=== PATIENT | female | born 1935 | race Caucasian/White ===

== ENCOUNTER 2016-10-02 00:53 | Inpatient (IN) | payer MEDICARE ==
[2016-10-02] MEDS ORDERED: Morphine INJ* 2 MG/ML 1 ML SYRINGE IV ONE (01:55)
[2016-10-02 02:07] LABS: Hematocrit 39 % (35-47); Hemoglobin 12.6 g/dl (12.0-16.0); Mean Corpuscular HGB Conc 32 g/dl (31-36); Mean Corpuscular Hemoglobin 31 pg (27-31); Mean Corpuscular Volume 95 fL (80-97); Mean Platelet Volume 9 um3 (7.4-10.4); Red Blood Count 4.11 10^6/ul (4.0-5.4); Red Cell Distribution Width 14 % (10.5-15); White Blood Count 12.7 10^3/ul (3.5-10.8)
[2016-10-02 02:09] LABS: Add Diff/Slide Review? Slide Review Added; Comments Flag Yes
[2016-10-02 02:19] LABS: Albumin 3.8 g/dL (3.2-5.2); Calcium 10.5 mg/dL (8.6-10.3); EGFR African American 163.2 (>60); EGFR Non-African American 126.9 (>60); Globulin 3.9 g/dL (2-4); Potassium 3.4 mmol/L (3.5-5.0); Total Bilirubin 0.8 mg/dL (0.2-1.0); Total Protein 7.7 g/dL (6.4-8.9)
[2016-10-02] MEDS ORDERED: HYDROcodone/ACETAMIN 5-325 MG* 1 TAB PO PRN (03:35)
[2016-10-02] MEDS ORDERED: Ondansetron INJ* 2 MG/ML VIAL IV PRN ×2 (03:37→20:12)
[2016-10-02] MEDS ORDERED: Acetaminophen TAB* 325 MG PO PRN (03:37)
[2016-10-02] MEDS: Morphine INJ* 2 MG/ML 1 ML SYRINGE IV PRN ×4 (04:04→16:12)
[2016-10-02] MEDS: NS 0.9% 1000 ML* 1,000 ML IV SCH ×3 (04:55→21:13)
[2016-10-02] MEDS: traMADol TAB* 50 MG PO PRN ×2 (05:03→21:47)
[2016-10-02 05:04] LABS: Urine Bacteria Absent (Absent); Urine Bilirubin Negative (Negative); Urine Glucose Negative (Negative); Urine Nitrite Negative (Negative)
[2016-10-02] MEDS ORDERED: Cyclobenzaprine TAB* 10 MG PO PRN (05:49)
[2016-10-02] MEDS ORDERED: Heparin VIAL(*) 5000 UNITS/ML VIAL (FIVE THOUSAND) SUBCUT SCH (06:00)
[2016-10-02] MEDS ORDERED: Cyclobenzaprine TAB* 10 MG ONE (06:12)
[2016-10-02] MEDS ORDERED: amLODIPine TAB* 5 MG ONE (06:12)
[2016-10-02] MEDS: amLODIPine TAB* 5 MG PO SCH ×2 (06:14→08:38)
--- NOTE | 2016-10-02 07:06 | RAD ---
INDICATION: Trauma, right hip pain. COMPARISON: There are no prior studies available for comparison. TECHNIQUE: An AP view of the pelvis and frontal and lateral views of the right hip were obtained. FINDINGS: There is a fracture at the base of the right femoral neck intertrochanteric region. The fracture fragments are slightly distracted. There is varus angulation of the fracture fragments. IMPRESSION: DISPLACED, ANGULATED FRACTURE OF THE RIGHT FEMORAL NECK.
--- NOTE | 2016-10-02 07:09 | RAD ---
INDICATION: Trauma, right hip fracture. COMPARISON: There are no prior studies available for comparison. TECHNIQUE: An AP supine film of the chest was obtained. FINDINGS: The heart appears mildly enlarged. There is elevation of the right hemidiaphragm. There are bilateral nodular densities and a small infiltrate at the left lung base. There is a trace right pleural effusion. IMPRESSION: 1. BILATERAL NODULAR DENSITIES, RECOMMEND A CT OF THE CHEST WITH CONTRAST FOR FURTHER EVALUATION. 2. SMALL LEFT BASILAR INFILTRATE. 3. TRACE RIGHT PLEURAL EFFUSION.
[2016-10-02] MEDS: Cholecalciferol TAB* 1000 UNITS PO SCH (08:38)
[2016-10-02] MEDS: Ascorbic Acid TAB* 500 MG PO SCH (08:38)
[2016-10-02] MEDS: Potassium [Potassium] 99 MG PO SCH ×2 (08:38→21:09)
[2016-10-02] MEDS: Calcium/Vitamin D TAB 250/125* TAB PO SCH (08:38)
--- NOTE | 2016-10-02 09:18 | RAD ---
INDICATION: Traumatic right hip fracture. COMPARISON: Comparison is made with a prior x-ray study of the right hip of the same date. TECHNIQUE: Contiguous axial sections were obtained through the pelvis without intravenous or oral contrast. Images were reconstructed in the coronal and sagittal planes. FINDINGS: The bones are osteopenic. There is a slightly comminuted right intertrochanteric fracture. The fracture fragments are overriding with slight posterior displacement of the distal femur relative to the proximal fragment. There is mild posterior angulation of the distal fragment relative to the proximal fragment and varus angulation of the fracture fragments. Postsurgical changes are noted in the left femoral head and neck. There has been interval removal of a surgical pin. The bones are in normal alignment. Incidental note is made of [id number] bilateral osteoarthritic change in the hips. The visualized portion of the small and large bowel appear nondistended. There is moderate to severe sigmoid diverticulosis without evidence for diverticulitis. No free intraperitoneal air is seen. IMPRESSION: DISPLACED ANGULATED RIGHT INTRATROCHANTERIC FRACTURE.
[2016-10-02] MEDS: Sotalol TAB* 80 MG PO SCH ×2 (10:55→23:18)
[2016-10-02] MEDS ORDERED: Lidocaine 2% PF * 5 ML VIAL ONE ×2 (12:48→17:25)
[2016-10-02] MEDS ORDERED: KETAMINE HCL* 50 MG/ML 10 ML VIAL ONE ×2 (12:48→17:26)
[2016-10-02] MEDS ORDERED: Ondansetron INJ* 2 MG/ML VIAL ONE ×2 (12:48→17:25)
[2016-10-02] MEDS ORDERED: fentaNYL* 50 MCG/ML 2 ML VIAL (100 MCG VIAL) ONE ×3 (12:48→18:42)
[2016-10-02] MEDS ORDERED: Propofol* 10 MG/ML 20 ML BTL IV PUSH ONE ×2 (12:48→17:25)
[2016-10-02] MEDS ORDERED: Midazolam* 1 MG/ML 5 ML VIAL (5 MG) ONE (12:48)
[2016-10-02] MEDS ORDERED: Dexamethasone IV* 4 MG/ML 1 ML (4 MG) ONE ×2 (12:48→17:25)
[2016-10-02] MEDS ORDERED: Phenylephrine INJ* 10 MG/ML 1 ML VIAL (10 MG) ONE (12:49)
[2016-10-02] MEDS ORDERED: ceFAZolin 2 GM PREMIX(*) 0 GM/0 ML BAG IVPB ONE (12:54)
--- NOTE | 2016-10-02 13:57 | HP ---
HISTORY AND PHYSICAL: DATE OF ADMISSION: 10/02/16 CHIEF COMPLAINT: Hip pain. HISTORY OF PRESENT ILLNESS: The patient is an 81-year-old woman who presents to [facility] after she was walking around her house and spilled some water and slipped on the water and fell. She could not get up, so she activated the Life Alert system. Her son was notified, but the ambulance was also notified. By the time her son got there, the ambulance had already taken her away. She complained of hip pain and was found to have a right hip fracture in the ER. The son and daughter note she has been having visual hallucinations lately as well. She has been more confused. They also note her urine has had a foul smell to it as well. 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 PAST SURGICAL HISTORY: Seven bowel surgeries after cholecystectomy. CURRENT MEDICATIONS: 1. Cholecalciferol 1000 units daily. 2. Calcium carbonate with cholecalciferol 1 tablet daily. 3. Ascorbic acid/vitamin C 1000 mg daily. 4. Potassium 99 mg twice daily. 5. Noble 5/325 mg 1 tablet every 8 hours as needed. 6. Docusate 100 mg every 6 hours as needed. 7. Trazodone 200 mg at bedtime. 8. Tramadol 50 mg every 8 hours as needed. 9. Sotalol 80 mg twice daily. 10. Sertraline 200 mg daily. ALLERGIES: She has no drug allergies. FAMILY HISTORY: Mother at 85 of pancreatic cancer. Father at 77 of lung cancer. SOCIAL HISTORY: No tobacco. Ex-alcohol, quit 46 years ago. No recreational drug use. 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 She is a . She has 4 children, her oldest one . Her son Gwyn Cook is her healthcare proxy. REVIEW OF SYSTEMS: A 14-point review of systems was completed with the patient. All pertinent positives and negatives are in the history of present illness, otherwise it is negative. PHYSICAL EXAMINATION GENERAL: A pleasant woman lying in bed, in no acute distress. VITAL SIGNS: Blood pressure 164/77, pulse ox 90% on room air, respiratory rate 16 breaths per minute, heart rate 80 beats per minute, temperature 98.2 degrees. HEENT: Normocephalic and atraumatic. Pupils are equal, round and reactive to light. Moist mucous membranes. NECK: Supple. No JVD, bruits, palpable thyroid or lymphadenopathy. CHEST: Clear to auscultation and percussion bilaterally. CARDIOVASCULAR: S1, S2 appreciated. ABDOMEN: Positive bowel sounds in all 4 quadrants. Soft, nontender, and nondistended. EXTREMITIES: No cyanosis or clubbing. She has got mild bilateral edema, +2 peripheral pulses bilaterally. NEUROLOGIC: Alert and oriented x3. Moves all extremities. SKIN: No distinct abnormalities. LABORATORY DATA: White count 7.7, hemoglobin 12.6, hematocrit 39, platelets 152. Sodium 137, potassium 3.4, chloride 100, CO2 30, BUN 16, creatinine 0.47, glucose 114. INR 1.08. Urine has +2 rbc's, trace wbc's, negative leukocyte esterase. EKG shows normal sinus rhythm at a rate of 81 beats a minute, normal axis, right bundle branch block pattern, no acute ST-T wave changes. Chest x-ray reading pending, hip x-ray shows right hip fracture. ASSESSMENT AND PLAN: 1. Right hip fracture to be managed by Orthopedic Surgery. We will place the patient on heparin, but we will hold if the patient goes to OR this morning. Pain management morphine 2 mg IV q. 2 hours p.r.n. or Tylenol p.r.n. RCRI index for the patient is 0.4%. The patient is acceptable risk for proposed surgery. 2. Osteoporosis. Continue the patient's calcium and vitamin D supplementation. 3. Depression. Stable. Continue Zoloft. 4. Ventricular arrhythmia. This is an unclear history. She has been on the medication for many years, but it was not atrial fibrillation, unclear if the patient really needs to be on sotalol. We will continue for now. 5. Hypertension. The patient's blood pressure has been quite high. We will start amlodipine outpatient. 6. FEN. N.p.o. if the patient should go to surgery. 7. DVT prophylaxis. Heparin which we will start after surgery. If surgery is postponed until tomorrow, then we will start today. 8. The patient is a do not resuscitate. TIME SPENT: Over 80 minutes were spent on this H and P; more than 45 minutes of which was spent in direct uhak-[id number] contact with the patient in evaluation , physical exam, counseling, and coordination of care. CC: Dr. Farheen Martin; Dr. Russell Carreno * [id number]/CPS #: [id number] [facility] SYSTEMAmelia
[2016-10-02] MEDS: Sertraline* 100 MG TAB PO SCH (14:13)
--- NOTE | 2016-10-02 14:54 | PN ---
Subjective Date of Service: 10/02/16 Interval History: Seen and examined prior to surgery discussed with son and daughter Pain in right hip this AM otherwise no complaints No SOB/CP Objective Active Medications: Acetaminophen (Tylenol Tab*) 650 mg PO Q4H PRN PRN Reason: FEVER/PAIN Hydrocodone Bitart/Acetaminophen ([place] 5-325 Tab*) 1 tab PO Q8H PRN PRN Reason: PAIN Amlodipine Besylate (Norvasc Tab*) 5 mg PO DAILY [facility] Last Admin: 10/02/16 08:38 Dose: Not Given Ascorbic Acid (Vitamin C Tab*) 1,000 mg PO DAILY [facility] Last Admin: 10/02/16 08:38 Dose: Not Given Calcium/Vitamin D (Oscal D Tab 250/125*) 2 tab PO DAILY [facility] Last Admin: 10/02/16 08:38 Dose: Not Given Cholecalciferol (Vitamin D Tab*) 1,000 units PO DAILY [facility] Last Admin: 10/02/16 08:38 Dose: Not Given Cyclobenzaprine HCl (Flexeril Tab*) 10 mg PO TID PRN PRN Reason: SPASMS Last Admin: 10/02/16 06:14 Dose: 10 mg Docusate Sodium (Colace Cap*) 100 mg PO Q6H PRN PRN Reason: CONSTIPATION Heparin Sodium (Porcine) (Heparin Vial(*)) 5,000 units SUBCUT Q8H [facility] Sodium Chloride (Ns 0.9% 1000 Ml*) 1,000 mls @ 75 mls/hr IV PER RATE [facility] Last Admin: 10/02/16 14:07 Dose: 75 mls/hr Morphine Sulfate (Morphine Inj (Syringe)*) 2 mg IV Q2H PRN PRN Reason: PAIN Last Admin: 10/02/16 14:10 Dose: 2 mg Potassium [Potassium (] 99 Mg) 99 mg PO BID [facility] Last Admin: 10/02/16 08:38 Dose: Not Given Ondansetron HCl (Zofran Inj*) 4 mg IV Q4H PRN PRN Reason: NAUSEA Sertraline HCl (Zoloft*) 200 mg PO DAILY [facility] Last Admin: 10/02/16 14:13 Dose: Not Given Sotalol HCl (Betapace Tab*) 80 mg PO BID [facility] Last Admin: 10/02/16 10:55 Dose: 80 mg Tramadol HCl (Ultram*) 50 mg PO Q8H PRN PRN Reason: PAIN Last Admin: 10/02/16 05:03 Dose: 50 mg Trazodone HCl (Desyrel Tab*) 200 mg PO BEDTIME [facility] Vital Signs 10/02/16 10/02/16 10/02/16 04:00 04:04 04:15 Temperature Pulse Rate 108 88 Respiratory 18 15 16 Rate Blood Pressure 168/94 164/77 (mmHg) O2 Sat by Pulse 90 90 Oximetry 10/02/16 10/02/16 10/02/16 04:30 04:56 05:00 Temperature 98.3 F Pulse Rate 96 79 Respiratory 18 18 18 Rate Blood Pressure 175/90 177/71 (mmHg) O2 Sat by Pulse 91 92 Oximetry 10/02/16 10/02/16 10/02/16 05:03 05:04 06:14 Temperature Pulse Rate Respiratory 18 18 18 Rate Blood Pressure (mmHg) O2 Sat by Pulse Oximetry 10/02/16 10/02/16 10/02/16 06:58 07:02 07:17 Temperature Pulse Rate 73 Respiratory 18 16 16 Rate Blood Pressure 160/72 (mmHg) O2 Sat by Pulse 89 Oximetry 10/02/16 10/02/16 10/02/16 07:39 07:44 08:00 Temperature Pulse Rate Respiratory 18 18 Rate Blood Pressure (mmHg) O2 Sat by Pulse 96 Oximetry 10/02/16 10/02/16 10/02/16 08:02 14:01 14:10 Temperature Pulse Rate 72 Respiratory 18 16 16 Rate Blood Pressure 159/80 (mmHg) O2 Sat by Pulse 98 Oximetry 10/02/16 14:13 Temperature 99.3 F Pulse Rate Respiratory Rate Blood Pressure (mmHg) O2 Sat by Pulse Oximetry Appearance: appears stated age, NAD Eyes: No Scleral Icterus, PERRLA Ears/Nose/Mouth/Throat: Mucous Membranes Moist, - - edentulous Neck: NL Appearance and Movements; NL JVP, Trachea Midline Respiratory: Symmetrical Chest Expansion and Respiratory Effort, Clear to Auscultation Cardiovascular: - - irregular, soft 1/6 RICKY RUSB Abdominal: NL Sounds; No Tenderness; No Distention, No Hepatosplenomegaly Lymphatic: No Cervical Adenopathy Extremities: No Edema, No Clubbing, Cyanosis, - - right LE everted Neurological: - - AOx2 Result Diagrams: 10/02/16 02:00 05/13/17 02:00 Microbiology and Other Data: Microbiology 10/02/16 05:10 Nasal Screen MRSA (PCR)(JEANNETTE) - Final Nasal Mrsa Negative Assess/Plan/Problems-Billing Assessment: 81 yo F h/o RA, PE, depression presents with pelvic fracture s/p mechanical fall s/o OR 10/02 - Patient Problems (1) Hip fracture Comment: OR 10/[address] Carreno PT eval (2) Hypertension Comment: amlodipine (3) Depression Comment: zoloft (4) Arrhythmia Comment: family reports pt started on sotalol 40 yrs prior for unknown reasons and remains on it today because she felt better taking it (5) Hallucination Comment: reported visual hallucinations (seeing men) and auditory (birds) for 3 weeks prior to presenting. Attention to potential hospital acquired delerium (6) DVT prophylaxis Comment: per surgerical team
--- NOTE | 2016-10-02 16:19 | HP ---
HISTORY AND PHYSICAL: DATE OF ADMISSION: 10/02/16 PROCEDURE: IM nail of the right femur. CHIEF COMPLAINT: Right hip pain. HISTORY OF PRESENT ILLNESS: Ms. Cook is an 81-year-old female who lives at [facility], who fell last night landing on her right leg. She immediately had some right leg pain and was taken to the emergency room and x-rays confirmed a right hip fracture. She was admitted under the hospitalist service and Dr. Carreno was consulted. PAST MEDICAL HISTORY: 1. Short bowel syndrome. 2. Rheumatoid arthritis. 3. Rheumatic fever. 4. Pulmonary embolism. 5. Anemia. 6. Mycobacterial infection of the lung. PAST SURGICAL HISTORY: 1. Bilateral total knee replacements. 2. Left hip surgery, unknown. 3. Cholecystectomy. 4. Multiple abdominal surgeries, unknown. 5. Right shoulder rotator cuff repair. 6. She has metal implant and plate in her lower jaw. CURRENT MEDICATIONS: 1. Sotalol 80 mg twice a day. 2. Sertraline 100 mg two tabs once a day. 3. Tramadol 50 mg 3 times a day as needed. 4. Trazodone 100 mg 2 tabs q.h.s. 5. [place] 5/325 mg as needed. 6. Colace 100 mg 2 to 3 times a day as needed. 7. Potassium twice a day. 8. Vitamin C. 9. Vitamin D3. 10. Calcium plus vitamin D. ALLERGIES: No known drug allergies. FAMILY HISTORY: Unknown. SOCIAL HISTORY: She is an 81-year-old female who resides at [facility]. She is home -bound and walks with the aid of a walker and cane. She does not smoke or use drugs. REVIEW OF SYSTEMS: A complete 14-point review of systems was reviewed. Negative for history of ane sthesia problems, diabetes, thyroid disease, hepatitis C, HIV. Positive for anemia. Positive for pu lmonary embolism. Positive for occasional shortness of breath. She denies chest pain or palpitatio ns. PHYSICAL EXAMINATION GENERAL: She is an 81-year-old female. She is well nourished. She is in no acute distress. She i s alert and oriented. VITAL SIGNS: She stands 4 feet 11 inches tall, weighs about 100 pounds. Her blood pressure is 160/ 72, her heart rate is 73. HEENT: Normocephalic, atraumatic. NECK: Supple. No palpable lymph nodes. PULMONARY: The lungs are clear to auscultation bilaterally. CARDIO: Regular rate and rhythm. ABDOMEN: Soft and nontender. MUSCULOSKELETAL: Right lower extremity, the skin is intact. There are no open wounds or abrasions. The right leg is externally rotated. She has 2+ dorsalis pedis pulses and intact sensation. She is able to move her right foot and toes well. She has good capillary refill. NEUROLOGIC: She is alert and oriented. Cranial nerves II through XII are intact. LABORATORY DATA: X-rays were taken of the right hip, which shows an angulated fracture of the righ t femoral neck. A CT was ultimately completed that also shows a displaced angulated right intertroc hanteric fracture. ASSESSMENT/PLAN: Ms. Cook is an 81-year-old female who fell last night, was brought to the [facility]. X-rays and CT confirmed a right hip fracture. She was admitted under the hospitalist se white and Dr. Carreno was consulted. She has been n.p.o. after midnight and today she is accompanie d by her son and daughter. They have all agreed that surgery is the best option. She would like to proceed with an IM nail of the right femur, which will be completed today. JAMAAL MOULTON [id number]/[facility] #: [id number]
[2016-10-02] MEDS ORDERED: hydrALAZINE IV* 20 MG/ML VIAL IV SLOW PU ONE (17:10)
[2016-10-02] MEDS ORDERED: hydrALAZINE IV* 20 MG/ML VIAL ONE (17:12)
[2016-10-02] MEDS ORDERED: Midazolam* 1 MG/ML 2 ML VIAL (2 MG) ONE (17:26)
[2016-10-02] MEDS ORDERED: ceFAZolin 2 GM PREMIX(*) 2 GM/50 ML BAG IVPB ONE (17:48)
[2016-10-02] MEDS ORDERED: EPHEDrine (Pressors)* 50 MG/ML VIAL ONE (18:18)
[2016-10-02] MEDS ORDERED: Bupivacaine 0.5% W/EPI SDV* 30 ML VIAL ONE (18:49)
[2016-10-02] MEDS ORDERED: fentaNYL* 50 MCG/ML 2 ML VIAL (100 MCG VIAL) IV PRN (20:12)
--- NOTE | 2016-10-02 20:31 | RAD ---
INDICATION: Right hip fracture status post operative reduction. COMPARISON: Comparison is made with a prior x-ray study of the right hip obtained earlier in the same date. TECHNIQUE: 1 minute and 40 seconds of intermitted fluoroscopic were provided and 5 spot films of the right hip were obtained in the operating room. FINDINGS: The films demonstrate placement of an intramedullary lady and gamma nail within the right hip spanning the fracture fragments. The bones appear in normal alignment. IMPRESSION: INTRAOPERATIVE CONTROL FILMS. CPT II Codes: 6045F
[2016-10-02] MEDS: traZODone TAB* 100 MG PO SCH (21:43)
[2016-10-02] MEDS: Heparin VIAL(*) 5000 UNITS/ML VIAL (FIVE THOUSAND) SUBCUT SCH (21:46)
[2016-10-03] MEDS: ceFAZolin 1 GM in Dextrose (*) 1 GM/50 ML BAG IVPB SCH ×3 (02:42→17:57)
[2016-10-03] MEDS: Heparin VIAL(*) 5000 UNITS/ML VIAL (FIVE THOUSAND) SUBCUT SCH ×2 (05:35→14:20)
[2016-10-03] MEDS: NS 0.9% 1000 ML* 1,000 ML IV SCH (06:31)
[2016-10-03] MEDS: traMADol TAB* 50 MG PO PRN ×2 (07:14→22:14)
--- NOTE | 2016-10-03 07:24 | PN ---
Progress Note - Progress Note SOAP: Subjective: pt resting comfortably with improved pain since surgery Objective: Vital Signs Temp Pulse Resp BP Pulse Ox 98.6 F 69 18 126/58 93 10/03/16 02:47 10/03/16 02:47 10/03/16 07:14 10/03/16 02:47 10/03/16 02:47 Laboratory Last Values WBC 12.7 10^3/ul (3.5-10.8) H 10/02/16 02:00 RBC 4.11 10^6/ul (4.0-5.4) 10/02/16 02:00 Hgb 12.6 g/dl (12.0-16.0) 10/02/16 02:00 Hct 39 % (35-47) 10/02/16 02:00 MCV 95 fL (80-97) 10/02/16 02:00 MCH 31 pg (27-31) 10/02/16 02:00 MCHC 32 g/dl (31-36) 10/02/16 02:00 RDW 14 % (10.5-15) 10/02/16 02:00 Plt Count 152 10^3/ul (150-450) 10/02/16 02:00 MPV 9 um3 (7.4-10.4) 10/02/16 02:00 Neut % (Auto) 85.0 % (38-83) H 10/02/16 02:00 Lymph % (Auto) 8.1 % (25-47) L 10/02/16 02:00 Cecil % (Auto) 4.6 % (1-9) 10/02/16 02:00 Eos % (Auto) 1.2 % (0-6) 10/02/16 02:00 Baso % (Auto) 1.1 % (0-2) 10/02/16 02:00 Absolute Neuts (auto) 10.8 10^3/ul (1.5-7.7) H 10/02/16 02:00 Absolute Lymphs (auto) 1.0 10^3/ul (1.0-4.8) 10/02/16 02:00 Absolute Monos (auto) 0.6 10^3/ul (0-0.8) 10/02/16 02:00 Absolute Eos (auto) 0.2 10^3/ul (0-0.6) 10/02/16 02:00 Absolute Basos (auto) 0.1 10^3/ul (0-0.2) 10/02/16 02:00 Absolute Nucleated RBC 0 10^3/ul 10/02/16 02:00 Nucleated RBC % 0 10/02/16 02:00 INR (Anticoag Therapy) 1.08 (0.89-1.11) 10/02/16 02:00 Sodium 137 mmol/L (133-145) 10/02/16 02:00 Potassium 3.4 mmol/L (3.5-5.0) L 10/02/16 02:00 Chloride 100 mmol/L (101-111) L 10/02/16 02:00 Carbon Dioxide 30 mmol/L (22-32) 10/02/16 02:00 Anion Gap 7 mmol/L (2-11) 10/02/16 02:00 BUN 16 mg/dL (6-24) 10/02/16 02:00 Creatinine 0.47 mg/dL (0.51-0.95) L 10/02/16 02:00 Est GFR ( Amer) 163.2 (>60) 10/02/16 02:00 Est GFR (Non-Af Amer) 126.9 (>60) 10/02/16 02:00 BUN/Creatinine Ratio 34.0 (8-20) H 10/02/16 02:00 Glucose 114 mg/dL (70-100) H 10/02/16 02:00 Calcium 10.5 mg/dL (8.6-10.3) H 10/02/16 02:00 Total Bilirubin 0.80 mg/dL (0.2-1.0) 10/02/16 02:00 AST 13 U/L (13-39) 10/02/16 02:00 ALT 11 U/L (7-52) 10/02/16 02:00 Alkaline Phosphatase 91 U/L (34-104) 10/02/16 02:00 Total Protein 7.7 g/dL (6.4-8.9) 10/02/16 02:00 Albumin 3.8 g/dL (3.2-5.2) 10/02/16 02:00 Globulin 3.9 g/dL (2-4) 10/02/16 02:00 Albumin/Globulin Ratio 1.0 (1-3) 10/02/16 02:00 Urine Color Yellow 10/02/16 04:10 Urine Appearance Clear 10/02/16 04:10 Urine pH 6.0 (5-9) 10/02/16 04:10 Ur Specific [place] 1.012 (1.010-1.030) 10/02/16 04:10 Urine Protein Negative (Negative) 10/02/16 04:10 Urine Ketones 1+ (Negative) H 10/02/16 04:10 Urine Blood 1+ (Negative) H 10/02/16 04:10 Urine Nitrate Negative (Negative) 10/02/16 04:10 Urine Bilirubin Negative (Negative) 10/02/16 04:10 Urine Urobilinogen Negative (Negative) 10/02/16 04:10 Ur Leukocyte Esterase Negative (Negative) 10/02/16 04:10 Urine WBC (Auto) Trace(0-5/hpf) (Absent) 10/02/16 04:10 Urine RBC (Auto) 2+(6-10/hpf) (Absent) H 10/02/16 04:10 Urine Bacteria Absent (Absent) 10/02/16 04:10 Urine Glucose Negative (Negative) 10/02/16 04:10 incision: c/d PE:NVI Assessment: s/p ORIF right hip, POD #1 Plan: 1) PT/OT- WBAT 2) Ancef for 24 hours post-op 3) Continue DVT prophylaxis 4) hospitalist co-managing
[2016-10-03 07:52] LABS: Hematocrit 36 % (35-47); Hemoglobin 11.6 g/dl (12.0-16.0)
[2016-10-03 07:53] LABS: Comments Flag Yes
[2016-10-03] MEDS: Ascorbic Acid TAB* 500 MG PO SCH (08:18)
[2016-10-03] MEDS: Docusate CAP* 100 MG PO PRN (08:19)
[2016-10-03] MEDS: Sertraline* 100 MG TAB PO SCH (08:19)
[2016-10-03] MEDS: Cholecalciferol TAB* 1000 UNITS PO SCH (08:19)
[2016-10-03] MEDS: amLODIPine TAB* 5 MG PO SCH (08:19)
[2016-10-03] MEDS: Sotalol TAB* 80 MG PO SCH ×2 (08:19→20:58)
[2016-10-03] MEDS: Calcium/Vitamin D TAB 250/125* TAB PO SCH (08:19)
[2016-10-03 10:18] LABS: BUN/Creatinine Ratio 27.3 (8-20); Calcium 9.1 mg/dL (8.6-10.3); EGFR African American 176.1 (>60); EGFR Non-African American 136.9 (>60); Magnesium 1.5 mg/dL (1.9-2.7); Potassium 3.3 mmol/L (3.5-5.0)
[2016-10-03] MEDS: Potassium [Potassium] 99 MG PO SCH ×2 (10:55→22:09)
[2016-10-03] MEDS ORDERED: Magnesium Sulf 4 GM/100 ML IV* 4,000 MG/100 ML BAG IVPB ONE (10:58)
[2016-10-03] MEDS ORDERED: Potassium Chlor TAB* 20 MEQ TAB.ER PO ONE (10:58)
[2016-10-03] MEDS: HYDROcodone/ACETAMIN 5-325 MG* 1 TAB PO PRN ×2 (11:05→17:15)
[2016-10-03] MEDS ORDERED: NS 0.9% 1000 ML* 1,000 ML IV SCH (15:00)
--- NOTE | 2016-10-03 17:31 | PN ---
Subjective Date of Service: 10/03/16 Interval History: Seen and examined this AM Pain in hip but well controlled with medicine Enjoying breakfast Has no complaints Objective Active Medications: Acetaminophen (Tylenol Tab*) 650 mg PO Q4H PRN PRN Reason: FEVER/PAIN Hydrocodone Bitart/Acetaminophen ([place] 5-325 Tab*) 1 tab PO Q4H PRN PRN Reason: PAIN Last Admin: 10/03/16 17:15 Dose: 1 tab Amlodipine Besylate (Norvasc Tab*) 5 mg PO DAILY [facility] Last Admin: 10/03/16 08:19 Dose: 5 mg Ascorbic Acid (Vitamin C Tab*) 1,000 mg PO DAILY [facility] Last Admin: 10/03/16 08:18 Dose: 1,000 mg Calcium/Vitamin D (Oscal D Tab 250/125*) 2 tab PO DAILY [facility] Last Admin: 10/03/16 08:19 Dose: 2 tab Cholecalciferol (Vitamin D Tab*) 1,000 units PO DAILY [facility] Last Admin: 10/03/16 08:19 Dose: 1,000 units Cyclobenzaprine HCl (Flexeril Tab*) 10 mg PO TID PRN PRN Reason: SPASMS Last Admin: 10/02/16 06:14 Dose: 10 mg Docusate Sodium (Colace Cap*) 100 mg PO Q6H PRN PRN Reason: CONSTIPATION Last Admin: 10/03/16 08:19 Dose: 100 mg Enoxaparin Sodium (Lovenox(*)) 40 mg SUBCUT Q24H [facility] Cefazolin Sodium/Dextrose (Kefzol 1 Gm In Dextrose Duplex (*)) 1 gm in 50 mls @ 200 mls/hr IVPB Q8H [facility] Stop: 10/03/16 18:44 Last Admin: 10/03/16 10:58 Dose: 200 mls/hr Sodium Chloride (Ns 0.9% 1000 Ml*) 1,000 mls @ 100 mls/hr IV PER RATE [facility] Stop: 10/04/16 00:59 Last Admin: 10/03/16 15:00 Dose: 100 mls/hr Morphine Sulfate (Morphine Inj (Syringe)*) 2 mg IV Q2H PRN PRN Reason: PAIN Last Admin: 10/02/16 16:12 Dose: 2 mg Potassium [Potassium (] 99 Mg) 99 mg PO BID [facility] Last Admin: 10/03/16 10:55 Dose: Not Given Ondansetron HCl (Zofran Inj*) 4 mg IV Q4H PRN PRN Reason: NAUSEA Sertraline HCl (Zoloft*) 200 mg PO DAILY [facility] Last Admin: 10/03/16 08:19 Dose: 100 mg Sotalol HCl (Betapace Tab*) 80 mg PO BID [facility] Last Admin: 10/03/16 08:19 Dose: 80 mg Tramadol HCl (Ultram*) 50 mg PO Q8H PRN PRN Reason: PAIN Last Admin: 10/03/16 07:14 Dose: 50 mg Trazodone HCl (Desyrel Tab*) 200 mg PO BEDTIME [facility] Last Admin: 10/02/16 21:43 Dose: Not Given Vital Signs 10/02/16 10/02/16 10/02/16 20:08 20:10 20:15 Temperature 97.9 F Pulse Rate 88 78 86 Respiratory 16 16 19 Rate Blood Pressure 157/78 96/82 162/62 (mmHg) O2 Sat by Pulse 96 97 96 Oximetry 10/02/16 10/02/16 10/02/16 20:20 20:30 21:06 Temperature 97.8 F Pulse Rate 87 84 73 Respiratory 17 18 18 Rate Blood Pressure 148/72 148/68 141/71 (mmHg) O2 Sat by Pulse 94 94 97 Oximetry 10/02/16 10/02/16 10/02/16 21:37 21:47 22:10 Temperature 97.3 F Pulse Rate 73 Respiratory 18 18 18 Rate Blood Pressure 138/60 (mmHg) O2 Sat by Pulse 99 Oximetry 10/02/16 10/02/16 10/02/16 23:16 23:27 23:47 Temperature 98.0 F 97.8 F Pulse Rate 70 73 Respiratory 18 18 18 Rate Blood Pressure 128/60 141/71 (mmHg) O2 Sat by Pulse 96 97 Oximetry 10/03/16 10/03/16 10/03/16 01:22 02:47 04:35 Temperature 98.1 F 98.6 F Pulse Rate 69 69 Respiratory 16 20 16 Rate Blood Pressure 103/63 126/58 (mmHg) O2 Sat by Pulse 92 93 Oximetry 10/03/16 10/03/16 10/03/16 06:34 07:14 07:20 Temperature 98.1 F Pulse Rate 70 Respiratory 16 18 15 Rate Blood Pressure 147/33 (mmHg) O2 Sat by Pulse 98 Oximetry 10/03/16 10/03/16 10/03/16 08:00 08:18 09:14 Temperature Pulse Rate 64 Respiratory 16 16 Rate Blood Pressure 134/60 (mmHg) O2 Sat by Pulse 98 Oximetry 10/03/16 10/03/16 10/03/16 11:05 11:54 12:16 Temperature 98.0 F Pulse Rate 73 Respiratory 16 15 Rate Blood Pressure 128/58 (mmHg) O2 Sat by Pulse 99 Oximetry 10/03/16 10/03/16 10/03/16 13:05 15:32 16:58 Temperature 97.4 F Pulse Rate 72 Respiratory 18 18 Rate Blood Pressure 117/56 (mmHg) O2 Sat by Pulse 98 99 Oximetry 10/03/16 17:15 Temperature Pulse Rate Respiratory 16 Rate Blood Pressure (mmHg) O2 Sat by Pulse Oximetry Oxygen Devices in Use Now: None Appearance: appears stated age, NAD Eyes: No Scleral Icterus, PERRLA Ears/Nose/Mouth/Throat: Clear Oropharnyx, Mucous Membranes Moist, - - edentulous Neck: NL Appearance and Movements; NL JVP, Trachea Midline Respiratory: Symmetrical Chest Expansion and Respiratory Effort, Clear to Auscultation Cardiovascular: RRR, - - 2/6 diastolic murmur LLSB Abdominal: NL Sounds; No Tenderness; No Distention, No Hepatosplenomegaly, - - reducible hernia protruding from right abdominal wall Lymphatic: No Cervical Adenopathy Extremities: No Edema Neurological: Alert and Oriented x 3 Result Diagrams: 10/03/16 07:46 10/03/16 07:46 Microbiology and Other Data: Microbiology 10/02/16 05:10 Nasal Screen MRSA (PCR)(JEANNETTE) - Final Nasal Mrsa Negative Assess/Plan/Problems-Billing Assessment: 81 yo F h/o RA, PE, depression presents with pelvic fracture s/p mechanical fall s/p ORIF 10/02 - Patient Problems (1) Hip fracture Comment: ORIF 10/[address] Carreno PT eval recommending acute PT PMRU eval placed (2) Hypertension Comment: amlodipine (3) Depression Comment: zoloft (4) Arrhythmia Comment: family reports pt started on sotalol 40 yrs prior for unknown reasons and remains on it today because she felt better taking it (5) Hallucination Comment: family reports visual hallucinations (seeing men) and auditory (birds) for 3 weeks prior to presenting. Attention to potential hospital acquired delerium (6) DVT prophylaxis Comment: lovenox 40mg per surgercial team
[2016-10-03] MEDS ORDERED: Enoxaparin(*) 40 MG/0.4 ML SYR SUBCUT SCH (18:00)
[2016-10-03] MEDS ORDERED: Warfarin TAB(*) 2 MG PO SCH (18:00)
[2016-10-03] MEDS: traZODone TAB* 100 MG PO SCH (20:58)
--- NOTE | 2016-10-03 21:51 | OP ---
DATE OF OPERATION: 10/02/16 - ROOM #336 DATE OF : 33 SURGEON: Russell Carreno MD FITTING ROOM ATTENDANT: JAMAAL Juan ANESTHESIOLOGIST: Ever Kirby MD ANESTHESIA: General anesthesia, endotracheal tube, local anesthesia. PRE-OP DIAGNOSIS: Right hip intertrochanteric fracture, displaced. POST-OP DIAGNOSIS: Right hip intertrochanteric fracture, displaced. OPERATIVE PROCEDURE: Open reduction internal fixation, right proximal femur intertrochanteric fracture with intramedullary nail. INDICATIONS: The patient is an 81-year-old woman who lives at the [facility], and is essentially homebound at that shelter, and who moves about with a walker at baseline. The night prior to this procedure, the patient had a fall at home, which resulted in significant pain in the area of the right hip. No other areas of pain. No head injury or loss of consciousness. The patient moved into the area approximately 9 months ago to live closer to her grown adult children, who live in the area, at least two daughters and one son. I discussed benefits, risks, and potential complications of right hip surgery with the patient's children as well as briefly with the patient. One of the patient's daughters, who is her healthcare proxy, signed the appropriate paperwork. Preoperatively, evaluation of the right hip x-rays showed that the patient's right hip fracture was very close between the junction of the femoral neck and the intertrochanteric region. I believe it was an intertrochanteric fracture. However, radiologist described it as base of femoral neck, basicervical fracture and so we both decided that a CT scan might be of value in terms of determining the exact location of the fracture to confirm the appropriacy of intramedullary nail placement. A CT scan confirmed that the proximal piece of bone included just a small amount of bone in the trochanteric region at the base of the femoral neck. ANTIBIOSIS: 1 g Ancef IV. IV FLUIDS: 1000 cc crystalloid. COMPLICATIONS: None. SPECIMENS: None. IMPLANTS: Right hip Yancy Gamma nail, short. Nail was 11 mm x 180 mm x 125 degrees. Lag screw was 10.5 mm x 90 mm. Locking screw 5 mm x 37.5 mm. ESTIMATED BLOOD LOSS: 100 cc. URINE OUTPUT: Silver in place. Nursing not sure of change in urine output over procedure, but urine was clear. DESCRIPTION OF PROCEDURE: Preoperative written consent was obtained from the patient's healthcare proxy, her daughter. Operative extremity was marked in preoperative holding. While the patient was in preoperative holding, and the operating room was being set up, some contaminant was noted in some of the instrumentation by the OR room staff. I looked at the instrumentation myself and made the decision that the instrumentation should be terminally cleaned. The patient returned to her floor bed and then returned to the operating room 4 hours later. The patient was placed supine on operating room fracture table. LMA was placed. It should be noted that during draping, the LMA was changed to endotracheal tube for better access. Silver had already been placed. The fracture table was set up appropriately. C-arm was brought in from contralateral side. A limited amount of traction was applied through the right lower extremity. This beautifully reduced the fracture, taking it out of varus. Looked like reduction was anatomic both on the AP and the lateral views. The right lower extremity was prepped and draped. Surgical time-out was performed. I used a radiopaque object to confirm the level proximal to distal of the proximal tip of the greater trochanter. I used skin marker to delineate the femoral shaft and the greater trochanter. I made a small stab incision 8- cm proximal to the proximal tip of the greater trochanter in line with the femoral shaft access. I placed a threaded pin through that skin hole and placed it down on to the proximal tip of the greater trochanter. Confirmed location with C-arm imaging. I placed the pin through the greater trochanter down into the proximal femur. I adjusted the pin several times to move it more anteriorly, so that it was central in both planes. I then used a #10 blade to cut through the subcutaneous tissue and abductor fascia between my initial stab incision and just proximal to the proximal tip of the greater trochanter. I could palpate the greater trochanter nicely with my digits and confirmed the excellent placement of the pin. I then introduced the proximal entry reamer with its cannula. I reamed the proximal femur. I then exchanged the short wire for a long ball-tipped guidewire. I then placed a Yancy Gamma nail, short. I then removed the ball-tipped guidewire. I then placed a lag pin in the femoral head, aiming to minimize my tip apex distance. Because this intertrochanteric fracture was very close to the base of the femoral neck, I decided to place a derotational threaded pin. I first used the accessory guide that Yancy had for its nail entry devices. Unfortunately, this led to a pin being placed too proximally missing the femoral neck. Therefore, I extended the stab incision just anterior and proximal to the lag pin and placed another pin, free hand, more superior in the femoral neck and head. I liked this placement and it could effectively act as a derotational stabilizing structure. I then reamed over my lag screw pin, measured, and then placed a lag screw. I then placed a set screw proximally through the nail. Prior to placing the set screw, I released traction and compressed with my lag screw. The compression through the lag screw improved reduction and reduction appeared anatomic. I then removed the derotational pin. I then turned more distally and made a skin stab incision and drilled and then placed a locking screw through the distal part of the nail. Removed nail guide entry apparatus. I took final x-rays. Irrigated all wounds. Closed hip abductor fascia with [id number] stitches using Vicryl 0 suture. Closed iliotibial band with the [id number] stitch in the larger of the three distal incisions. Then closed all incisions subcutaneous layer with buried simple stitches using Vicryl 2-0 suture. Closure of skin with yuri. Xeroform, 4x4s, ABDs, and foam tape. The patient was awakened and extubated and taken off the fracture table and transferred to the PACU. DISPOSITION: The patient will be returned to the floor, followed by the hospitalist service to which she is admitted. She will have Lovenox DVT prophylaxis. Pain control. Daily hematocrits for several days. Physical therapy with weight-bearing as tolerated, right lower extremity. The patient will follow up with me in clinic in 10 to 14 days postoperative. [id number]/[facility] #: [id number] NICHOL
[2016-10-04] MEDS: HYDROcodone/ACETAMIN 5-325 MG* 1 TAB PO PRN ×3 (03:24→13:57)
[2016-10-04 06:09] LABS: Hematocrit 31 % (35-47); Mean Corpuscular HGB Conc 32 g/dl (31-36); Mean Corpuscular Hemoglobin 31 pg (27-31); Mean Corpuscular Volume 95 fL (80-97); Mean Platelet Volume 9 um3 (7.4-10.4); Red Blood Count 3.25 10^6/ul (4.0-5.4); Red Cell Distribution Width 14 % (10.5-15); White Blood Count 9.1 10^3/ul (3.5-10.8)
[2016-10-04 06:26] LABS: Calcium 8.7 mg/dL (8.6-10.3); EGFR African American 151.9 (>60); EGFR Non-African American 118.1 (>60); Potassium 3.7 mmol/L (3.5-5.0)
--- NOTE | 2016-10-04 09:18 | PN ---
Progress Note - Progress Note SOAP: Subjective: []Patient seen OOB in chair. C/o mild to moderate hip pain when asked. Denies SOB, dizziness, CP. Objective: [] Vital Signs Temp 98.0 F 10/04/16 07:22 Pulse 67 10/04/16 07:22 Resp 16 10/04/16 08:00 BP 107/45 10/04/16 07:22 Pulse Ox 100 10/04/16 07:22 Intake & Output 10/03/16 10/04/16 10/04/16 18:59 06:59 18:59 Intake Total 1176 1499 Output Total 150 900 Balance 1026 599 Intake: IV Fluids 396 999 ABX - CEFAZOLIN 55 NS 231 999 mg 110 Oral 780 500 Output: Urine 150 500 Silver 400 Laboratory Results - last 24 hr 10/03/16 10/04/16 10/04/16 07:46 05:53 05:56 WBC 9.1 RBC 3.25 L Hgb 10.0 L Hct 31 L MCV 95 MCH 31 MCHC 32 RDW 14 Plt Count 136 L MPV 9 Neut % (Auto) 69.1 Lymph % (Auto) 16.4 L Laurens % (Auto) 11.3 H Eos % (Auto) 2.5 Baso % (Auto) 0.7 Absolute Neuts (auto) 6.3 Absolute Lymphs (auto) 1.5 Absolute Monos (auto) 1.0 H Absolute Eos (auto) 0.2 Absolute Basos (auto) 0.1 Absolute Nucleated RBC 0 Nucleated RBC % 0 INR (Anticoag Therapy) 1.16 H Sodium 138 Potassium 3.3 L Chloride 102 Carbon Dioxide 30 Anion Gap 6 BUN 12 Creatinine 0.44 L Est GFR ( Amer) 176.1 Est GFR (Non-Af Amer) 136.9 BUN/Creatinine Ratio 27.3 H Glucose 134 H Calcium 9.1 Magnesium 1.5 L 10/04/16 05:56 WBC RBC Hgb Hct MCV MCH MCHC RDW Plt Count MPV Neut % (Auto) Lymph % (Auto) Laurens % (Auto) Eos % (Auto) Baso % (Auto) Absolute Neuts (auto) Absolute Lymphs (auto) Absolute Monos (auto) Absolute Eos (auto) Absolute Basos (auto) Absolute Nucleated RBC Nucleated RBC % INR (Anticoag Therapy) Sodium 139 Potassium 3.7 Chloride 106 Carbon Dioxide 31 Anion Gap 2 BUN 14 Creatinine 0.50 L Est GFR ( Amer) 151.9 Est GFR (Non-Af Amer) 118.1 BUN/Creatinine Ratio 28.0 H Glucose 110 H Calcium 8.7 Magnesium 2.0 Patient able to stand with 2 assist and walker Right hip dressing taken down, scant drainage on 4x4, wounds benign New 4x4 and paper tape applied calf non tender and soft +DF/PF right ankle Assessment: []s/p ORIF intertrochanteric right hip fracture POD #2 Plan: []PT/OT WBAT RLE Lovenox of DVT prophylaxis Probable need for rehab
[2016-10-04] MEDS ORDERED: Bisacodyl SUPP* 10 MG SUPP PR PRN (09:20)
[2016-10-04] MEDS ORDERED: Sertraline* 100 MG TAB PO SCH (09:30)
[2016-10-04] MEDS: Ascorbic Acid TAB* 500 MG PO SCH (09:35)
[2016-10-04] MEDS: Docusate CAP* 100 MG PO PRN (09:36)
[2016-10-04] MEDS: Sotalol TAB* 80 MG PO SCH (09:37)
[2016-10-04] MEDS: Calcium/Vitamin D TAB 250/125* TAB PO SCH (09:38)
[2016-10-04] MEDS: Cholecalciferol TAB* 1000 UNITS PO SCH (09:38)
[2016-10-04] MEDS: Potassium [Potassium] 99 MG PO SCH (09:40)
[2016-10-04] MEDS: Sertraline* 100 MG TAB PO SCH (10:45)
[2016-10-04 11:46] VITALS: BP 121/56
[2016-10-04] MEDS ORDERED: Lactulose* 15 ML UDC PO PRN (14:00)
--- NOTE | 2016-10-05 06:46 | TRS ---
DISCHARGE SUMMARY: DATE OF ADMISSION: 10/02/16 DATE OF DISCHARGE: 10/04/16 PRIMARY DIAGNOSIS: Right hip fracture, status post ORIF by Dr. Carreno on 10/03. SECONDARY DIAGNOSES: Include: 1. Rheumatoid arthritis. 2. Hypokalemia. 3. Short bowel syndrome. 4. History of pulmonary embolism. 5. Anemia. 6. History of mycobacterial infection of the lung. MEDICATIONS ON DISCHARGE: 1. Trazodone 200 mg at bedtime. 2. Tramadol 50 mg every 8 hours as needed for pain. 3. Sotalol 80 mg twice daily. 4. Zoloft 200 mg daily. 5. Potassium chloride 20 mEq daily. 6. Hydrocodone/acetaminophen 1 tab every 8 hours as needed for pain. 7. Lovenox 40 mg daily for 30 days. 8. Docusate twice daily as needed. 9. Cholecalciferol 1000 units daily. 10. Calcium with vitamin D 1 tab daily. 11. Ascorbic acid 1000 mg daily. 12. Acetaminophen 650 mg every 4 hours as needed for pain or fever. PERTINENT LABORATORY DATA: Hemoglobin on discharge 10.0. HISTORY OF PRESENT ILLNESS AND HOSPITAL COURSE: This is an 81-year-old female; recently moved to the area to be closer to her son and daughter; had been in her usual state of health; had a mechanical fall, slipped, fell, landing on her right leg; felt immediate pain; found with right hip fracture; went to the OR with Dr. Carreno had an ORIF without complications. The patient did extremely well following the procedure, was accepted into acute rehab and was transferred to [facility] on the day of discharge. The patient is to continue on Lovenox daily for DVT prophylaxis. This was conveyed verbally and in print to the [facility]. Additionally, her potassium was transitioned to potassium chloride. She seems to absorb it better then the previous formulation. There were no complications during the patient's hospital stay. At follow up please; 1. Evaluate for continued resolution of pain and increased mobility. 2. Consider BMP to trend potassium. The patient's family indicates she has had altered mental status in the setting of hypokalemia. 3. No other specific labs or vitals that need followup. TIME SPENT: Greater than 30 minutes was spent on discharge of this patient with greater than half the time spent [id number] with the patient. [id number]/[facility] #: [id number] MTDD
== END 2016-10-04 14:30 | DRG 481 ==
LOC: ED 00:53 → SSU 03:49
PROVIDERS: ADMIT Internal Medicine; ATTEND Internal Medicine
PROC: 0QS636Z Reposition Right Upper Femur with Intramedullary Internal Fixation Device, Percutaneous Approach (ICD-10-PCS; principal; 2016-10-02 11:40)
DX: S72.141A Displaced intertrochanteric fracture of right femur, initial encounter for closed fracture (principal); K91.2 Postsurgical malabsorption, not elsewhere classified; R54 Age-related physical debility; D64.9 Anemia, unspecified; I49.8 Other specified cardiac arrhythmias; M06.9 Rheumatoid arthritis, unspecified; E87.6 Hypokalemia; Z86.711 Personal history of pulmonary embolism; Z96.653 Presence of artificial knee joint, bilateral; F32.9 Major depressive disorder, single episode, unspecified; Z80.0 Family history of malignant neoplasm of digestive organs; Z80.1 Family history of malignant neoplasm of trachea, bronchus and lung; Z87.891 Personal history of nicotine dependence; M81.0 Age-related osteoporosis without current pathological fracture; Y83.8 Other surgical procedures as the cause of abnormal reaction of the patient, or of later complication, without mention of misadventure at the time of the procedure; I10 Essential (primary) hypertension; R44.1 Visual hallucinations; W19.XXXA Unspecified fall, initial encounter; Y92.129 Unspecified place in nursing home as the place of occurrence of the external cause; F41.9 Anxiety disorder, unspecified; M19.90 Unspecified osteoarthritis, unspecified site; Z98.42 Cataract extraction status, left eye; Z98.41 Cataract extraction status, right eye; Z79.01 Long term (current) use of anticoagulants
CPT/HCPCS: 36415; 71010; 72192; 80048; 80053; 81003; 81015; 83735; 85014; 85018; 85025; 85610; 87641; 93005; 94760; A9270-GY; C1713; C1776; J0360; J0690; J1100; J1644; J1650; J2250; J2270; J2405; J2704; J3010

== ENCOUNTER 2016-10-04 11:31 | Inpatient (IN) | payer MEDICARE ==
[2016-10-04] MEDS ORDERED: Acetaminophen TAB* 325 MG PO PRN (16:19)
[2016-10-04] MEDS ORDERED: Bisacodyl SUPP* 10 MG SUPP PR PRN (16:19)
[2016-10-04] MEDS ORDERED: Senna TAB PO PRN (16:19)
[2016-10-04] MEDS ORDERED: HYDROcodone/ACETAMIN 5-325 MG* 1 TAB ONE (16:40)
[2016-10-04] MEDS: Enoxaparin(*) 40 MG/0.4 ML SYR SUBCUT SCH (19:13)
[2016-10-04] MEDS: Calcium/Vitamin D TAB 250/125* TAB PO SCH (20:53)
[2016-10-04] MEDS: Sertraline* 100 MG TAB PO SCH (20:54)
[2016-10-04] MEDS: traZODone TAB* 100 MG PO SCH (20:54)
[2016-10-04] MEDS: Docusate CAP* 100 MG PO SCH (20:54)
[2016-10-04] MEDS: Sotalol TAB* 80 MG PO SCH (20:54)
--- NOTE | 2016-10-04 21:58 | HP ---
INPATIENT HISTORY AND PHYSICAL: DATE OF ADMISSION: 10/04/16 REASON FOR ADMISSION: Right hip fracture. HISTORY OF PRESENT ILLNESS: Ml Cook is an 81-year-old female. She has a medical history significant for rheumatoid arthritis. She also has had a history of PE in the past. She has had bilateral total knee replacements done. She also has had a left hip fracture in the past. She fell in her own apartment landing on her right leg. She had immediate pain. 911 was called and she was brought to the emergency room at [facility]. X-rays were done, which showed a right hip fracture. She had a displaced angulated fracture of the right femoral neck. She was seen by Dr. Carreno. She was taken to the operating room on 10/02/16, the day she had fallen. She underwent an open reduction and internal fixation of her right intertrochanteric fracture with an IM nail. Postoperatively, her course has been benign. She is now being admitted for inpatient rehab so that she might return to independent living. PAST MEDICAL HISTORY: Significant for the aforementioned rheumatoid arthritis, bilateral total knee replacements. The patient states she has had a left hip fracture as well. She has a history of osteoporosis. She has had a pulmonary embolism. 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 CURRENT MEDICATIONS: Include: 1. Vitamin C. 2. Vitamin D. 3. She is on Os-Jose Armando. 4. Zoloft. 5. Betapace. 6. Trazodone. 7. She also takes [place] for pain control and Lovenox for DVT prophylaxis. ALLERGIES: No known drug allergies. SOCIAL HISTORY: She is a nonsmoker, nondrinker. She lives by herself at [facility]. She has 3 children living in the area. It is a 1-story apartment. PHYSICAL EXAMINATION VITAL SIGNS: The patient's temperature is 98.0, blood pressure is 133/60, pulse is 77, respirations 20. HEENT: Her extraocular movements were intact. Tongue is midline. NECK: Supple. LUNGS: Sounded clear to auscultation bilaterally. HEART: Sounds were regular. S1 and S2 are audible. ABDOMEN: Soft and nontender. EXTREMITIES: Her right hip has wounds, which are clean and dry. Peripheral pulses are intact. NEUROLOGIC: She is awake, alert and oriented. Muscle strength is 5/5 in both upper and lower extremities except the right lower extremity, which is 3/5 secondary to pain. FUNCTIONAL EXAM: The patient transfers with moderate assist. ASSESSMENT: Right hip fracture. OUR PLAN: Integrate her into a comprehensive and therapeutic rehab program. We will have the following goals: 1. Physical Therapy will see the patient. They are going to work on functional transfer training, ambulation training with a walker. 2. Occupational Therapy will see the patient and work on her activities of daily living including toileting and toilet transfers. 3. Lovenox for DVT prophylaxis. 4. Adequate analgesia. 5. Her bowels will be regulated. 6. client services director will be closely involved to make sure that any services and equipment that the patient requires are in place prior to discharge. 7. Advanced directives: The patient requests no aggressive treatment in case of medical emergency. She has a MOLST form as well as a healthcare proxy. I have written a DNR order in the chart. 8. Home with appropriate services. ESTIMATED LENGTH OF STAY: 10 to 14 days. [id number]/[facility] #: [id number] NICHOL
[2016-10-05] MEDS: HYDROcodone/ACETAMIN 5-325 MG* 1 TAB PO PRN ×3 (05:46→19:06)
[2016-10-05] MEDS: Calcium/Vitamin D TAB 250/125* TAB PO SCH ×2 (09:49→21:10)
[2016-10-05] MEDS: Docusate CAP* 100 MG PO SCH ×2 (09:49→21:10)
[2016-10-05] MEDS: Sotalol TAB* 80 MG PO SCH ×2 (09:49→21:10)
[2016-10-05] MEDS: Ascorbic Acid TAB* 500 MG PO SCH (09:49)
[2016-10-05] MEDS: Cholecalciferol TAB* 1000 UNITS PO SCH (09:49)
[2016-10-05] MEDS: Sertraline* 100 MG TAB PO SCH ×2 (09:49→21:10)
[2016-10-05] MEDS: traMADol TAB* 50 MG PO PRN (12:08)
--- NOTE | 2016-10-05 12:22 | PMRUTEAM ---
PMRU: Goals Current Status: Nursing: Current Status Skin Deviations [Right Hip] Incision Skin Deviation Description [ yuri Right Hip] Physical Therapy: Current Status Bed Mobility Assistance mod assist Transfer Moblility Assistance min assist Transfer/Bed Mobility Rolling Walker Recommended Devices Ambulation Assistance contact guard 30 feet Ambulation Assistive Devices Rolling Walker Rec Therapy: Current Status Summary of Assessment and Discussed leisure interests and involvement, pt. Clinical Impression is aware of RT services and open to leisure visits . Treatment Goals Pt. will engage in leisure activities while on the unit. Treatment Plan Provide RT services and encourage involvement. Enter RT assessment. Social Work: Current Status Discharge Plan return home with home care svs and family support Potential for Family Training pt's family are supportive and involved Anticipated Discharge Home Destination Discharge With return home with home care svs and family support Nutrition: Current Status Monitoring pt assessed on SSSU 10/04; Coumadin has been d/c' d. Pt initially with low K and mag, which have now corrected. Per family, pt has generally been independent at home, but lately has been less inclined to prepare her own meals, for example. Pt will eat well if food is prepared for her; eating 50-100% of meals here (prefers a diet without red meat). Softer textures needed due to ill-fitting dentures. Family is interested in pursuing Meals on Wheels when pt d/c'd. OCCUPATIONAL THERAPY: CURRENT STATUS: Min Assist toilet transfers, min assist toileting, max assist lower body dressing, set up upper body dressing Goals: Physical Therapy: Initial Goals Bed Mobility Assistance Independent Transfer Mobility Assistance Independent Transfer/Bed Mobility Rolling Walker Recommended Devices Ambulation Independent Ambulation Recommended Devices Rolling Walker Ambulation Distance 150 Stairs Assistance Independent Stair Recommended Devices Two Rails Number of Stairs 5 Physical Therapy: Updated Goals Transfer/Bed Mobility Rolling Walker Recommended Devices Nutrition: Goals Intervention Goals 1. Pt will tolerate least-restrictive diet texture without difficulty chewing 2. Intake will be adequate to maintain UBW (125 +/ - 5#) 3. Pt will maintain regular post-op bowel pattern without constipation Social Work: Goals Discharge Plan return home with home care svs and family support Potential for Family Training pt's family are supportive and involved Anticipated Discharge Home Destination Discharge With return home with home care svs and family support Care Plan: Care Plan Mobility- Improve/Maintain Start: 10/04/16 16:07 Freq: QSHIFT Status: Active Target: Activity Type Activity Date Activity User E-Sign Co-Sign Detail Recorded Client Recorded Date Recorded By Document 10/04/16 16:07 [id number] 10/04/16 16:10 [id number] 10/04/16 16:07 PMRU Outcome: Mobility Physical Therapy Evaluation and Yes Treatment Activity OOB with Assistance Yes WBAT Yes Device Yes Assistance Yes Patient to be seen 5x/wk for 60-120 min/ Therex day for: Mobility Training Gait Training Balance Outcome/Goals Maintain/ Achieve Baseline Mobility Status Improve Mobility Status Demonstrates Proper Use of Assistive Devices Free from Complications of Immobility Bed Mobility Yes: independent Transfers Yes: independent with rolling walker Gait x ft Yes: independent with RW 150' Up/Down Stairs Yes: independent up/ down 4 stairs with B rails. Safety- Improve/Maintain Start: 10/05/16 00:48 Freq: QSHIFT Status: Active Target: Activity Type Activity Date Activity User E-Sign Co-Sign Detail Recorded Client Recorded Date Recorded By Document 10/05/16 00:48 [id number] 10/05/16 00:49 [id number] 10/05/16 00:48 PMRU Outcome: Safety Outcome/Goals Remain Free of Injury or Harm Cooperates with Safety Measures for Least Restrictive Environment Prevent Falls/ Injury Progression Toward Outcome/Goals Progressing Outcome/Goals Met Comment using call stone appropriately Skin- Improve/Maintain Start: 10/05/16 00:48 Freq: QSHIFT Status: Active Target: Activity Type Activity Date Activity User E-Sign Co-Sign Detail Recorded Client Recorded Date Recorded By Document 10/05/16 00:48 [id number] 10/05/16 00:49 [id number] 10/05/16 00:48 PMRU Outcome: Skin Skin Risk Level Low Outcome/Goals Surgical Incisions Healing Progression Toward Outcome/Goals Progressing Medicine Note: Length of Stay: 10 days Anticipated Discharge Destination: Home Tentative Discharge Date: 10/15/16 Discharged to: home
[2016-10-05] MEDS: Enoxaparin(*) 40 MG/0.4 ML SYR SUBCUT SCH (17:49)
[2016-10-05] MEDS: Magnesium Hydroxide LIQ* 30 ML UDC PO PRN (17:57)
[2016-10-05] MEDS: traZODone TAB* 100 MG PO SCH (21:12)
[2016-10-05] MEDS: [UNRECOGNIZED DRUG - OTHER] SWISH SPIT SCH (21:17)
[2016-10-06] MEDS: HYDROcodone/ACETAMIN 5-325 MG* 1 TAB PO PRN ×3 (05:13→14:03)
[2016-10-06] MEDS: Cholecalciferol TAB* 1000 UNITS PO SCH (08:00)
[2016-10-06] MEDS: Sertraline* 100 MG TAB PO SCH ×2 (08:00→20:50)
[2016-10-06] MEDS: Sotalol TAB* 80 MG PO SCH ×2 (08:00→20:48)
[2016-10-06] MEDS: Docusate CAP* 100 MG PO SCH ×2 (08:01→20:58)
[2016-10-06] MEDS: Calcium/Vitamin D TAB 250/125* TAB PO SCH ×2 (08:01→20:47)
[2016-10-06] MEDS: Ascorbic Acid TAB* 500 MG PO SCH (08:01)
[2016-10-06] MEDS: [UNRECOGNIZED DRUG - OTHER] SWISH SPIT SCH ×2 (08:01→20:52)
[2016-10-06] MEDS: Polyethylene Glycol 3350* 17 GM PACKET PO SCH (08:01)
[2016-10-06 09:14] LABS: Hematocrit 34 % (35-47); Mean Corpuscular HGB Conc 33 g/dl (31-36); Mean Corpuscular Hemoglobin 31 pg (27-31); Mean Corpuscular Volume 96 fL (80-97); Mean Platelet Volume 9 um3 (7.4-10.4); Red Blood Count 3.54 10^6/ul (4.0-5.4); Red Cell Distribution Width 14 % (10.5-15)
[2016-10-06 09:31] LABS: Albumin 2.7 g/dL (3.2-5.2); BUN/Creatinine Ratio 20.9 (8-20); Calcium 9.3 mg/dL (8.6-10.3); EGFR African American 180.8 (>60); EGFR Non-African American 140.6 (>60); Globulin 3.5 g/dL (2-4); Potassium 3.7 mmol/L (3.5-5.0); Total Bilirubin 0.5 mg/dL (0.2-1.0); Total Protein 6.2 g/dL (6.4-8.9)
[2016-10-06] MEDS: Enoxaparin(*) 40 MG/0.4 ML SYR SUBCUT SCH (18:55)
[2016-10-06] MEDS: traZODone TAB* 100 MG PO SCH (20:50)
[2016-10-07] MEDS: HYDROcodone/ACETAMIN 5-325 MG* 1 TAB PO PRN ×3 (03:37→13:14)
[2016-10-07] MEDS: Ascorbic Acid TAB* 500 MG PO SCH (08:53)
[2016-10-07] MEDS: Sertraline* 100 MG TAB PO SCH ×2 (08:53→20:07)
[2016-10-07] MEDS: Docusate CAP* 100 MG PO SCH ×2 (08:53→20:07)
[2016-10-07] MEDS: Calcium/Vitamin D TAB 250/125* TAB PO SCH ×2 (08:53→20:07)
[2016-10-07] MEDS: Cholecalciferol TAB* 1000 UNITS PO SCH (08:53)
[2016-10-07] MEDS: Sotalol TAB* 80 MG PO SCH ×2 (08:54→20:07)
[2016-10-07] MEDS: Potassium Chlor TAB* 10 MEQ TAB.ER PO SCH (08:54)
[2016-10-07] MEDS: [UNRECOGNIZED DRUG - OTHER] SWISH SPIT SCH ×2 (08:55→20:08)
[2016-10-07] MEDS: Polyethylene Glycol 3350* 17 GM PACKET PO SCH (08:55)
[2016-10-07] MEDS: Enoxaparin(*) 40 MG/0.4 ML SYR SUBCUT SCH (18:25)
[2016-10-07] MEDS: traZODone TAB* 100 MG PO SCH (20:07)
[2016-10-07] MEDS: Magnesium Hydroxide LIQ* 30 ML UDC PO PRN (20:08)
[2016-10-08] MEDS: HYDROcodone/ACETAMIN 5-325 MG* 1 TAB PO PRN ×4 (01:00→21:21)
[2016-10-08] MEDS: Ascorbic Acid TAB* 500 MG PO SCH (07:43)
[2016-10-08] MEDS: Docusate CAP* 100 MG PO SCH ×2 (07:43→21:23)
[2016-10-08] MEDS: Polyethylene Glycol 3350* 17 GM PACKET PO SCH (07:43)
[2016-10-08] MEDS: Calcium/Vitamin D TAB 250/125* TAB PO SCH ×2 (07:43→21:21)
[2016-10-08] MEDS: Sertraline* 100 MG TAB PO SCH ×2 (07:44→21:21)
[2016-10-08] MEDS: Sotalol TAB* 80 MG PO SCH ×2 (07:44→21:21)
[2016-10-08] MEDS: Cholecalciferol TAB* 1000 UNITS PO SCH (07:44)
[2016-10-08] MEDS: [UNRECOGNIZED DRUG - OTHER] SWISH SPIT SCH ×2 (07:44→21:55)
[2016-10-08] MEDS: Potassium Chlor TAB* 10 MEQ TAB.ER PO SCH (07:44)
[2016-10-08] MEDS: traMADol TAB* 50 MG PO PRN (15:41)
[2016-10-08] MEDS: Enoxaparin(*) 40 MG/0.4 ML SYR SUBCUT SCH (18:02)
[2016-10-08] MEDS: traZODone TAB* 100 MG PO SCH (21:21)
[2016-10-09] MEDS: traMADol TAB* 50 MG PO PRN ×3 (04:01→21:28)
[2016-10-09] MEDS: Polyethylene Glycol 3350* 17 GM PACKET PO SCH (09:04)
[2016-10-09] MEDS: Calcium/Vitamin D TAB 250/125* TAB PO SCH ×2 (09:05→20:55)
[2016-10-09] MEDS: Ascorbic Acid TAB* 500 MG PO SCH (09:05)
[2016-10-09] MEDS: Potassium Chlor TAB* 10 MEQ TAB.ER PO SCH (09:05)
[2016-10-09] MEDS: Cholecalciferol TAB* 1000 UNITS PO SCH (09:05)
[2016-10-09] MEDS: Docusate CAP* 100 MG PO SCH ×2 (09:05→20:56)
[2016-10-09] MEDS: Sotalol TAB* 80 MG PO SCH ×2 (09:05→20:56)
[2016-10-09] MEDS: Sertraline* 100 MG TAB PO SCH ×2 (09:05→20:56)
[2016-10-09] MEDS: HYDROcodone/ACETAMIN 5-325 MG* 1 TAB PO PRN (09:05)
[2016-10-09] MEDS: [UNRECOGNIZED DRUG - OTHER] SWISH SPIT SCH ×2 (09:07→21:42)
[2016-10-09] MEDS: Enoxaparin(*) 40 MG/0.4 ML SYR SUBCUT SCH (16:30)
[2016-10-09] MEDS: traZODone TAB* 100 MG PO SCH (21:27)
[2016-10-10] MEDS: Docusate CAP* 100 MG PO SCH ×2 (08:42→21:33)
[2016-10-10] MEDS: Sotalol TAB* 80 MG PO SCH ×2 (08:42→21:33)
[2016-10-10] MEDS: Calcium/Vitamin D TAB 250/125* TAB PO SCH ×2 (08:43→21:33)
[2016-10-10] MEDS: Ascorbic Acid TAB* 500 MG PO SCH (08:43)
[2016-10-10] MEDS: Polyethylene Glycol 3350* 17 GM PACKET PO SCH (08:43)
[2016-10-10] MEDS: Cholecalciferol TAB* 1000 UNITS PO SCH (08:43)
[2016-10-10] MEDS: Potassium Chlor TAB* 10 MEQ TAB.ER PO SCH (08:43)
[2016-10-10] MEDS: [UNRECOGNIZED DRUG - OTHER] SWISH SPIT SCH ×2 (08:43→21:38)
[2016-10-10] MEDS: Sertraline* 100 MG TAB PO SCH ×2 (08:43→21:33)
[2016-10-10] MEDS: traMADol TAB* 50 MG PO PRN (13:52)
[2016-10-10] MEDS: Enoxaparin(*) 40 MG/0.4 ML SYR SUBCUT SCH (16:19)
[2016-10-10] MEDS: traZODone TAB* 100 MG PO SCH (21:33)
[2016-10-10] MEDS: HYDROcodone/ACETAMIN 5-325 MG* 1 TAB PO PRN (21:37)
[2016-10-11] MEDS: Cholecalciferol TAB* 1000 UNITS PO SCH (09:57)
[2016-10-11] MEDS: Ascorbic Acid TAB* 500 MG PO SCH (09:57)
[2016-10-11] MEDS: Sertraline* 100 MG TAB PO SCH ×2 (09:57→21:32)
[2016-10-11] MEDS: Sotalol TAB* 80 MG PO SCH ×2 (09:57→21:32)
[2016-10-11] MEDS: Potassium Chlor TAB* 10 MEQ TAB.ER PO SCH (09:57)
[2016-10-11] MEDS: Calcium/Vitamin D TAB 250/125* TAB PO SCH ×2 (09:57→21:31)
[2016-10-11] MEDS: HYDROcodone/ACETAMIN 5-325 MG* 1 TAB PO PRN ×2 (09:57→22:01)
[2016-10-11] MEDS: [UNRECOGNIZED DRUG - OTHER] SWISH SPIT SCH ×3 (10:01→20:08)
[2016-10-11] MEDS: Docusate CAP* 100 MG PO SCH ×2 (10:01→21:32)
[2016-10-11] MEDS: Polyethylene Glycol 3350* 17 GM PACKET PO SCH (10:01)
[2016-10-11] MEDS: Enoxaparin(*) 40 MG/0.4 ML SYR SUBCUT SCH (17:45)
[2016-10-11] MEDS: traZODone TAB* 100 MG PO SCH (21:33)
[2016-10-12] MEDS: Calcium/Vitamin D TAB 250/125* TAB PO SCH ×2 (08:11→20:04)
[2016-10-12] MEDS: Potassium Chlor TAB* 10 MEQ TAB.ER PO SCH (08:11)
[2016-10-12] MEDS: Ascorbic Acid TAB* 500 MG PO SCH (08:11)
[2016-10-12] MEDS: Cholecalciferol TAB* 1000 UNITS PO SCH (08:11)
[2016-10-12] MEDS: Sertraline* 100 MG TAB PO SCH ×2 (08:12→20:05)
[2016-10-12] MEDS: HYDROcodone/ACETAMIN 5-325 MG* 1 TAB PO PRN ×3 (08:12→21:57)
[2016-10-12] MEDS: Sotalol TAB* 80 MG PO SCH ×2 (08:12→20:04)
[2016-10-12] MEDS: Docusate CAP* 100 MG PO SCH ×2 (08:12→20:04)
[2016-10-12] MEDS: [UNRECOGNIZED DRUG - OTHER] SWISH SPIT SCH ×2 (08:17→20:08)
[2016-10-12] MEDS: Polyethylene Glycol 3350* 17 GM PACKET PO SCH (08:18)
--- NOTE | 2016-10-12 12:56 | PMRUTEAM ---
PMRU: Goals Current Status: Nursing: Current Status Skin Deviations [Coccyx] Other Skin Deviations [Right Hip] Incision Skin Deviation Description [ red and sore. lotion applied. Coccyx] air mattress also applied to bed Skin Deviation Description [ incisions x3 intact with clips and open to air Right Hip] Bladder Current Status wears depends. occasional incontinence Bowel Current Status took colace this am but declined miralax. last bm 10/11/16 Nutrition Current Status adequate Medication Current Status PRN Taylor and Ultram given for pain control Physical Therapy: Current Status Bed Mobility Assistance Not Tested Transfer Moblility Assistance Supervision Transfer/Bed Mobility Rolling Walker Recommended Devices Transfer Mobility Comment Pt. now using a 4 w/w for transfers and amb Ambulation Assistance Supervision Ambulation Assistive Devices Rolling Walker Number of Feet Patient 50 Ambulated Ambulation Comment Pt. a bit unsteady using 4 w/w. Needs more practice. Stairs Assistance Supervision Stairs Recommended Devices Two Rails Number of Stairs 5 Objective Comments Pt used both railings for stairs. Had to be cued to take one step at a time going up the half steps . Going down the 2 normal steps she did one foot at a time Occupational Therapy: Current Status Upper Body Dressing Supervision Lower Body Dressing Supervision Bathing Supervision Toileting Supervision Toileting Progress Rollator for clothing management Toilet Transfer Supervision Toilet Transfer Progress Rollator to OTC Shower Transfer Supervision Shower Transfer Progress SPT w/c to shower bench Eating Ind with Adaptive Equip Eating Progress Pt use of dentures Instrumental ADL Pt able to start small meal prep of oatmeal. Pt able to stand at sink to wash dishes. Rec Therapy: Current Status Summary of Assessment and RT assessment complete and pt. is aware of Clinical Impression services. Pt. is social and interactive during leisure visits. Treatment Goals Pt. will engage in leisure activities while on the unit. Treatment Plan Provide RT services and encourage involvement. Social Work: Current Status Discharge Plan return home to [facility] with home care svs and family support Potential for Family Training TBD Anticipated Discharge Home Destination Discharge With VNS and family support Nutrition: Current Status Monitoring continues to eat well, generally accepting 75-95% of meals (prefers a diet without red meat). Soft textures needed d/t some chewing difficulty; evaluated by GASTROENTEROLOGY TEACHER 10/07 with recommendations for soft solids, thin liquids. Bowel pattern near daily. Appears to be meeting goals as outlined below. Goals: Physical Therapy: Initial Goals Bed Mobility Assistance Independent Transfer Mobility Assistance Independent Transfer/Bed Mobility Rolling Walker Recommended Devices Ambulation Independent Ambulation Recommended Devices Rolling Walker Ambulation Distance 150 Stairs Assistance Independent Stair Recommended Devices Two Rails Number of Stairs 5 Physical Therapy: Updated Goals Bed Mobility Assistance Independent Transfer Mobility Assistance Independent Transfer/Bed Mobility Rolling Walker Recommended Devices Ambulation Assistance Independent Ambulation Assistive Devices Rolling Walker Ambulation Distance (ft) 150 Stairs Assistance Independent Stairs Recommended Devices Two Rails Number of Stairs 5 Occupational Therapy: Initial Goals Goals to be Completed in (Days 10 ) Upper Body Bathing Routine Independent Lower Body Bathing Routine Modified Independent with Upper Body Dressing Routine Independent Lower Body Dressing Routine Modified Independent with Toilet Hygeine and Clothing Modified Independent with Management Routine Toilet Transfer Routine Modified Independent with Step-In Shower Transfer Modified Independent with Routine Functional Transfers for ADL Independent Grooming Routine Independent Feeding Routine Independent Light Housekeeping Tasks Modified Independent with Nursing: Goals Bladder Goal independent Bowel Goal independent Nutrition Goal 100% of meals Medication Goal independent Nutrition: Goals Intervention Goals 1. Pt will tolerate least-restrictive diet texture without difficulty chewing 2. Intake will be adequate to maintain UBW (125 +/ - 5#) 3. Pt will maintain regular post-op bowel pattern without constipation Social Work: Goals Discharge Plan return home to [facility] with home care svs and family support Potential for Family Training TBD Anticipated Discharge Home Destination Discharge With VNS and family support Care Plan: Care Plan ADL's - Improve/Maintain Start: 10/05/16 15:35 Freq: DAILY Status: Active Target: Activity Type Activity Date Activity User E-Sign Co-Sign Detail Recorded Client Recorded Date Recorded By Document 10/11/16 15:14 [id number] 10/11/16 15:14 [id number] 10/11/16 15:14 PMRU Outcome: ADL's/ADL Transfers Orders/Interventions Occupational Therapy Evaluation & Treatment Communication Tool in Patient Room Device Yes Address Deficits Secondary To: Right hip ORIF Patient to receive OT 5x/wk for 60-120 Therex min/day Self Care Management Group Therapy UE/LE ADL's with Assist Yes: Orin ADL Transfers with Assist Yes: Orin Toileting: Transfers,Clothing Management Yes: Orin ,Hygeine w/Assist Light Kitchen/Laundry w/Assist Yes: Orin Progression Toward Outcome/Goals Progressing Outcome/Goals Met Pt progressing towards goals. Pt able to participate in IADL tasks today including small meal prep and washing dishes. Coping/Psych-Improve/Maintain Start: 10/05/16 14:14 Freq: DAILY Status: Complete Target: Activity Type Activity Date Activity User E-Sign Co-Sign Detail Recorded Client Recorded Date Recorded By Document 10/12/16 09:19 [id number] 10/12/16 09:20 [id number] 10/12/16 09:19 PMRU Outcome: Coping/Psychosocial Coping Outcome/Goals Verbalization of Acceptance of Rehab Admit Verbalization of Sense of Control Over Health Status Utilization of Appropriate Problem Solving Techniques Willingness to Participate in Treatment Plan and Basic Needs Utilization of Available Support Systems Absence of Destructive Behavior to Self/Others Psychosocial Outcome/Goals Maintain/ Improve Emotional Health Demonstrates Knowledge of Healthy Coping Mechanisms Available Cooperate/ Participate in Plan Progression Toward Outcome/Goals - Progressing Coping Progression Toward Outcome/Goals - Progressing Psychosocial Coping Outcome/Goals Met Demonstrates Understanding of Rehab Admit and Goal Setting Process Psychosocial Outcome/Goals Met Maintain/ Improved Emotional Health Demonstrated Knowledge of Healthy Coping Mechanisms Available DVT Prophylaxis- Improve/Maintain Start: 10/05/16 14:14 Freq: DAILY Status: Complete Target: Activity Type Activity Date Activity User E-Sign Co-Sign Detail Recorded Client Recorded Date Recorded By Document 10/12/16 09:19 [id number] 10/12/16 09:20 [id number] 10/12/16 09:19 PMRU Outcome: DVT Prophylaxis Outcome/Goals Remains Free of DVT Complies with DVT Prophylaxis /Treatment Demonstrates Knowledge of DVT Prevention/ Treatment TEDS Stockings on Every AM, Off at HS Other Outcome/Goals Pt wears TEDs Progression Toward Outcome/Goals Progressing Outcome/Goals Met Remains Free of DVT Complies with DVT Prophylaxis /Treatment Demonstrates Knowledge of DVT Prevention/ Treatment TEDS Stockings on Every AM, Off at HS Discharge Planning - Improve/Maintain Start: 10/05/16 14:14 Freq: DAILY Status: Active Target: Activity Type Activity Date Activity User E-Sign Co-Sign Detail Recorded Client Recorded Date Recorded By Document 10/12/16 04:44 [id number] 10/12/16 04:45 [id number] 10/12/16 04:44 PMRU Outcome: Discharge Planning Identify Patient Needs yes Update Patient Family No Outcome/Goals Demonstrates Understanding of Discharge Plan Progression Toward Outcome/Goals Progressing Education-Improve/Maintain Start: 10/05/16 14:14 Freq: DAILY Status: Active Target: Activity Type Activity Date Activity User E-Sign Co-Sign Detail Recorded Client Recorded Date Recorded By Document 10/12/16 09:19 [id number] 10/12/16 09:20 [id number] 10/12/16 09:19 PMRU Outcome: Education Outcome/Goals Demonstrate/ Verbalize Understanding of Written Discharge Instructions Demonstrates Skills Encourage Questions Progression Toward Outcome/Goals Progressing /GI-Improve/Maintain Start: 10/05/16 14:14 Freq: DAILY Status: Active Target: Activity Type Activity Date Activity User E-Sign Co-Sign Detail Recorded Client Recorded Date Recorded By Document 10/12/16 09:19 [id number] 10/12/16 09:20 [id number] 10/12/16 09:19 PMRU Outcome: Genitourinary/ Gastrointestinal Genitourinary- Outcome/Goals Maintain/ Achieve Urinary Continence Maintain/ Achieve Adequate Urinary Output Remain Free of Hospital- Acquired UTI Gastrointestinal-Outcome/Goals Maintain/ Achieve Bowel Regularity in Accordance with Pt's Baseline Remain Free of Emesis Prevent Constipation Bowel Regularity at Home Laxatives as Ordered Progression Toward Outcome/Goals - Progressing Progression Toward Outcome/Goals - GI Progressing Mobility- Improve/Maintain Start: 10/04/16 16:07 Freq: DAILY Status: Active Target: Activity Type Activity Date Activity User E-Sign Co-Sign Detail Recorded Client Recorded Date Recorded By Document 10/11/16 12:19 [id number] [email or web address] 10/11/16 12:19 [id number] 10/11/16 12:19 PMRU Outcome: Mobility Physical Therapy Evaluation and Yes Treatment Activity OOB with Assistance Yes WBAT Yes Device Yes Assistance Yes Patient to be seen 5x/wk for 60-120 min/ Therex day for: Mobility Training Gait Training Balance Outcome/Goals Maintain/ Achieve Baseline Mobility Status Improve Mobility Status Demonstrates Proper Use of Assistive Devices Free from Complications of Immobility Progression Toward Outcome/Goals Progressing Bed Mobility Yes: independent Transfers Yes: independent with rolling walker Gait x ft Yes: independent with RW 150' Up/Down Stairs Yes: independent up/ down 4 stairs with B rails. Pain/Comfort- Improve/Maintain Start: 10/05/16 14:14 Freq: DAILY Status: Active Target: Activity Type Activity Date Activity User E-Sign Co-Sign Detail Recorded Client Recorded Date Recorded By Document 10/12/16 09:19 [id number] 10/12/16 09:20 [id number] 10/12/16 09:19 PMRU Outcome: Pain/Comfort Outcome/Goals Demonstrates Knowledge and Use of Available Comfort Measures Achieves Acceptable Comfort/Pain Level as Determined by Patient/Condit Maintain Comfort Level Allowing Patient to Fully Participate in Rehab Progression Toward Outcome/Goals Progressing Safety- Improve/Maintain Start: 10/05/16 00:48 Freq: DAILY Status: Active Target: Activity Type Activity Date Activity User E-Sign Co-Sign Detail Recorded Client Recorded Date Recorded By Document 10/12/16 09:19 [id number] 10/12/16 09:20 [id number] 10/12/16 09:19 PMRU Outcome: Safety Outcome/Goals Remain Free of Injury or Harm Cooperates with Safety Measures for Least Restrictive Environment Prevent Falls/ Injury Progression Toward Outcome/Goals Progressing Outcome/Goals Met Comment using call stone appropriately Skin- Improve/Maintain Start: 10/05/16 00:48 Freq: DAILY Status: Active Target: Activity Type Activity Date Activity User E-Sign Co-Sign Detail Recorded Client Recorded Date Recorded By Document 10/12/16 09:19 [id number] 10/12/16 09:20 [id number] 10/12/16 09:19 PMRU Outcome: Skin Skin Risk Level Low Outcome/Goals Maintain/ Improve Skin Intergrity Surgical Incisions Healing Progression Toward Outcome/Goals Progressing Medicine Note: Length of Stay: 3 days Anticipated Discharge Destination: Home Tentative Discharge Date: 10/15/16 Discharged to: home
[2016-10-12] MEDS: Enoxaparin(*) 40 MG/0.4 ML SYR SUBCUT SCH (18:30)
[2016-10-12] MEDS: traZODone TAB* 100 MG PO SCH (21:57)
[2016-10-13 06:37] LABS: Hematocrit 29 % (35-47); Hemoglobin 9.6 g/dl (12.0-16.0); Mean Corpuscular HGB Conc 33 g/dl (31-36); Mean Corpuscular Hemoglobin 31 pg (27-31); Mean Corpuscular Volume 96 fL (80-97); Mean Platelet Volume 9 um3 (7.4-10.4); Red Blood Count 3.06 10^6/ul (4.0-5.4); Red Cell Distribution Width 15 % (10.5-15); White Blood Count 8.7 10^3/ul (3.5-10.8)
[2016-10-13 06:52] LABS: Albumin 2.6 g/dL (3.2-5.2); BUN/Creatinine Ratio 30.4 (8-20); Calcium 9.5 mg/dL (8.6-10.3); EGFR African American 167.3 (>60); EGFR Non-African American 130.1 (>60); Globulin 3.2 g/dL (2-4); Potassium 4.1 mmol/L (3.5-5.0); Total Bilirubin 0.5 mg/dL (0.2-1.0); Total Protein 5.8 g/dL (6.4-8.9)
[2016-10-13] MEDS: Sotalol TAB* 80 MG PO SCH ×2 (08:34→21:28)
[2016-10-13] MEDS: Polyethylene Glycol 3350* 17 GM PACKET PO SCH (08:34)
[2016-10-13] MEDS: Potassium Chlor TAB* 10 MEQ TAB.ER PO SCH (08:35)
[2016-10-13] MEDS: Cholecalciferol TAB* 1000 UNITS PO SCH (08:35)
[2016-10-13] MEDS: Sertraline* 100 MG TAB PO SCH ×2 (08:35→21:29)
[2016-10-13] MEDS: Docusate CAP* 100 MG PO SCH ×2 (08:35→21:29)
[2016-10-13] MEDS: HYDROcodone/ACETAMIN 5-325 MG* 1 TAB PO PRN ×3 (08:35→21:35)
[2016-10-13] MEDS: Calcium/Vitamin D TAB 250/125* TAB PO SCH ×2 (08:35→21:28)
[2016-10-13] MEDS: Ascorbic Acid TAB* 500 MG PO SCH (08:35)
[2016-10-13] MEDS: [UNRECOGNIZED DRUG - OTHER] SWISH SPIT SCH ×2 (08:36→21:08)
[2016-10-13] MEDS: Enoxaparin(*) 40 MG/0.4 ML SYR SUBCUT SCH (18:06)
[2016-10-13] MEDS ORDERED: Warfarin TAB(*) 2.5 MG PO ONE (21:00)
[2016-10-13] MEDS: traZODone TAB* 100 MG PO SCH (21:29)
[2016-10-14] MEDS: Calcium/Vitamin D TAB 250/125* TAB PO SCH ×2 (08:22→21:54)
[2016-10-14] MEDS: Potassium Chlor TAB* 10 MEQ TAB.ER PO SCH (08:22)
[2016-10-14] MEDS: Sertraline* 100 MG TAB PO SCH ×2 (08:22→21:54)
[2016-10-14] MEDS: Sotalol TAB* 80 MG PO SCH ×2 (08:22→21:54)
[2016-10-14] MEDS: Docusate CAP* 100 MG PO SCH ×2 (08:22→21:54)
[2016-10-14] MEDS: Cholecalciferol TAB* 1000 UNITS PO SCH (08:22)
[2016-10-14] MEDS: Polyethylene Glycol 3350* 17 GM PACKET PO SCH (08:22)
[2016-10-14] MEDS: Ascorbic Acid TAB* 500 MG PO SCH (08:22)
[2016-10-14] MEDS: HYDROcodone/ACETAMIN 5-325 MG* 1 TAB PO PRN ×3 (08:23→21:55)
[2016-10-14] MEDS: [UNRECOGNIZED DRUG - OTHER] SWISH SPIT SCH ×2 (08:28→20:15)
[2016-10-14] MEDS ORDERED: Warfarin TAB(*) 2 MG PO ONE (17:00)
[2016-10-14] MEDS: Enoxaparin(*) 40 MG/0.4 ML SYR SUBCUT SCH (17:47)
[2016-10-14] MEDS: traZODone TAB* 100 MG PO SCH (21:54)
[2016-10-15 05:39] VITALS: BP 135/44
[2016-10-15] MEDS: Polyethylene Glycol 3350* 17 GM PACKET PO SCH (07:59)
[2016-10-15] MEDS: Sotalol TAB* 80 MG PO SCH (08:00)
[2016-10-15] MEDS: Docusate CAP* 100 MG PO SCH (08:00)
[2016-10-15] MEDS: Ascorbic Acid TAB* 500 MG PO SCH (08:00)
[2016-10-15] MEDS: Calcium/Vitamin D TAB 250/125* TAB PO SCH (08:00)
[2016-10-15] MEDS: Potassium Chlor TAB* 10 MEQ TAB.ER PO SCH (08:00)
[2016-10-15] MEDS: HYDROcodone/ACETAMIN 5-325 MG* 1 TAB PO PRN ×2 (08:00→12:59)
[2016-10-15] MEDS: Cholecalciferol TAB* 1000 UNITS PO SCH (08:00)
[2016-10-15] MEDS: Sertraline* 100 MG TAB PO SCH (08:00)
[2016-10-15] MEDS: [UNRECOGNIZED DRUG - OTHER] SWISH SPIT SCH (08:38)
[2016-10-15] MEDS ORDERED: Warfarin TAB(*) 2 MG PO SCH (17:00)
[2016-10-15] MEDS ORDERED: Warfarin TAB(*) 4 MG PO SCH (17:00)
--- NOTE | 2016-10-16 10:07 | DS ---
DISCHARGE SUMMARY: DATE OF ADMISSION: 10/04/16 DATE OF DISCHARGE: 10/15/16 DISCHARGE DIAGNOSES: 1. Right hip fracture. 2. Rheumatoid arthritis. 3. Osteoporosis. 4. Bilateral knee replacements, remote. 5. Left hip fracture, remote. HISTORY OF ILLNESS AND HOSPITAL COURSE: For complete history of the events leading up to her rehab stay, please see the history and physical dictated by me on 10/04/16. While on the rehab unit, the patient was fairly stable from a medical point of view. She was maintained on Lovenox for DVT prophylaxis. This was changed to Coumadin prior to discharge. The patient's wound healed well. Her yuri were able to be removed prior to discharge. Steri-Strips were applied. She was otherwise medically stable. She was seen by Physical and Occupational Therapy and made good gains with both disciplines. With physical therapy at the time of admission, the patient required supervision to do transfers and supervision for ambulation. She was noted to have some difficulties ambulating far. With occupational therapy, she was contact guard to min assist for toileting and toilet transfers. By the time of discharge, the patient was independent transfers, independent ambulating 150 feet with a rolling walker, independent going up and down 5 steps with bilateral rails, independent with toileting and independent with toilet transfers. She was discharged home on 10/15/16. DISCHARGE DIET: Regular. DISCHARGE MEDICATIONS: Included: 1. Os-Jose Armando D one tablet twice a day. 2. Peridex mouth wash 15 cc, swish and spit twice daily. 3. Satin 5/325 one tablet every 4 hours as needed. 4. MiraLAX 17 g in water every day. 5. Zoloft 100 mg twice daily. 6. Betapace 80 mg twice daily. 7. Tramadol 50 mg every 6 hours as needed. 8. Coumadin 4 mg daily. SERVICES AFTER DISCHARGE: Through the visiting nurse service. She will have home nursing, home physical therapy, and home health aide. FOLLOWUP: Follow up with Dr. Carreno in 1 to 2 weeks as well as with her primary care doctor, Dr. Farheen Martin. CC: Dr. Farheen Martin* [id number]/[facility] #: [id number] MTDD
== END 2016-10-15 13:30 | disposition home health service (06) | DRG 561 ==
LOC: PMRU 14:35
PROVIDERS: ADMIT Physical Medicine & Rehabilitation; ATTEND Physical Medicine & Rehabilitation
PROC: F07Z5ZZ Bed Mobility Treatment (ICD-10-PCS; principal; 2016-10-04)
PROC: F07Z9ZZ Gait Training/Functional Ambulation Treatment (ICD-10-PCS; 2016-10-04)
PROC: F07Z8ZZ Transfer Training Treatment (ICD-10-PCS; 2016-10-04)
PROC: F08Z0ZZ Bathing/Showering Techniques Treatment (ICD-10-PCS; 2016-10-04)
PROC: F08Z1ZZ Dressing Techniques Treatment (ICD-10-PCS; 2016-10-04)
PROC: F08Z3ZZ Feeding/Eating Treatment (ICD-10-PCS; 2016-10-04)
DX: S72.141D Displaced intertrochanteric fracture of right femur, subsequent encounter for closed fracture with routine healing (principal); M06.9 Rheumatoid arthritis, unspecified; W18.30XD Fall on same level, unspecified, subsequent encounter; M81.0 Age-related osteoporosis without current pathological fracture; Z96.653 Presence of artificial knee joint, bilateral; Z87.81 Personal history of (healed) traumatic fracture; Z86.711 Personal history of pulmonary embolism; Z79.899 Other long term (current) drug therapy; Z66 Do not resuscitate
CPT/HCPCS: 36415; 80053; 85025; 85610; A9270-GY; J1650

== ENCOUNTER 2018-01-08 13:31 | Inpatient (IN) | payer MEDICARE ==
[2018-01-08] MEDS ORDERED: Tranexamic Acid 1,000 MG/10 ML SDV IV ONE (14:18)
[2018-01-08] MEDS ORDERED: NS 0.9% 1000 ML* 1,000 ML IV ONE (14:30)
--- NOTE | 2018-01-08 14:33 | ED ---
Head Injury - HPI Summary HPI Summary: Pt. is in 82 on female who presents emergency department for a fall and scalp laceration that occurred just prior to arrival. Patient resides at an independent apartment living complex. Patient states she is unsure why she fell today. She denies recent illness, chest pain, shortness of breath, abdominal pain, vomiting, diarrhea or urinary symptoms. Past medical history of depression and hypertension. Patient denies being anticoagulated. Symptoms are moderate in severity. No current modifying factors. Patient's family member who is present states she's been falling more frequently lately. Patient typically ambulates with a walker. 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 - Allergies/Home Medications Allergies/Adverse Reactions: Allergies Allergy/AdvReac Type Severity Reaction Status Date / Time No Known Allergies Allergy Verified 10/02/16 01:40 PMH/Surg Hx/FS Hx/Imm Hx Previously Healthy: Yes Endocrine/Hematology History: Reports: Hx Anemia Cardiovascular History: Reports: Hx Rheumatic Fever - when she was a child Respiratory History: Reports: Hx Pulmonary Embolism - ~30 years ago GI History: Reports: Hx Hiatal Hernia Musculoskeletal History: Reports: Hx Arthritis Sensory History: Reports: Hx Cataracts - catarct sx, Hx Contacts or Glasses Denies: Hx Hearing Aid Opthamlomology History: Reports: Hx Cataracts - catarct sx, Hx Contacts or Glasses Psychiatric History: Reports: Hx Anxiety, Hx Depression - Surgical History Surgery Procedure, Year, and Place: multiple bowel resections. choly. bilateral knee replacements. L hip sx Hx Anesthesia Reactions: No - Immunization History Date of Tetanus Vaccine: utd Date of Influenza Vaccine: utd Infectious Disease History: Denies: Traveled Outside the [place] in Last 30 Days - Family History Family History: Noncontributory - Social History Occupation: Retired Lives: Assisted Living Alcohol Use: None Substance Use Type: Reports: None Smoking Status (MU): Former Smoker Type: Cigarettes Review of Systems Constitutional: Negative Negative: Fever, Chills Eyes: Negative ENT: Negative Cardiovascular: Negative Negative: Palpitations, Chest Pain Respiratory: Negative Negative: Shortness Of Breath, Cough Gastrointestinal: Negative Negative: Abdominal Pain, Vomiting, Diarrhea, Nausea Genitourinary: Negative Negative: burning, dysuria Musculoskeletal: Negative Positive: Other - Scalp laceration. Positive: Headache, Syncope - Questionable. Negative: Weakness, Paresthesia, Numbness, Slurred Speech All Other Systems Reviewed And Are Negative: Yes Physical Exam Triage Information Reviewed: Yes Vital Signs Reviewed: Yes Appearance: Positive: Thin - Pt. sitting up in bed. Head and face covered in blood. Awake and alert. Answering questions appropriately. Skin: Positive: Warm, Dry Head/Face: Positive: Other - Large hematoma to the top of head with a 2cm overlying laceration diffusely bleeding. Eyes: Positive: Normal, EOMI, YOGESH Neck: Positive: Supple Respiratory/Lung Sounds: Positive: Clear to Auscultation, Breath Sounds Present Cardiovascular: Positive: Normal, RRR Abdomen Description: Positive: Nontender, Soft Neurological: Positive: Normal, CN Intact II-III Psychiatric: Positive: Affect/Mood Appropriate - [place] Coma Scale Best Eye Response: 4 - Spontaneous Best Motor Response: 6 - Obeys Commands Best Verbal Response: 5 - Oriented Coma Scale Total: 15 Procedures - Laceration/Wound Repair 1 Location: head Description: Linear Length, Depth and Shape: 2cm Betadine Prep?: No Irrigated w/ Saline (ccs): 100 Laceration/Wound Explored: clean Closure: Yuri #__ - 3 Layer Closure?: No Sterile Dressing Applied?: Yes Diagnostics - Laboratory Result Diagrams: 01/08/18 14:36 01/08/18 14:36 Lab Statement: Any lab studies that have been ordered have been reviewed, and results considered in the medical decision making process. Head Injury Course/Dx Course Of Treatment: Pt. presenting to the ER after a fall. She sustained isolated head injury. She is unsure how or why she fell. Questionable syncopal episode. Initially patient had a large amount of active bleeding from scalp laceration. Patient was examined by Dr. Whittington as well. 3 yuri were placed. TXA was placed topically on wound and pressure dressing placed. Bleeding stablized. Work up ordered. Pt. started on IV fluids. ECG done at 1702 is a sinus bradycardia of 57bpm, normal axis, RBBB, no ST elevation or depression. 1505: Pt. went into line of [facility]. She was asymptomatic. Pt. returned to sinus rhythm without intervention. Dr. Whittington spoke with cardiology , Dr. Martini, who recommended telemetry observation. CT scan of brain and neck are negative for acute findings, reading per radiology. Patient's blood work is unremarkable. I spoke with hospitalist,. Dr. Tapia, who has accpeted admission. - Diagnoses Differential Diagnosis/HQI/PQRI: Cerebral Contusion, Cervical Sprain, Concussion With LOC, Contusion, Hematoma, Intracranial Bleed, Laceration, Orbital Fracture, Skull Fracture Provider Diagnoses: Fall, Scalp laceration, Arrhythmia Discharge - Sign-Out/Discharge Documenting (check all that apply): Patient Departure - Discharge Plan Condition: Stable Disposition: ADMITTED TO [facility] Referrals: No Primary Care Phys,NOPCP [Primary Care Provider] - - Billing Disposition and Condition Condition: STABLE Disposition: Admitted to [facility]
[2018-01-08 14:50] LABS: ABS Basophils 0.1 10^3/ul (0-0.2); ABS Eosinophils 0.3 10^3/ul (0-0.6); ABS Lymphocytes 1.9 10^3/ul (1.0-4.8); ABS Monocytes 0.8 10^3/ul (0-0.8); ABS Neutrophils 8.7 10^3/ul (1.5-7.7); ABS Nucleated RBC 0 10^3/ul; Eosinophil % 2.6 % (0-6); Hematocrit 32 % (35-47); Hemoglobin 10.2 g/dl (12.0-16.0); Lymphocyte % 16.2 % (25-47); Mean Corpuscular HGB Conc 33 g/dl (31-36); Mean Corpuscular Hemoglobin 31 pg (27-31); Mean Corpuscular Volume 96 fL (80-97); Mean Platelet Volume 9.1 um3 (7.4-10.4); Nucleated Red Blood Cells % 0; Platelet Count 170 10^3/ul (150-450); Red Blood Count 3.29 10^6/ul (4.00-5.40); Red Cell Distribution Width 14 % (10.5-15); White Blood Count 11.9 10^3/ul (3.5-10.8)
[2018-01-08 14:54] LABS: INR 1.06 (0.77-1.02)
[2018-01-08 15:06] LABS: EGFR Non-African American 101.3 (>60)
--- NOTE | 2018-01-08 15:35 | RAD ---
HISTORY: fall, head injury COMPARISONS: None TECHNIQUE: Multiple contiguous axial CT scans were obtained of the head without intravenous contrast. FINDINGS: HEMORRHAGE/INFARCT: There is no hemorrhage or acute infarct. MASSES/SHIFT: There is no mass or shift. EXTRA-AXIAL SPACES: There are no extra-axial fluid collections. SULCI AND VENTRICLES: The sulci and ventricles are normal in size and position for the patient's stated age. CEREBRUM: There is hypoattenuation of the periventricular and subcortical white matter. BRAINSTEM: There are no focal parenchymal abnormalities. CEREBELLUM: There are no focal parenchymal abnormalities. VESSELS: The vessels are grossly normal. PARANASAL SINUSES: The paranasal sinuses are clear. ORBITS: The orbits are unremarkable. BONES AND SOFT TISSUE: There is soft tissue swelling along the left parietal scalp. OTHER: None IMPRESSION: NO ACUTE INTRACRANIAL PATHOLOGY.
--- NOTE | 2018-01-08 15:35 | RAD ---
HISTORY: fall, head injury COMPARISONS: None TECHNIQUE: Multiple contiguous axial CT scans were obtained of the cervical spine without intravenous contrast, with coronal and sagittal multiplanar reformations. FINDINGS: BRAIN: The visualized brain is unremarkable CENTRAL CANAL: Evaluation of the central canal is limited on CT technique; however, there is no obvious canalicular mass or epidural hemorrhage. ALIGNMENT: There is straightening with reversal of the normal cervical lordosis. There is grade 1 anterolisthesis of C3 on C4, C4-C5 and C7 on T1. VERTEBRAL BODIES: There is diffuse osteopenia. Is multilevel anterolateral marginal osteophyte formation. There is no displaced fracture. JOINTS: There is osteoporosis of the atlantoaxial articulation. There is diffuse uncovertebral and facet osteoarthritis. MUSCULATURE: Unremarkable INTERVERTEBRAL DISCS: There is diffuse loss of intervertebral disc height. AXIAL IMAGES: C2-C3: There is bilateral uncovertebral and facet hypertrophy. There is mild right neural foraminal narrowing. There is no significant central canal stenosis. C3-C4: There is bilateral uncovertebral and facet hypertrophy. There is severe bilateral neuroforaminal narrowing. There is no osseous central canal stenosis C4-C5: There is bilateral uncovertebral facet hypertrophy. There is severe right and moderate left neuroforaminal narrowing. There is mild narrowing of the central canal. C5-C6: There is a broad-based disc osteophyte complex with bilateral uncovertebral and facet hypertrophy. There is severe left and moderate right neural foraminal narrowing. There is no osseous central canal stenosis. C6-C7: There is bilateral uncovertebral facet hypertrophy. There is moderate left neuroforaminal narrowing. There is no osseous central canal stenosis. C7-T1: There is mild bilateral neuroforaminal narrowing. There is no osseous central canal stenosis. SOFT TISSUES: The visualized soft tissues of the neck are unremarkable. The prevertebral fat stripe is preserved. OTHER: There is a small right mastoid effusion. IMPRESSION: 1. 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 2. NO ACUTE OSSEOUS INJURY TO THE CERVICAL SPINE.
--- NOTE | 2018-01-08 15:51 | ED ---
Progress - Progress Note Progress Note: This is scribe Ariel Shaver documenting for attending Molina Whittington. I, Dr. Whittington, personally performed the services described in this documentation as scribed in my presence and it is both accurate and complete. Course/Dx - Course Course Of Treatment: Patient case was discussed with Dr. Nettles. Recommends patient be admitted to telemetry floor. Dr. Nettles understands patient had ventricular tachycardia. - Provider Notifications Discussed Care Of Patient With: Imer Nettles Time Discussed With Above Provider: 15:16 Instructed by Provider To: Other - Patient case was discussed with Dr. Nettles. Recommends patient be admitted to telemetry floor. Dr. Nettles understands patient had ventricular tachycardia. - Critical Care Time Critical Care Time: 30-74 min - 45 minutes. Discharge - Sign-Out/Discharge Documenting (check all that apply): Patient Departure - ADMIT - Discharge Plan Condition: Stable Disposition: ADMITTED TO [facility]
[2018-01-08] MEDS ORDERED: Potassium Chloride LIQUID* 20 MEQ PACKET PO ONE (16:23)
--- NOTE | 2018-01-08 16:43 | RAD ---
HISTORY: fall COMPARISONS: October 02, 2016 VIEWS: 1: frontal portable view of the chest at 4:27 PM FINDINGS: LINES AND TUBES: None. CARDIOMEDIASTINAL SILHOUETTE: The cardiomediastinal silhouette is normal for portable technique. PLEURA: The costophrenic angles are sharp. No pleural abnormalities are noted. LUNG PARENCHYMA: The lungs are clear. ABDOMEN: The upper abdomen is clear. There is no subphrenic gas. BONES AND SOFT TISSUES: There is diffuse osteopenia. Degenerative changes are noted. IMPRESSION: NO ACTIVE CARDIOPULMONARY DISEASE.
[2018-01-08] MEDS: Acetaminophen TAB* 325 MG PO PRN (16:51)
--- NOTE | 2018-01-08 17:05 | RAD ---
HISTORY: fall COMPARISONS: April 04, 2017 VIEWS: 1, Single frontal view of the pelvis FINDINGS: BONE DENSITY: There is diffuse osteopenia BONES: Patient is status post internal fixation of the right femur. There is postsurgical change to the left femur. There is no displaced fracture. JOINTS: There is moderate osteoarthritis of the hips bilaterally. ALIGNMENT: There is no dislocation. SOFT TISSUES: There is peripheral arterial calcification. OTHER FINDINGS: There is a scoliotic curvature of the spine. Degenerative changes are noted of the spine. IMPRESSION: 1. OSTEOPENIA. 2. OSTEOARTHRITIS. 3. PERIPHERAL ARTERIAL DISEASE. 4. NO ACUTE OSSEOUS INJURY. THE DEGREE OF OSTEOPENIA MAY MAKE A NONDISPLACED FRACTURE RADIOGRAPHICALLY OCCULT. IF SYMPTOMS PERSIST, RECOMMEND REPEAT IMAGING.
[2018-01-08] MEDS ORDERED: Magnesium Sulfate 2 GM IV* 2 GM/50 ML BAG IVPB ONE (18:17)
[2018-01-08 19:11] LABS: Urine Appearance Clear; Urine Blood Negative (Negative); Urine Color Yellow; Urine Ketones Negative (Negative); Urine Protein Negative (Negative); Urine Specific Gravity 1.017 (1.010-1.030); Urine Urobilinogen Negative (Negative)
[2018-01-08] MEDS: DOXYcycline IV* 100 MG in NS 0.9% 250 ML* 250 ML IVPB SCH (19:23)
[2018-01-08] MEDS: Sertraline* 100 MG TAB PO SCH (21:14)
[2018-01-08] MEDS: traMADol TAB* 50 MG PO PRN (21:14)
[2018-01-08] MEDS: traZODone TAB* 100 MG PO SCH (21:14)
--- NOTE | 2018-01-08 22:00 | HP ---
CC: Dr. Farheen Martin * HISTORY AND PHYSICAL: DATE OF ADMISSION: 01/08/18 PRIMARY CARE PROVIDER: Dr. Farheen Martin. ATTENDING PHYSICIAN WHILE IN HOSPITAL: Dr. Anastacio Cutler * (report dictated by Froylan Vaughn NP). CHIEF COMPLAINT: Fall. HISTORY OF PRESENT ILLNESS: Ms. Cook is an 82-year-old female patient. She carries a history of rheumatoid arthritis, history of PE when she was 29, history of ventricular arrhythmia, history of depression, rheumatic fever, and bradycardia. She comes into the emergency department today stating that she was using her walker to move about and she unfortunately had an episode where she was going to her fridge and she reached to get the fridge to steady here. While she was getting something in the fridge, the door gave way and she fell. She remembers the fall. She is very clear that she did not pass out or faint. She had fallen once earlier in the previous week and hit the front of her face and had not sought medical attention. She denied any recent fevers. She does admit to having a cough, but no shortness of breath or chest pain. No fevers or chills. The daughter states that she has had issues for some time with her gait and her steadiness. She again denied having any palpitations or chest tightness, heaviness. Says that she remembered the fall. She immediately pressed the Life Alert because she knew that she was bleeding, she hit the back of her head. She denies being on any blood thinners. She came into the ED today and there was initially concern because of the fall. There was a laceration to the right side of the patient's scalp on the occipital area and yuri were put in. Unfortunately, while she was here, she was noted to have a run of ventricular tachycardia and she was noted to be bradycardic. There were concerns because of this and we were asked to evaluate for admission. The patient was asymptomatic during these events. She denies again having any recent changes in medications. Her daughter does state that at times, she will take extra trazodone. PAST MEDICAL HISTORY: Significant for: 1. Rheumatoid arthritis. 2. Pulmonary embolism. 3. Depression. 4. History of ventricular tachycardia. 5. Rheumatic fever. 6. Bradycardia. PAST SURGICAL HISTORY: 1. She has had a right hip ORIF. 2. She has had right hip replaced twice. 3. She has had left total knee and right total knee replacement. 4. She has had a bowel resection. 5. The patient has had laparoscopic cholecystectomy as well. MEDICATIONS: Her home medications according to the list provided include: 1. Trazodone 200 mg at bedtime. 2. Tramadol 50 mg every 8 hours as needed. 3. Sotalol 80 mg b.i.d. 4. Zoloft 100 mg p.o. b.i.d. 5. Potassium 20 mEq p.o. daily. 6. Marydel 1 tablet every 8 hours as needed. 7. Vitamin C 1000 mg p.o. daily. 8. Calcium carbonate with vitamin D3 one tablet p.o. daily. ALLERGIES TO MEDICATIONS: Denied. FAMILY HISTORY: The mother had a history of depression. Father had a history of cancer. SOCIAL HISTORY: She does not smoke. She does not drink. She lives alone. Surrogate decision maker is her daughter. REVIEW OF SYSTEMS: There is no documented fever. She denies having any significant weight change. There was no double vision. She denies having any ear discharge. She denies having any rhinorrhea. There is no sore throat. No thyroid enlargement. She denied having any chest pain. There was no orthopnea , there was no nocturnal dyspnea. There was no abdominal pain. There was no nausea, there is no vomiting. There is no dysuria, no frequency. There was no seizure, no loss of consciousness. No pruritus and no skin ulcerations. Review of 14 systems was completed, all others negative. PHYSICAL EXAMINATION GENERAL: At this time, Ms. Cook is an 82-year-old female patient. She is cachectic appearing. She does not appear to be in any acute distress. She is sitting in the ED stretcher. VITAL SIGNS: Blood pressure 113/65 with pulse of 59, respirations 18, O2 sat 100%, temperature 98.8. HEENT: Head is normocephalic. There was abrasion noted to the occipital area. This is now covered with an ABD. In addition to this, she had a laceration to the right occipital area, which was stapled and she does have ecchymosis from the fall a week ago to her orbits bilaterally, but there is no pain on palpation to the orbits. Otherwise, atraumatic. Eyes: EOMs are intact. Sclerae are anicteric and not pale. Throat: Oral mucosa appears to be moist. No oropharyngeal erythema. NECK: Supple. LUNGS: Clear to auscultation bilaterally. No wheezes, rales, or rhonchi. HEART: Sounds S1, S2. She had a regular rate and rhythm. She was bradycardic. No murmurs, rubs, or gallops. ABDOMEN: Soft. It was flat. She does have a large ventral hernia noted, but it was nontender. Bowel sounds were present. EXTREMITIES: Pulses were 2+ throughout. She is able to move all 4 extremities with 5/5 strength. NEUROLOGIC: The patient is awake, alert, oriented x3. She had no gross focal deficits. SKIN: Intact. DIAGNOSTIC STUDIES/LAB DATA: Labs today revealed WBC of 11.9, RBC of 3.29, hemoglobin of 10.2, hematocrit of 32, platelet count of 170. INR 1.06. Sodium 140, potassium is 3.8, chloride of 105, bicarb 33, BUN 22, creatinine 0.57, glucose 159. Calcium 9.6. Mag pending. Total bili 0.6, AST 11, ALT 8, alk phos 76. Troponin 0.01. Her albumin was 3.1. UA is pending. She did have an EKG obtained today, which shows a sinus bradycardia, rate of 47. She has a PAC. She has a right bundle branch block and left anterior fascicular block. I do have an EKG from about a year ago, which appears to be similar with the exception the rate is faster at that point. She did have a brain CT obtained today as well, no acute intracranial pathology. She had cervical spine CT as well, which showed advanced degenerative disk disease and osteoarthritis with multilevel spondylolisthesis described above, no acute osseous injury to the spine. She had chest x-ray today and on my review, I did not appreciate any infiltrates. She has elevation of her right hemidiaphragm, cardiomegaly. She has what appears to be a slight infiltrate in the left lower lobe. Old medical records were reviewed. ASSESSMENT AND PLAN: Ms. Cook is an 82-year-old female patient coming into the ED today with complaints of a mechanical fall. We were asked to evaluate for admission. It was found that she had ventricular tachycardia here in the ED and she was bradycardic. She will be admitted under observation status for: 1. Fall. I suspect this sounds like a mechanical fall. She did not have any syncope, but while here, it was noted that she had ventricular tachycardia and in addition to this, bradycardia. I did order a PT evaluation. She has been having intermittent episodes of dizziness. I questioned if she has been having intermittent episodes of ventricular tachycardia attributing to this. So, at this point, again we will give PT. We are going to hold the sotalol. 2. Ventricular tachycardia and bradycardia. Again, the sotalol was felt to the be the culprit of this. I do not know why she is on it. 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 We will hold this. Dr. Nettles will be evaluating the patient tomorrow. We are getting an echo, cycling troponins, placing her on telemetry, and I will replace her potassium, get that up to 4, checking a mag and a TSH. She is asymptomatic currently. We will need to continue to follow this closely. 3. Rheumatoid arthritis. Continue meds as prescribed. 4. History of pulmonary embolism. Again, this was in the 30s and a remote issue. 5. Depression. Continue as prescribed. 6. History of ventricular tachycardia. Again, we are checking mag, TSH, replacing potassium, holding sotalol. 7. History of rheumatic fever. We are checking an echo. 8. Question of infiltrates. She was recently diagnosed with pneumonia. I will put her on doxycycline for this. This was diagnosed on Tuesday in the outpatient setting. 9. DVT prophylaxis. She had an extensive amount of bleeding with laceration to the head. She has a significant abrasion to that, so I am holding off on giving her heparin subcu for the first 24 hours. I am putting her on SCDs. We will need to reevaluate this and probably put her on heparin starting tomorrow. 10. Code status. She is a DNR. 11. Fluids, electrolytes, and nutrition. She can have a regular diet. TIME SPENT: On admission was 60 minutes, greater than half the time was spent face- to-face with the patient obtaining my history and physical; other half time was spent going over the plan of care with the patient and implementing the plan of care. I did discuss the plan of care with my attending, Dr. Cutler; he is in agreement. FROYLAN VAUGHN, DYE TUB TENDER [id number]/[facility] #: [id number] NICHOL
[2018-01-09] MEDS: Acetaminophen TAB* 325 MG PO PRN (00:40)
[2018-01-09] MEDS: DOXYcycline IV* 100 MG in NS 0.9% 250 ML* 250 ML IVPB SCH ×2 (05:36→17:04)
[2018-01-09 06:39] LABS: ABS Basophils 0.1 10^3/ul (0-0.2); ABS Eosinophils 0.2 10^3/ul (0-0.6); ABS Monocytes 0.7 10^3/ul (0-0.8); ABS Neutrophils 4.7 10^3/ul (1.5-7.7); ABS Nucleated RBC 0 10^3/ul; Eosinophil % 2.6 % (0-6); Hematocrit 23 % (35-47); Hemoglobin 7.7 g/dl (12.0-16.0); Mean Corpuscular HGB Conc 34 g/dl (31-36); Mean Corpuscular Hemoglobin 32 pg (27-31); Mean Corpuscular Volume 94 fL (80-97); Mean Platelet Volume 8.8 um3 (7.4-10.4); Nucleated Red Blood Cells % 0; Platelet Count 122 10^3/ul (150-450); Red Blood Count 2.43 10^6/ul (4.00-5.40); Red Cell Distribution Width 14 % (10.5-15); White Blood Count 7.6 10^3/ul (3.5-10.8)
[2018-01-09 06:44] LABS: INR 1.06 (0.77-1.02)
[2018-01-09 07:07] LABS: EGFR Non-African American 120.6 (>60)
[2018-01-09] MEDS: traMADol TAB* 50 MG PO PRN ×2 (07:43→17:03)
--- NOTE | 2018-01-09 08:04 | PN ---
Subjective Date of Service: 01/09/18 Interval History: pt reports she "feels okay". Offers no complaints. Denies any SOB/CP. Denies cough or sputum production. No fevers or chills. She denies any dizziness, SOLIS, vision changes. Objective Active Medications: Acetaminophen (Tylenol Tab*) 650 mg PO Q4H PRN PRN Reason: FEVER/PAIN Last Admin: 01/09/18 00:40 Dose: 650 mg Calcium/Vitamin D (Oscal D Tab 250/125*) 1 tab PO DAILY [facility] Doxycycline Hyclate 100 mg/ (Sodium Chloride) 250 mls @ 250 mls/hr IVPB Q12H [facility] Last Admin: 01/09/18 05:36 Dose: 250 mls/hr Potassium Chloride (Klor Con Er Tab*) 20 meq PO DAILY [facility] Sertraline HCl (Zoloft*) 100 mg PO BID [facility] Last Admin: 01/08/18 21:14 Dose: 100 mg Tramadol HCl (Ultram*) 50 mg PO Q8H PRN PRN Reason: PAIN Last Admin: 01/09/18 07:43 Dose: 50 mg Trazodone HCl (Desyrel Tab*) 100 mg PO BEDTIME [facility] Last Admin: 01/08/18 21:14 Dose: 100 mg Vital Signs - 8 hr 01/09/18 01/09/18 01/09/18 00:02 03:20 07:43 Temperature 98.0 F 98.9 F Pulse Rate 54 58 Respiratory 20 20 24 Rate Blood Pressure 109/42 105/39 (mmHg) O2 Sat by Pulse 92 99 Oximetry Oxygen Devices in Use Now: None Appearance: elderly 82 yo female A+O x3 in NAD - fair historian Eyes: No Scleral Icterus, PERRLA Ears/Nose/Mouth/Throat: NL Teeth, Lips, Gums, Mucous Membranes Moist Neck: NL Appearance and Movements; NL JVP Respiratory: Symmetrical Chest Expansion and Respiratory Effort, Clear to Auscultation Cardiovascular: NL Sounds; No Murmurs; No JVD, RRR, No Edema Abdominal: NL Sounds; No Tenderness; No Distention Extremities: No Edema, No Clubbing, Cyanosis Skin: - - ecchymosis under eyes bilaterally and across nose. head lac with yuri - no noted active bleeding - hair caked with dry blood. Neurological: Alert and Oriented x 3, NL Muscle Strength and Tone Lines/Tubes/Other Access: Clean, Dry and Intact Peripheral IV Nutrition: Taking PO's Result Diagrams: 01/09/18 13:07 01/09/18 06:30 Assess/Plan/Problems-Billing Assessment: 82 yo female with a PMH of RA, remote hx of PE, Depression, hx of VTACH, hx of rheumatic fever, Depression, bradycardia who presented to the ER on 01/08 with c/o fall suffering a head laceration who was found to have bradycardia and an episode of possible VTACH?? in the ER admitted to the hospitalist service. - Patient Problems (1) Arrhythmia Comment: -Appreciate Cardiology consult - reviewed VTACH strips and reports it is artifact - pt is on Sotalol for unknown reason- Previous hospitalization states "family reports pt started on sotalol 40 yrs prior for unknown reasons". Recommendation per Dr. Nettles is to discontinue at this time d/t bradycardia ( cardiology not too concerned about bradycardia - no further recommendatiosn beyond stopping sotalol) - HR stable on tele monitoring - TTE stable - Can be DC from a solderer electronic standpoint (2) Pneumonia Comment: - stable - recently dx last tuesday with pneumonia - chest xray on admission negative for acute pathology - continue Doxy? obtain PCP records - No supplemental O2 requirements (3) Falls Comment: - unclear etiology - possibly secondary to weakness from PNA or bradycardia? - PT/OT eval to determine if she requires subacute (4) Anemia Comment: - stable. Lost a good amount of blood with head lac - HH stable (5) Hx of pulmonary embolus Comment: - low suspicion - DDIMER mildy elevated however is negative with age adjusted (6) Depression Comment: zoloft (7) Hypertension Comment: - sotalol DC - - currently BP controlled (8) DVT prophylaxis Comment: Hold HSQ d/t blood loss consider starting tomorrow if HH is stable SCDs (9) DNR (do not resuscitate) Status and Disposition: inpatient. Dispo to be determined depending on ambulatory status
--- NOTE | 2018-01-09 09:21 | ECHO ---
Patient: DARYL SALAZAR [facility] Rec#: [id number] : 1935 Date: 01/09/2018 Age: 82y Height: 160 cm / 63.0 in Weight: 45 kg / 99.2 lbs Sex: F BSA: 1.44 Room#: 439 Admit Date#: 01/08/2018 Type: Inpatient Referring: Froylan Vaughn NP Reading: Imer Nettles MD Irrigation District Manager: Lili Sands,GHASSANCS,RDMS CC: Farheen Martin Transthoracic Echocardiogram Indication: ABN EKG BP: 105/39 HR: 68 Rhythm: NSR Findings History: PE VTach, rheumatic fever Technical Comments: The study quality is good. Left Ventricle: The left ventricular chamber size is normal. Moderate concentric left ventricular hypertrophy is observed. Global left ventricular wall motion and contractility are within normal limits. Left ventricular systolic function is at the lower limits of normal. The estimated ejection fraction is 50-55%. There is no consistent Doppler evidence of clinically significant diastolic dysfunction. Left Atrium: The left atrium is severely dilated. Right Ventricle: The right ventricular chamber size and systolic function are within normal limits. Right Atrium: The right atrium is slightly dilated. Aortic Valve: The aortic valve is trileaflet. The aortic valve leaflets are mildly thickened. There is aortic annular calcification. There is a trace of aortic regurgitation. There is no evidence of aortic stenosis. Mitral Valve: There is mitral annular calcification. The mitral valve leaflets are mildly thickened. There is mild mitral valve prolapse. There is moderate to severe mitral regurgitation. There is borderline mitral stenosis. Tricuspid Valve: The tricuspid valve leaflets are normal. There is mild to moderate tricuspid regurgitation. There is evidence of mild pulmonary hypertension. Pulmonic Valve: The pulmonic valve appears normal. There is a trace pulmonic regurgitation. Pericardium: There is no significant pericardial effusion. Aorta: There is no dilatation of the ascending aorta. There is no dilatation of the aortic arch. There is mild dilatation of the aortic root. There is plaque visualized in the descending aorta. Pulmonary Artery: The main pulmonary artery appears normal. Venous: The inferior vena cava appears normal in size. There is an approximate 50% respiratory change in the inferior vena cava dimension. The pulmonary veins appear dilated in size. Summary: There was not any prior study for comparison. Conclusions Moderate concentric left ventricular hypertrophy is observed. Left ventricular systolic function is at the lower limits of normal. The estimated ejection fraction is 50-55%. The left atrium is severely dilated. There is a trace of aortic regurgitation. There is mild mitral valve prolapse. There is moderate to severe mitral regurgitation. There is mild to moderate tricuspid regurgitation. There is evidence of mild pulmonary hypertension. There is no significant pericardial effusion. Measurements Name Value Normal Range RVIDd (AP) 2D 2.3 cm (0.9 - 2.6) RVDdMajor (2D) 2.6 cm (2.2 - 4.4) RAd ISD 4CH 4.8 cm (3.4 - 4.9) RA (A4C)W 4.8 cm (2.9 - 4.6) IVSd (2D) 1.5 cm (0.6 - 1) LVPWd (2D) 1.2 cm (0.6 - 1) LVIDd (2D) 4.1 cm (3.6 - 5.4) LVIDs (2D) 2.6 cm - LV FS (2D) 36 % (25 - 45) Aortic Annulus 2.3 cm (1.4 - 2.6) Ao root diameter (2D) 3.7 cm (2.1 - 3.5) Ascending Ao 2.9 cm (2.1 - 3.4) Aortic arch 2.3 cm (1.8 - 3.4) LA dimension (AP) 2D 4 cm (2.3 - 3.8) LAd ISD 4CH 8.5 cm (2.9 - 5.3) LA ISD 4CH W 6.2 cm (2.5 - 4.5) Name Value Normal Range LA ESV BP (A/L) index 56 ml/m2 - Name Value Normal Range MV E-wave Vmax 0.8 m/sec - MV deceleration time 177 msec - MV A-wave Vmax 0.6 m/sec - MV E:A ratio 1.2 ratio - LV septal e' Vmax 0.07 m/sec - LV lateral e' Vmax 0.06 m/sec - LV E:e' septal ratio 11 ratio - LV E:e' lateral ratio 12 ratio - Name Value Normal Range AV Vmax 1.2 m/sec - AV VTI 25 cm - AV peak gradient 6 mmHg - AV mean gradient 3 mmHg - LVOT diameter 2 cm - LVOT Vmax 0.9 m/sec - LVOT VTI 17 cm - LVOT peak gradient 3.2 mmHg - LVOT mean gradient 1 mmHg - ELFEGO Vmax 0.3 m/sec - Name Value Normal Range MV Vmax 0.9 m/sec - MV VTI 26 cm - MV peak gradient 4 mmHg - MV mean gradient 2 mmHg - MV PHT 79 msec - MR Vmax 5.6 m/sec - MR VTI 205 cm - MR volume (PISA) 12 ml - MR flow (PISA) 31 ml/sec - MR ERO 0.06 cm2 - MR PISA radius 0.4 cm - MVA (PHT) 2.8 cm2 - MVA (continuity VTI) 2 cm2 - Name Value Normal Range TR Vmax 2.7 m/sec - TR peak gradient 29 mmHg - RAP 8 mmHg - RVSP 37 mmHg - IVC diameter 1.8 cm - Name Value Normal Range PV Vmax 0.5 m/sec - PV peak gradient 1 mmHg -
[2018-01-09] MEDS: Potassium Chlor TAB* 20 MEQ TAB.ER PO SCH (09:38)
[2018-01-09] MEDS: Calcium/Vitamin D TAB 250/125* TAB PO SCH (09:38)
[2018-01-09] MEDS: Sertraline* 100 MG TAB PO SCH ×2 (09:39→20:36)
[2018-01-09 13:23] LABS: Hematocrit 27 % (35-47)
[2018-01-09] MEDS: traZODone TAB* 100 MG PO SCH (20:36)
--- NOTE | 2018-01-09 20:37 | CONS ---
CARDIOLOGY CONSULTATION NOTE: DATE OF CONSULT: 01/09/18 INDICATION FOR CONSULTATION: Bradycardia, abnormal heart rhythm. HISTORY OF PRESENT ILLNESS: The patient is an 82-year-old female with a history of scarlet fever, rheumatoid arthritis, pulmonary embolisms in the past who is admitted to the hospital because of a fall at home. The patient clearly remembers losing her loan funder while she was looking in the refrigerator and fell sustaining a head laceration. She was brought to the emergency room. In the emergency room, there was a report of a run of ventricular tachycardia. The patient on arrival was on sotalol 80 mg b.i.d. of unknown reason. In speaking with the patient, she states she had scarlet fever in the past and a murmur in the past; however, she is not able to say whether she has had any abnormal rhythms in the past. She denies any history of atrial fibrillation. She denies any history of ventricular tachycardia. On arrival to the emergency room, her EKG demonstrated sinus bradycardia at 47 beats per minute. Her QT interval corrected was 480 milliseconds. I personally reviewed the telemetry strips from 01/08/18 at 1512 in the afternoon. It clearly shows normal sinus rhythm, PACs with what looks to be a run of tachycardia. In reality, it is artifact. There is clearly spikes running through the arrhythmia, which represent normal rhythm. The patient denies any symptoms. PAST MEDICAL HISTORY: As described above. PAST SURGICAL HISTORY: Hip surgery, hip replacement, cholecystectomy, knee replacement, and bowel resection. OUTPATIENT MEDICATIONS: 1. Trazodone 200 mg daily. 2. Tramadol 50 mg as needed. 3. Sotalol 80 mg b.i.d. 4. Zoloft 100 mg b.i.d. 5. Multiple supplements. ALLERGIES: No known drug allergies. FAMILY HISTORY: Mother had a history of depression. Father of cancer. SOCIAL HISTORY: She denies tobacco or alcohol use. She lives [facility] at [facility]. PHYSICAL EXAM: Height is 5 feet 11 inches, weight is 100 pounds. Temperature 98.2, heart rate is 74, blood pressure 146/71, respiratory rate is 20, oxygen saturation 99% on room air. Sclerae anicteric. Oropharynx is pink without erythema. She does have significant ecchymosis on her face from her fall. Carotids are 2+ without bruits. JVD is normal. Thyroid is normal. Cardiac: S1, S2 without any murmurs, rubs or gallops. Lungs are clear to auscultation bilaterally. There is no dullness to percussion. Abdomen is soft, nontender, nondistended with normoactive bowel sounds. Extremities show no edema. She has 2+ pulses throughout. The patient is awake, alert, and oriented. She moves all 4 extremities equally. DIAGNOSTIC STUDIES/LAB DATA: White count 11.9, hemoglobin 10, hematocrit 32, platelet count 170,000. Her hematocrit at 6 o'clock this morning had fallen from 10.2 to 7.7. Chemistries within normal limits. BUN and creatinine are normal. AST and ALT are normal. Troponins are negative x3. TSH 1.97. IMPRESSION: This is an 82-year-old female who came into the hospital because of a fall at home. There is clearly no evidence of syncope. In the emergency room, there was a report of ventricular tachycardia. I personally reviewed the rhythm strips, it is clearly artifact. The patient is on sotalol of unclear reason. The patient does not recall any history of arrhythmias. She is not on chronic anticoagulation. PLAN/RECOMMENDATIONS: For now, my recommendation is to stop the sotalol as she is slightly bradycardic, and I am not sure exactly why she is taking it. Her other medications will remain the same. I do not think any other cardiac workup is necessary. [id number]/[facility] #: [id number] MTDD
[2018-01-10] MEDS: DOXYcycline IV* 100 MG in NS 0.9% 250 ML* 250 ML IVPB SCH (05:36)
[2018-01-10] MEDS: Acetaminophen TAB* 325 MG PO PRN (07:18)
[2018-01-10] MEDS: Sertraline* 100 MG TAB PO SCH (08:28)
[2018-01-10] MEDS: Calcium/Vitamin D TAB 250/125* TAB PO SCH (08:28)
[2018-01-10] MEDS: Potassium Chlor TAB* 20 MEQ TAB.ER PO SCH (08:28)
[2018-01-10 15:24] VITALS: BP 144/72
--- NOTE | 2018-01-11 04:20 | DS ---
CC: Dr. Farheen Martin * DISCHARGE SUMMARY: DATE OF ADMISSION: 01/08/18 DATE OF DISCHARGE: 01/10/18 PRIMARY CARE PROVIDER: Dr. Farheen Martin. MY ATTENDING WHILE IN THE HOSPITAL: Dr. Anastacio Cutler.* (DICTATED BY JAMAAL ROMERO) PRIMARY DISCHARGE DIAGNOSES: 1. Fall. 2. Scalp laceration. 3. Mild bradycardia. SECONDARY DISCHARGE DIAGNOSES: 1. Rheumatoid arthritis. 2. History of pulmonary embolism. 3. Depression. 4. History of ventricular tachycardia. 5. Rheumatic fever. 6. Bradycardia. STUDIES DONE WHILE IN THE HOSPITAL: Brain CT from 01/08/18, read as no acute intracranial pathology. Cervical spine CT from 01/08/18, read as advanced degenerative disk disease and osteoarthritis with multilevel spondylolisthesis as described above, no acute osseous injury to the cervical spine. Chest x-ray from 01/08/18, read as no active cardiopulmonary disease. Electrocardiogram from 01/08/18, read as normal sinus rhythm and right bundle-branch block, ST- segment elevation, T-wave inversion in V1, V2, V3 as well as T-wave flattening in aVF, rate of 57, QTc of 491. No abnormalities. Repeat EKG from 01/09/18, shows normalizing of T-waves at V2 and V3. No other significant changes, rate of 60, QTc of 42. Transthoracic echocardiogram from 01/08/18, read as marked left ventricular hypertrophy, left ventricular systolic function within limits of normal. Estimated ejection fraction is 50-55%. Left atrium is fairly dilated. There is trace of aortic regurgitation with mild mitral valve prolapse. There is marked severe mitral regurgitation. There is mild to moderate tricuspid regurgitation. There is evidence of mild pulmonary hypertension. No significant pericardial effusion. Pelvic x-ray from 01/08/18, read as osteopenia, osteoarthritis, peripheral arterial disease. No acute osseous injury. For the degree of osteopenia certainly we may recommend repeat imaging. MEDICATIONS AT DISCHARGE: 1. [place] 5/325 one tab p.o. q. 8 hours as needed. 2. Ascorbic acid 1000 mg p.o. daily. 3. Trazodone 200 mg p.o. at bedtime. 4. Tramadol 50 mg p.o. q. 8 hours as needed. 5. Vitamin D3 one tab p.o. daily. 6. Potassium chloride 20 mEq p.o. daily. 7. Sertraline 100 mg p.o. daily. 8. Tylenol 650 mg p.o. q. 4 hours as needed. MEDICATIONS DISCONTINUED AT DISCHARGE: Sotalol 80 mg p.o. b.i.d. HOSPITAL COURSE: This is a brief summary of the patient's presentation. For more details, please see history and physical from Froylan Vaughn NP, from 01/08. In brief, the patient is an 82-year-old female with past medical history significant for the above, who presented to the emergency department after a mechanical fall. She came into the emergency department because she was cleaning her walker and felt the fridge door gave way and she fell on her head. She did not pass out and faint. She did fall the week before and hit the front of her face. She had no recent illnesses. She has been having issues with her gait. The patient had no other symptoms associated with her fall. The patient in the emergency department found to be bradycardic and also had what appeared to be runs of ventricular tachycardia. The patient was sent to the hospital. The patient had no repeat episodes of bradycardia or ventricular tachycardia. The patient was seen in consultation in by Dr. Imer Nettles of cardiology who stated that the ventricular tachycardia was artifact and recommended stopping her sotalol due to its proarrhythmia concerns as well as its possibility of producing bradycardia. It is recommended no further cardiac workup. The patient had no further tachy or bradyarrhythmias on telemetry monitoring. The patient's vital signs were unremarkable for the remainder of her hospitalization. The patient had in the emergency department yuri placed in her scalp. The patient had no other concerns medically. The patient was seen in consultation by physical therapy and the patient was able to transfer with a contact guard assist and walk with a rolling walker. The patient has decreased balance and poor safety awareness. The patient was recommended for subacute rehab. However, the patient was vehemently against this. The patient had capacity of making her own medical decisions. The patient clearly understood the risks of going home without acute rehab which included fall, including severe injury, but the patient states that at this point in her life, the quality of her life at home was more important than the decreased risk of falling that is associated with rehab. She states she will ask for help and would accept help from visiting nurse services as well as from the staff at [facility] at home. The patient's daughter states reservation about this, however, the patient absolutely refused to go to subacute rehab. I discussed with daughter that the patient had the capacity to make this decision and they were in agreement for the patient and the patient was in stable and amenable for discharge to home with visiting nurse services, home physical therapy and occupational therapy as well as continued home support through [facility]. PHYSICAL EXAMINATION ON THE DAY OF DISCHARGE: General: The patient is an 82- year- old female who appears stated age and sitting comfortably in the bed, in no acute distress. Vital signs: At the time of evaluation, temperature 98.2, pulse rate 84, respiratory rate 20, oxygen saturation 100% on room air, blood pressure 144/72. HEENT: Head: Normocephalic, atraumatic. Sclerae anicteric. No conjunctival injection. Nasal mucosa is moist. Oral mucosa is moist. No pharyngeal erythema, discharge, or exudate. Neck: Supple, nontender. No lymphadenopathy. No carotid bruits auscultated. No JVD. Respiratory: Clear to auscultation bilaterally. No wheezes, rales, or rhonchi. Good air exchange bilaterally. Cardiac: Grade 3/6 holosystolic murmur heard best at the apex. Abdomen: Soft, nontender, nondistended. Bowel sounds present. Normoactive in all 4 quadrants. No hepatosplenomegaly. No abdominal bruits auscultated. No hepatojugular reflux. Genitourinary: No suprapubic or CVA tenderness. Skin: Numerous bruises, particularly over the patient's face. Scalp laceration closed with yuri on the top of the patient's head. Neuro: Cranial nerves II through XII intact. No focal deficits. Alert and oriented x3. Cerebellar testing performed without difficulty. Psychiatric: Pleasant and cooperative. DISCHARGE PLAN: The patient will be discharged to home. The patient will be followed with visiting nurse services for continued assessment with medications as well as physical therapy and occupational therapy as stated above in general. Medical management. The patient will be continued with her aide to the office of the ageing and increased sessions will be attempted to be arranged through her home. The patient should be careful while using her walker and move slowly. The patient is stable from cardiac standpoint. The patient will follow up with the primary care provider, Dr. Farheen Martin, also in her office within 1 week for general medical management and have the yuri in her head removed. The patient should return to the hospital for followup of the injury, chest pain, shortness of breath, palpitations, syncope, or other alarming symptoms. The patient should have a heart-healthy diet without caffeine and should engage in activity as tolerated with the above carriers. TIME SPENT: Approximately 60 minutes were spent on this discharge, 30 of which were spent [id number] with the patient obtaining history and physical and discussing treatment plan. JAMAAL ROMERO [id number]/[facility] #: [id number] NICHOL
== END 2018-01-10 16:03 | disposition home health service (06) | DRG 308 ==
LOC: ED 13:31 → MEDTELE 16:20 → OBSVTOIN 01-09 16:00
PROVIDERS: ADMIT Student in an Organized Health Care Education/Training Program; ATTEND Internal Medicine
PROC: 0HQ0XZZ Repair Scalp Skin, External Approach (ICD-10-PCS; principal; 2018-01-09)
DX: R00.1 Bradycardia, unspecified (principal); J18.9 Pneumonia, unspecified organism; I45.2 Bifascicular block; T44.7X5A Adverse effect of beta-adrenoreceptor antagonists, initial encounter; X58.XXXA Exposure to other specified factors, initial encounter; S01.01XA Laceration without foreign body of scalp, initial encounter; W18.30XA Fall on same level, unspecified, initial encounter; M06.9 Rheumatoid arthritis, unspecified; F32.9 Major depressive disorder, single episode, unspecified; Z66 Do not resuscitate; K43.9 Ventral hernia without obstruction or gangrene; M50.30 Other cervical disc degeneration, unspecified cervical region; M47.9 Spondylosis, unspecified; M43.12 Spondylolisthesis, cervical region; D50.0 Iron deficiency anemia secondary to blood loss (chronic); I08.1 Rheumatic disorders of both mitral and tricuspid valves; Y92.000 Kitchen of unspecified non-institutional (private) residence as the place of occurrence of the external cause; Z96.641 Presence of right artificial hip joint; Z96.653 Presence of artificial knee joint, bilateral; Z91.81 History of falling; Z86.711 Personal history of pulmonary embolism; Z79.899 Other long term (current) drug therapy; Z80.9 Family history of malignant neoplasm, unspecified; Z81.8 Family history of other mental and behavioral disorders
CPT/HCPCS: 36415; 70450; 71045; 72125; 72170; 80048; 80053; 81003; 82272; 83735; 84443; 84484; 85014; 85018; 85025; 85379; 85610; 86850; 86870; 86880; 86900; 86901; 93005; 93306; 99284; A9270-GY; G0378; G8978-GP-CJ; G8979-GP-CI; G8987-GO-CJ; G8988-GO-CI; G8989-GO-CI; J3475

== ENCOUNTER 2018-04-17 13:07 | Observation (INO) | payer MEDICARE ==
[2018-04-17] MEDS ORDERED: NS 0.9% 1000 ML* 1,000 ML IV ONE (13:17)
--- NOTE | 2018-04-17 13:18 | ED ---
Syncope/Near Syncope - HPI Summary HPI Summary: Pt is an 82 y/o female who presents to the ED s/p syncope. Last night she had a syncopal episode with LOC and hit the right side of her chest. Before having the LOC, pt c/o extremity numbness. Pt now c/o chest soreness, 2/10 in severity , and dry cough. This morning she became dizzy and lightheaded, then "blacked out" without LOC per daughter. Pt takes "200 mg" potassium BID, and daughter suspects she might have not been taking the potassium regularly this past week. 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 As per daughter, when pt stands she leans backwards, and when she has a syncopal episode she has tremors. Her BP is usually around 140/80, but today it was 158/ 92. She denies any SOLIS, weight loss, fever, or dysuria. Pt has a hx of falling. In addition to the potassium, pt takes Zoloft and Trazodone. Pt has had this season's flu shot. - History Of Current Complaint Chief Complaint: EDSyncope Time Seen by Provider: 04/17/18 13:14 Hx Obtained From: Patient, Family/Kitchenwhere Maker - Daughter Onset/Duration: Lasting Days - Last night and this am, Resolved Timing: Minutes Context: Witnessed, Loss Of Consciousness Activity At Onset: Other - shower, this am Associated Head Trauma: No Aggravating Factor(s): Nothing Alleviating Factor(s): Spontaneous Resolution Associated Signs And Symptoms: Chest Pain - secondary to falling, Dizzy, Lightheadedness, Numbness Related History: Similar Episode/Dx as - due to electrolyte abnormalities - Allergies/Home Medications Allergies/Adverse Reactions: Allergies Allergy/AdvReac Type Severity Reaction Status Date / Time No Known Allergies Allergy Verified 04/17/18 13:10 Home Medications: Home Medications amLODIPine TAB* [Norvasc 5 mg TAB*] 5 mg PO DAILY 04/17/18 [History Confirmed ] PMH/Surg Hx/FS Hx/Imm Hx Previously Healthy: No Endocrine/Hematology History: Reports: Hx Anemia, Other Endocrine/Hematological Disorders - hypokalemia and hypomagnesemia Cardiovascular History: Reports: Hx Rheumatic Fever - when she was a child, Other Cardiovascular Problems/Disorders - murmur, arrhythmia, ventricular tachycardia Respiratory History: Reports: Hx Pulmonary Embolism - ~30 years ago GI History: Reports: Hx Gall Bladder Disease, Hx Hiatal Hernia, Other GI Disorders - multiple surgeries Musculoskeletal History: Reports: Hx Rheumatoid Arthritis, Hx Osteoporosis Sensory History: Reports: Hx Cataracts - catarct sx, Hx Contacts or Glasses, Hx Hearing Aid Opthamlomology History: Reports: Hx Cataracts - catarct sx, Hx Contacts or Glasses Neurological History: Reports: Hx Dementia Psychiatric History: Reports: Hx Anxiety, Hx Depression - Surgical History Surgery Procedure, Year, and Place: 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 right shoulder replacement. L hip sx Hx Anesthesia Reactions: No - Immunization History Date of Tetanus Vaccine: utd Date of Influenza Vaccine: utd Infectious Disease History: Yes Infectious Disease History: Reports: Hx Tuberculosis - 20+ years ago, after remicade injections for RA Denies: Traveled Outside the [place] in Last 30 Days - Family History Known Family History: Negative: Blood Disorder - Social History Lives: Alone - with aids and daughter nearby Alcohol Use: None Hx Substance Use: No Substance Use Type: Reports: None Hx Tobacco Use: Yes Smoking Status (MU): Former Smoker Type: Cigarettes Review of Systems Negative: Fever Eyes: Negative Positive: Chest Pain - secondary to falling, right anterior Positive: Cough Negative: Other - weight loss Negative: dysuria Skin: Negative Neurological: Other - Dizziness, lightheadedness Positive: Numbness, Syncope. Negative: Headache Psychological: Normal All Other Systems Reviewed And Are Negative: Yes Physical Exam - Summary Physical Exam Summary: Appearance: Well-appearing, minimal pain distress, well-nourished, bruxism Skin: Warm, color reflects adequate perfusion, dry, no bruising noted Head: Normal Head/Face inspection, atraumatic Eyes: Conjunctiva clear, PERRL, EOMI, no nystagmus ENT: dentures, lower jaw implant Neck: Supple, no nodes, no JVD, no spinal tenderness Respiratory: Lungs clear, normal breath sounds, no respiratory distress Cardio: RRR, No murmur, pulses normal, brisk capillary refill, no chest wall tenderness, no chest bruising Abdomen: Soft, nontender, multiple reducible incisional hernias, no masses, non- distended Bowel sounds: Present Musculoskeletal: Strength Intact/ROM intact, no calf tenderness, no edema. Psychological: Normal Neuro: A&O x3, CN II-XII intact, motor function 5/5, sensation intact, cerebellar normal GCS: 15 Triage Information Reviewed: Yes Vital Signs On Initial Exam: Initial Vitals Temp Pulse Resp BP Pulse Ox 97.5 F 89 18 133/105 98 04/17/18 13:10 04/17/18 13:10 04/17/18 13:10 04/17/18 13:10 04/17/18 13:10 Vital Signs Reviewed: Yes Diagnostics - Vital Signs Vital Signs Temp Pulse Resp BP Pulse Ox 04/17/18 13:10 97.5 F 89 18 133/105 98 - Laboratory Result Diagrams: 04/17/18 13:40 04/17/18 13:40 Lab Statement: Any lab studies that have been ordered have been reviewed, and results considered in the medical decision making process. - Radiology CXR Radiology Interpretation Completed By: Radiologist Summary of Radiographic Findings: NO EVIDENCE FOR ACUTE FINDING. ED physician reviewed radiology report. - CT Brain CT CT Interpretation Completed By: Radiologist Summary of CT Findings: NO ACUTE INTRACRANIAL PATHOLOGY. DIFFUSE INVOLUTIONAL CHANGE WITH CHRONIC SMALL VESSEL ISCHEMIC CHANGES. ED physician reviewed radiology report. Cervical Spine CT CT Interpretation Completed By: Radiologist Summary of CT Findings: 1. NO EVIDENCE FOR FRACTURE. 2. 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 ED physician reviewed radiology report. Chest/Thorax CTA CT Interpretation Completed By: Radiologist Summary of CT Findings: No pulmonary embolus is noted. There is poor opacification of the aorta likely due to decreased cardiac output and clinical correlation is suggested. There is cardiomegaly noted. Scarring is noted in the right lung apex. Small peripheral nodules in the right lower lobe measures up to 6 mm with several nodules measuring 3 to 4 mm. In low-risk patient according to Fleischner criteria no routine follow-up is suggested. ED physician reviewed radiology report. - EKG 13:48 Cardiac Rate: NL - 72 bpm EKG Rhythm: Sinus Rhythm EKG Comparison: No Significant Change - EKG on 03/15/18 Summary of EKG Findings: An EKG at 13:[address] in RBBB pattern , nml QTc, LAD, and LVH. National Institutes Of Health - NIH Scale Level of Consciousness: Alert/Keenly Responsive Ask Patient the Month and His/Her Age: Both Correct Ask Pt to Open/Close Eyes and Primary Grade Teacher/Release Non-Paretic Hand: Both Correctly Best Gaze (Only Horizontal Eye Movement): Normal Visual Field Testing: No Visual Loss Facial Paresis-Pt to Smile & Close Eyes or Grimace Symmetry: Normal/Symmetrical Motor Function - Right Arm: No Drift-Holds 10 Seconds Motor Function - Left Arm: No Drift-Holds 10 Seconds Motor Function - Right Leg: No Drift-Holds 10 Seconds Motor Function - Left Leg: No Drift-Holds 10 Seconds Limb Ataxia-Must be out of Proportion to Weakness Present: Absent Sensory (Use Pinprick to Test Arms/Legs/Trunk/Face): Normal Best Language (Describe Picture, Name Items): No Aphasia Dysarthria (Read Several Words): Normal Extinction and Inattention: No Abnormality Total Score: 0 Re-Evaluation - Re-Evaluation First Eval Re-Evaluation Time: 13:53 Change: Unchanged Comment: Discussed EKG result and bigeminy with pt and daughter. Second Eval Re-Evaluation Time: 14:35 Change: Unchanged Comment: Advised pt of low K+ and low mag. Daughter not in room at this time. Advised pt that CTA will be done. Pt agrees. Denies CP, SOB, Abd pain, N, V. States she is dizzy when she stands up. BP 172/84 P66 Third Eval Re-Evaluation Time: 15:35 Change: Unchanged Comment: BP 162/97, 69, O2 sat 92% room air. Pt denies chest pain. Daughter is with pt. Course/Dx Course Of Treatment: Pt is an 82 y/o female who presents to the ED s/p syncope. Last night she had a syncopal episode with LOC and hit the right side of her chest. Before having the LOC, pt c/o extremity numbness. Pt now c/o chest soreness, 2/10 in severity, and dry cough. This morning she began dizzy and lightheaded, then "blacked out" without LOC, witnessed by daughter. Daughter states no tonic clonic activy, no incontinence. She was at [facility] [place]15[place]18- for low potassium and magnesium. Her BP is usually around 140/80, but today it was 158/92. A physical exam revealed minimal pain distress, bruxism, dentures, lower jaw implant, no chest wall tenderness, no chest bruising, multiple reducible incisional hernias, no masses, non-distended abdomen, and a GCS of 15. Pt has an NIH score of 0. A CXR are Brain CT were negative. A Cervical Spine CT revealed no fracture. A Chest/Thorax CTA revealed no pulmonary embolism, poor opacification of the aorta. An EKG at 13:48 reveals SR , bigeminy,prolonged IV CT in RBBB pattern, nml QTc, LAD, and LVH, no acute changes, and unchanged from previous. In the course her potassium and magnesium are replaced via IV. Final dx are syncope, hypomagnesemia, and hypokalemia. Dr. Gutierres accepts pt for admission, and pt is agreeable with this plan. - Diagnoses Differential Diagnosis/HQI/PQRI: Positive: Cerebral Vascular Accident, Coronary Artery Disease, Dysrhythmia, Hypovolemia, Metabolic Reaction, Myocardial Infarction, Pulmonary Embolism, Seizure, Vasovagal Episode Provider Diagnoses: Syncope, Hypomagnesemia, Hypokalemia - Physician Notifications Discussed Care of Patient With: Jessica Gutierres Time Discussed With Above Provider: 15:45 Instructed by Provider To: Admit As Inpatient - Dr. Gutierres accepts pt for admission. Discharge - Sign-Out/Discharge Documenting (check all that apply): Patient Departure - Admit - Discharge Plan Condition: Stable Disposition: ADMITTED TO [facility] - Billing Disposition and Condition Condition: STABLE Disposition: Admitted to [facility] - Attestation Statements Document Initiated by Mahad: Yes Documenting Scribe: Fifi Poon Provider For Whom Mahad is Documenting (Include Credential): Tracie Prescott MD Scribe Attestation: Fifi Sands, scribed for Tracie Prescott MD on 04/17/18 at 2147. Scribe Documentation Reviewed: Yes Provider Attestation: The documentation as recorded by the Fifi hayward accurately reflects the service I personally performed and the decisions made by me, Tracie Prescott MD
[2018-04-17 13:53] LABS: ABS Basophils 0 10^3/ul (0-0.2); ABS Eosinophils 0.1 10^3/ul (0-0.6); ABS Lymphocytes 1.2 10^3/ul (1.0-4.8); ABS Monocytes 0.4 10^3/ul (0-0.8); ABS Neutrophils 3.2 10^3/ul (1.5-7.7); ABS Nucleated RBC 0 10^3/ul; Eosinophil % 1.1 %; Hematocrit 36 % (35-47); Hemoglobin 11.6 g/dl (12.0-16.0); Lymphocyte % 24.4 %; Mean Corpuscular HGB Conc 33 g/dl (31-36); Mean Corpuscular Hemoglobin 29 pg (27-31); Mean Corpuscular Volume 88 fL (80-97); Mean Platelet Volume 8.5 fL (7.4-10.4); Nucleated Red Blood Cells % 0; Platelet Count 105 10^3/ul (150-450); Red Blood Count 4.05 10^6/ul (4.00-5.40); Red Cell Distribution Width 16 % (10.5-15); White Blood Count 4.9 10^3/ul (3.5-10.8)
[2018-04-17 14:05] LABS: INR 0.93 (0.77-1.02)
[2018-04-17 14:07] LABS: EGFR Non-African American 91.9 (>60)
[2018-04-17] MEDS ORDERED: Magnesium Sulfate 2 GM IV* 2 GM/50 ML BAG IVPB ONE (14:27)
[2018-04-17] MEDS ORDERED: Iohexol 350* (CONTRAST) 500 ML MDV IV ONE (14:58)
[2018-04-17] MEDS: KCL 10 MEQ/50 ML IVPREMIX* 10 MEQ/50 ML BAG IV SCH ×2 (16:17→17:44)
[2018-04-17] MEDS ORDERED: Potassium Chlor TAB* 20 MEQ TAB.ER PO ONE (16:24)
[2018-04-17] MEDS ORDERED: amLODIPine TAB* 5 MG PO ONE (16:24)
[2018-04-17] MEDS ORDERED: Acetaminophen TAB* 325 MG PO PRN (16:24)
[2018-04-17] MEDS ORDERED: traMADol TAB* 50 MG PO PRN (16:26)
--- NOTE | 2018-04-17 21:07 | HP ---
ADDENDUM NOW INCLUDED ON THIS REPORT CC: Farheen Martin MD * HISTORY AND PHYSICAL: DATE OF ADMISSION: 04/17/18 PRIMARY CARE PROVIDER: Farheen Martin MD ATTENDING PHYSICIAN WHILE IN THE HOSPITAL: Jessica Gutierres MD * (report dictated by Froylan Vaughn NP) CHIEF COMPLAINT: 1. Dizziness, lightheadedness. 2. Staring. HISTORY OF PRESENT ILLNESS: Ms. Cook is an 82-year-old female patient. She has a history, question of ventricular tachycardia in the past, recently diagnosed with hypertension, PE, depression, scarlet fever, and rheumatic heart disease. She is coming into the ED today. She was here about a month ago with similar complaints. She was in the shower today. She had an episode where she felt lightheaded and dizzy like she was going to faint. Her daughter recognized this and was able to get to her and got her out of the shower. The daughter did note that she had an episode where after she got out of shower, she became stiff like a board and was staring, was not really talking. There were no reports of tremors or incontinence of urine and when the patient returned to her baseline, when she came out of this, she was coherent. The daughter was concerned because she had a similar episode like this again about a month ago and was brought here for this, so she brought her right back to the hospital. She does state that she recently ran out of blood pressure medications and according to the daughter, she missed her followup appointment with her PCP. She was sent home on a 30-day supply of Norvasc. She did note that her blood pressure at home has been running in the 150s and for the longest time, her blood pressure according to the daughter had run on the lower side. The patient does not recall the staring. She just states "I don't remember, I don't remember." She does remember the shower. 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 She denies having any chest pain prior to or after. She did complain of palpitations today as well. Again, no urinary incontinence. There has been no recent change in meds with the exception she has not been taking her blood pressure meds in the last couple of days. She denied having any significant weight change. There was no double vision. She denied having any ear discharge. There were no reports of rhinorrhea or sore throat or thyroid enlargement. Denied having any chest discomfort. Again, there was concern because of this episode today, she came into the ED. She was evaluated. There was a concern for possible syncope versus seizure and we were asked to evaluate for admission. PAST MEDICAL HISTORY: Significant for: 1. Depression. 2. History of rheumatic heart disease. 3. Rheumatoid arthritis. 4. PE. 5. Hypertension. 6. History of ventricular tachycardia. PAST SURGICAL HISTORY: 1. She has had ORIF of the left hip. 2. She has had right hip replacement twice. 3. Bilateral knee replacement. 4. Bowel resection x7. 5. Laparoscopic cholecystectomy. MEDICATIONS: Home meds, again: 1. Norvasc 5 mg p.o. daily, but she has not taken this in a few days. 2. Trazodone 200 mg at bedtime. 3. Tramadol 50 mg p.o. t.i.d. as needed. 4. Mucinex 1200 mg p.o. twice a day as needed. 5. Vitamin E 400 units p.o. daily. 6. Zoloft 200 mg daily. 7. Potassium 20 mEq p.o. daily. 8. Vitamin C 1000 mg p.o. daily. ALLERGIES TO MEDICATIONS: Include no known drug allergies. FAMILY HISTORY: Mother had a history of depression. Father had a history of cancer. SOCIAL HISTORY: She lives alone. She does not smoke. She does not drink. Surrogate decision maker is her daughter, Chinyere. REVIEW OF SYSTEMS: There is no documented fever. She denied having any significant weight change. There is no double vision. She denies having any ear discharge. There was no rhinorrhea. There was no sore throat. No thyroid enlargement. She denied having any chest pain with this episode. She did admit to palpitations. There was a question of loss of consciousness, question seizure. No nausea, no vomiting. No diarrhea. No abdominal pain. No orthopnea. No nocturnal dyspnea is reported. No skin ulcerations. Review of 14 systems completed, all others negative. PHYSICAL EXAMINATION GENERAL: At this time, Ms. Cook is an 82-year-old female patient. She is sitting in the ED stretcher. She does not appear to be in any acute distress. She appears to be well nourished and well developed. VITAL SIGNS: Blood pressure the last one was 200/100, her O2 saturations were 97% on room air, her pulse was 61, respirations 18, temperature 97.5. HEENT: Head: Atraumatic, normocephalic. Eyes: EOMs intact. Sclerae anicteric and not pale. Throat: Oral mucosa appears to be moist. No oropharyngeal erythema. NECK: Supple. LUNGS: Clear to auscultation. No wheezes, rales, or rhonchi. HEART: Sounds S1, S2. She had a grade 2/3 systolic murmur in the aortic listening area, otherwise regular rate and rhythm. ABDOMEN: Soft. It was flat. It was nontender. Bowel sounds were present. She did have a large ventral hernia, which is chronic. EXTREMITIES: Pulses were 2+ throughout. She is moving all 4 extremities with 5 /5 strength. NEUROLOGICAL: The patient is awake. She is alert. She is oriented x3. Tongue is midline. Computer Repairer are equal. Uvosrp-dw-hdbq intact bilaterally. Heel- to-nina intact bilaterally. No gross focal deficits. SKIN: Intact. DIAGNOSTIC STUDIES/LAB DATA: Labs today, WBC 4.9, RBC of 4.05, hemoglobin of 11.6, hematocrit of 36, platelet count of 105,000. INR was 0.93. PTT of 29.4. D-dimer greater than 1050. Sodium 141, potassium 3.1, chloride of 104, bicarb 32, BUN 13, creatinine of 0.62, glucose 109. Lactate 1.1. Calcium 9.3. Mag 1.6. Total bili 0.3, AST 24, ALT 19, alk phos 94. Ammonia 35. CK 53. Troponin 0.03. BNP of 265. Albumin 3.6. TSH normal. Toxicology negative. She had multiple imaging here in the ED starting out with chest x-ray, which revealed no evidence for acute finding. Brain CT obtained showed no acute intracranial pathology, diffuse involutional change with chronic small vessel ischemic changes. Cervical spine CT obtained today showed no evidence for fracture, spondylolisthesis at multiple levels and advanced diffuse degenerative disk disease unchanged. CTA chest revealed no PE is noted. There is poor opacification of the aorta likely due to decreased cardiac output and clinical correlation is suggested. There is cardiomegaly noted. Scarring is noted in the right lung apex. Mild peripheral nodules in the right lower lobe up to 6 mm with several nodules measuring 3 to 4 mm. In a low risk patient, no followup is suggested. Old medical records were reviewed. ASSESSMENT AND PLAN: Ms. Cook is an 82-year-old female patient coming into the ED today with complaints of an episode of possible syncope. We were asked to evaluate for admission. She will be admitted under observation status for: 1. Syncope. Again, at this point, this is the second time she has had this episode and the description I am getting, I do have seizure on the differential. I think we should get an EEG to monitor for anymore episodes. If they do occur here and it does appear to look like a seizure, I would certainly have low threshold for Neurology input. She had a CT brain, which was stable. My plan will be to get an EEG. I will repeat her echo because of the concern for possible decreased cardiac output on CTA and the fact that she did have her blood pressures much more elevated now and the fact that she did have again, possible syncope today and we will update this. I know she had one in December with a preserved EF. I want to make sure there have been no changes. We will place her on telemetry, cycle her troponins and I will get orthostatic blood pressures. 2. Palpitations. I will cycle her troponins and I will place her on telemetry. She may have had ventricular tachycardia that is contributing to this episode today. 3. Depression. Continue with supportive care. 4. history of rheumatoid arthritis. Continue with current medical regimen. 5. History of rheumatic heart disease. We are going to get an echo. 6. Hypertension, not well controlled. She did run out of her blood pressure meds. I will restart her on 5 mg of Norvasc. We will give her a dose now. If I need to, I can give her p.r.n. hydralazine, but I am waiting to see if the Norvasc will control it. 7. History of pulmonary embolism. We will continue with secondary prevention. 8. DVT prophylaxis. I have ordered heparin subcu. 9. Code status. She wished to be a DNR. 10. History of ventricular tachycardia. Again, she will be placed on telemetry. 11. Fluids, electrolytes, and nutrition. She can have a regular diet. TIME SPENT: On the admission was 60 minutes, greater than half the time spent face- to-face with the patient obtaining my history and physical; other half time spent going over the plan of care with the patient and implementing plan of care. I did discuss the plan of care with my attending, Dr. Gutierres; she is in agreement. FROYLAN VAUGHN NP ADDENDUM: LABS: I do note, the patient did have an EKG. 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 She had no ST elevation. She does have LVH with a rate of 72, it is reviewed with her previous EKG, it appears to be similar to the previous EKG. No acute changes were noted. FROYLAN VAUGHN NP [id number]/[facility] #: [id number]/[facility] #: [id number] NICHOL
--- NOTE | 2018-04-17 21:16 | HP ---
HISTORY AND PHYSICAL: ADDENDUM: LABS: I do note, the patient did have an EKG. 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 She had no ST elevation. She does have LVH with a rate of 72, it is reviewed with her previous EKG, it appears to be similar to the previous EKG. No acute changes were noted. LIZETH LYNN, JIM [id number]/[facility] #: [id number] NICHOL
[2018-04-17] MEDS: traZODone TAB* 100 MG PO SCH ×2 (21:19→23:09)
[2018-04-17] MEDS: Heparin VIAL(*) 5000 UNITS/ML VIAL (FIVE THOUSAND) SUBCUT SCH (21:19)
[2018-04-17] MEDS: Sertraline* 100 MG TAB PO SCH ×2 (21:19→23:09)
[2018-04-18] MEDS: Heparin VIAL(*) 5000 UNITS/ML VIAL (FIVE THOUSAND) SUBCUT SCH ×3 (05:28→21:20)
[2018-04-18 05:42] LABS: ABS Basophils 0.1 10^3/ul (0-0.2); ABS Eosinophils 0.2 10^3/ul (0-0.6); ABS Lymphocytes 1.7 10^3/ul (1.0-4.8); ABS Monocytes 0.5 10^3/ul (0-0.8); ABS Neutrophils 2.2 10^3/ul (1.5-7.7); ABS Nucleated RBC 0 10^3/ul; Hematocrit 32 % (35-47); Hemoglobin 10.6 g/dl (12.0-16.0); Lymphocyte % 35.9 %; Mean Corpuscular HGB Conc 33 g/dl (31-36); Mean Corpuscular Hemoglobin 29 pg (27-31); Mean Corpuscular Volume 88 fL (80-97); Mean Platelet Volume 8.5 fL (7.4-10.4); Nucleated Red Blood Cells % 0.2; Platelet Count 100 10^3/ul (150-450); Red Blood Count 3.64 10^6/ul (4.00-5.40); Red Cell Distribution Width 16 % (10.5-15); White Blood Count 4.6 10^3/ul (3.5-10.8)
[2018-04-18 06:08] LABS: EGFR Non-African American 99.3 (>60)
[2018-04-18 06:15] LABS: INR 0.94 (0.77-1.02)
[2018-04-18] MEDS: Sertraline* 100 MG TAB PO SCH ×2 (08:28→23:38)
[2018-04-18] MEDS: amLODIPine TAB* 5 MG PO SCH (08:29)
[2018-04-18] MEDS ORDERED: Sertraline* 100 MG TAB PO SCH (09:00)
[2018-04-18] MEDS ORDERED: Potassium Chlor TAB* 20 MEQ TAB.ER PO SCH (09:00)
[2018-04-18] MEDS: Potassium Chlor TAB* 20 MEQ TAB.ER PO SCH (09:18)
[2018-04-18] MEDS ORDERED: Magnesium Sulfate 1 GM IV* 1 GM/100 ML BAG IV ONE (09:25)
--- NOTE | 2018-04-18 13:58 | PN ---
Subjective Date of Service: 04/18/18 Interval History: Pt resting comfortably in chair. She says she feel much better since yesterday, though she is unable to verbalize what exactly feels better. She has not had any additional syncopal episodes or feelings of dizziness. She has a long history of intermittent palpitations, which she describes as feeling like her heart is racing, but she has not had any in the hospital. She denies chest pain , shortness of breath, headache, abdominal pain, N/V, numbness or tingling in her extremities. Denies any leg swelling or orthopnea. Discussed at length the importance of following up with her primary care provider and staying on top of taking her medications, especially her antihypertensives and electrolyte repletion. PT is recommending STR, but patient is very reluctant to go. Also discussed this with the daughter, and she feels a short stay might be worthwhile, perhaps at [facility] if she meets criteria. Will discuss further with bilingual case manager. Objective Active Medications: Acetaminophen (Tylenol Tab*) 650 mg PO Q4H PRN PRN Reason: FEVER/PAIN Amlodipine Besylate (Norvasc Tab*) 5 mg PO DAILY [facility] Last Admin: 04/18/18 08:29 Dose: 5 mg Heparin Sodium (Porcine) (Heparin Vial(*)) 5,000 units SUBCUT Q8HR [facility] Last Admin: 04/18/18 13:11 Dose: 5,000 units Potassium Chloride (Klor Con Er Tab*) 40 meq PO DAILY [facility] Last Admin: 04/18/18 09:18 Dose: 40 meq Sertraline HCl (Zoloft*) 100 mg PO BID [facility] Last Admin: 04/18/18 08:28 Dose: 100 mg Tramadol HCl (Ultram*) 50 mg PO TID PRN PRN Reason: PAIN Last Admin: 04/17/18 17:43 Dose: 50 mg Trazodone HCl (Desyrel Tab*) 200 mg PO BEDTIME [facility] Last Admin: 04/17/18 23:09 Dose: 200 mg Vital Signs - 8 hr 04/18/18 04/18/18 08:31 10:53 Temperature 98.8 F 97.6 F Pulse Rate 69 73 Respiratory 20 20 Rate Blood Pressure 167/74 156/75 (mmHg) O2 Sat by Pulse 97 99 Oximetry Oxygen Devices in Use Now: None Eyes: No Scleral Icterus, PERRLA Ears/Nose/Mouth/Throat: NL Teeth, Lips, Gums, Mucous Membranes Moist Neck: NL Appearance and Movements; NL JVP, Trachea Midline Respiratory: Symmetrical Chest Expansion and Respiratory Effort, Clear to Auscultation Cardiovascular: RRR, No Edema, - - 2/6 murmur heard best at right sternal border Abdominal: NL Sounds; No Tenderness; No Distention, - - Chronic hernia on right side of abdomen Extremities: No Edema, No Clubbing, Cyanosis Skin: No Rash or Ulcers, No Nodules or Sclerosis Neurological: Alert and Oriented x 3, NL Muscle Strength and Tone, - Lines/Tubes/Other Access: Clean, Dry and Intact Peripheral IV Nutrition: Taking PO's Result Diagrams: 04/18/18 05:31 04/18/18 05:31 Assess/Plan/Problems-Billing Assessment: 82 year old female with PMH HTN, PE, rheumatic heart disease, multiple GI surgeries resulting in decreased absorption, history of multiple falls, hx syncopal episodes admitted to the hospitalist service for workup of syncope vs seizure. - Patient Problems (1) Syncope Current Visit: Yes Status: Acute Code(s): R55 - SYNCOPE AND COLLAPSE SNOMED Code(s): 656768819 Comment: - This is the patient's second admission for similar episode. Pt describes as "being in a fog" accompanied by dizziness/lightheadedness - Differentials include arrythmia vs seizure vs electrolyte imbalance - Orthostatic negative. Brain CT negeative. - Neurology consulted, appreciate reqs. EEG evidence of seizure activity, however Dr Waterman did recommend d/c tramadol due to lowering seizure threshold, however he feels pt's symptoms unlikely to be due to seizures. - No arrythmia activity on tele, however would reccomend outpatient cardiology follow up for long-term event monitoring. Pt was on sotolol for many, many years , which was stopped in December of this year after she was found to be severely bradycardic and was evaluated by cardiology. Pt's echo from that time showed a severely dilated LV, so she may have intermittent arrythmias when she is at home. Did have a preserved EF at that time. Repeat echo report is pending. - Hypokalemia and hypomagnesemia could also be contributing to syncope and/or potentiating an arrythmia. Will continue to replete as needed. (2) Cervical spondylolysis Current Visit: Yes Status: Acute Code(s): M43.02 - SPONDYLOLYSIS, CERVICAL REGION SNOMED Code(s): 059998608 Comment: - Spinal CT with spondylosis and degenerative disc disease. 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 On PO supplimentation as outpatient, however has missed a few doses. Last episode of syncope was also associated with hypokalemia, so this could be a contributing factor. - Repleted K 3.3 this AM. Will continue to replete as necessary and will continue supplimentation as outpatient. (4) Hypertension Current Visit: No Status: Chronic Code(s): I10 - ESSENTIAL (PRIMARY) HYPERTENSION SNOMED Code(s): 84760246 Comment: - Continue norvasc. Hypertensive on admission, but reports nurring out of norvasc. (5) Intermittent palpitations Current Visit: Yes Status: Acute Code(s): R00.2 - PALPITATIONS SNOMED Code (s): 282825760 Comment: - Hx intermittent palpitations. Was on sotolol, but d/c in December due to bradycardia - No arrythmias on tele - Suggest outpatient cardiology workup (6) Depression Current Visit: No Status: Acute Code(s): F32.9 - MAJOR DEPRESSIVE DISORDER, SINGLE EPISODE, UNSPECIFIED SNOMED Code(s): 04506673 Comment: - Continue zoloft (7) Hx of pulmonary embolus Current Visit: No Status: Chronic Code(s): Z86.711 - PERSONAL HISTORY OF PULMONARY EMBOLISM SNOMED Code(s): 339549691 Comment: - CTA without evidence of PE despite elevated D-dimer. D-dimer can also be elevated in RA, which pt has. (8) DVT prophylaxis Current Visit: No Status: Acute Code(s): OQU4283 - SNOMED Code(s): 270130799 Comment: - Continue SQ heparin (9) DNR (do not resuscitate) Current Visit: No Status: Acute Status and Disposition: Likely discharge tomorrow, either to [facility] or home with additional services per PT reqs. Will require close outpatient followup and adherence to medication regimen. Discussed possibility of rehab with both patient and her daughter. Pt does not want to go to any facility, but would be amenable to more home services if that could be provided. Her daughter says she was at [facility] previously and that she might be amenable to a short stay there if she meets criteria. Will discuss with care coordination tomorrow.
--- NOTE | 2018-04-18 15:14 | PN ---
Subjective Date of Service: 04/18/18 Objective Active Medications: Acetaminophen (Tylenol Tab*) 650 mg PO Q4H PRN PRN Reason: FEVER/PAIN Amlodipine Besylate (Norvasc Tab*) 5 mg PO DAILY [facility] Last Admin: 04/18/18 08:29 Dose: 5 mg Heparin Sodium (Porcine) (Heparin Vial(*)) 5,000 units SUBCUT Q8HR [facility] Last Admin: 04/18/18 13:11 Dose: 5,000 units Polyethylene Glycol/Electrolytes (Miralax*) 17 gm PO EVERY OTHER DAY [facility] Potassium Chloride (Klor Con Er Tab*) 40 meq PO DAILY [facility] Last Admin: 04/18/18 09:18 Dose: 40 meq Sertraline HCl (Zoloft*) 100 mg PO BID [facility] Last Admin: 04/18/18 08:28 Dose: 100 mg Trazodone HCl (Desyrel Tab*) 200 mg PO BEDTIME [facility] Last Admin: 04/17/18 23:09 Dose: 200 mg Vital Signs - 8 hr 04/18/18 04/18/18 08:31 10:53 Temperature 98.8 F 97.6 F Pulse Rate 69 73 Respiratory 20 20 Rate Blood Pressure 167/74 156/75 (mmHg) O2 Sat by Pulse 97 99 Oximetry Oxygen Devices in Use Now: None Result Diagrams: 04/18/18 05:31 04/18/18 05:31 Assess/Plan/Problems-Billing Assessment: 82 year old female with PMH HTN, PE, rheumatic heart disease, multiple GI surgeries resulting in decreased absorption, history of multiple falls, hx syncopal episodes admitted to the hospitalist service for workup of syncope vs seizure.
--- NOTE | 2018-04-18 17:12 | ECHO ---
Amended Report Patient: DARYL SALAZAR [facility] Rec#: [id number] : 1935 Date: 04/18/2018 Age: 82y Height: 149.86 cm / 59.0 in Weight: 48.99 kg / 108.0 lbs Sex: F BSA: 1.42 Room#: 438 Admit Date#: 04/17/2018 Type: Inpatient Referring: Froylan Vaughn NP Reading: Imer Nettles MD [place] Layer: Aletha Abarca RDCS CC: Farheen Martin Transthoracic Echocardiogram Indication: Syncope BP: 156/121 HR: 75 Rhythm: NSR with PACs Findings History: PE, VT, rheumatic fever, mod-severe MR, anemia, dementia. Technical Comments: The study quality is good. Completed at 0830. Left Ventricle: The left ventricular chamber size is normal. Mild concentric left ventricular hypertrophy is observed. Global left ventricular wall motion and contractility are within normal limits. There is normal left ventricular systolic function. The estimated ejection fraction is 55-60%. There is no consistent Doppler evidence of clinically significant diastolic dysfunction. Left Atrium: The left atrium is severely dilated. Right Ventricle: Moderator Band present. The right ventricular cavity size is normal. The right ventricular global systolic function is normal. Right Atrium: The right atrium is mildly dilated. There is evidence of an atrial septal aneurysm. Aortic Valve: The aortic valve is trileaflet. The aortic valve leaflets are mildly thickened. There is aortic annular calcification. There is a trace of aortic regurgitation. There is no evidence of aortic stenosis. Mitral Valve: There is mitral annular calcification. The mitral valve leaflets are mildly thickened. There is mild mitral valve prolapse. There is moderate to severe mitral regurgitation. There is no evidence of mitral stenosis. Tricuspid Valve: The tricuspid valve leaflets are normal. There is moderate tricuspid regurgitation. The right ventricular systolic pressure is estimated at 49 mmHg. There is evidence of moderate pulmonary hypertension. There is no tricuspid stenosis. Pulmonic Valve: The pulmonic valve appears normal. There is a trace pulmonic regurgitation. There is no pulmonic stenosis. Pericardium: There is no significant pericardial effusion. Aorta: There is mild dilatation of the ascending aorta. There is no dilatation of the aortic arch. The aortic root is normal in size. Pulmonary Artery: The main pulmonary artery appears normal. Venous: The inferior vena cava appears normal in size. There is a greater than 50% respiratory change in the inferior vena cava dimension. Conclusions Global left ventricular wall motion and contractility are within normal limits. There is normal left ventricular systolic function. The estimated ejection fraction is 55-60%. The right ventricular global systolic function is normal. There is a trace of aortic regurgitation. There is mild mitral valve prolapse. There is moderate to severe mitral regurgitation. There is moderate tricuspid regurgitation. The right ventricular systolic pressure is estimated at 49 mmHg. There is evidence of moderate pulmonary hypertension. There is no significant pericardial effusion. Compared to study of 01/09/18, the LV function and valve functions are the same. The Est PASP is slightly worse Measurements Name Value Normal Range RVIDd (AP) 2D 2.7 cm (0.9 - 2.6) RVDdMajor (2D) 4 cm (2.2 - 4.4) RAd ISD 4CH 5.1 cm (3.4 - 4.9) RA (A4C)W 4.4 cm (2.9 - 4.6) IVSd (2D) 1.2 cm (0.6 - 1) LVPWd (2D) 1.2 cm (0.6 - 1) LVIDd (2D) 3.6 cm (3.6 - 5.4) LVIDs (2D) 2.9 cm - LV FS (2D) 20 % (25 - 45) Aortic Annulus 2 cm (1.4 - 2.6) Ao root diameter (2D) 3.2 cm (2.1 - 3.5) Ascending Ao 3.6 cm (2.1 - 3.4) Aortic arch 2.1 cm (1.8 - 3.4) LA dimension (AP) 2D 3.4 cm (2.3 - 3.8) LAd ISD 4CH 6 cm (2.9 - 5.3) LA ISD 4CH W 5.1 cm (2.5 - 4.5) Name Value Normal Range LA ESV SP 4CH (A/L) 94 ml - LA ESV SP 2CH (A/L) 82 ml - LA ESV BP (A/L) 92 ml - LA ESV BP (A/L) index 65 ml/m2 - LA ESV SP 4CH (MOD) 84 ml - LA ESV SP 2CH (MOD) 77 ml - Name Value Normal Range MV E-wave Vmax 0.84 m/sec - MV deceleration time 219 msec - MV A-wave Vmax 0.36 m/sec - MV E:A ratio 2.29 ratio - LV septal e' Vmax 0.06 m/sec - LV lateral e' Vmax 0.07 m/sec - LV E:e' septal ratio 14 ratio - LV E:e' lateral ratio 12 ratio - Name Value Normal Range AV Vmax 1.02 m/sec - AV VTI 23.17 cm - AV peak gradient 4.17 mmHg - AV mean gradient 2.53 mmHg - LVOT Vmax 0.7 m/sec - LVOT VTI 15.7 cm - LVOT peak gradient 2.09 mmHg - LVOT mean gradient 0.92 mmHg - ELFEGO Vmax 0.4 m/sec - Name Value Normal Range MR Vmax 6.5 m/sec - MR VTI 229.1 cm - MR flow (PISA) 71.3 ml/sec - MR ERO 0.11 cm2 - MR PISA radius 0.6 cm - MR alias Vmax 31 cm/sec - Name Value Normal Range TR Vmax 3.4 m/sec - TR peak gradient 46 mmHg - RAP 3 mmHg - RVSP 49 mmHg - IVC diameter 2 cm - Name Value Normal Range PV Vmax 0.52 m/sec - PV peak gradient 1.12 mmHg -
[2018-04-18] MEDS ORDERED: Polyethylene Glycol 3350* 17 GM PACKET PO SCH (20:00)
--- NOTE | 2018-04-18 22:14 | CONS ---
CONSULTATION NOTE: DATE OF CONSULT: 04/18/18 CONSULTING PROVIDER: Dr. Jessica Gutierres. REASON FOR CONSULT: Episode of staring spell. CHIEF COMPLAINT: "Reported by the aide that I was acting abnormally." HISTORY OF PRESENT ILLNESS: Ms. Cook is an 82-year-old female with a past medical history significant for hypertension, pulmonary embolism, and was treated on anticoagulation therapy in the past, depression, scarlet fever, rheumatic heart disease, who presented to [facility] yesterday on with an episode of transient alteration of awareness. The patient had a similar episode 1 month ago where she was diagnosed with a fall without any syncope and it was thought to be related to an electrolyte abnormality. She was evaluated by Cardiology, who ruled out any acute arrhythmias. She had a questionable ventricular tachycardia in the past, but after the Cardiology's evaluation that was ruled out. The patient stated that she was in normal state of health. She waited for her aide yesterday to come and help her shower. She only showers when someone is around, because of her concern for falling. She does fall frequently. She uses a walker for the last several years. Her falls are usually mechanical and are mostly due to her legs giving out. She also reports some occasional spasms of the lower extremities. The patient stated that she went in the shower and washed her hair. After doing so, she got out of the shower and reached out for the rolling walker, which was next to the tub. She sat on the rolling walker and waited for her aide to help. Apparently , it was reported that the patient was upright when suddenly she had a staring spell that lasted a few seconds. She was then back to her normal self and she was able to ambulate from the bathroom to the bed. The patient stated that she does not recall ambulating from the bathroom to the bed; however, she does recall her aide, Kalyani, being extremely concerned about what took placed in the bathroom. The patient stated that she did not lose consciousness but may have lost awareness for a few seconds. She did not fall. She did not have any head injury. The patient has chronic incontinence of urine. She has a history of multiple bowel resections. Currently, the patient is sitting in a chair comfortably. She denied any headaches, visual disturbance, speech abnormality, or new focal weakness or paresthesias. She has no history of seizures. She denied any history of meningitis and encephalitis. She denied any brain or spinal cord surgery. She did endorse using tramadol occasionally but does not recall how often she is using this medication. Tramadol is prescribed 50 mg p.o. t.i.d. as needed. The patient had a CT of the head completed 04/17/18 that showed no evidence of acute intracranial processes. She had no intracranial hemorrhage or large vessel occlusion. The patient has slight hypodensity and extensive white matter changes consistent with chronic small vessel disease. She had a cervical spine CT completed on 04/17/18 that showed spondylolisthesis at multiple levels and advanced diffuse degenerative disk disease. She also had a chest CTA due to evaluation for PE given her history as well as an elevated D- dimer. The patient has run out of Norvasc and has not taken this medication for a few days. PAST MEDICAL AND SURGICAL HISTORY: Depression, history of rheumatoid arthritis , PE, hypertension, ORIF of the left hip, bilateral knee replacement, bowel resection x7. Laparoscopic cholecystectomy. MEDICATIONS: Home medications include: 1. Norvasc 5 mg p.o. daily. 2. Trazodone 200 mg at bedtime. 3. Tramadol 50 mg p.o. t.i.d. as needed. 4. Mucinex 1200 mg p.o. twice daily. 5. Vitamin E 400 mg units p.o. daily. 6. Zoloft 200 mg daily. 7. Potassium 20 mEq p.o. daily. 8. Vitamin C 1000 mg daily. ALLERGIES TO MEDICATIONS: No known drug allergies. FAMILY HISTORY: Mother had depression. Her son had cerebellar aneurysm. Her father had a history of cancer. SOCIAL HISTORY: She lives alone. She has aides come and help for a few hours a day. She does not consume alcohol or smoke tobacco. REVIEW OF SYSTEMS: A 14-point review of systems was obtained and otherwise negative except for what was mentioned in the HPI. PHYSICAL EXAM: Vitals: Temperature 97.6, heart rate of 73, respiratory rate of 20, oxygen saturation 99% on room air, blood pressure 156/75. General: A frail- appearing female, in no acute distress. She is very pleasant. She is hard of hearing. Head: Normocephalic without any obvious abnormality. Eyes: Conjunctivae/corneas are clear. Neck is supple and symmetrical with no carotid bruit. Lungs are clear to auscultation bilaterally. Cardiovascular: Regular rate and rhythm with possible 1/6 holosystolic murmur. Extremities: Normal range of motion with no cyanosis. Skin: No skin lesions or laceration. Psych : Affect is broad and normal mood. Neurological Examination: Mental Status: She is awake, alert, and oriented to person, place, time, and general circumstances. Cranial Nerves: Normal confrontation bilaterally. Pupils are mid range and reactive to light. Normal consensual response. Sensation is intact to forehead, cheeks, and jaw region bilaterally. Tongue is symmetrical midline with no fasciculation or atrophy. Motor: Right/left, no abnormal movements, no pronator drift. Normal bulk and tone throughout. She has restricted range of motion of the shoulder on the right side. Right/left, shoulder abduction of 4/5, elbow flexion 4/5, extension 4/5, wrist flexion and extension 5/5, finger flexion and abduction 5/5, hip flexion and abduction 4/5 bilaterally, knee flexion and extension 5/5, ankle dorsiflexion and plantar flexion 5/5. Reflexes: Right/left, brachioradialis 1/1, biceps 1/1, triceps 1/ 1, patella 1/1, ankle 0/0, plantar flexor/flexor. Sensation is intact to light touch throughout. Normal vibration at the ankles bilaterally. Coordination: Normal [id number]. Gait: Wide based, antalgic, requires a walker to ambulate. LABORATORY DATA: The patient had a WBC of 4.9, hemoglobin of 11, hematocrit of 36. Sodium 141, potassium 3.1, lactic acid 1.1, magnesium of 1.6. TSH 1.3. Alcohol level less than 10. ASSESSMENT AND RECOMMENDATIONS: 1. Ms. Ml Cook is an 82-year-old female with history of rheumatoid arthritis, cervical spondylolisthesis, who presented with a second episode of transient alteration of awareness. There was no accompanied seizure-like activity. The patient is unable to describe the incident well, but did state she cannot recall the time when she ambulated from the rest room to her bathroom. She does complain of chronic history of palpitation. The differential diagnosis is broad. It is unclear if this is predominantly a cardiac source of this transient alternation of awareness related to underlying cardiac arrhythmia versus complex partial seizure. The latter is unlikely since the duration of the episode was extremely brief. However, she his taking tramadol which it is unclear if she takes it regularly or not but this can significantly lower the seizure threshold. I recommend discontinuing the medication. Reassuringly, she had an EEG that showed no epileptiform abnormalities or electrographic seizures. She did have some slowing in the bitemporal region, left greater than right, which can be nonspecific at this age. I recommend neuro checks every hour. Continue supportive care. She may need further outpatient cardiac evaluation with the loop monitor/recording. The patient should not be driving. She does not drive at baseline, but she should not be bathing independently or operating any other heavy machinery. 2. History of frequent falls - I suspect the patient has underlying severe cervical spondylosis with possible radiculopathy involving the right upper extremity. We may want to proceed with an MRI of the cervical spine without contrast to evaluate the degree of spondylosis as well as to exclude any possible pannus formation causing cord compression. She would not be interested in surgery, but at least a reason of her frequent falls can be discovered. Please obtain vitamin B12 to check for any other possible metabolic causes for gait imbalance. We discussed fall precautions. I also discussed the case with Case Management. The patient may need further assistance at home and it will be very difficult for her to go back home and become independent. TIME SPENT: I spent a total of 75 minutes and greater than 50% was spent directly reviewing the medical chart, obtaining history, examining the patient, education and counseling, and discussing the treatment plan as mentioned above. I discussed fall precautions with the patient and encouraged her to always use her walker. [id number]/[facility] #: [id number] [facility]OSPITALAmelia
[2018-04-18] MEDS: traZODone TAB* 100 MG PO SCH (23:38)
[2018-04-19] MEDS: Heparin VIAL(*) 5000 UNITS/ML VIAL (FIVE THOUSAND) SUBCUT SCH ×2 (05:20→14:35)
[2018-04-19 07:36] LABS: Hematocrit 34 % (35-47); Hemoglobin 10.9 g/dl (12.0-16.0); Mean Corpuscular HGB Conc 33 g/dl (31-36); Mean Corpuscular Hemoglobin 29 pg (27-31); Mean Corpuscular Volume 88 fL (80-97); Red Blood Count 3.83 10^6/ul (4.00-5.40); Red Cell Distribution Width 16 % (10.5-15)
[2018-04-19 07:39] LABS: EGFR Non-African American 107.8 (>60)
[2018-04-19] MEDS: Potassium Chlor TAB* 20 MEQ TAB.ER PO SCH (08:04)
[2018-04-19] MEDS: Sertraline* 100 MG TAB PO SCH (08:04)
[2018-04-19] MEDS: amLODIPine TAB* 5 MG PO SCH (08:04)
[2018-04-19 08:12] LABS: ABS Basophils 0 10^3/ul (0-0.2); ABS Eosinophils 0.3 10^3/ul (0-0.6); ABS Lymphocytes 1.8 10^3/ul (1.0-4.8); ABS Monocytes 0.5 10^3/ul (0-0.8); ABS Neutrophils 2.5 10^3/ul (1.5-7.7); ABS Nucleated RBC 0 10^3/ul; Lymphocyte % 34.9 %; Mean Platelet Volume 8.6 fL (7.4-10.4); Nucleated Red Blood Cells % 0.2; Platelet Count 97 10^3/ul (150-450)
[2018-04-19] MEDS ORDERED: Potassium Chlor TAB* 20 MEQ TAB.ER PO SCH (09:00)
[2018-04-19] MEDS ORDERED: Magnesium Sulfate 1 GM IV* 1 GM/100 ML BAG IV ONE (09:00)
[2018-04-19 09:16] LABS: Urine Appearance Clear; Urine Blood Negative (Negative); Urine Color Straw; Urine Ketones Negative (Negative); Urine Protein Negative (Negative); Urine Specific Gravity 1.008 (1.010-1.030); Urine Urobilinogen Negative (Negative)
--- NOTE | 2018-04-19 10:05 | EEG ---
ELECTROENCEPHALOGRAPHY: DATE OF STUDY: 04/17/18 DATE READ: 04/18/18 ORDERED BY: Froylan Vaughn NP. MEDICATIONS: 1. Magnesium. 2. Potassium. 3. Trazodone. 4. Amlodipine. 5. Heparin. 6. Klor-Con. 7. Sertraline. 8. Acetaminophen. 9. Tramadol. CLINICAL PROBLEM: Mrs. Cook is an 82-year-old female with history of rheumatoid arthritis, who had an episode of transient alteration of awareness with staring spell. This EEG was obtained to evaluate for epileptiform abnormalities or electrographic seizures. REPORT: The waking background showed appropriate organization with clearly defined anterior-posterior voltage and frequency gradients. There was a well- defined posterior dominant rhythm of 9 Hz, which was symmetrical and showed normal reactivity. There was low voltage alpha throughout the recording. Anteriorly, there were patterns of lower voltage, irregular, mixed faster frequencies. During drowsiness, there were rare, occasional, medium amplitude, polymorphic, predominantly sharply contoured theta activity and bilateral bitemporal lesion maximally on the left at F7 and F3. There were no clear electrographic seizures or epileptiform discharges. There were episodes where the technologist documented leg jerking and movements of the right leg that did not correlate with any EEG changes. Hyperventilation and photic stimulation were not performed. EKG showed a normal sinus rhythm with a rate of 75 beats per minute. IMPRESSION: This is an essentially normal EEG for the patient's age with nonspecific bitemporal sharp theta activity. This finding is nonspecific and can be seen with cerebral atrophy or small vessel ischemic changes to the region ; however, bitemporal neuronal dysfunction cannot be entirely excluded. [id number]/[facility] #: [id number] [facility]
[2018-04-19 14:54] VITALS: BP 148/88
--- NOTE | 2018-04-19 15:00 | PN ---
Subjective Date of Service: 04/19/18 Interval History: Pt resting comfortably in chair, says she is eager to go home. Denies having any "foggy" episodes similar to her presenting episode. Denies dizziness or lightheadedness, chest pain, shortness of breath, abdominal pain, N/V, numbness or tingling in extremities. Objective Active Medications: Acetaminophen (Tylenol Tab*) 650 mg PO Q4H PRN PRN Reason: FEVER/PAIN Amlodipine Besylate (Norvasc Tab*) 5 mg PO DAILY [facility] Last Admin: 04/19/18 08:04 Dose: 5 mg Heparin Sodium (Porcine) (Heparin Vial(*)) 5,000 units SUBCUT Q8HR [facility] Last Admin: 04/19/18 14:35 Dose: 5,000 units Polyethylene Glycol/Electrolytes (Miralax*) 17 gm PO EVERY OTHER DAY [facility] Last Admin: 04/18/18 21:20 Dose: 17 gm Sertraline HCl (Zoloft*) 100 mg PO BID [facility] Last Admin: 04/19/18 08:04 Dose: 100 mg Trazodone HCl (Desyrel Tab*) 200 mg PO BEDTIME [facility] Last Admin: 04/18/18 23:38 Dose: 200 mg Vital Signs - 8 hr 04/19/18 04/19/18 04/19/18 07:50 08:00 11:27 Temperature 98.1 F 97.9 F Pulse Rate 71 76 Respiratory 20 20 20 Rate Blood Pressure 164/72 113/50 (mmHg) O2 Sat by Pulse 96 99 Oximetry 04/19/18 14:44 Temperature 97.7 F Pulse Rate 86 Respiratory Rate Blood Pressure 148/88 (mmHg) O2 Sat by Pulse 98 Oximetry Oxygen Devices in Use Now: None Eyes: No Scleral Icterus, PERRLA Ears/Nose/Mouth/Throat: NL Teeth, Lips, Gums, Mucous Membranes Moist Neck: NL Appearance and Movements; NL JVP, Trachea Midline Respiratory: Symmetrical Chest Expansion and Respiratory Effort, Clear to Auscultation Cardiovascular: NL Sounds; No Murmurs; No JVD, RRR, No Edema Abdominal: NL Sounds; No Tenderness; No Distention - Ventral hernial on right side of abdomen Extremities: No Edema, No Clubbing, Cyanosis Skin: No Rash or Ulcers Neurological: Alert and Oriented x 3, NL Muscle Strength and Tone Lines/Tubes/Other Access: Clean, Dry and Intact Peripheral IV Nutrition: Taking PO's Result Diagrams: 04/19/18 07:06 04/19/18 07:06 Assess/Plan/Problems-Billing Assessment: 82 year old female with PMH HTN, PE, rheumatic heart disease, multiple GI surgeries resulting in decreased absorption, history of multiple falls, hx syncopal episodes admitted to the hospitalist service for workup of syncope vs seizure. - Patient Problems (1) Syncope Current Visit: Yes Status: Acute Code(s): R55 - SYNCOPE AND COLLAPSE SNOMED Code(s): 763254123 Comment: - Pt will require cardiac event monitoring as an outpatient, as well as strict adherence to antihypertensive medications and electrolyte supplimentation - This is the patient's second admission for similar episode. Pt describes as "being in a fog" accompanied by dizziness/lightheadedness - Differentials include arrythmia vs seizure vs electrolyte imbalance - Orthostatic negative. Brain CT negeative. - Neurology consulted, appreciate reqs. EEG evidence of seizure activity, however Dr Waterman did recommend d/c tramadol due to lowering seizure threshold, however he feels pt's symptoms unlikely to be due to seizures. - No arrythmia activity on tele, however would reccomend outpatient cardiology follow up for long-term event monitoring. Pt was on sotolol for many, many years , which was stopped in December of this year after she was found to be severely bradycardic and was evaluated by cardiology. Pt's echo from that time showed a severely dilated LV, so she may have intermittent arrythmias when she is at home. Did have a preserved EF at that time. Repeat echo similar to prior. - Hypokalemia and hypomagnesemia could also be contributing to syncope and/or potentiating an arrythmia. Will continue to replete as needed. (2) Cervical spondylolysis Current Visit: Yes Status: Acute Code(s): M43.02 - SPONDYLOLYSIS, CERVICAL REGION SNOMED Code(s): 082781923 Comment: - Spinal CT with spondylosis and degenerative disc disease. 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 On PO supplimentation as outpatient, however has missed a few doses. Last episode of syncope was also associated with hypokalemia, so this could be a contributing factor. - K 4.1 this AM. Will continue to replete as necessary and will continue supplimentation as outpatient. (4) Hypertension Current Visit: No Status: Chronic Code(s): I10 - ESSENTIAL (PRIMARY) HYPERTENSION SNOMED Code(s): 60099787 Comment: - Continue norvasc (5) Intermittent palpitations Current Visit: Yes Status: Acute Code(s): R00.2 - PALPITATIONS SNOMED Code (s): 044687233 Comment: - No arrythmias on tele - Hx intermittent palpitations. Was on sotolol, but d/c in December due to bradycardia - Suggest outpatient cardiology workup/ event monitoring (6) Depression Current Visit: No Status: Acute Code(s): F32.9 - MAJOR DEPRESSIVE DISORDER, SINGLE EPISODE, UNSPECIFIED SNOMED Code(s): 71253195 Comment: - Continue zoloft (7) Hx of pulmonary embolus Current Visit: No Status: Chronic Code(s): Z86.711 - PERSONAL HISTORY OF PULMONARY EMBOLISM SNOMED Code(s): 763074571 Comment: - CTA without evidence of PE despite elevated D-dimer. D-dimer can also be elevated in RA, which pt has. (8) DVT prophylaxis Current Visit: No Status: Acute Code(s): FYS3255 - SNOMED Code(s): 296729569 Comment: - Continue SQ heparin (9) DNR (do not resuscitate) Current Visit: No Status: Acute Status and Disposition: Discharge to home today with VNA services. PT recommended subacute rehab stay, however patient is not interested. She understands the risks of going home, including serious injury from fall. Will require close outpatient followup and adherence to medication regimen.
--- NOTE | 2018-04-20 08:49 | DS ---
CC: Dr. Martin; Teri Landa NP; Dr. Denney; Dr. Nettles.* DISCHARGE SUMMARY: DATE OF ADMISSION: 04/17/18 DATE OF DISCHARGE: 04/19/18 PROVIDER: Lauren Chau NP. ATTENDING PHYSICIAN: Dr. Jessica Gutierres * (dictated by Lauren Chau NP). PRIMARY CARE PROVIDERS: Dr. Martin and Teri Landa NP. CONSULTING PHYSICIAN: Dr. Denney of Neurology. PHYSICIAN REFERRAL: Dr. Nettles, Cardiology. PRIMARY DIAGNOSIS: Syncope. SECONDARY DIAGNOSES: 1. Palpitations. 2. Hypertension. 3. Cervical spondylolysis. 4. Hypokalemia. 5. Intermittent palpitations. DISCHARGE MEDICATIONS: 1. Trazodone 200 mg p.o. at bedtime. 2. Mucinex 1200 mg p.o. b.i.d. p.r.n. 3. Vitamin E cap 400 units p.o. daily. 4. Zoloft 200 mg p.o. daily. 5. Potassium chloride tab 20 mEq p.o. daily. 6. Vitamin C 1000 mg p.o. daily. 7. Norvasc 5 mg p.o. daily. 8. Magnesium oxide 400 mg p.o. daily. STUDIES WHILE IN THE HOSPITAL: The patient underwent a chest x-ray that showed no acute findings. She underwent a brain CT which showed no acute intracranial pathology, diffuse involutional change with chronic small vessel ischemic changes. Cervical spine CT: No evidence of fracture, spondylolisthesis at multiple levels and advanced diffuse degenerative disk disease, unchanged. Chest, thorax CTA: No pulmonary embolus noted. Poor opacification of the aorta likely due to decreased cardiac output and clinical correlation suggested. There is cardiomegaly noted. Scaring is noted in the right lung apex. Small peripheral nodules in the right lower lobe, measuring up to 6 mm with several nodules measuring 3 to 4 mm in low risk patients according to the Espinoza criteria. No routine followup is suggested. TTE: showed global LV wall motion and contractility within normal limits. Normal LV systolic function. EF 55% to 60%. RV global systolic function is normal. Trace aortic regurgitation. Mild mitral valve prolapse. Moderate to severe mitral regurgitation. Moderate tricuspid regurgitation. RV systolic pressure estimated at 49 mmHg. Evidence of moderate pulmonary hypertension. No significant pericardial effusion. EEG: Essentially normal EEG for the patient's age with nonspecific bitemporal sharp theta activity. The finding is nonspecific and can be seen with cerebral atrophy or small vessel ischemic changes to the region; however, bitemporal neuronal dysfunction cannot be entirely excluded. HISTORY OF PRESENT ILLNESS: Mrs. Cook is an 82-year-old female with a past medical history of hypertension, PE, rheumatic heart disease, a long history of palpitations, a history of multiple bowel resections, and poor electrolyte absorption, multiple falls who presented to the ED after having an episode of transient loss of awareness and syncope. She had also been admitted recently for a similar episode and was discharged on 03/18/18. At that time, the episode was thought to be due to electrolyte imbalances. Of note, the patient did not follow up with her primary care provider after that admission. The patient is a poor historian and is unable to really describe the event. She did say that she felt "like she was in a fog and couldn't see". The patient's aide reported that the patient was taking a shower and was staring off into space and was not talking. She also said that she was stiff like a board. There were no reports of tremors or incontinence of urine and the episode lasted a short time after which the patient was able to ambulate back to her bedroom. The ED report also said that the patient had a syncopal episode the night before, though the patient was unable to recount to me the specifics of this episode as she has had many episodes recently. Of note, on admission the patient was found to have a D-dimer of greater than 1050. Because of this finding she had a CTA which ruled out a PE. She was also found to have a potassium of 3.1 which was repleted as well as a magnesium of 1.6. The hypokalemia and hypomagnesemia could have contributed to some muscle weakness and could have also potentiated an arrhythmia. The patient did have an EKG in the ED which did not show any acute changes. Due to the recurrent nature of the patient's syncope/transient awareness episodes she was admitted to the hospitalist service for further workup for seizures vs cardiac syncope. Due to the description of the event as involving an episode of unresponsiveness and staring, an EEG and neurology consult were obtained due to concern for seizures. The patient was evaluated by Dr. Denney with Neurology who felt after reading her EEG and talking to the patient that her episode was unlikely to be caused by a seizure due to the brief nature of the episode and the EEG showing no epileptiform abnormalities or electrographic seizures. However, the patient had been taking tramadol, unclear how regularly, and he did recommend discontinuing this medication which has been done. A B12 level was checked which was normal and orthostatics were checked which were also normal. In addition to this syncope history the patient also has a history of frequent falls. The patient did have a CT spine which showed severe cervical spondylosis and Dr. Denney was concerned that there was possible radiculopathy. Both Dr. Denney and I discussed this finding with the patient and discussed the possibility of obtaining an MRI to further evaluate this and to see if there is any cord compression. The patient did not want to proceed with this test as she said she would not want to be evaluated for any more surgical procedures and does not therefore want to undergo this testing. From a cardiac standpoint, the patient was monitored on telemetry for the duration of her admission. No arrhythmias were documented on our monitoring; however, as the patient did have an echo that showed a severely dilated left ventricle and she has a long history of reported palpitations I did recommend that she followup with Dr. Nettles in Cardiology for event monitoring as it is possible that an arrhythmia is contributing to these syncopal episodes. The patient was evaluated by Dr. Nettles as an inpatient in December. At the time she was severely bradycardic and there was a question of whether she was having episodes of VT. The patient had been on sotalol for many years although it was unclear why she had been placed on that medication in the first place. Dr. Nettles discontinued the sotalol at that time as the patient has not been bradycardic on this admission or her previous admission; however, further evaluation is indicated. The patient was also hypokalemic and hypomagnesemic on admission. She does have a history of poor absorption due to multiple bowel resections and is supposed to be taking supplemental potassium at home. The patient's daughter reports that she thinks the patient was not using her pill box for a few days and might have missed a few doses, potentiating this episode of hypokalemia. Of note, the last time the patient was admitted for similar episodes, she was also found to be hypokalemic. Additionally, the patient was prescribed Norvasc on her last admission for hypertension and the patient had ran out of this medication and therefore stopped taking it and was hypertensive in the ED and this could also be a contributing factor. I counselled the patient extensively on the importance of using her pill box and taking her medications as prescribed. The patient was evaluated by physical therapy during this admission and was recommended that she be sent to subacute rehab at discharge in order to get intensive physical therapy to address transfers and ambulation. The patient was adamantly opposed to a stay in subacute rehab. She says she does not want to spend her time away from home and away from her family. Despite being forgetful at times, the patient is alert and oriented x3, and is aware of the risks of not going to rehab. She was able to verbalize that she understands she is at risk for falls at home and that if she falls she could get seriously injured and might require surgery. The patient verbalized that she has already had multiple surgeries and does not want to have any additional invasive procedures and if that were to be necessary she would rather be made comfortable. 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 This was also discussed with the patient's daughter who was in agreement with the plan. The patient is amendable to having VNA at home as well as home physical therapy. I discussed at length the importance of close followup both with her primary care provider, specifically to monitor her electrolyte supplementation and hypertension as well as followup with the dish up person for outpatient event monitoring and the patient seemed amendable to those interventions. Appointments have been made with both Dr. Nettles and Teri Landa NP as the patient did not follow up with any providers after her last admission. DISPOSITION: Discharged to home with VNA, also recommend physical therapy. The patient's daughter is also looking in to getting additional hours with the patient's home health aide. DIET: Regular diet. ACTIVITY: As tolerated. FOLLOWUP: The patient was instructed to follow up with her primary care provider. An appointment had been made for 04/26/18 with Teri Landa. She is also instructed to follow up with Dr. Nettles in Cardiology. An appointment had been made for 05/05/18 at 10 a.m. TIME SPENT: Time spent for this discharge was 60 minutes. LAUREN CHAU, AUTOMATIC GLUING MACHINE OPERATOR [id number]/[facility] #: [id number] [facility] SIENA MEDICAL CENTERAmelia
[2018-04-20] MEDS ORDERED: Magnesium Oxide TAB* 400 MG PO SCH (09:00)
== END 2018-04-19 18:22 | disposition home or self-care (01) ==
LOC: ED 13:07 → MEDTELE 16:21
PROVIDERS: ADMIT Internal Medicine; ATTEND Internal Medicine
DX: R55 Syncope and collapse (principal); R00.2 Palpitations; M43.02 Spondylolysis, cervical region; I10 Essential (primary) hypertension; E87.6 Hypokalemia; F32.9 Major depressive disorder, single episode, unspecified; Z86.711 Personal history of pulmonary embolism; R42 Dizziness and giddiness; I09.9 Rheumatic heart disease, unspecified; I26.99 Other pulmonary embolism without acute cor pulmonale
CPT/HCPCS: 36415; 70450; 71045; 71275; 72125; 80048; 80053; 80320; 81003; 82140; 82550; 82607; 83605; 83735; 83880; 84443; 84484; 85025; 85060; 85379; 85610; 85730; 93005; 93306; 95816; 96365; 96366; 96372; 99283; A9270-GY; G0378; G0480; G8978-GP-CL; G8979-GP-CJ; G8987-GO-CK; G8988-GO-CI; J1644; J3475; J3480; Q9967

== ENCOUNTER 2018-10-30 11:45 | Inpatient (IN) | payer MEDICAID, MEDICARE ==
[2018-10-30] MEDS ORDERED: NS 0.9% 1000 ML** 1,000 ML IV ONE (11:49)
[2018-10-30] MEDS ORDERED: Diltiazem IV push/loading dose 5 MG/ML 5 ML vial (25 mg) IV SLOW PU ONE (12:01)
--- NOTE | 2018-10-30 12:03 | ED ---
Palpitations / Dysrhythmia - HPI Summary HPI Summary: This pt is an 7 y/o female presenting to [facility] via EMS for lightheadedness and dizziness today. Pt reports she became dizzy after standing up from bed today. EMS states pt was found to be initially hypotensive around 91/60 and with a heart rate between 130-180 bpm. Daughter reports pt does have a hx of afib. Pt today denies chest pain, SOB, abd pain. EMS notes currently pt has blood pressure of 130/68 with a heart rate of 150 after IV fluids en route. Pt denies any recent illness or trauma. Pt is not on anticoagulants despite having hx of afib. Her medications include zoloft, trazodone, and amlodipine. Pt did take amlodipine this morning and per daughter 1 hour later pt felt lightheaded. - History of Current Complaint Time Seen by Provider: 10/30/18 11:47 Hx Obtained From: Patient, Family/Regulatory Affairs Specialist - Daughter, EMS Onset/Duration: Lasting Hours, Still Present Severity Currently: Moderate Character: Fast Aggravating: Nothing Alleviating: Nothing Associated Signs & Symptoms: Lightheadedness, Dizzy - Allergy/Home Medications Allergies/Adverse Reactions: Allergies Allergy/AdvReac Type Severity Reaction Status Date / Time No Known Allergies Allergy Verified 04/17/18 13:10 PMH/Surg Hx/FS Hx/Imm Hx Endocrine/Hematology History: Reports: Hx Anemia, Other Endocrine/Hematological Disorders - hypokalemia and hypomagnesemia Denies: Hx Diabetes Cardiovascular History: Reports: Hx Atrial Fibrillation, Hx Hypertension, Hx Rheumatic Fever - when she was a child, Other Cardiovascular Problems/Disorders - murmur, arrhythmia, ventricular tachycardia Respiratory History: Reports: Hx Pulmonary Embolism - ~30 years ago GI History: Reports: Hx Gall Bladder Disease, Hx Hiatal Hernia, Other GI Disorders - multiple surgeries Musculoskeletal History: Reports: Hx Arthritis, Hx Rheumatoid Arthritis, Hx Osteoporosis Sensory History: Reports: Hx Cataracts - catarct sx, Hx Contacts or Glasses, Hx Hearing Aid Opthamlomology History: Reports: Hx Cataracts - catarct sx, Hx Contacts or Glasses Neurological History: Reports: Hx Dementia Psychiatric History: Reports: Hx Anxiety, Hx Depression - Surgical History Surgery Procedure, Year, and Place: 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 right shoulder replacement. 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 GENERAL: Patient is a well-developed and elderly female who is lying comfortable in the stretcher. Patient is not in any acute respiratory distress. HEAD AND FACE: Normocephalic EYES: PERRLA, EOMI x 2. EARS: Hearing grossly intact. MOUTH: Oropharynx within normal limits. NECK: Supple, trachea is midline, no adenopathy, no JVD, no carotid bruit. CHEST: Symmetric, no tenderness at palpation LUNGS: Clear to auscultation bilaterally. No wheezing or crackles. CVS: Irregularly irregular rate and rhythm, Tachycardic. S1 and S2 present, no murmurs or gallops appreciated. ABDOMEN: Soft, non-tender. Bowel sounds are normal. No abdominal abnormal pulsations. EXTREMITIES: Full ROM in all major joints, no edema, no cyanosis or clubbing. NEURO: Alert and oriented x 3. No acute neurological deficits. Speech is normal and follows commands. SKIN: Dry and warm Triage Information Reviewed: Yes Vital Signs Reviewed: Yes Diagnostics - Laboratory Result Diagrams: 10/31/18 05:26 10/31/18 05:26 Lab Statement: Any lab studies that have been ordered have been reviewed, and results considered in the medical decision making process. - Radiology Chest XR Radiology Interpretation Completed By: Radiologist Summary of Radiographic Findings: IMPRSESION: No evidence for acute finding. Dr. Brasher has reviewed this report. - EKG 11:50 Cardiac Rate: Tachycardia - at 120 bpm EKG Rhythm: Atrial Fibrillation Summary of EKG Findings: No ST elevations. Course/Dx - Course Assessment/Plan: This pt is an 7 y/o female presenting to [facility] via EMS for lightheadedness and dizziness today. Pt reports she became dizzy after standing up from bed today. EMS states pt was found to be initially hypotensive around 91 /60 and with a heart rate between 130-180 bpm. Daughter reports pt does have a hx of afib. Pt today denies chest pain, SOB, abd pain. EMS notes currently pt has blood pressure of 130/68 with a heart rate of 150 after IV fluids en route. Pt denies any recent illness or trauma. Pt is not on anticoagulants despite having hx of afib. Her medications include zoloft, trazodone, and amlodipine. Pt did take amlodipine this morning and per daughter 1 hour later pt felt lightheaded. Past medical history significant for: 1- Hypertension. 2- Depression. 3- Atrial fibrillation. 4- Pneumonia. 5- Pulmonary embolus. 6- Syncope. 7- Hypokalemia. Blood test results without any significant abnormality except for glucose of 119, magnesium 1.8, CK-MB 7.2, troponin 0.38, BNP 317, total protein 6.3. Initially when the patient came into the emergency room the patient was tachycardic, EKG showed an atrial fibrillation with RVR. Patient was given Cardizem bolus and she was also placed in a drip. Patient took an aspirin today of 325 mg. The troponin is probably elevated secondary to a non STEMI. However, the patient is chest pain-free. She reported that she only had an episode of dyspnea. At this time I discussed my physical exam and findings with Dr. Gutierres from the hospitalist services. The patient was accepted for admission. At this time the patient is hemodynamically stable, alert and oriented 3. Dr. Gutierres will consult with the live out nanny. - Diagnoses Provider Diagnoses: Atrial fibrillation with RVR, NSTEMI (non-ST elevated myocardial infarction) - Physician Notifications Discussed Care Of Patient With: Jessica Gutierres - hospitalist Time Discussed With Above Provider: 12:32 Instructed by Provider To: Other - Discussed case with Dr. Gutierres, hospitalist, and at 13:44 Dr. Gutierres accepts the pt for admission. - Critical Care Time Critical Care Time: 75-104 min Discharge - Sign-Out/Discharge Documenting (check all that apply): Patient Departure - Admit to [facility] All imaging exams completed and their final reports reviewed: Yes Patient Received Moderate/Deep Sedation with Procedure: No - Discharge Plan Condition: Stable Disposition: ADMITTED TO [facility] - Billing Disposition and Condition Condition: STABLE Disposition: Admitted to [facility] - Attestation Statements Document Initiated by Mahad: Yes Documenting Scribe: Trina Espinoza Provider For Whom Mahad is Documenting (Include Credential): Lyndon Brasher MD Scribe Attestation: Trina Sands, scribed for Lyndon Brasher MD on 10/31/18 at 1026. Scribe Documentation Reviewed: Yes Provider Attestation: The documentation as recorded by the Trina hayward accurately reflects the service I personally performed and the decisions made by , Lyndon Brasher MD Status of Scribe Document: Viewed
[2018-10-30 12:25] LABS: ABS Eosinophils 0.1 10^3/ul (0-0.6); ABS Lymphocytes 1.2 10^3/ul (1.0-4.8); ABS Monocytes 0.6 10^3/ul (0-0.8); ABS Neutrophils 6.5 10^3/ul (1.5-7.7); Eosinophil % 1.1 %; Hematocrit 39 % (35-47); Hemoglobin 12.5 g/dL (12.0-16.0); Lymphocyte % 13.8 %; Mean Corpuscular HGB Conc 32 g/dL (31-36); Mean Corpuscular Hemoglobin 31 pg (27-31); Mean Corpuscular Volume 95 fL (80-97); Mean Platelet Volume 8.5 fL (7.4-10.4); Platelet Count 150 10^3/uL (150-450); Red Blood Count 4.06 10^6 /uL (3.70-4.87); Red Cell Distribution Width 15 % (10-15); White Blood Count 8.4 10^3/uL (3.5-10.8)
[2018-10-30 12:32] LABS: Activated Partial Thrombo Time 34.9 seconds (26.0-38.0); INR 1.04 (0.82-1.09)
[2018-10-30 12:41] LABS: Albumin 3.4 g/dL (3.2-5.2); Albumin/Globulin Ratio 1.2 (1-3); BUN/Creatinine Ratio 26.5 (8-20); Calcium 9.6 mg/dL (8.6-10.3); EGFR African American 79.2 (>60); EGFR Non-African American 65.5 (>60); Globulin 2.9 g/dL (2-4); Magnesium 1.8 mg/dL (1.9-2.7); Potassium 4.5 mmol/L (3.5-5.0); Total Bilirubin 0.4 mg/dL (0.2-1.0); Total Protein 6.3 g/dL (6.4-8.9)
[2018-10-30] MEDS ORDERED: Diltiazem IV VIAL* 125 MG in NS 0.9% 100 ML* 100 ML IV ONE (12:43)
[2018-10-30 12:45] LABS: CKMB ng/mL 7.2 ng/mL (0.6-6.3)
[2018-10-30 12:47] LABS: Troponin I 0.38 ng/mL (<0.04)
[2018-10-30 12:55] LABS: TSH (Thyroid Stimulating Horm) 1.72 mcIU/mL (0.34-5.60)
[2018-10-30] MEDS ORDERED: Magnesium Sulfate 2 GM IV* 2 GM/50 ML BAG IVPB ONE (13:25)
[2018-10-30] MEDS ORDERED: Al Hydrox/Mg Hydrox/Simet LIQ* 30 ML UDC PO PRN (13:44)
[2018-10-30] MEDS ORDERED: Acetaminophen TAB* 325 MG PO PRN (13:44)
[2018-10-30] MEDS: Diltiazem TAB* 60 MG PO SCH ×3 (13:49→23:55)
[2018-10-30] MEDS: Magnesium Oxide TAB* 400 MG PO SCH (13:49)
--- NOTE | 2018-10-30 14:56 | HP ---
CC: Dr. Farheen Martin; Dr. Nettles * HISTORY AND PHYSICAL: DATE OF ADMISSION: 10/30/18 PRIMARY CARE PROVIDER: Dr. Farheen Martin. CHIEF COMPLAINT: Near syncope and palpitations. HISTORY OF PRESENT ILLNESS: Mrs. Akash Cook is an 83-year-old female with history of rheumatic fever who has had problems with palpitations for most of her life due to her problems with rheumatic fever in the past, as she stated. She was on sotalol up to December 2017 for a known arrhythmia that was discontinued by the farm truck driver at that point. She has history of recurrent syncopal episodes. In 2018, she was seen for syncope at least 3 times. She had an extensive evaluation of her neuro status during her hospital stay in March 2018. It was noted that the patient may have problems with her C-spine , but she was not interested in further evaluation since she did not feel that she would be a good candidate for surgery. She ambulates with a walker at baseline. The patient is a very vague historian when she describes her syncopal episodes. The patient stated that it comes on "all of a sudden," but sometimes she is able to feel it and lean backwards. Sometimes she loses consciousness. It happens at least twice a day. She stated that this time she did not lose consciousness, but she ended up on the floor and she got up and she called her daughter, who brought her to the ED today. Her daughter is not at the bedside right now. The patient denies any chest pain or shortness of breath. She did not hit her head. Her troponin is 0.3 and she was in atrial fibrillation with rapid ventricular response and cardioverted after the patient was placed on Cardizem drip in the emergency room. She is going to be placed on overnight observation with a diagnosis of atrial fibrillation and elevated troponin as well as near syncope. PAST MEDICAL HISTORY: 1. History of multiple near syncopal episodes in the past. 2. Questionable history of atrial fibrillation. 3. History of hypertension. 4. History of multiple bowel resections in 1980s as a followup of gangrenous gallbladder surgery. 5. Depression. 6. History of rheumatic fever. 7. History of bilateral knee replacements. 8. Cholecystectomy. 9. History of rheumatoid arthritis and mycobacterial infection when she was treated on Remicade. 10. History of pulmonary embolism. CURRENT MEDICATIONS: Include: 1. Trazodone 200 mg at bedtime. 2. Guaifenesin 1200 mg b.i.d. p.r.n. 3. Amlodipine 5 mg daily. 4. Vitamin E 400 units daily. 5. Sertraline 200 mg daily. 6. Potassium chloride 20 mEq daily. 7. Magnesium oxide 400 mg daily. 8. Ascorbic acid 1000 mg daily. FAMILY HISTORY: Mother at the age of 85 of pancreatic cancer. Father at the age of 77 of lung cancer. SOCIAL HISTORY: The patient denies any tobacco, alcohol or drug use. She lives alone at [facility]. She has an aide who comes in to visit her several hours a day. Her daughter, Chinyere Cook, is her surrogate. She is a do not resuscitate. REVIEW OF SYSTEMS: Please see history of present illness. Apart from the above - mentioned vague episodes of syncope or near syncope and palpitations, the patient denies any chest pain. She denies any shortness of breath. The patient has not been febrile or ill with cough or nasal congestion. The patient has had no GI symptoms. No nausea, vomiting, diarrhea, or abdominal pain. She did not lose consciousness today. All the remaining 12 systems were reviewed with the patient and were, otherwise , negative. PHYSICAL EXAMINATION GENERAL: The patient is a pleasant 83-year-old female who is a rather poor historian, but alert, awake, and oriented x3. VITAL SIGNS: Blood pressure of 126/69, heart rate of 88 and regular, respiratory rate 20, oxygen saturation 97% on room air, and temperature 98.5. HEENT: Head: Atraumatic, normocephalic. Eyes: Pupils are equal and reactive to light and accommodation. Oropharynx: Clear. Mucosa moist. NECK: Supple. No JVD. No bruit bilaterally. RESPIRATORY: Clear to auscultation bilaterally. CARDIOVASCULAR: Regular rate and rhythm with 2/6 systolic ejection murmur noted on auscultation of the right upper sternal border. ABDOMEN: Soft, nontender. Bowel sounds present in all 4 quadrants. EXTREMITIES: There is no edema. Pulses are +2 bilaterally. No clubbing or cyanosis. NEURO EVALUATION: Speech clear. Cranial nerves II through XII grossly intact. Motor strength is 5/5 bilaterally. DIAGNOSTIC STUDIES/LAB DATA: Laboratory data showed white blood cell count of 8.4, hemoglobin 12.5, hematocrit of 39, and platelets of 150. Sodium was 138, potassium 4.5, chloride 107, carbon dioxide 26, BUN 22, creatinine 0.8. Liver function tests were unremarkable. Magnesium of 1.8. Troponin of 0.38. Brain natriuretic peptide was 317. TSH of 1.7. The patient's initial EKG showed atrial fibrillation. Repeat EKG showed sinus or ectopic atrial rhythm with a heart rate of 87 beats per minute and right bundle- branch block. Comparing with prior EKG from March 2018, the changes were similar. Portable chest x-ray, impression: "No evidence of acute finding." ASSESSMENT AND PLAN: 1. Recurrent syncope and near syncope in patient who had documented atrial fibrillation. At this point, the patient is going to be placed on short-acting Cardizem p.o. with hold parameters. I will obtain a transthoracic echocardiogram and ask Dr. Peck to see the patient for evaluation. Apart from farm truck driver help with treatment of paroxysmal atrial fibrillation, it would be good to consider the patient for implantable heart monitor to evaluate the patient's episodes of syncope/near syncope. Further, I will order orthostatic vitals, physical therapy and occupational therapy evaluation. 2. The patient's elevated troponin is likely due to demand ischemia in a patient with high heart rate. She denies any chest pain. Transthoracic echocardiogram is going to be obtained to evaluate it further for possibility of wall motion abnormality. 3. The patient's hypertension is well controlled. Due to me starting the patient on Cardizem, Norvasc is going to be discontinued. 4. For DVT prophylaxis, the patient is going to be placed on heparin subcutaneously. I do not believe that the patient is a good candidate for anticoagulation and cardioembolic stroke prevention with anticoagulant due to her frequent falls. 5. The patient's code status is do not resuscitate and that was confirmed with the patient today. TIME SPENT: Approximately 65 minutes were spent on admission of this patient; more than half of that time was spent [id number] with the patient during the interview and physical exam. [id number]/[facility] #: [id number] NICHOL
[2018-10-30] MEDS: Heparin VIAL(*) 5000 UNITS/ML VIAL (FIVE THOUSAND) SUBCUT SCH ×2 (16:07→20:36)
[2018-10-30 17:04] LABS: Troponin I 0.46 ng/mL (<0.04)
--- NOTE | 2018-10-30 17:08 | ECHO ---
*[facility]* [place] [address] Fax #: [phone] Transthoracic Echocardiogram Patient: Akash Cook, Height: 59 in / Ml 149.9 cm : 1935 Weight: 117.8 lb / Study Date: 10/30/2018 53.5 kg Age: 83 BP: 145 / 79 Gender: F BMI/BSA: 23.8 HR: 86 bpm kg/m^2 / 1.47 m^2 *Yard Assistant: * Aletha Abarca [facility] *Referring Physician: * Jessica Gutierres *Reading Physician: * Imer Nettles MD Indications: Syncope. Pulmonary embolism. History: Mitral regurgitation. Dementia. Rheumatic fever. Conclusions Summary: 1. Left ventricle: There is mild concentric hypertrophy. Systolic function is normal. The estimated ejection fraction is 55-60%. 2. Right ventricle: Systolic function is low normal. 3. Left atrium: The atrium is severely dilated. 4. Mitral valve: The annulus is mildly calcified. The leaflets are mildly thickened. Mild prolapse. There is moderate regurgitation, with multiple jets. 5. Aortic valve: Thickening, consistent with sclerosis. There is no evidence of stenosis. There is trace regurgitation. 6. Tricuspid valve: There is moderate-severe regurgitation. 7. Pulmonary arteries: Systolic pressure is mildly increased. 8. Compared to study of 04/18/18, the left ventricle function is the same. The valve function are the same. Study data: Transthoracic echocardiogram. Procedure: Transthoracic echocardiography was performed. Image quality was good. Complete 2D, spectral Doppler, and color flow Doppler. Location: Bedside. Patient status: Inpatient. Patient room number: 434. Rhythm: Normal sinus rhythm with PAC's. Findings Left ventricle: The cavity size is below normal. There is mild concentric hypertrophy. Systolic function is normal. The estimated ejection fraction is 55-60%. There is no consistent Doppler evidence of clinically significant diastolic dysfunction. Right ventricle: The cavity size is mildly dilated. Systolic function is low normal. Systolic pressure is mildly increased. Left atrium: The atrium is severely dilated. Right atrium: The atrium is at the upper limits of normal in size. Mitral valve: The annulus is mildly calcified. The leaflets are mildly thickened. Mild prolapse. There is moderate regurgitation, with multiple jets. Aortic valve: The valve is trileaflet. The leaflets are mildly thickened. Thickening, consistent with sclerosis. There is no evidence of stenosis. There is trace regurgitation. Tricuspid valve: The leaflets are normal thickness. There is no evidence of stenosis. There is moderate-severe regurgitation. Pulmonic valve: The leaflets are normal thickness. There is no evidence of stenosis. There is trace regurgitation. Aorta: Ascending aorta: The ascending aorta is appears normal. Aortic arch: The aortic arch is appears normal. The aortic root is not dilated. Pericardium: There is no significant pericardial effusion. Pulmonary arteries: The main pulmonary artery is normal-sized. Systolic pressure is mildly increased. Systemic veins: Inferior vena cava: The vessel is normal in size. The respirophasic diameter changes are in the normal range (>= 50%). Measurements Left ventricle Value Ref Aortic valve continued Value Ref NAZ, LAX (L) 3.5 cm 3.8 - 5.2 VTI, S 20.9 cm ----- ESD, LAX (L) 2.1 cm 2.2 - 3.5 Mean grad, S 3.0 mm Hg ----- FS, LAX 39 % 27 - 45 Peak grad, S 6.0 mm Hg ----- PW, ED, LAX (H) 1.1 cm 0.6 - 0.9 LVOT/AV, VTI ratio 0.62 ----- FS 39 % 27 - 45 DOMINGO, VTI 1.95 cm^2 ----- PW, ED (H) 1.1 cm 0.6 - 0.9 DOMINGO, Vmax 1.79 cm^2 ----- E', lat alize, TDI (L) 5.2 cm/sec >=10.0 E/e', lat alize, 18 Mitral valve Value Ref TDI Peak E 0.92 m/sec ----- E', med alize, TDI (L) 6.9 cm/sec >=7.0 Peak A 0.78 m/sec - ---- E/e', med alize, 13 Decel time 161 ms ---- - TDI Peak grad, D 3.4 mm Hg ----- E', avg, TDI 6.1 cm/sec Peak E/A ratio 1.2 ---- - E/e', avg, TDI (H) 15 <=14 MR alias velocity 0.39 m/sec - ---- MR PISA radius 0.4 cm ----- LVOT Value Ref Max MR v 5.21 m/sec ----- Diam, S 2.00 cm Regurg VTI 159.0 cm ----- Area 3.1 cm^2 ERO, PISA 0.07 cm^2 ----- Peak sarah, S 0.67 m/sec MR vol, PISA 11 ml ----- VTI, S 13.0 cm MR fraction, PISA 21 % ----- Mean grad, S 1 mm Hg SV 41 ml Pulmonic valve Value Ref SV/bsa 28 ml/m^2 Peak v, S 0.65 m/sec ----- Peak grad, S 2.0 mm Hg ----- Ventricular septum Value Ref IVS, ED (H) 1.1 cm 0.6 - 0.9 Tricuspid valve Value Ref TR peak v (H) 2.9 m/sec <=2.8 Right ventricle Value Ref Peak RV-RA grad, S 34 mm Hg ----- NAZ, LAX 2.9 cm NAZ minor ax, A4C (H) 4.2 cm 1.9 - 3.5 Aortic root Value Ref mid Root diam 3.4 cm <3.7 Pressure, S 37 mm Hg Ascending aorta Value Ref Left atrium Value Ref AAo AP diam, S 2.9 cm ----- AP dim, ES 3.10 cm 2.70 - 3.80 Aortic arch Value Ref ML dim, A4C 5.3 cm Arch diam 2.2 cm ----- SI dim, A4C 5.1 cm Vol/bsa, ES, 1-p (H) 45 ml/m^2 11 - 40 Decending aorta Value Ref A4C Nia peak sarah 0.5 m/sec ----- Vol/bsa, ES, A/L (H) 75 ml/m^2 16 - 34 Pulmonary artery Value Ref Right atrium Value Ref Pressure, S 35.0 mm Hg ----- SI dim, ES 5.3 cm 3.4 - 5.3 ML dim, ES, A4C 3.9 cm 2.6 - 4.4 Inferior vena cava Value Ref SI dim, ES, A4C 5.3 cm 3.4 - 5.3 Diam 1.4 cm ----- Estimated RAP 3 mm Hg Aortic valve Value Ref Alize diam, ED 2.0 cm Peak v, S 1.18 m/sec Legend: (L) and (H) burt values outside specified reference range. Prepared and electronically signed by Imer Nettles MD 10/30/2018 17:08
[2018-10-30] MEDS: traMADol TAB* 50 MG PO PRN ×2 (17:55→23:55)
[2018-10-30] MEDS: Aspirin 81 mg CHEW TAB* 81 MG TAB.CHEW PO SCH (17:56)
[2018-10-30 19:53] LABS: Troponin I 0.43 ng/mL (<0.04)
[2018-10-30] MEDS: traZODone TAB* 100 MG PO SCH (20:34)
[2018-10-30] MEDS: Ibuprofen TAB* 400 MG PO PRN (20:35)
[2018-10-30] MEDS: Docusate CAP* 100 MG PO SCH (20:35)
[2018-10-31 05:53] LABS: ABS Eosinophils 0.3 10^3/ul (0-0.6); ABS Lymphocytes 1.7 10^3/ul (1.0-4.8); ABS Monocytes 0.6 10^3/ul (0-0.8); ABS Neutrophils 4.2 10^3/ul (1.5-7.7); Eosinophil % 4.6 %; Hematocrit 37 % (35-47); Lymphocyte % 24.9 %; Mean Corpuscular HGB Conc 33 g/dL (31-36); Mean Corpuscular Hemoglobin 31 pg (27-31); Mean Corpuscular Volume 95 fL (80-97); Mean Platelet Volume 8.8 fL (7.4-10.4); Nucleated Red Blood Cells % 0.1; Platelet Count 142 10^3/uL (150-450); Red Blood Count 3.91 10^6 /uL (3.70-4.87); Red Cell Distribution Width 15 % (10-15); White Blood Count 6.8 10^3/uL (3.5-10.8)
[2018-10-31] MEDS: Diltiazem TAB* 60 MG PO SCH ×4 (06:05→23:40)
[2018-10-31 06:07] LABS: BUN/Creatinine Ratio 26.8 (8-20); Calcium 9.4 mg/dL (8.6-10.3); EGFR African American 124.8 (>60); EGFR Non-African American 103.1 (>60); Potassium 3.7 mmol/L (3.5-5.0)
[2018-10-31] MEDS: Heparin VIAL(*) 5000 UNITS/ML VIAL (FIVE THOUSAND) SUBCUT SCH ×3 (06:08→20:52)
[2018-10-31 06:19] LABS: Troponin I 0.4 ng/mL (<0.04)
[2018-10-31] MEDS: Ibuprofen TAB* 400 MG PO PRN (08:30)
[2018-10-31] MEDS: Magnesium Oxide TAB* 400 MG PO SCH (08:31)
[2018-10-31] MEDS: Ascorbic Acid TAB* 500 MG PO SCH (08:31)
[2018-10-31] MEDS: Docusate CAP* 100 MG PO SCH ×2 (08:31→20:52)
[2018-10-31] MEDS: Aspirin 81 mg CHEW TAB* 81 MG TAB.CHEW PO SCH (08:31)
[2018-10-31] MEDS: Sertraline* 100 MG TAB PO SCH (08:31)
[2018-10-31] MEDS: Potassium Chlor TAB* 20 MEQ TAB.ER PO SCH (08:31)
[2018-10-31 09:40] LABS: Urine Appearance Clear; Urine Bilirubin Negative (Negative); Urine Blood Negative (Negative); Urine Color Yellow; Urine Glucose Negative (Negative); Urine Ketones Negative (Negative); Urine Nitrite Negative (Negative); Urine Protein Negative (Negative); Urine Specific Gravity 1.011 (1.010-1.030); Urine Urobilinogen Negative (Negative)
[2018-10-31] MEDS ORDERED: NS 0.9% 1000 ML** 1,000 ML IV SCH (10:30)
--- NOTE | 2018-10-31 10:47 | PN ---
Subjective Date of Service: 10/31/18 Interval History: Admitted yesterday for syncopal episode. Today morning, reports feeling okay, had one episode overnight of feeling lightheaded. Earlier today was having 3/10 left chest pain, EKG was done. Currently chest pain free. Has chronic right shoulder pain. Daughter at bedside. Objective Active Medications: Acetaminophen (Tylenol Tab*) 650 mg PO Q4H PRN PRN Reason: FEVER/PAIN Al Hydrox/Mg Hydrox/Simethicone (Maalox Plus*) 30 ml PO Q6H PRN PRN Reason: INDIGESTION Ascorbic Acid (Vitamin C Tab*) 1,000 mg PO DAILY [facility] Last Admin: 10/31/18 08:31 Dose: 1,000 mg Aspirin (Aspirin 81 Mg Chew Tab*) 81 mg PO DAILY [facility] Last Admin: 10/31/18 08:31 Dose: 81 mg Diltiazem HCl (Cardizem Tab*) 60 mg PO Q6HR [facility] Last Admin: 10/31/18 06:05 Dose: 60 mg Docusate Sodium (Colace Cap*) 100 mg PO BID [facility] Last Admin: 10/31/18 08:31 Dose: 100 mg Heparin Sodium (Porcine) (Heparin Vial(*)) 5,000 units SUBCUT Q8HR [facility] Last Admin: 10/31/18 06:08 Dose: 5,000 units Sodium Chloride (Ns 0.9% 1000 Ml) 1,000 mls @ 100 mls/hr IV PER RATE [facility] Ibuprofen (Motrin Tab*) 400 mg PO Q6H PRN PRN Reason: shoulder pain Last Admin: 10/31/18 08:30 Dose: 400 mg Magnesium Oxide (Magox 400 Tab*) 400 mg PO DAILY [facility] Last Admin: 10/31/18 08:31 Dose: 400 mg Potassium Chloride (Klor Con Er Tab*) 20 meq PO DAILY [facility] Last Admin: 10/31/18 08:31 Dose: 20 meq Sertraline HCl (Zoloft*) 200 mg PO DAILY [facility] Last Admin: 10/31/18 08:31 Dose: 200 mg Tramadol HCl (Ultram*) 50 mg PO Q6H PRN PRN Reason: PAIN Last Admin: 10/30/18 23:55 Dose: 50 mg Trazodone HCl (Desyrel Tab*) 200 mg PO BEDTIME [facility] Last Admin: 10/30/18 20:34 Dose: 200 mg Vital Signs - 8 hr 10/31/18 10/31/18 10/31/18 03:45 06:25 07:30 Temperature 98.0 F 97.8 F Pulse Rate 82 80 91 Respiratory 16 32 Rate Blood Pressure 105/50 145/55 119/79 (mmHg) O2 Sat by Pulse 94 98 Oximetry 10/31/18 07:45 Temperature Pulse Rate 94 Respiratory Rate Blood Pressure 114/65 (mmHg) O2 Sat by Pulse Oximetry Oxygen Devices in Use Now: None Appearance: elderly female sitting on chair not in distress Eyes: PERRLA, - Ears/Nose/Mouth/Throat: - - oral mucosa is dry, Respiratory: Clear to Auscultation Cardiovascular: - - soft systolic murmur LUSB, RRR, No JVD Extremities: No Edema Neurological: Alert and Oriented x 3 Result Diagrams: 10/31/18 05:26 10/31/18 05:26 Assess/Plan/Problems-Billing Assessment: 83 year old Female here with syncopal episodes. Hx of rheumatic heart disease and hx of arrythmia, used to be on sotalol, which was discontinued in August 2017. Now here with syncopal episode, and atrial fibrillation. - Patient Problems (1) Atrial fibrillation Current Visit: Yes Status: Acute Code(s): I48.91 - UNSPECIFIED ATRIAL FIBRILLATION SNOMED Code(s): 06581735 Comment: In ED had atrial fibrillation with RVR, was on IV cardizem, and HR dropped, subsequently IV cardizem d/c'ed, now on oral cardizem. ECHO done, shows Mitral regurgitation EF: 55%-60%. at this point, no anticoagulation due to numerous falls and syncopal episodes (2) Syncope Current Visit: No Status: Acute Code(s): R55 - SYNCOPE AND COLLAPSE SNOMED Code(s): 174267336 Comment: recurrent and numerous syncopal episodes. Hortencia is on tele. + orthostatics- giving IV fluids. Cardiology consulted- possible need for event monitor vs. pacemaker, will await cardiology evaluation. (3) DNR (do not resuscitate) Current Visit: No Status: Acute (4) DVT prophylaxis Current Visit: No Status: Acute Code(s): YKO5472 - SNOMED Code(s): 549223232 Comment: Heparin SubQ (5) Hypertension Current Visit: No Status: Chronic Code(s): I10 - ESSENTIAL (PRIMARY) HYPERTENSION SNOMED Code(s): 88888036 Comment: home dose norvasc held, started on cardizem Status and Disposition: will await recommendations from cardiology PT/OT evaluation.
[2018-10-31] MEDS: NS 0.9% 1000 ML** 1,000 ML IV SCH ×2 (10:52→20:46)
[2018-10-31] MEDS: traMADol TAB* 50 MG PO PRN ×2 (11:49→20:47)
--- NOTE | 2018-10-31 13:06 | CONS ---
CC: Dr. Jessica Gutierres * CARDIOLOGY CONSULTATION: DATE OF CONSULT: 10/30/18 INDICATION FOR CONSULTATION: Syncope, atrial fibrillation. HISTORY OF PRESENT ILLNESS: The patient is an 83-year-old female, who was admitted to the hospital with a syncopal episode. I had seen the patient in consultation back in December of 2017. At that time, she had syncopal episodes, unclear what the cause of it was. She was bradycardic at that time and the decision was to stop her sotalol as it was unclear as to why she was on sotalol and she was bradycardic. The patient states that she was at home yesterday, she was doing her usual activities and states that she was walking with her walker and all of a sudden leaned backwards and lost consciousness. She woke on the floor. She called her daughter, who decided to bring the patient to the emergency room. In the emergency room, the patient was in atrial fibrillation with rapid ventricular response, which slowed the patient's heart rate down and ultimately converted her to normal sinus rhythm. The patient reports that she has multiple episodes of what she calls syncope. She says she winds up on the floor. She is unable to account for how she ended up on the floor. She denies any dizziness before these episodes. The patient clearly has paroxysmal atrial fibrillation. 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 PAST SURGICAL HISTORY: Bilateral knee replacements, cholecystectomy. OUTPATIENT MEDICATIONS: 1. Trazodone 200 mg a day. 2. Guaifenesin 1200 mg as directed. 3. Amlodipine 5 mg a day. 4. Sertraline 200 mg a day. 5. Potassium 20 mEq a day. 6. Magnesium 400 mg a day. 7. Ascorbic acid. ALLERGIES: No known drug allergies. FAMILY HISTORY: Mother of pancreatic cancer at 85. Father of lung cancer at 77. SOCIAL HISTORY: She lives alone. She denies tobacco or alcohol use. She is at the [facility]. Her daughter is involved in her care. REVIEW OF SYSTEMS: Negative for fevers and chills. Negative for changes in bowel or bladder habits. Other 12-point review is unremarkable. PHYSICAL EXAM: Height is 4 feet 11 inches, weight is 124 pounds, temperature 97.4, heart rate is 73, blood pressure 122/56, respiratory rate is 16, oxygen saturation 98% on room air. Sclerae anicteric. Oropharynx is pink without erythema. Carotids are 2+ without bruits. JVD is normal. Thyroid is normal. Cardiac Exam: S1, S2 without any murmurs, rubs, or gallops. PMI is normal. Lungs are clear to auscultation. Extremities show no edema. She has 2+ pulses throughout. The patient is awake, alert, and oriented. She moves all 4 extremities equally. LABORATORY DATA: CBC within normal limits. Chemistries within normal limits. Troponin levels are minimally elevated at 0.38. AST and ALT are normal. TSH is normal. IMPRESSION AND PLAN: This is an 83-year-old woman, who was brought to the emergency room by her daughter because of another syncopal episode at home again. The patient has frequent episodes of syncope as described by Dr. Gutierres's note. When I was interviewing the patient, I did talk to her about causes for her syncope, particularly arrhythmic causes, either bradycardic or tachycardic. I also talked about her elevated troponins levels. At this point, the patient would not want any further cardiac workup. She would not want a stress test. She would not want a cardiac catheterization. She does not want an event monitor placed to follow up on her arrhythmias because she says she would never have a pacemaker. At this point, I think the patient's medications are appropriate. I think she does have paroxysmal atrial fibrillation. Consideration should be given towards anticoagulation, but given her frequent falls, she may not be a candidate for anticoagulation. Case was discussed with Dr. Jessica Gutierres. [id number]/[facility] #: [id number] NICHOL
--- NOTE | 2018-10-31 14:46 | PN ---
Hospitalist Progress Note Date of Service: 10/31/18 During admission yesterday and during Dr. Nettles consultation, the patient did not want any invasive or procedures done including pacemaker, cardiac cath, etc. This morning when I spoke to the patient with daughter at bedside, patient told me she would be accepting of a pacemaker if she would require. I discussed with Dr. Nettles, patient would require event monitor to determine possible arrythmia that would have lead to her numerous syncopal episodes. Discussed with the patient regarding the pacemaker again as well as the event monitor, and now the patient states that she is 83 years old and DNR and she does not want so many things done. She wants to take time to think about what she wants. She reports to me that her daughter wants a lot of things done but then states "My daughter is not the boss of me." At this point, patient wants time to think about possible event monitor, and will let us know her decision.
[2018-10-31] MEDS: traZODone TAB* 100 MG PO SCH (20:47)
[2018-11-01] MEDS: Ibuprofen TAB* 400 MG PO PRN (00:32)
[2018-11-01] MEDS: Diltiazem TAB* 60 MG PO SCH ×3 (05:42→17:37)
[2018-11-01] MEDS: Heparin VIAL(*) 5000 UNITS/ML VIAL (FIVE THOUSAND) SUBCUT SCH ×2 (05:47→14:30)
[2018-11-01] MEDS: Docusate CAP* 100 MG PO SCH (08:46)
[2018-11-01] MEDS: Magnesium Oxide TAB* 400 MG PO SCH (08:46)
[2018-11-01] MEDS: Sertraline* 100 MG TAB PO SCH (08:46)
[2018-11-01] MEDS: Aspirin 81 mg CHEW TAB* 81 MG TAB.CHEW PO SCH (08:47)
[2018-11-01] MEDS: Potassium Chlor TAB* 20 MEQ TAB.ER PO SCH (08:47)
[2018-11-01] MEDS: Ascorbic Acid TAB* 500 MG PO SCH (08:48)
[2018-11-01 14:50] VITALS: BP 135/62
--- NOTE | 2018-11-01 20:26 | DS ---
ADDENDUM NOW INCLUDED ON THIS REPORT CC: Dr. Farheen Martin; Dr. Nettles * DISCHARGE SUMMARY: DATE OF ADMISSION: 10/30/18 DATE OF DISCHARGE: 11/01/18 PROVIDER: JAMAAL Reynolds ATTENDING PHYSICIAN WHILE IN THE HOSPITAL: Dr. Andrea Prescott * (dictated by JAMAAL Reynolds). PRIMARY CARE PROVIDER: Dr. Farheen Martin. CONSULTING GARAGE DOOR INSTALLER: Dr. Nettles. PRIMARY DIAGNOSES: 1. Syncope. 2. Paroxysmal atrial fibrillation. SECONDARY DIAGNOSES: 1. Hypertension. 2. Frequent syncopal episodes. 3. Rheumatic fever. 4. Rheumatoid arthritis. 5. History of pulmonary embolism. STUDIES WHILE IN THE HOSPITAL: Echocardiogram on 10/30/18: Of note, ejection fraction of 55% to 60% with no diastolic dysfunction and no note of hypokinesis. Chest x-ray on 10/30/18 with no evidence for acute findings. PERTINENT LABORATORY DATA: On date of admission: Troponin 0.38, then 0.43, and then 0.40. DISCHARGE MEDICATIONS: 1. Aspirin 81 mg daily. 2. Diltiazem 60 mg p.o. q.6 hours. Continued home medications: 1. Ascorbic acid 1000 mg p.o. daily. 2. Magnesium oxide 400 mg p.o. daily. 3. Potassium chloride 20 mEq p.o. daily. 4. Sertraline 200 mg p.o. daily. 5. Vitamin E cap 400 units p.o. daily. 6. Mucinex 1200 mg p.o. b.i.d. p.r.n. 7. Trazodone 200 mg p.o. at bedtime. HISTORY OF PRESENT ILLNESS/HOSPITAL COURSE: Ml Cook is an 83-year- old white female, who experienced a syncopal episode and reported to the emergency department on 10/30/18. Please see admitting provider, Dr. Jessica Gutierres, who wrote the history and physical admission note, for further details. During her hospital stay, she was started on oral diltiazem, which controlled her heart rate and her home amlodipine was stopped in the setting of a syncopal event. Her blood pressure was within normal limits during her stay without her normal antihypertensives. She was evaluated by orthopedic nurse, Dr. Nettles. At that time, the patient was refusing all cardiac workup including stress test. She, at that time, refused receiving an event monitor, stating she would never want a pacemaker. She additionally stated she would never want cardiac catheterization, which is the reason why she expressed she did not want stress test. For unclear reasons, despite the patient refusing this care, she stayed for one additional day. During her hospital stay, via telemetry the patient was found to have atrial fibrillation as well as times of atrial flutter, all rate- controlled. On date of discharge, the patient ultimately did agree to having event monitor placed to determine if she is having an arrhythmia and would be amenable to pacemaker. Dr. Nettles was contacted and requested that this be set up on an outpatient basis as it is not emergent. The patient did still refuse stress test and cardiac catheterization despite risks explained in the setting of her elevated troponin. On date of discharge, the patient is without chest pain, difficulty breathing, did have minimal dizziness when ambulating to the bathroom; however, she did not have orthostatic hypotension per orthostatic vitals. Denied abdominal pain, nausea, vomiting. REVIEW OF SYSTEMS: An 11-point review of systems is completed and all pertinent positives and negatives are above in the HPI. All other systems are negative. PHYSICAL EXAMINATION: A thin, elderly white female, sitting in hospital chair, appearing in no acute distress, daughter at bedside. Head: Normocephalic, atraumatic. Eyes: PERRL. Sclerae anicteric. ENT: Mucous membranes moist. Neck: Supple without JVD. Lungs: Clear to auscultation throughout. Cardio: Regular rate and rhythm without murmurs, rubs, or gallops. Abdomen: Abdomen is soft, nontender, nondistended. Extremities: No clubbing, cyanosis, or edema. Neuro: The patient is alert and oriented x3. No focal deficits. Able to move all extremities. Psych: The patient is pleasant and cooperative. Skin : Skin is warm, dry, and intact. DISCHARGE PLAN: Diet: The patient may continue a regular unrestricted diet. Activity: The patient may return to normal activity as tolerated. The patient was advised to return to the emergency department if she experiences loss of consciousness, heart palpitations, racing heartbeat, chest pain, difficulty breathing. The patient is advised to call Dr. Nettles's office and was provided with a phone number to set up outpatient evaluation to later have implantable cardiac event monitor. The patient was advised to discontinue her amlodipine for now and to check her blood pressure and record the readings until followup appointment with her primary care provider. She is advised to follow up with her primary care provider within 7 to 10 days regarding this hospitalization. She is to take aspirin considering risk of possible SD that was not evaluated; however, at followup with Dr. Nettles, this may be discontinued. Of note, discussion between the patient, myself, and her daughter yielded that the risk of bleed and the fall outweighed the benefit of preventing a stroke and therefore the patient elected to not take anticoagulation for her atrial fibrillation. The patient has a CHADS-VASc score of 4 indicating a 6.7% risk of stroke/TIA/embolism and this was conveyed to the patient. CONDITION ON DISCHARGE: Stable. DISPOSITION: Home. TIME SPENT: Approximately 50 minutes was spent on this discharge, approximately half of this time was spent at bedside counseling the patient. ADDENDUM: After discharge, I was notified via pharmacy that the patient's daughter did not believe the patient would be compliant with the timing of his medication, and diltiazem extended release 240 mg p.o. daily was prescribed. Therefore the discharge medications are now as follows: 1. Aspirin 81 mg daily. 2. Diltiazem extended-release 240 mg p.o. daily. JAMAAL REYNOLDS [id number] #: [id number] #: [id number] - DICT. 11/03/18 1754 NICHOL
--- NOTE | 2018-11-03 21:40 | DS ---
DISCHARGE SUMMARY: DATE OF DISCHARGE: 11/01/18 ADDENDUM: After discharge, I was notified via pharmacy that the patient's daughter did not believe the patient being compliant with the timing of his medication and diltiazem extended release 240 mg p.o. daily was prescribed. Therefore the discharge medications are now as follows: 1. Aspirin 81 mg daily. 2. Diltiazem extended-release 240 mg p.o. daily. JAMAAL DAVIS [id number]/[facility] #: [id number] NICHOL
== END 2018-11-01 18:00 | disposition home health service (06) | DRG 310 ==
LOC: ED 11:45 → MEDTELE 13:44 → OBSVTOIN 10-31 15:36
PROVIDERS: ADMIT Internal Medicine; ATTEND Internal Medicine
DX: I48.0 Paroxysmal atrial fibrillation (principal); I10 Essential (primary) hypertension; M19.90 Unspecified osteoarthritis, unspecified site; M06.9 Rheumatoid arthritis, unspecified; I48.92 Unspecified atrial flutter; R74.8 Abnormal levels of other serum enzymes; M81.0 Age-related osteoporosis without current pathological fracture; H91.90 Unspecified hearing loss, unspecified ear; K44.9 Diaphragmatic hernia without obstruction or gangrene; I45.10 Unspecified right bundle-branch block; F03.90 Unspecified dementia, unspecified severity, without behavioral disturbance, psychotic disturbance, mood disturbance, and anxiety; I95.1 Orthostatic hypotension; F41.9 Anxiety disorder, unspecified; F32.9 Major depressive disorder, single episode, unspecified; Z66 Do not resuscitate; I34.0 Nonrheumatic mitral (valve) insufficiency; R29.6 Repeated falls; Z96.653 Presence of artificial knee joint, bilateral; W05.0XXA Fall from non-moving wheelchair, initial encounter; Z96.611 Presence of right artificial shoulder joint; Z86.11 Personal history of tuberculosis; Z90.49 Acquired absence of other specified parts of digestive tract; Z98.42 Cataract extraction status, left eye; Z97.4 Presence of external hearing-aid; Z86.711 Personal history of pulmonary embolism; Z98.41 Cataract extraction status, right eye; Z79.82 Long term (current) use of aspirin; Z87.891 Personal history of nicotine dependence; Z80.0 Family history of malignant neoplasm of digestive organs; Z80.1 Family history of malignant neoplasm of trachea, bronchus and lung; Y92.009 Unspecified place in unspecified non-institutional (private) residence as the place of occurrence of the external cause
CPT/HCPCS: 36415; 71045; 80048; 80053; 81003; 82550; 82553; 83605; 83735; 83880; 84443; 84484; 85025; 85610; 85730; 93005; 93306; 99285; A9270-GY; G0378; G8978-GP-CI; G8979-GP-CI; G8987-GO-CJ; G8988-GO-CI; J1644; J3475

== ENCOUNTER 2018-11-02 12:08 | Inpatient (IN) | payer MEDICARE ==
--- NOTE | 2018-11-02 12:17 | ED ---
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 Patient was admitted on 10/31/2018 and released yesterday. 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 Per EMS: When they arrived patient's pulse was irregular, but felt regular upon arrival at ED; she was tachycardic in the 180s. She has no complaints when supine, but upon sitting up feels as though she may pass out. She did take her morning medications. She has not previously been cardioverted. No pacemaker. Pt denies any fever, chills, erythema of eyes, sore throat, CP, SOB, cough, abdominal pain, N/V, dysuria, hematuria, myalgia, edema, rash, or dizziness. - History of Current Complaint Hx Obtained From: Patient, EMS, Medical Records Onset/Duration: Still Present Timing: Constant Character: Irregular Aggravating: Position - sitting up Alleviating: Position - laying down Associated Signs & Symptoms: Syncope - Allergy/Home Medications Allergies/Adverse Reactions: Allergies Allergy/AdvReac Type Severity Reaction Status Date / Time No Known Allergies Allergy Verified 11/02/18 12:46 PMH/Surg Hx/FS Hx/Imm Hx Previously Healthy: No Endocrine/Hematology History: Reports: Hx Anemia, Other Endocrine/Hematological Disorders - hypokalemia and hypomagnesemia Denies: Hx Diabetes Cardiovascular History: Reports: Hx Atrial Fibrillation, Hx Hypertension, Hx Rheumatic Fever - when she was a child, Other Cardiovascular Problems/Disorders - murmur, arrhythmia, ventricular tachycardia Respiratory History: Reports: Hx Pulmonary Embolism - ~30 years ago GI History: Reports: Hx Gall Bladder Disease, Hx Hiatal Hernia, Other GI Disorders - multiple surgeries Musculoskeletal History: Reports: Hx Arthritis, Hx Rheumatoid Arthritis, Hx Osteoporosis Sensory History: Reports: Hx Cataracts - catarct sx, Hx Contacts or Glasses, Hx Hearing Aid Opthamlomology History: Reports: Hx Cataracts - catarct sx, Hx Contacts or Glasses Neurological History: Reports: Hx Dementia Psychiatric History: Reports: Hx Anxiety, Hx Depression - Surgical History Surgery Procedure, Year, and Place: 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 right shoulder replacement. 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 Negative: Chest Pain Negative: Shortness Of Breath, Cough Negative: Abdominal Pain, Vomiting, Nausea Negative: dysuria, hematuria Negative: Myalgia, Edema Negative: Rash Neurological: Other - neg: dizziness All Other Systems Reviewed And Are Negative: Yes Physical Exam - Summary Physical Exam Summary: Constitutional: Well-developed, Well-nourished, Alert. (-) Distressed Skin: Warm, Dry HENT: Normocephalic; Atraumatic Eyes: Conjunctiva normal Neck: Musculoskeletal ROM normal neck. (-) JVD, (-) Stridor, (-) Tracheal deviation Cardio: Rhythm regular, TACHY, Heart sounds normal; Intact distal pulses; The pedal pulses are 2+ and symmetric. Radial pulses are 2+ and symmetric. (-) Murmur Pulmonary/Chest wall: Effort normal. (-) Respiratory distress, (-) Wheezes, (-) Rales Abd: Soft, (-) epigastric tenderness, (-) Distension, (-) Guarding, (-) Rebound Musculoskeletal: (-) Edema Lymph: (-) Cervical adenopathy Neuro: Alert, Oriented x3 Psych: Mood and affect Normal Triage Information Reviewed: Yes Vital Signs On Initial Exam: Initial Vitals Temp Pulse Resp BP Pulse Ox 99.2 F 185 23 104/62 98 11/02/18 12:12 11/02/18 12:12 11/02/18 12:12 11/02/18 12:12 11/02/18 12:12 Vital Signs Reviewed: Yes Diagnostics - Vital Signs Vital Signs Temp Pulse Resp BP Pulse Ox 11/02/18 12:12 99.2 F 185 23 104/62 98 - Laboratory Result Diagrams: 11/02/18 12:40 11/02/18 12:40 Lab Statement: Any lab studies that have been ordered have been reviewed, and results considered in the medical decision making process. - Radiology CXR Radiology Interpretation Completed By: Radiologist Summary of Radiographic Findings: IMPRESSION: HYPERINFLATION. NO ACTIVE CARDIOPULMONARY DISEASE. ED provider has reviewed this report. - EKG 1221 Cardiac Rate: NL - 91 bpm Summary of EKG Findings: Sinus or ectopic atrial rhythm at 91 bpm, no STEMI. Re-Evaluation - Re-Evaluation 1 Re-Evaluation Time: 13:18 Change: Improved Comment: Patient is in SR at 90bpm and asymptomatic. Pt and daughter are requesting admission, and requesting cardiac cath at that time. 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 She was released yesterday from [facility] for a-fib. She has no complaints when supine, but upon sitting up feels as though she may pass out. She took her morning medications. She has not previously been cardioverted. No pacemaker. Reviewed medical records from last admission: any benefits of anti-coagulation therapy was outweighed by her fall risk. CXR shows "HYPERINFLATION. NO ACTIVE CARDIOPULMONARY DISEASE." EKG shows sinus or ectopic atrial rhythm at 91 bpm, no STEMI. Critical lab values: troponin: 0.09. Patient given fluids and Diltiazem 10mg IV in ED. Consulted with Dr. Austin, hospitalist, who will admit patient. - Diagnoses Provider Diagnoses: Rapid atrial fibrillation, Symptomatic tachycardia - Physician Notifications Discussed Care Of Patient With: Chelle Austin - hospitalist Time Discussed With Above Provider: 14:05 Instructed by Provider To: Admit As Inpatient - Critical Care Time Critical Care Time: 30-74 min - 45 minutes Discharge - Sign-Out/Discharge Documenting (check all that apply): Patient Departure - ADMIT Patient Received Moderate/Deep Sedation with Procedure: No - Discharge Plan Disposition: ADMITTED TO [facility] Referrals: Farheen Martin MD [Primary Care Provider] - - Attestation Statements Document Initiated by Scribe: Yes Documenting Scribe: Zabrina Hernandez Provider For Whom Scribe is Documenting (Include Credential): Dr. Molina Whittington MD Scribe Attestation: I, Zabrina Hernandez, scribed for Dr. Molina Whittington MD on 11/02/18 at 1404. Status of Scribe Document: Ready
[2018-11-02] MEDS ORDERED: Diltiazem IV push/loading dose 5 MG/ML 5 ML vial (25 mg) IV SLOW PU ONE (12:20)
[2018-11-02] MEDS ORDERED: NS 0.9% 1000 ML** 1,000 ML IV ONE (12:20)
--- OUTSIDE RECORDS SUMMARY | 2018-11-02 12:49 | XMS REPORT | Continuity of Care Document ---
:1935 External Reference #:[id number] Author Name Radha Mccormick Care Team Providers Name Role Phone Farheen Martin MD Primary Care Physician Unavailable Payers Date Identification Numbers Payment Provider Subscriber Policy Number: [id number] Medicare Ml Cook PayID: [id number] [facility] [address] [place] [address] Problems Active Problems Provider Date Paroxysmal ventricular tachycardia Harman Vaughn, N.P. Onset: 01/08/2018 Bradycardia, unspecified Harman Vaughn, N.P. Onset: 01/08/2018 Rheumatoid arthritis Harman Vaughn, N.P. Onset: 01/08/2018 Fall Harman Vaughn, N.P. Onset: 01/08/2018 Essential hypertension Dixie Berry NP Onset: 01/09/2018 Major depressive disorder, single Dixie Berry NP Onset: 01/09/2018 episode, unspecified Palpitations Lauren Bowser NP Onset: 04/19/2018 Spondylolysis of cervical spine Lauren Bowser NP Onset: 04/18/2018 Syncope and collapse Harman Vaughn, N.P. Onset: 04/17/2018 Nervous system symptoms Eloina Perez NP Onset: 03/17/2018 History of fall Dixie Berry NP Onset: 03/16/2018 Dizziness and giddiness Eunice Easton NP Onset: 03/15/2018 Family History Date Family Member(s) Observation Comments General Heart Disease General Hypertension General Cancer Social History Type Date Description Comments Sex Unknown Lives With Alone Occupation Unemployed ETOH Use Denies alcohol use Tobacco Use Start: Unknown End: Patient is a former smoker Unknown Smoking Status Reviewed: 04/04/17 Patient is a former smoker Exercise Type/Frequency Does not exercise Allergies, Adverse Reactions, Alerts Active Allergies Reaction Severity Comments Date Prednisone 03/09/2016 Remicade 03/09/2016 Medications Active Medications SIG Qnty Indications Ordering Provider Date Lovenox 40mg SQ daily x 14units Russell Zazueta 10/22/2016 40mg/0.4ML 14 days to start MD Ev Solution on 10/23/16 Sotalol HCL (AF) 1/2 tab by mouth Unknown 80mg twice a day Tablets Tramadol HCL 1-2 tablets Unknown 50mg every 6 hours as Tablets needed Hydrocodone-Acetamino 1 by mouth every Unknown phen 4-6 hours prn. 5-325mg Tablets Trazodone HCL 1 by mouth every Unknown 100mg night at bedtime Tablets Zoloft 1 by mouth every Unknown 100mg Tablets day Potassium Unknown Calcium 600 1 by mouth every Unknown 600mg day Tablets Vitamin A Unknown Vitamin E Unknown Vitamin C Unknown Sotalol HCL 1 tab by mouth Unknown 80mg twice a day Tablets Medications Administered in Office Medication SIG Qnty Indications Ordering Provider Date Depomedrol 40MG Russell Carreno MD 03/09/2016 Injection Vital Signs Date Vital Result Comment 04/04/2017 2:17pm Height 59 inches 4'11" Weight 122.00 lb BMI (Body Mass Index) 24.6 kg/m2 10/28/2016 2:16pm Height 59 inches 4'11" Weight 122.00 lb BP Systolic 140 mmHg BP Diastolic 79 mmHg Respiratory Rate 16 /min Body Temperature 98.0 F Pain Level 5 BMI (Body Mass Index) 24.6 kg/m2 03/09/2016 11:03am Height 59 inches 4'11" Weight 130.00 lb BP Systolic 130 mmHg BP Diastolic 80 mmHg Pain Level 6 BMI (Body Mass Index) 26.3 kg/m2 Procedures Date Code Description Status 04/18/2018 42095 ECHO Transthorasic Realtime 2D W Doppler & Color Flow Hosp Completed 04/17/2018 41198 EEG Recording Awake & Drowsy Completed 01/09/2018 65251 ECHO Transthorasic Realtime 2D W Doppler & Color Flow Hosp Completed 01/09/2018 75185 EKG, Interpretation Only Completed 01/08/2018 10081 EKG, Interpretation Only Completed 10/02/2016 14423 FX TX Inter/Lena Or Sub Chanteric Femoral FX W/Implant Completed 10/02/2016 26379 FX TX Inter/Lena Or Sub Chanteric Femoral FX W/Implant Completed 03/09/2016 21436 Inject/Drain Joint/Bursa Major W/O US Completed Encounters Type Date Location Provider Dx Diagnosis Office Visit 04/19/2018 [facility] Lauren R55 Syncope and 8:22a Assoc,[facility] Hospitalists JIM Bowser collapse I10 Essential (primary) hypertension M43.02 Spondylolysis, cervical region R00.2 Palpitations Office Visit 04/18/2018 [facility] Rosaura Denney, R40.4 Transient 7:00a Clinic alteration of awareness Office Visit 04/17/2018 [facility] Harman R55 Syncope and 8:21a Assoc,pc Hospitalists Vaughnmaximus N.P. M06.9 Rheumatoid arthritis, unspecified I10 Essential (primary) hypertension Office Visit 03/17/2018 8:39a [facility] Eloina I10 Essential Assoc,agustin Perez NP (primary) Hospitalists hypertension R29.6 Repeated falls Office Visit 03/15/2018 8:38a [facility] Eunice R42 Dizziness and Assoc,pc lexie Teixeira Hospitalists BRICK STACKER F32.9 Major depressive disorder, single episode, unspecified Office Visit 01/10/2018 11:24a [facility] Braulio R00.1 Bradycardia, Assoc,pc JAMAAL Shields unspecified Hospitalists I47.2 Ventricular tachycardia M06.9 Rheumatoid arthritis, unspecified S01.01xD Laceration without foreign body of scalp, subs encntr I10 Essential (primary) hypertension W19.xxxA Unspecified fall, initial encounter Office Visit 01/09/2018 [facility] Dixie I47.2 Ventricular 11:24a Assoc,pc JIM Berry tachycardia Hospitalists S01.01xD Laceration without foreign body of scalp, subs encntr I10 Essential (primary) hypertension F32.9 Major depressive disorder, single episode, unspecified Office Visit 01/09/2018 2:53p [facility] Imer Quiñones R00.1 Bradycardia, Of Ra Nettles M.D. unspecified W19.xxxA Unspecified fall, initial encounter R94.31 Abnormal electrocardiogram [ECG] [EKG] Office Visit 01/08/2018 [facility] Harman I47.2 Ventricular 11:23a Assoc,pc Chante Vaughn tachycardia Hospitalists R00.1 Bradycardia, unspecified M06.9 Rheumatoid arthritis, unspecified W19.xxxA Unspecified fall, initial encounter Office Visit 04/04/2017 1:45p Orthopedic Russell Zazueta S72.141D Displ intertroch Services Of MD Ev fx r femur, subs C.M.A. for clos fx w routn heal M25.511 Pain in right shoulder Office Visit 10/04/2016 1:44p [facility] Albino S72.001A Fracture of Assoc,agustin Martin M.D. unsp part of Hospitalists neck of right femur, init M80.00xS Age-rel osteopor w current path fracture, unsp site, sequela M06.9 Rheumatoid arthritis, unspecified F32.9 Major depressive disorder, single episode, unspecified Office Visit 10/03/2016 1:43p [facility] Albino S72.001A Fracture of Assoc,agustin Martin M.D. unsp part of Hospitalists neck of right femur, init M80.00xS Age-rel osteopor w current path fracture, unsp site, sequela M06.9 Rheumatoid arthritis, unspecified F32.9 Major depressive disorder, single episode, unspecified Office Visit 10/02/2016 1:42p [facility] Ace Hanna, S72.001A Fracture of Assoc,agustin Maddox unsp part of Hospitalists neck of right femur, init M06.9 Rheumatoid arthritis, unspecified M80.00xS Age-rel osteopor w current path fracture, unsp site, sequela F32.9 Major depressive disorder, single episode, unspecified Office Visit 03/09/2016 11:00a Orthopedic Russell Zazueta S43.421A Sprain of right Services Of MD Ev rotator cuff C.M.A. capsule, initial encounter M19.011 Primary osteoarthritis, right shoulder S46.011A Strain of musc/tend the rotator cuff of right shoulder, init Plan of Treatment 04/04/2017 - Russell Carreno, MDS72.141D Displaced intertrochanteric fracture of right femur, subsequent encounter for closed fracture with routine healingFollow up:As zjchnqQ15.511 Pain in right shoulder
[2018-11-02 12:50] LABS: ABS Eosinophils 0.2 10^3/ul (0-0.6); ABS Lymphocytes 1.7 10^3/ul (1.0-4.8); ABS Monocytes 0.6 10^3/ul (0-0.8); ABS Neutrophils 4.6 10^3/ul (1.5-7.7); Eosinophil % 2.9 %; Hematocrit 37 % (35-47); Lymphocyte % 24.3 %; Mean Corpuscular HGB Conc 32 g/dL (31-36); Mean Corpuscular Hemoglobin 31 pg (27-31); Mean Corpuscular Volume 96 fL (80-97); Mean Platelet Volume 8.9 fL (7.4-10.4); Platelet Count 126 10^3/uL (150-450); Red Blood Count 3.87 10^6 /uL (3.70-4.87); Red Cell Distribution Width 15 % (10-15); White Blood Count 7.2 10^3/uL (3.5-10.8)
[2018-11-02 13:09] LABS: Albumin 3.2 g/dL (3.2-5.2); Albumin/Globulin Ratio 1.1 (1-3); Calcium 9.1 mg/dL (8.6-10.3); EGFR African American 149.1 (>60); EGFR Non-African American 123.2 (>60); Globulin 2.9 g/dL (2-4); Magnesium 1.8 mg/dL (1.9-2.7); Total Bilirubin 0.4 mg/dL (0.2-1.0); Total Protein 6.1 g/dL (6.4-8.9)
[2018-11-02 13:16] LABS: Troponin I 0.09 ng/mL (<0.04)
[2018-11-02 13:35] LABS: TSH (Thyroid Stimulating Horm) 1.17 mcIU/mL (0.34-5.60)
[2018-11-02 13:37] LABS: Free T4 0.73 ng/dL (0.61-1.12)
[2018-11-02] MEDS ORDERED: Acetaminophen TAB* 325 MG PO PRN (15:14)
[2018-11-02] MEDS ORDERED: Magnesium Sulfate 2 GM IV* 2 GM/50 ML BAG IVPB ONE (15:36)
[2018-11-02 16:13] LABS: Troponin I 0.08 ng/mL (<0.04)
[2018-11-02] MEDS: Enoxaparin(*) 40 MG/0.4 ML SYR SUBCUT SCH (17:49)
[2018-11-02] MEDS: Diltiazem TAB* 60 MG PO SCH (17:53)
[2018-11-02] MEDS ORDERED: Diltiazem TAB* 60 MG PO SCH (18:00)
--- NOTE | 2018-11-02 18:24 | HP ---
Amended report to enter cosigning physician. CC: Dr. Farheen Martin.* HISTORY AND PHYSICAL: DATE OF ADMISSION: 11/02/18 PRIMARY CARE PROVIDER: Dr. Farheen Martin. ATTENDING PHYSICIAN WHILE IN THE HOSPITAL: Dr. Chelle Chadwick* (dictated by JAMAAL Reynolds). CHIEF COMPLAINT: Multiple syncopal events, tachycardia. HISTORY OF PRESENT ILLNESS: Ml Cook is an 83-year-old white female with past medical history significant for paroxysmal atrial fibrillation , hypertension, depression/anxiety and rheumatic fever who presented to the emergency department today with complaints of multiple syncopal episodes and tachycardia. The patient awoke this morning and was unable to get out of bed because she was continually experiencing loss of consciousness and "felt like there was a veil covering her eyes." She notes that there was a feeling in her chest "like anxiety." She called her daughter who came to her apartment and ensured that she took her normal home medications. Her daughter checked her heart rate and noted that it was tachycardic. The patient did not fall and did not have any head trauma. The patient did not have associated chest pain or difficulty breathing. Of note, the patient was discharged from this facility yesterday. Please see history and physical from 10/30/18 for admission regarding syncopal events. During that hospital stay, she had refused intervention and further workup from chemical laboratory chief, Dr. Nettles. By date of discharge on 11/01/18 by myself, the patient had ultimately agreed to the possibility of an implantable event monitor; however, Dr. Nettles recommended that this be performed in the outpatient setting and followup was recommended. During that hospital stay she was experiencing paroxysmal AFib; however, did not experience rapid rate and her rate was controlled on 60 mg of Cardizem q.6 hours for 24 hours. EMERGENCY DEPARTMENT COURSE: When patient arrived to the emergency department she had a heart rate of 185. Other vital signs are temperature 99.2, respiratory rate 23, oxygen 98% on room air, and blood pressure 104/62. The patient was then given 1 L of normal saline and 10 mg IV diltiazem. She then had rate control to heart rate in the 90s and did have an EKG at this time, which demonstrated heart rate in the 90s with normal sinus rhythm. The hospitalists were then asked to evaluate the patient for admission. PAST MEDICAL HISTORY: 1. Paroxysmal atrial fibrillation (not on anticoagulation secondary to frequent falls). 2. Hypertension. 3. History of rheumatic fever. 4. Depression/anxiety. 5. Gangrenous gallbladder status post cholecystectomy. 6. Rheumatoid arthritis. 7. PE. 8. Fibromyalgia. 9. Osteoarthritis. 10. Osteoporosis. PAST SURGICAL HISTORY: 1. Bilateral knee arthroplasty left hip arthroplasty. 2. Multiple bowel resections in due to gangrenous gallbladder. 3. Cholecystectomy. 4. Hernia repair. HOME MEDICATIONS: 1. Diltiazem extended release 240 mg p.o. daily. 2. Amlodipine 5 mg p.o. daily. 3. Potassium chloride 20 mEq p.o. daily. 4. Magnesium oxide 400 mg p.o. daily. 5. Mucinex 1200 mg p.o. b.i.d. p.r.n. 6. Zoloft 200 mg p.o. daily. 7. Vitamin E cap 400 mg p.o. daily. 8. Trazodone 200 mg p.o. at bedtime. 9. Ascorbic acid 1000 mg p.o. daily. 10. Aspirin 81 mg p.o. daily. ALLERGIES: No known drug allergies. FAMILY HISTORY: Father at the age of 77 due to lung cancer, mother at age 85 due to pancreatic cancer. SOCIAL HISTORY: The patient lives alone in [facility], but does have a home health aide who helps to administer her medication. She is former smoker. She quit about approximately 50 years ago and smoked for less than 10 years. 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 Denies drug use. Her daughter, Chinyere Cook, is her surrogate medical decision maker should she need one, her phone number is [phone]. REVIEW OF SYSTEMS: A 11-point review of systems is completed and all pertinent positives and negatives are above in the HPI. All other systems are negative. PHYSICAL EXAMINATION GENERAL: A thin elderly white female lying upright in hospital bed, appearing in no acute distress. Daughter at bedside. HEENT: Head: Normocephalic, atraumatic. Eyes: PERRL. Sclerae anicteric. ENT: Mucous membranes moist. NECK: Supple without JVD. LUNGS: Clear to auscultation throughout. CARDIO: Regular rate and rhythm without murmurs, rubs, or gallops. Grade 1 systolic murmur. ABDOMEN: Normoactive bowel sounds x4 quadrants. Abdomen is soft, nontender, and nondistended. No hepatomegaly. EXTREMITIES: Dorsalis pedis pulses 2/4 bilaterally. No clubbing, cyanosis, or edema. NEURO: The patient is alert and oriented x3. No focal deficits. Able to move all extremities. DIAGNOSTIC STUDIES/LAB DATA: White blood cell count 7.2, hemoglobin 12, hematocrit 37, platelet count 126,000. Sodium 142, potassium 4.0, chloride 110 , carbon dioxide 28, BUN 12, creatinine 0.48, glucose 136, magnesium 1.8, troponin 0.09. Chest x-ray: Hyperinflation. No acute cardiopulmonary disease. EKG: performed after administration of diltiazem. Normal sinus rhythm with flattened P waves in multiple leads, but prominent P waves in V1 and V2. New widened QRS in V2. 91 beats per minute. ASSESSMENT AND PLAN: Ml Cook is an 83-year-old white female with past medical history significant for paroxysmal atrial fibrillation, hypertension, history of rheumatic fever, pulmonary embolism and rheumatoid arthritis who presents to emergency department complaining of multiple syncopal events and tachycardia. The patient will be admitted in observation for: 1. Atrial fibrillation with rapid ventricular rate. The patient was found to have a heart rate of 185 at admission and to also be in atrial fibrillation. She has since converted to sinus rhythm and is rate controlled after administration of IV diltiazem in the emergency department. I will start diltiazem 60 mg p.o. q.6 hours as this had her with rate controlled in her previous hospital stay. The patient does not take anticoagulation due to fall risk. Dr. Broderick, the chemical laboratory chief acquisitions assistant has been consulted and his further recommendations are appreciated. Of note, the patient is now interested in pacemaker should it be needed. The patient will be admitted on telemetry. The patient's potassium is within normal limits. Her TSH is within normal limits. Her syncopal events are likely related to this rapid ventricular rate. She did have an echocardiogram during her last hospital stay on 10/30/18, which demonstrated moderate mitral valve regurgitation, trace regurgitation of the aortic valve, [id number] tricuspid valve regurgitation. Echocardiogram will not be repeated at this time due to recent study. 2. Elevated troponin. The patient has an elevated troponin to 0.09. During her last hospital stay she had a troponin elevation which peaked at 0.46. During this last hospital stay she was seen by Dr. Nettles and refused a medical workup regarding this including refusing cardiac catheterization and stress test. This elevated troponin is likely consistent with a down trend of this previous troponin from 10/30/18. Because the patient previously refused workup , it was unable to be determined whether this was due to ischemic demand versus ACS, and aspirin was started. I will continue aspirin during this hospitalization. 3. Hypertension. Because the patient has had rapid ventricular rate, risk of hypotension is possible and home amlodipine has been held and can be restarted as needed. 4. Hypomagnesemia. The patient has magnesium 1.8 at admission. I ordered 2 g of IV magnesium and I will continue her home p.o. magnesium. 5. FEN: The patient is ordered a regular unrestricted diet. Electrolytes are as described above. No further fluids will be given at this time. 6. Code status: The patient is DNR. The patient has a MOLST from home and this will be updated during this hospital stay. 7. DVT prophylaxis: 40 mg Lovenox as the patient has a DVT risk score of 6. TIME SPENT: Approximately 55 minutes were spent on this admission, approximately half of this time was spent at bedside. This case has been reviewed by my attending Dr. Chelle Chadwick and she agrees with this assessment and plan of care. JAMAAL REYNOLDS [id number]/[facility] #: [id number] [facility]ISCH HOSPITALAmelia
--- NOTE | 2018-11-02 19:23 | CONS ---
CC: Dr. Imer Nettles; Dr. Farheen Martin * CARDIOLOGY CONSULTATION REPORT: DATE OF CONSULT: 11/02/18 REFERRAL PHYSICIAN: Ms. Radha James. REASON FOR CARDIOLOGY CONSULTATION: Tachycardia with hypotension. 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 Today, again, she was at home and her daughter, Chinyere Cook, who is present and provides helpful history says that the patient got lightheaded when she was sitting up. When her daughter checked the patient's pulse manually, it was 178 beats per minute and her blood pressure was 68/40. The patient states she could not get up. This has been going on between 2 months and a year and the patient has had significant falls. The patient did initially think she would be willing to have a pacemaker, but now is having second thoughts about that since coming to the hospital. She denies any chest pain. She does still note some shortness of breath when she has them. It sounds like these episodes of palpitations occur several times a week at least. The patient had been admitted to [facility] on with paroxysmal atrial fibrillation and syncope and she was seen by my partner, Dr. Imer Nettles. The patient had refused further cardiac evaluation including a stress test, cardiac catheterization, or event monitor initially, but then later was open to an event monitor for possible pacemaker. When I talked to the patient that a pacemaker alone would likely not suffice, but likely an AV magnus ablation would need to follow she frankly refuses that. PAST MEDICAL HISTORY: Includes paroxysmal atrial fibrillation. 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 PAST SURGICAL HISTORY: Includes bilateral knee replacements and cholecystectomy. OUTPATIENT MEDICATIONS: The patient was recently started on diltiazem 240 mg once a day after having received 60 mg p.o. q.i.d. and she had been discharged yesterday. Other outpatient medications include: 1. Norvasc 5 mg once a day. 2. Aspirin 81 mg once a day. 3. Digoxin 0.125 mg once a day. 4. Magnesium oxide 400 mg p.o. q.i.d. 5. Potassium chloride 20 mEq once a day. 6. Diltiazem ER 240 mg once a day (this had been changed from 60 mg p.o. 4 times a day once she had been hospitalized 2 days ago). ALLERGIES TO MEDICATIONS: No known allergies. FAMILY HISTORY: Significant for cancer. No family history of diabetes, stroke , or NH. SOCIAL HISTORY: She has been and lives alone at the [facility], which is an adult living facility. 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 She denies smoking. She has been sober from alcohol for 48 years. She does not use illicit drugs. She does not do exercise. REVIEW OF SYSTEMS: She denies personal history of stroke, cancer. She denies vomiting of blood, coughing up blood, bright red blood per rectum, bleeding stomach ulcers, renal calculi. She has had cholelithiasis, status post cholecystectomy. She denies asthma, emphysema. She has had a history of pneumonia, unclear if she has been hospitalized. 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 It does not sound like she has been firmly diagnosed with obstructive sleep apnea. She does not use home oxygen. She denies diabetes. She has hypertension at times, although her blood pressure at other times gets very low. She denies prior NH, congestive heart failure, cardiac surgeries. She has rheumatic fever with a history of a heart murmur. She denies lupus, psoriasis, seizures, Parkinson disease, myasthenia gravis, thyroid disorders, liver disorders, kidney disorders, claudication symptoms. She has had pulmonary emboli 50 years ago while . She has occasional edema. She rarely has heartburn. All other review of systems are negative x14, except as per this documentation. PHYSICAL EXAM: Height 4 feet 11 inches, weight 115 pounds. Temperature 97.4 degrees Fahrenheit, pulse 90, O2 saturation 97%, blood pressure 126/57. On general exam, she is a frail elderly lady, lying in bed comfortably and mentating appropriately, in no acute distress. She is oriented to person, place , and who the President is. HEENT: Shows the cranium is normocephalic, atraumatic. She has moist mucosal membranes. Neck veins are not distended. There are no carotid bruits visible. Skin: Warm and well perfused. Affect appropriate. She appears oriented. Efvs-qj-ikdwqwym kyphoscoliosis on recumbent back exam. Lungs are clear to auscultation. No wheezes, no rales. Cardiac Exam: S1, S2. Regular rate, controlled. Soft holosystolic murmur heard without radiation. No rub nor gallop. PMI is nondisplaced. Abdomen is soft, nondistended, appears benign. Extremities with trivial peripheral edema. Pulses appear grossly intact. DIAGNOSTIC STUDIES/LAB DATA: There is a 12-lead EKG from 11/02/18 at 1134, which I believe was by EMS, which shows rapid atrial fibrillation at 183 beats per minute with right bundle-branch block and left anterior fascicular block. She had an EKG completed at [facility] 11/02/18 at 1221 which shows sinus rhythm with an IVCD and I believe she received Cardizem in the interim. The patient had a transthoracic echocardiogram completed 10/30/18 which showed normal left ventricular ejection fraction of 55% to 60% with mild mitral valve prolapse, moderate mitral regurgitation, epafqbxs-qd-ttkddr tricuspid regurgitation with mild pulmonary systolic pressure elevation. It appeared similar to prior study of 04/18/18. Sodium 142, potassium 4.0, chloride 110, bicarbonate 28, BUN 12, creatinine 0.48. Troponin was 0.09, followed by 0.08. TSH 1.7. ALT 12. White blood cell count 7.2, hematocrit 37, platelet count 126. IMPRESSION: Ms. Ml Cook is a pleasant 83-year-old woman with a history of apparent paroxysmal atrial fibrillation (she has been on sotalol in the past which was stopped due to bradycardia) with recurrent episodes of falling. She is found to have episodes of rapid atrial fibrillation with hypotension. The patient initially had been willing to have a pacemaker evaluation, but when I discussed with her that a pacemaker necessarily would not be the sole help for her, but rather she would require then AV magnus ablation to follow the pacemaker, the patient competently refuses both procedures. She is not interested in further cardiac evaluation, but specifically requests only medication adjustments as able. I think what we can do is change the long-acting Cardizem which she was recently started on to t.i.d. shorter acting Cardizem, which the patient is willing to take. The patient multiple times tells her daughter and I, her age and states repeatedly she is not interested in "any invasive procedures." The patient states competently that she accepts medical risks inherent in her decision to refuse further cardiac evaluation and pursue medical adjustments only. RECOMMENDATIONS: 1. We will change her diltiazem to 60 mg p.o. q.8 hours and begin her low-dose digoxin. If she were to be persistently hypotensive with that, could trial her on Florinef, although we see that her blood pressure at this time is well compensated. Again, the patient refuses pacemaker placement to be followed by atrioventricular magnus ablation and simply a pacemaker alone will not be sufficient given her episodes of severe hypotension with the tachycardia. To review, the patient is not a candidate for oral anticoagulation given severe falls including she has had a concussion and hurt her head. 2. Replete magnesium to 2-2.7 and continue to replete potassium to 4 to 5. 3. Discontinue caffeine ingestion as the patient apparently drinks "Coke One for breakfast." 4. The patient may follow up with her usual parts back counter man, Dr. Nettles, in 4 to 6 weeks. 5. Other management as per the hospitalist medicine service. I have discussed the case with Ms. Radha James of the hospitalist medicine service. Dear Ms. Radha James, many thanks for asking me to participate in the cardiovascular consultative care of Ms. Ml Cook. I have had an extended evaluation, management discussion session of greater than 65 minutes, with greater than 50% of the time spent in [id number] discussion with the patient and her daughter including providing education and reviewing medical records. Please do not hesitate to contact me if you have any questions or concerns regarding the patient's cardiovascular consultative care. [id number]/[facility] #: [id number] MTDD
[2018-11-02] MEDS ORDERED: traZODone TAB* 100 MG PO SCH (21:00)
[2018-11-02] MEDS: Senna TAB PO SCH (21:50)
[2018-11-02] MEDS: Docusate CAP* 100 MG PO SCH (21:51)
[2018-11-02] MEDS: traMADol TAB* 50 MG PO PRN (23:29)
[2018-11-03] MEDS: Diltiazem TAB* 60 MG PO SCH ×3 (03:13→17:01)
[2018-11-03 08:55] LABS: ABS Basophils 0.1 10^3/ul (0-0.2); ABS Eosinophils 0.4 10^3/ul (0-0.6); ABS Lymphocytes 1.5 10^3/ul (1.0-4.8); ABS Monocytes 0.6 10^3/ul (0-0.8); ABS Neutrophils 3.8 10^3/ul (1.5-7.7); Eosinophil % 5.7 %; Hematocrit 37 % (35-47); Hemoglobin 12.2 g/dL (12.0-16.0); Lymphocyte % 23.8 %; Mean Corpuscular HGB Conc 33 g/dL (31-36); Mean Corpuscular Hemoglobin 31 pg (27-31); Mean Corpuscular Volume 94 fL (80-97); Mean Platelet Volume 8.8 fL (7.4-10.4); Platelet Count 146 10^3/uL (150-450); Red Blood Count 3.95 10^6 /uL (3.70-4.87); Red Cell Distribution Width 15 % (10-15); White Blood Count 6.3 10^3/uL (3.5-10.8)
[2018-11-03] MEDS: Sertraline* 100 MG TAB PO SCH (09:04)
[2018-11-03] MEDS: Potassium Chlor TAB* 20 MEQ TAB.ER PO SCH (09:04)
[2018-11-03] MEDS: Vitamin E CAP* 400 UNIT PO SCH (09:04)
[2018-11-03] MEDS: Ascorbic Acid TAB* 500 MG PO SCH (09:04)
[2018-11-03] MEDS: Docusate CAP* 100 MG PO SCH ×2 (09:04→21:23)
[2018-11-03] MEDS: Aspirin 81 mg CHEW TAB* 81 MG TAB.CHEW PO SCH (09:05)
[2018-11-03] MEDS: Magnesium Oxide TAB* 400 MG PO SCH (09:05)
[2018-11-03] MEDS: Senna TAB PO SCH ×2 (09:13→21:24)
[2018-11-03 09:15] LABS: BUN/Creatinine Ratio 22.4 (8-20); Calcium 9.7 mg/dL (8.6-10.3); EGFR African American 145.6 (>60); EGFR Non-African American 120.3 (>60); Potassium 3.8 mmol/L (3.5-5.0)
[2018-11-03] MEDS ORDERED: Potassium Chlor TAB* 20 MEQ TAB.ER PO ONE (11:16)
--- NOTE | 2018-11-03 11:44 | PN ---
Subjective Date of Service: 11/03/18 Interval History: After long conversation, patient ultimately agrees to pacemaker and AV magnus ablation. Patient today feels well. Denies dizziness, fever/chills, chest pain, difficulty breathing, abd pain, n/v. Objective Active Medications: Acetaminophen (Tylenol Tab*) 650 mg PO Q4H PRN PRN Reason: FEVER/PAIN Ascorbic Acid (Vitamin C Tab*) 1,000 mg PO DAILY [facility] Last Admin: 11/03/18 09:04 Dose: 1,000 mg Aspirin (Aspirin 81 Mg Chew Tab*) 81 mg PO DAILY [facility] Last Admin: 11/03/18 09:05 Dose: 81 mg Digoxin (Lanoxin Tab*) 0.125 mg PO 1700 [facility] Diltiazem HCl (Cardizem Tab*) 60 mg PO Q8H [facility] Last Admin: 11/03/18 09:04 Dose: 60 mg Docusate Sodium (Colace Cap*) 100 mg PO BID [facility] Last Admin: 11/03/18 09:04 Dose: 100 mg Enoxaparin Sodium (Lovenox(*)) 40 mg SUBCUT Q24H [facility] Last Admin: 11/02/18 17:49 Dose: 40 mg Magnesium Oxide (Magox 400 Tab*) 400 mg PO DAILY [facility] Last Admin: 11/03/18 09:05 Dose: 400 mg Melatonin (Melatonin) 3 mg PO BEDTIME PRN PRN Reason: SLEEP Potassium Chloride (Klor Con Er Tab*) 20 meq PO DAILY [facility] Last Admin: 11/03/18 09:04 Dose: 20 meq Senna (Senokot Tab*) 1 tab PO BID [facility] Last Admin: 11/03/18 09:13 Dose: Not Given Sertraline HCl (Zoloft*) 200 mg PO DAILY [facility] Last Admin: 11/03/18 09:04 Dose: 200 mg Tramadol HCl (Ultram*) 50 mg PO Q6H PRN PRN Reason: PAIN Last Admin: 11/02/18 23:29 Dose: 50 mg Vitamin E (Vitamin E Cap*) 400 unit PO DAILY [facility] Last Admin: 11/03/18 09:04 Dose: 400 unit Vital Signs - 8 hr 11/03/18 07:00 Temperature 97.8 F Pulse Rate 86 Respiratory 20 Rate Blood Pressure 134/70 (mmHg) O2 Sat by Pulse 95 Oximetry Oxygen Devices in Use Now: None Appearance: Thin, elderly white female laying upright in hospital bed appearing in NAD Eyes: No Scleral Icterus, PERRLA Ears/Nose/Mouth/Throat: Mucous Membranes Moist Neck: NL Appearance and Movements; NL JVP Respiratory: Symmetrical Chest Expansion and Respiratory Effort, Clear to Auscultation Cardiovascular: - - Grade I systolic murmur. Irregularly irregular rhythm, consistent with atrial fibrillation. Abdominal: - - abd soft, nontender, nondistended Extremities: No Edema, No Clubbing, Cyanosis Skin: - - skin warm, dry, intact Neurological: Alert and Oriented x 3, NL Muscle Strength and Tone Result Diagrams: 11/03/18 08:21 11/03/18 08:20 Assess/Plan/Problems-Billing Assessment: 83 yo white female with significant PMHx paroxysmal afib (not on AC 2/2 frequent falls), HTN, depression/anxiety, hx of rheumatic fever presents to the ED less than 24 hours after discharge from [facility] due to multiple syncopal episodes and found to be in afib with RVR. - Patient Problems (1) Atrial fibrillation with RVR Code(s): I48.91 - UNSPECIFIED ATRIAL FIBRILLATION SNOMED Code(s): 092454826853454 Comment: -known hx of paroxysmal afib. During recent hospital stay, no episodes of RVR -arrived to ED with HR in 180s; responded well to IV diltiazem one dose in ED -evaluated by cardiology; Dr. Broderick discussed that pacemaker with later AV magnus ablation is the best course of action for control of her Afib and syncopal episodes. At that time, patient refused -continue diltiazem 60mg po q8h and digoxin 0.125 per cardiolgy recommendation -patient on telemetry; patient in atrial flutter this AM but rate controlled -thoroughly discussed procedures and benefit upon qualitfy of life with case management, daughter, and RN present. Patient has now agreed to pacemaker and AV magnus ablation. It is evident that patient frequently changes her mind so it would be of benefit to have frequent discussion about the benefits of these procedures and reiterating that Dr. Broderick stated these are low-risk procedures -plan for pacemaker Tuesday11/06/18, NPO Tuesday night (2) Syncope Code(s): R55 - SYNCOPE AND COLLAPSE SNOMED Code(s): 797055035 Comment: -recurrent and numerous syncopal episodes, was discharged on 11/01/18 for same complaint however was not previously associated with RVR -during recent hospital stay, patient refused all workup from Dr. Nettles. By time of discharge patient was medically stable and ultimately agreed to outpatient event monitor -no symptoms of dizziness today, no tachycardia or bradycardia today (3) Elevated troponin Code(s): R74.8 - ABNORMAL LEVELS OF OTHER SERUM ENZYMES SNOMED Code(s): 753626224 Comment: -during previous recent hospital stay, troponin peaked to 0.46 on 10/30/18; at this time, patient was refusing a cardiac workup including stress test and it was not determined whether this was due to ACS or an ischemic demand in setting of syncope -troponin elevation during this admission to 0.10, likely represents a gradual downtrend from previous elevation -patient agreeable to continuing aspirin given possibility of previous ACS (4) Depression Code(s): F32.9 - MAJOR DEPRESSIVE DISORDER, SINGLE EPISODE, UNSPECIFIED SNOMED Code(s): 83075985 Comment: - Continue zoloft - patient takes trazodone for a sleep aid. Dr. Broderick recommends discontinuing due to possible proarrhythmic effects. Ordering melatonin prn (5) Hypertension Code(s): I10 - ESSENTIAL (PRIMARY) HYPERTENSION SNOMED Code(s): 85674709 Comment: -holding home amlodipine given frequent syncopal episodes -diltiazem as above -hypertensive to 150s once but otherwise normotensive, will continue to monitor (6) DVT prophylaxis Code(s): OWN1731 - SNOMED Code(s): 342432377 Comment: -lovenox (7) DNR (do not resuscitate) Status and Disposition: Given readmission after <24 hours of recent discharge, patient is inpatient for continued medical management of afib with RVR and telemetry, with plan for pacemaker on Tuesday11/06/18.
[2018-11-03] MEDS: Digoxin TAB* 0.125 MG PO SCH (16:40)
[2018-11-03] MEDS: Enoxaparin(*) 40 MG/0.4 ML SYR SUBCUT SCH (16:41)
[2018-11-03] MEDS: traMADol TAB* 50 MG PO PRN (21:23)
[2018-11-03] MEDS: Melatonin 3 MG TAB PO PRN (21:32)
[2018-11-03] MEDS ORDERED: Pneumococcal *Vac Polyvalent 0.5 ML VIAL IM ONE (23:00)
[2018-11-04] MEDS: Diltiazem TAB* 60 MG PO SCH ×3 (02:52→18:17)
[2018-11-04 07:52] LABS: Urine Appearance Cloudy; Urine Bilirubin Negative (Negative); Urine Blood Negative (Negative); Urine Color Yellow; Urine Glucose Negative (Negative); Urine Ketones Negative (Negative); Urine Nitrite Negative (Negative); Urine Protein Negative (Negative); Urine Specific Gravity 1.013 (1.010-1.030); Urine Urobilinogen Negative (Negative)
[2018-11-04] MEDS: Potassium Chlor TAB* 20 MEQ TAB.ER PO SCH (08:54)
[2018-11-04] MEDS: Vitamin E CAP* 400 UNIT PO SCH (08:55)
[2018-11-04] MEDS: Ascorbic Acid TAB* 500 MG PO SCH (08:55)
[2018-11-04] MEDS: Senna TAB PO SCH ×2 (08:56→21:11)
[2018-11-04] MEDS: Sertraline* 100 MG TAB PO SCH (08:56)
[2018-11-04] MEDS: Docusate CAP* 100 MG PO SCH ×2 (08:57→21:09)
[2018-11-04] MEDS: Magnesium Oxide TAB* 400 MG PO SCH (08:57)
[2018-11-04] MEDS: Aspirin 81 mg CHEW TAB* 81 MG TAB.CHEW PO SCH (08:57)
[2018-11-04] MEDS ORDERED: Metoprolol Tartrate IV* 1 MG/ML 5 ML VIAL ONE (10:43)
[2018-11-04] MEDS: traMADol TAB* 50 MG PO PRN ×2 (14:27→21:09)
--- NOTE | 2018-11-04 14:38 | PN ---
Subjective Date of Service: 11/04/18 Interval History: Patient this AM was feeling well, denied any dizziness, chest pain, palpitations , or SOB, or other pain. Patient additionally denied F/C, N/V, abdominal pain, constipation, diarrhea, or other pain. Patient later in the day stood up and went into a tachycarrhythmia with a rate near 190. Patient persisted in this for about 5 minutes, felt very lightheaded, and then this resolved on it's own. Patient did not pass out. Patient denied chest pain, but did feel palpitations during this episode. Family History: Unchanged from Admission Social History: Unchanged from Admission Past Medical History: Unchanged from Admission Objective Active Medications: Acetaminophen (Tylenol Tab*) 650 mg PO Q4H PRN PRN Reason: FEVER/PAIN Ascorbic Acid (Vitamin C Tab*) 1,000 mg PO DAILY [facility] Last Admin: 11/04/18 08:55 Dose: 1,000 mg Aspirin (Aspirin 81 Mg Chew Tab*) 81 mg PO DAILY [facility] Last Admin: 11/04/18 08:57 Dose: 81 mg Digoxin (Lanoxin Tab*) 0.125 mg PO 1700 [facility] Last Admin: 11/03/18 16:40 Dose: 0.125 mg Diltiazem HCl (Cardizem Tab*) 60 mg PO Q8H [facility] Last Admin: 11/04/18 10:31 Dose: 60 mg Docusate Sodium (Colace Cap*) 100 mg PO BID [facility] Last Admin: 11/04/18 08:57 Dose: 100 mg Enoxaparin Sodium (Lovenox(*)) 40 mg SUBCUT Q24H [facility] Last Admin: 11/03/18 16:41 Dose: 40 mg Magnesium Oxide (Magox 400 Tab*) 400 mg PO DAILY [facility] Last Admin: 11/04/18 08:57 Dose: 400 mg Melatonin (Melatonin) 3 mg PO BEDTIME PRN PRN Reason: SLEEP Last Admin: 11/03/18 21:32 Dose: 3 mg Potassium Chloride (Klor Con Er Tab*) 20 meq PO DAILY [facility] Last Admin: 11/04/18 08:54 Dose: 20 meq Senna (Senokot Tab*) 1 tab PO BID [facility] Last Admin: 11/04/18 08:56 Dose: 1 tab Sertraline HCl (Zoloft*) 200 mg PO DAILY [facility] Last Admin: 11/04/18 08:56 Dose: 200 mg Tramadol HCl (Ultram*) 50 mg PO Q6H PRN PRN Reason: PAIN Last Admin: 11/03/18 21:23 Dose: 50 mg Vitamin E (Vitamin E Cap*) 400 unit PO DAILY [facility] Last Admin: 11/04/18 08:55 Dose: 400 unit Vital Signs - 8 hr 11/04/18 11/04/18 11/04/18 07:30 08:15 10:29 Temperature 97.8 F Pulse Rate 92 96 Respiratory 20 20 Rate Blood Pressure 120/63 125/65 (mmHg) O2 Sat by Pulse 100 Oximetry 11/04/18 11:09 Temperature 98.1 F Pulse Rate 92 Respiratory 16 Rate Blood Pressure 126/67 (mmHg) O2 Sat by Pulse 99 Oximetry Oxygen Devices in Use Now: None Appearance: Patient is an 83yo female who appears stated age and is sitting in the bed in [facility]. Eyes: No Scleral Icterus, PERRLA Ears/Nose/Mouth/Throat: NL Teeth, Lips, Gums, Clear Oropharnyx, Mucous Membranes Moist Neck: NL Appearance and Movements; NL JVP, Trachea Midline Respiratory: Symmetrical Chest Expansion and Respiratory Effort, Clear to Auscultation Cardiovascular: NL Sounds; No Murmurs; No JVD, RRR, No Edema Abdominal: NL Sounds; No Tenderness; No Distention, No Hepatosplenomegaly Lymphatic: No Cervical Adenopathy Extremities: No Edema, No Clubbing, Cyanosis Skin: No Rash or Ulcers, No Nodules or Sclerosis Neurological: Alert and Oriented x 3, NL Sensation, NL Muscle Strength and Tone , - - CN II-XII intact. Result Diagrams: 11/03/18 08:21 11/03/18 08:20 Assess/Plan/Problems-Billing Assessment: 83 yo white female with significant PMHx paroxysmal afib (not on AC 2/2 frequent falls), HTN, depression/anxiety, hx of rheumatic fever presents to the ED less than 24 hours after discharge from [facility] [place] due to multiple syncopal episodes and found to be in afib with RVR. Patient continues to have symptomatic tachycardia. - Patient Problems (1) Atrial fibrillation with RVR Current Visit: Yes Status: Acute Code(s): I48.91 - UNSPECIFIED ATRIAL FIBRILLATION SNOMED Code(s): 519227524517993 Comment: - Known hx of paroxysmal afib vs Flutter. During recent hospital stay, no episodes of RVR - Arrived to ED with HR in 180s; responded well to IV diltiazem one dose in ED - Evaluated by cardiology; Dr. Broderick discussed that pacemaker with later AV magnus ablation is the best course of action for control of her Afib and syncopal episodes. - Continue diltiazem 60mg po q8h and digoxin 0.125 per cardiology recommendation - Patient on telemetry; patient in atrial flutter this AM but rate controlled - Thoroughly discussed procedures and benefit upon qualitfy of life with Daughter - Patient would like to trial more aggressive antiarrhythmic/Rate control with pacemaker before ging for AV magnus ablation - Plan for pacemaker Tuesday11/06/18, NPO Tuesday night (2) Syncope Current Visit: No Status: Acute Code(s): R55 - SYNCOPE AND COLLAPSE SNOMED Code(s): 010040725 Comment: - Recurrent and numerous syncopal episodes, was discharged on 11/01/18 for same complaint however was not previously associated with RVR - During recent hospital stay, patient refused all workup from Dr. Nettles. 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 (3) Elevated troponin Current Visit: Yes Status: Acute Code(s): R74.8 - ABNORMAL LEVELS OF OTHER SERUM ENZYMES SNOMED Code(s): 522527430 Comment: - Likely due to demand ischemia. Patient refuses further ischemic workup - No signs of type I [place] - Continue ASA for primary prevention and nominal benefit in decreasing stroke. (4) Hx of pulmonary embolus Current Visit: No Status: Chronic Code(s): Z86.711 - PERSONAL HISTORY OF PULMONARY EMBOLISM SNOMED Code(s): 743988006 Comment: - Risks of anticoagulation decided to outweigh benefits based on shared decision making with patient and family. (5) Hypertension Current Visit: No Status: Chronic Code(s): I10 - ESSENTIAL (PRIMARY) HYPERTENSION SNOMED Code(s): 71292361 Comment: - Diltiazem as above - BP low during tachycardic episodes. (6) DNR (do not resuscitate) Current Visit: No Status: Acute (7) DVT prophylaxis Current Visit: No Status: Acute Code(s): UUP4546 - SNOMED Code(s): 937752183 Comment: -lovenox Status and Disposition: Given readmission after <24 hours of recent discharge, patient is inpatient for continued medical management of afib with RVR and telemetry, with plan for pacemaker on Tuesday11/06/18.
[2018-11-04] MEDS: Enoxaparin(*) 40 MG/0.4 ML SYR SUBCUT SCH (15:44)
[2018-11-04] MEDS: Digoxin TAB* 0.125 MG PO SCH (17:12)
[2018-11-04] MEDS ORDERED: Adenosine* 3 MG/ML VIAL ONE (19:38)
[2018-11-04] MEDS ORDERED: Diltiazem IV push/loading dose 5 MG/ML 5 ML vial (25 mg) ONE (19:44)
[2018-11-04] MEDS ORDERED: Diltiazem IV push/loading dose 5 MG/ML 5 ML vial (25 mg) IV SLOW PU ONE (19:56)
[2018-11-04] MEDS ORDERED: Potassium Chlor TAB* 20 MEQ TAB.ER PO ONE (19:56)
--- NOTE | 2018-11-04 20:01 | PN ---
Hospitalist Progress Note Date of Service: 11/04/18 CAT Call Called to bedside for this 83 yo F with PMH PAF c/b bradycardia and hypotension , awaiting AV magnus ablation followed by PPM on 11/06 who was in SVT 180s symptomatic with stable BP 114/78 on arrival, satting >90% on RA, RR 15, AAOx3, responsive, complains of sensation of pressure. Per nursing this is third event of SVT today, initially ordered for 6 of adenosine, though with some vagal maneuvers patient returned to Fib with RVR rate 150s and 10mg IV Diltiazem given with conversion back to sinus in 90s, BP stable throughout Will increase PO dilt from 60mg to 90mg Q 8H, next dose 1AM. May need transfer to ICU for dilt gtt titration and closer cards follow up. For now remains on floor 2/2 to patients well clinical status and first medical intervention to these events. Will watch closely overnight, remains on tele, Q2 vitals 2 x s/p CAT event. Lytes: K 3.8, on supplementation given PO x1, Mag 2.
[2018-11-04] MEDS: Melatonin 3 MG TAB PO PRN (21:09)
[2018-11-04] MEDS: Diltiazem TAB* 30 MG PO SCH (23:25)
[2018-11-05] MEDS ORDERED: Diltiazem TAB* 30 MG PO SCH (01:00)
[2018-11-05 06:46] LABS: ABS Basophils 0.1 10^3/ul (0-0.2); ABS Eosinophils 0.4 10^3/ul (0-0.6); ABS Lymphocytes 2.1 10^3/ul (1.0-4.8); ABS Monocytes 0.9 10^3/ul (0-0.8); ABS Neutrophils 4.5 10^3/ul (1.5-7.7); Eosinophil % 4.6 %; Hematocrit 34 % (35-47); Hemoglobin 11.2 g/dL (12.0-16.0); Lymphocyte % 26.6 %; Mean Corpuscular HGB Conc 33 g/dL (31-36); Mean Corpuscular Hemoglobin 31 pg (27-31); Mean Corpuscular Volume 94 fL (80-97); Mean Platelet Volume 8.6 fL (7.4-10.4); Platelet Count 152 10^3/uL (150-450); Red Blood Count 3.61 10^6 /uL (3.70-4.87); Red Cell Distribution Width 14 % (10-15); White Blood Count 7.9 10^3/uL (3.5-10.8)
[2018-11-05 06:51] LABS: Calcium 9.7 mg/dL (8.6-10.3); Magnesium 1.8 mg/dL (1.9-2.7); Potassium 4.4 mmol/L (3.5-5.0)
[2018-11-05] MEDS ORDERED: Magnesium Sulfate 2 GM IV* 2 GM/50 ML BAG IVPB ONE (06:56)
[2018-11-05 06:57] LABS: BUN/Creatinine Ratio 22.6 (8-20); EGFR Non-African American 109.9 (>60)
[2018-11-05] MEDS: Diltiazem TAB* 30 MG PO SCH (07:29)
[2018-11-05] MEDS ORDERED: Nitroglycerin TAB 0.4 MG* 0.4 MG TAB SL ONE (07:50)
[2018-11-05 07:57] LABS: Troponin I 0.04 ng/mL (<0.04)
[2018-11-05] MEDS: Sertraline* 100 MG TAB PO SCH (08:26)
[2018-11-05] MEDS: Vitamin E CAP* 400 UNIT PO SCH (08:26)
[2018-11-05] MEDS: Potassium Chlor TAB* 20 MEQ TAB.ER PO SCH (08:26)
[2018-11-05] MEDS: Docusate CAP* 100 MG PO SCH ×2 (08:27→20:50)
[2018-11-05] MEDS: Ascorbic Acid TAB* 500 MG PO SCH (08:27)
[2018-11-05] MEDS: Magnesium Oxide TAB* 400 MG PO SCH (08:27)
[2018-11-05] MEDS: Aspirin 81 mg CHEW TAB* 81 MG TAB.CHEW PO SCH (08:27)
[2018-11-05] MEDS: Senna TAB PO SCH ×2 (08:27→20:50)
[2018-11-05] MEDS ORDERED: LORazepam TAB(*) 0.5 MG PO PRN (09:50)
[2018-11-05] MEDS: traMADol TAB* 50 MG PO PRN ×2 (10:53→20:49)
--- NOTE | 2018-11-05 11:30 | PN ---
Subjective Date of Service: 11/05/18 Interval History: Patient is having pain in the center of her chest today, but states she thinks it is from positioning, not from cardiac origin. It is not with associated SOB, palpitations, diaphoresis, or other symptoms. Worse with movement of right shoulder. Patient denies any palpitations, F/C, N/V, abdominal pain constipation , or other pain. Family History: Unchanged from Admission Social History: Unchanged from Admission Past Medical History: Unchanged from Admission Objective Active Medications: Acetaminophen (Tylenol Tab*) 650 mg PO Q4H PRN PRN Reason: FEVER/PAIN Ascorbic Acid (Vitamin C Tab*) 1,000 mg PO DAILY [facility] Last Admin: 11/05/18 08:27 Dose: 1,000 mg Aspirin (Aspirin 81 Mg Chew Tab*) 81 mg PO DAILY [facility] Last Admin: 11/05/18 08:27 Dose: 81 mg Digoxin (Lanoxin Tab*) 0.125 mg PO 1700 [facility] Last Admin: 11/04/18 17:12 Dose: 0.125 mg Docusate Sodium (Colace Cap*) 100 mg PO BID [facility] Last Admin: 11/05/18 08:27 Dose: 100 mg Enoxaparin Sodium (Lovenox(*)) 40 mg SUBCUT Q24H [facility] Last Admin: 11/04/18 15:44 Dose: 40 mg Diltiazem/Dextrose (Diltiazem Iv Bag) 125 mg in 125 mls @ 5 mls/hr IV Q24H [facility] ; Protocol Lorazepam (Ativan Tab(*)) 0.5 mg PO Q4H PRN PRN Reason: ANXIETY Last Admin: 11/05/18 10:55 Dose: 0.5 mg Magnesium Oxide (Magox 400 Tab*) 400 mg PO DAILY [facility] Last Admin: 11/05/18 08:27 Dose: 400 mg Melatonin (Melatonin) 3 mg PO BEDTIME PRN PRN Reason: SLEEP Last Admin: 11/04/18 21:09 Dose: 3 mg Potassium Chloride (Klor Con Er Tab*) 20 meq PO DAILY [facility] Last Admin: 11/05/18 08:26 Dose: 20 meq Senna (Senokot Tab*) 1 tab PO BID [facility] Last Admin: 11/05/18 08:27 Dose: 1 tab Sertraline HCl (Zoloft*) 200 mg PO DAILY [facility] Last Admin: 11/05/18 08:26 Dose: 200 mg Tramadol HCl (Ultram*) 50 mg PO Q6H PRN PRN Reason: PAIN Last Admin: 11/05/18 10:53 Dose: 50 mg Vitamin E (Vitamin E Cap*) 400 unit PO DAILY [facility] Last Admin: 11/05/18 08:26 Dose: 400 unit Vital Signs - 8 hr 11/05/18 11/05/18 11/05/18 06:36 07:10 08:30 Temperature 98 F Pulse Rate 120 83 Respiratory 16 16 Rate Blood Pressure 127/66 128/71 (mmHg) O2 Sat by Pulse 90 96 Oximetry 11/05/18 11/05/18 10:53 10:55 Temperature Pulse Rate Respiratory 16 16 Rate Blood Pressure (mmHg) O2 Sat by Pulse Oximetry Oxygen Devices in Use Now: None Appearance: Patient is an 83 yo female who appears stated age and is sitting in the bed in [facility] [facility] [facility]. Eyes: No Scleral Icterus, PERRLA Ears/Nose/Mouth/Throat: NL Teeth, Lips, Gums, Clear Oropharnyx, Mucous Membranes Moist Neck: NL Appearance and Movements; NL JVP, Trachea Midline Respiratory: Symmetrical Chest Expansion and Respiratory Effort, Clear to Auscultation Cardiovascular: NL Sounds; No Murmurs; No JVD, RRR, No Edema Abdominal: NL Sounds; No Tenderness; No Distention, No Hepatosplenomegaly Lymphatic: No Cervical Adenopathy Skin: No Rash or Ulcers, No Nodules or Sclerosis Neurological: Alert and Oriented x 3, NL Sensation, NL Muscle Strength and Tone , - - CN II-XII intact. Result Diagrams: 11/05/18 06:29 11/05/18 06:29 Assess/Plan/Problems-Billing Assessment: 83 yo white female with significant PMHx paroxysmal afib (not on AC 2/2 frequent falls), HTN, depression/anxiety, hx of rheumatic fever presents to the ED less than 24 hours [place] [facility] [place] syncopal episodes and found to be in afib with RVR. Patient continues to have symptomatic tachycardia. - Patient Problems (1) Atrial fibrillation with RVR Current Visit: Yes Status: Acute Code(s): I48.91 - UNSPECIFIED ATRIAL FIBRILLATION SNOMED Code(s): 647631276489358 Comment: - Known hx of paroxysmal afib vs Flutter. During recent hospital stay, no episodes of RVR - Episodes of Atypical flutter with 2:1 block and low rates, now generally in NSR with rate 60-90 - Arrived to ED with HR in 180s; responded well to IV diltiazem one dose in ED - Evaluated by cardiology; Dr. Broderick discussed that pacemaker with later AV magnus ablation is the best course of action for control of her Afib and syncopal episodes. - Patient has had 6 episodes of rapid afib/flutter in last 24 hrs, recommendation for Cardizem drip per cardiology until pacemaker when antiarrhythmics may be added - Thoroughly discussed procedures and benefit upon qualitfy of life with Daughter - Patient would like to trial more aggressive antiarrhythmic/Rate control with pacemaker before ging for AV magnus ablation - Plan for pacemaker Tuesday11/06/18, NPO Tuesday night (2) Syncope Current Visit: No Status: Acute Code(s): R55 - SYNCOPE AND COLLAPSE SNOMED Code(s): 324783808 Comment: - Recurrent and numerous syncopal episodes, was discharged on 11/01/18 for same complaint however was not previously associated with RVR - During recent hospital stay, patient refused all workup from Dr. Nettles. 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 (3) Elevated troponin Current Visit: Yes Status: Acute Code(s): R74.8 - ABNORMAL LEVELS OF OTHER SERUM ENZYMES SNOMED Code(s): 263188750 Comment: - Likely due to demand ischemia. Patient refuses further ischemic workup - No signs of type I [place] - Continue ASA for primary prevention and nominal benefit in decreasing stroke. (4) Hx of pulmonary embolus Current Visit: No Status: Chronic Code(s): Z86.711 - PERSONAL HISTORY OF PULMONARY EMBOLISM SNOMED Code(s): 309123885 Comment: - Risks of anticoagulation decided to outweigh benefits based on shared decision making with patient and family. (5) Hypertension Current Visit: No Status: Chronic Code(s): I10 - ESSENTIAL (PRIMARY) HYPERTENSION SNOMED Code(s): 01352034 Comment: - Diltiazem as above - BP low during tachycardic episodes. (6) DNR (do not resuscitate) Current Visit: No Status: Acute (7) DVT prophylaxis Current Visit: No Status: Acute Code(s): OUW2968 - SNOMED Code(s): 253577980 Comment: -lovenox Status and Disposition: Given readmission after <24 hours of recent discharge, patient is inpatient for continued medical management of afib with RVR and telemetry, with plan for pacemaker on Tuesday11/06/18.
[2018-11-05] MEDS: DILTIAZEM 125 MG/125 ML IV SCH (12:14)
[2018-11-05] MEDS: Enoxaparin(*) 40 MG/0.4 ML SYR SUBCUT SCH (16:14)
[2018-11-05] MEDS: Digoxin TAB* 0.125 MG PO SCH (17:11)
[2018-11-05] MEDS: Melatonin 3 MG TAB PO PRN (20:49)
[2018-11-06 06:27] LABS: CO2 Carbon Dioxide 24 mmol/L (22-32); Calcium 9.8 mg/dL (8.6-10.3); Chloride 104 mmol/L (101-111); Sodium 137 mmol/L (135-145)
[2018-11-06 06:31] LABS: Anion Gap 9 mmol/L (2-11)
[2018-11-06 06:33] LABS: Blood Urea Nitrogen 13 mg/dL (6-24); EGFR African American 142.2 (>60); EGFR Non-African American 117.5 (>60); Glucose 94 mg/dL (70-100)
[2018-11-06 06:51] LABS: ABS Basophils 0.1 10^3/ul (0-0.2); ABS Eosinophils 0.3 10^3/ul (0-0.6); ABS Lymphocytes 1.5 10^3/ul (1.0-4.8); ABS Monocytes 0.8 10^3/ul (0-0.8); ABS Neutrophils 4.7 10^3/ul (1.5-7.7); Eosinophil % 4.6 %; Hematocrit 33 % (35-47); Hemoglobin 11.4 g/dL (12.0-16.0); Lymphocyte % 20.1 %; Mean Corpuscular HGB Conc 34 g/dL (31-36); Mean Corpuscular Hemoglobin 32 pg (27-31); Mean Corpuscular Volume 93 fL (80-97); Mean Platelet Volume 8.4 fL (7.4-10.4); Platelet Count 159 10^3/uL (150-450); Red Cell Distribution Width 14 % (10-15); White Blood Count 7.4 10^3/uL (3.5-10.8)
[2018-11-06 07:09] LABS: Magnesium 1.9 mg/dL (1.9-2.7); Potassium Redraw 3.9 mmol/L (3.5-5.0)
[2018-11-06] MEDS ORDERED: Diazepam TAB(*) 5 MG PO ONE (08:42)
[2018-11-06] MEDS ORDERED: ceFAZolin 2 GM PREMIX in ORs 2 GM/50 ML BAG IVPB ONE (08:42)
[2018-11-06] MEDS ORDERED: ceFAZolin 1 GM/10 ML flush(*) SYRINGE for pocket flush (cardiology) FLUSH ONE (08:42)
[2018-11-06] MEDS ORDERED: Magnesium Sulfate 1 GM IV* 1 GM/100 ML BAG IV ONE (09:00)
[2018-11-06] MEDS ORDERED: NS 0.9% 100 ML* 100 ML with ceFAZolin VIAL(*) 2 GM IVPB ONE ×2 (10:00)
[2018-11-06] MEDS: DILTIAZEM 125 MG/125 ML IV SCH (10:31)
[2018-11-06] MEDS ORDERED: Flumazenil* 0.1 MG/ML 5 ML MDV ONE ×2 (10:48→10:49)
[2018-11-06] MEDS ORDERED: fentaNYL* 50 MCG/ML 2 ML VIAL (100 MCG VIAL) ONE (10:48)
[2018-11-06] MEDS ORDERED: Naloxone* 0.4 MG/ML 1 ML VIAL ONE (10:48)
[2018-11-06] MEDS ORDERED: Midazolam* 1 MG/ML 5 ML VIAL (5 MG) ONE (10:48)
[2018-11-06] MEDS ORDERED: Lidocaine 1% INJ* 10 MG/ML 30 ML SDV ONE (10:48)
[2018-11-06] MEDS: NS 0.9% 1000 ML** 1,000 ML IV SCH (13:39)
[2018-11-06] MEDS: Sertraline* 100 MG TAB PO SCH (13:39)
[2018-11-06] MEDS: Potassium Chlor TAB* 20 MEQ TAB.ER PO ONE ×2 (13:40→14:02)
[2018-11-06] MEDS: Aspirin 81 mg CHEW TAB* 81 MG TAB.CHEW PO SCH (13:40)
[2018-11-06] MEDS: Ascorbic Acid TAB* 500 MG PO SCH (13:40)
[2018-11-06] MEDS: Vitamin E CAP* 400 UNIT PO SCH (13:40)
[2018-11-06] MEDS: Magnesium Oxide TAB* 400 MG PO SCH (13:52)
[2018-11-06] MEDS: Senna TAB PO SCH ×2 (13:52→21:15)
[2018-11-06] MEDS: Potassium Chlor TAB* 20 MEQ TAB.ER PO SCH ×2 (13:52→14:01)
--- NOTE | 2018-11-06 17:25 | PN ---
Subjective Date of Service: 11/06/18 Interval History: No overnight events. Pt aware that she is to go for a procedure today but refers to PPM placement as a "bypass" - discussed PPM placement and indications. Pt denies CP, palpitations, light headedness, abd pain, n/v/c/d. She states she feels comfortable. Pt tolerated PPM placement. Per Dr. Nettles, will stop dilt gtt and place on metoprolol 25mg q12h. Family History: Unchanged from Admission Social History: Unchanged from Admission Past Medical History: Unchanged from Admission Objective Active Medications: Acetaminophen (Tylenol Tab*) 650 mg PO Q4H PRN PRN Reason: FEVER/PAIN Last Admin: 11/06/18 13:51 Dose: 650 mg Ascorbic Acid (Vitamin C Tab*) 1,000 mg PO DAILY [facility] Last Admin: 11/06/18 13:40 Dose: 1,000 mg Aspirin (Aspirin 81 Mg Chew Tab*) 81 mg PO DAILY [facility] Last Admin: 11/06/18 13:40 Dose: 81 mg Digoxin (Lanoxin Tab*) 0.125 mg PO 1700 [facility] Last Admin: 11/05/18 17:11 Dose: 0.125 mg Enoxaparin Sodium (Lovenox(*)) 40 mg SUBCUT Q24H [facility] Last Admin: 11/05/18 16:14 Dose: 40 mg Sodium Chloride (Ns 0.9% 1000 Ml) 1,000 mls @ 75 mls/hr IV PER RATE [facility] Stop: 11/07/18 22:04 Last Admin: 11/06/18 13:39 Dose: 75 mls/hr Cefazolin Sodium 1 gm/ Sodium (Chloride) 50 mls @ 200 mls/hr IVPB Q8H [facility] Stop: 11/07/18 10:14 Magnesium Oxide (Magox 400 Tab*) 400 mg PO DAILY [facility] Last Admin: 11/06/18 13:52 Dose: 400 mg Melatonin (Melatonin) 3 mg PO BEDTIME PRN PRN Reason: SLEEP Last Admin: 11/05/18 20:49 Dose: 3 mg Metoprolol Tartrate (Lopressor Tab*) 25 mg PO BID [facility] Oxycodone/Acetaminophen (Percocet 5/325 Tab*) 1 tab PO Q4H PRN PRN Reason: PAIN Potassium Chloride (Klor Con Er Tab*) 20 meq PO DAILY [facility] Last Admin: 11/06/18 14:01 Dose: Not Given Senna (Senokot Tab*) 1 tab PO BID [facility] Last Admin: 11/06/18 13:52 Dose: 1 tab Sertraline HCl (Zoloft*) 200 mg PO DAILY [facility] Last Admin: 11/06/18 13:39 Dose: 200 mg Tramadol HCl (Ultram*) 50 mg PO Q6H PRN PRN Reason: PAIN Last Admin: 11/05/18 20:49 Dose: 50 mg Vitamin E (Vitamin E Cap*) 400 unit PO DAILY [facility] Last Admin: 11/06/18 13:40 Dose: 400 unit Vital Signs - 8 hr 11/06/18 11/06/18 11/06/18 10:27 12:40 12:47 Temperature 97.6 F Pulse Rate 72 Respiratory 20 20 Rate Blood Pressure 142/58 142/58 (mmHg) O2 Sat by Pulse 93 Oximetry 11/06/18 11/06/18 11/06/18 13:08 13:20 13:38 Temperature 98.7 F Pulse Rate Respiratory 14 Rate Blood Pressure 143/62 146/63 (mmHg) O2 Sat by Pulse 94 Oximetry 11/06/18 11/06/18 11/06/18 13:52 14:00 14:05 Temperature Pulse Rate 77 75 Respiratory 14 Rate Blood Pressure (mmHg) O2 Sat by Pulse 98 100 Oximetry 11/06/18 11/06/18 11/06/18 14:08 15:00 15:08 Temperature Pulse Rate 81 72 122 Respiratory Rate Blood Pressure 146/72 135/69 (mmHg) O2 Sat by Pulse 98 97 97 Oximetry 11/06/18 11/06/18 15:25 15:38 Temperature 97.9 F Pulse Rate Respiratory 18 Rate Blood Pressure 126/84 (mmHg) O2 Sat by Pulse 95 Oximetry Oxygen Devices in Use Now: None Appearance: frail appearing, NAD, alert and interactive Eyes: No Scleral Icterus Ears/Nose/Mouth/Throat: Clear Oropharnyx, Mucous Membranes Moist Neck: NL Appearance and Movements; NL JVP Respiratory: Clear to Auscultation Cardiovascular: NL Sounds; No Murmurs; No JVD, RRR Abdominal: NL Sounds; No Tenderness; No Distention Extremities: No Edema Skin: No Rash or Ulcers Neurological: Alert and Oriented x 3, NL Sensation Result Diagrams: 11/06/18 06:45 11/06/18 06:45 Assess/Plan/Problems-Billing Assessment: 83W with paroxysmal afib (not on AC 2/2 frequent falls), HTN, depression/anxiety , hx of rheumatic fever, presents to the ED less than 24 hours after discharge from [facility] [place] due to multiple syncopal episodes and found to be in afib with RVR. Patient continues to have symptomatic tachycardia so is now s/p PPM and initiating oral rate control agents. - Patient Problems (1) Atrial fibrillation with RVR Comment: Known hx of paroxysmal afib vs Flutter. During recent hospital stay, no episodes of RVR. Now, episodes of Atypical flutter with 2:1 block and low rates, now generally in NSR with rate 60-90. Given very frequent episodes of RVR this admission, stayed on dilt drip until PPM placed on 11/06. - will initiate metoprolol tartrate 25mg q12h and titrate as needed - Evaluated by cardiology; Dr. Broderick discussed that pacemaker with later AV magnus ablation is the best course of action for control of her Afib and syncopal episodes. - Patient would like to trial more aggressive antiarrhythmic/Rate control with pacemaker before ging for AV magnus ablation - NO AC given h/o falls (2) Syncope Comment: Recurrent and numerous syncopal episodes, was discharged on 11/01/18 for same complaint however was not previously associated with RVR. During last hospital stay, patient refused all workup from Dr. Nettles. 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 Now initiating metoprolol for afib with RVR. Can re-start home amlo if needed. (4) Elevated troponin Comment: - Likely due to demand ischemia. Patient refuses further ischemic workup - No signs of type I [place] - Continue ASA for primary prevention and nominal benefit in decreasing stroke. (5) Hx of pulmonary embolus Comment: - Risks of anticoagulation decided to outweigh benefits based on shared decision making with patient and family. (6) DVT prophylaxis Comment: -lovenox (7) DNR (do not resuscitate) Current Visit: Yes Status: Acute Status and Disposition: s/p PPM on 11/06/18 - now initiating rate control agents.
[2018-11-06] MEDS: Metoprolol Tartrate TAB* 25 MG PO SCH (18:05)
[2018-11-06] MEDS: Digoxin TAB* 0.125 MG PO SCH (18:05)
[2018-11-06] MEDS: Enoxaparin(*) 40 MG/0.4 ML SYR SUBCUT SCH (18:05)
[2018-11-06] MEDS: ceFAZolin VIAL(*) 1 GM in NS 0.9% 50 ML* 50 ML IVPB SCH (18:06)
--- NOTE | 2018-11-06 22:54 | OP ---
DATE OF OPERATION: 11/06/18 - ROOM #[id number] DATE OF : 33 SURGEON: Imer Nettles MD ANESTHESIA: Local anesthesia with conscious sedation. PRE-OP DIAGNOSES: 1. Atrial fibrillation. 2. Sick sinus syndrome. 3. Tachycardia. POST-OP DIAGNOSES: 1. Atrial fibrillation. 2. Sick sinus syndrome. 3. Tachycardia. OPERATIVE PROCEDURE: Dual-chamber pacemaker implantation. ESTIMATED BLOOD LOSS: Nil. COMPLICATIONS: None. INDICATION: The patient is an 83-year-old female with a history of paroxysmal atrial fibrillation, who has been having recurrent episodes of syncope with no documented arrhythmias. Ultimately, the patient had a syncopal episode at home. She called the ambulance, on arrival of the ambulance showed atrial fibrillation with rapid ventricular response of her heart rate of 170 beats per minute with a blood pressure of 70. While in the hospital, patient converted back to normal sinus rhythm. The patient had episodes of bradycardia down to 40 beats per minute. Permanent pacemaker was recommended for maximization of medical therapy. DESCRIPTION OF PROCEDURE: The patient was brought to the procedure room in a fasting state. Informed consent had been obtained prior to the procedure. All labs were reviewed. The patient was placed supine on the procedure table. Her right deltopectoral area was cleaned and draped in usual fashion. 1% lidocaine was used for local anesthesia. Under ultrasound guidance axillary vein was entered by Seldinger technique and a guidewire was placed. The second guidewire was placed in the same technique. A 3 1/2 cm incision was made in the pectoral area, blunt dissection was carried down the pectoral fascia and a pocket was fashioned for the pacemaker. Over the guidewire, a 6-Portuguese sheath introducer was placed through which a right ventricular lead was advanced to the RV apex. The right ventricular lead is a [employer] model 2088TC, serial number [id number] and had an R-wave sensitivity of 4.5, impedance 652 ohms, threshold 0.6 V at 0.4 ms. The ventricular lead was sutured in the pectoral fascia. Over the second guide, a 6-Portuguese sheath introducer was placed through which a right atrial lead was advanced to the high right atrium. The right atrial lead is a [employer] model 2088, serial number [id number], the P-wave sensitivity of 1.3, impedance 397 ohms, threshold 3 V at 0.4 Ms. The atrial lead was sutured at the pectoral fascia, the pocket was flushed. A generator was attached appropriately to the atrioventricular lead. The generator is a [employer] model TI9551, serial number [id number]. Device was placed in the pocket. The surgical incision was closed in three layers. The patient was returned to holding area in stable condition. [id number]/[facility] #: [id number] [facility]ITAL[facility]elia
[2018-11-07] MEDS: oxyCODONE/Acetamin 5/325 MG* TAB PO PRN (00:40)
[2018-11-07] MEDS: Melatonin 3 MG TAB PO PRN ×2 (00:40→20:09)
[2018-11-07] MEDS: ceFAZolin VIAL(*) 1 GM in NS 0.9% 50 ML* 50 ML IVPB SCH ×2 (02:18→10:33)
[2018-11-07 06:35] LABS: Calcium 9.9 mg/dL (8.6-10.3); Magnesium 1.9 mg/dL (1.9-2.7); Potassium 4.1 mmol/L (3.5-5.0)
[2018-11-07 06:41] LABS: EGFR African American 149.1 (>60); EGFR Non-African American 123.2 (>60)
--- NOTE | 2018-11-07 09:38 | PN ---
Subjective Date of Service: 11/07/18 - [facility] s/p DC PPM 11/06/2018 Interval History: No events last night. I ambulated the patient to the bathroom to look at device site wound she c/o dizziness on Telemetry she was in Afib/Flutter HR 160's. She denies chest pain. Does report palpitations with episode. No c/o shortness of breath. Her family member is at bedside stating that she is worried about the patient because she seems confused. The patient did not recall episode of dizziness or palpitations while walking. When I updated her daughter this was apparent. No c/o headache or weakness. Medications Active Medications: Acetaminophen (Tylenol Tab*) 650 mg PO Q4H PRN PRN Reason: FEVER/PAIN Last Admin: 11/06/18 13:51 Dose: 650 mg Amiodarone HCl (Cordarone Tab*) 400 mg PO BID [facility] Stop: 11/14/18 23:59 Amiodarone HCl (Cordarone Tab*) 200 mg PO DAILY [facility] Ascorbic Acid (Vitamin C Tab*) 1,000 mg PO DAILY [facility] Last Admin: 11/06/18 13:40 Dose: 1,000 mg Aspirin (Aspirin 81 Mg Chew Tab*) 81 mg PO DAILY [facility] Last Admin: 11/06/18 13:40 Dose: 81 mg Cephalexin HCl (Keflex Cap*) 250 mg PO TID [facility] Stop: 11/10/18 13:59 Digoxin (Lanoxin Tab*) 0.125 mg PO 1700 [facility] Last Admin: 11/06/18 18:05 Dose: 0.125 mg Enoxaparin Sodium (Lovenox(*)) 40 mg SUBCUT Q24H [facility] Last Admin: 11/06/18 18:05 Dose: 40 mg Sodium Chloride (Ns 0.9% 1000 Ml) 1,000 mls @ 75 mls/hr IV PER RATE [facility] Stop: 11/07/18 22:04 Last Admin: 11/06/18 13:39 Dose: 75 mls/hr Cefazolin Sodium 1 gm/ Sodium (Chloride) 50 mls @ 200 mls/hr IVPB Q8H [facility] Stop: 11/07/18 10:14 Last Admin: 11/07/18 02:18 Dose: 200 mls/hr Magnesium Oxide (Magox 400 Tab*) 400 mg PO DAILY [facility] Last Admin: 11/06/18 13:52 Dose: 400 mg Melatonin (Melatonin) 3 mg PO BEDTIME PRN PRN Reason: SLEEP Last Admin: 11/07/18 00:40 Dose: 3 mg Metoprolol Tartrate (Lopressor Tab*) 25 mg PO BID [facility] Last Admin: 11/06/18 18:05 Dose: 25 mg Oxycodone/Acetaminophen (Percocet 5/325 Tab*) 1 tab PO Q4H PRN PRN Reason: PAIN Last Admin: 11/07/18 00:40 Dose: 1 tab Potassium Chloride (Klor Con Er Tab*) 20 meq PO DAILY [facility] Last Admin: 11/06/18 14:01 Dose: Not Given Senna (Senokot Tab*) 1 tab PO BID [facility] Last Admin: 11/06/18 21:15 Dose: 1 tab Sertraline HCl (Zoloft*) 200 mg PO DAILY [facility] Last Admin: 11/06/18 13:39 Dose: 200 mg Tramadol HCl (Ultram*) 50 mg PO Q6H PRN PRN Reason: PAIN Last Admin: 11/05/18 20:49 Dose: 50 mg Vitamin E (Vitamin E Cap*) 400 unit PO DAILY [facility] Last Admin: 11/06/18 13:40 Dose: 400 unit Objective Vital Signs: Temp Pulse Resp BP Pulse Ox 97.5 F 68 15 139/67 94 11/07/18 03:00 11/07/18 03:00 11/07/18 04:05 11/07/18 03:00 11/07/18 05:05 Oxygen Devices in Use Now: None Appearance: lying in bed upon entering room. NAD. Ears/Nose/Mouth/Throat: NL Teeth, Lips, Gums, Mucous Membranes Moist Neck: NL Appearance and Movements; NL JVP, Trachea Midline Respiratory: Clear to Auscultation Cardiovascular: - - + diastolic mitral murmur, Normal S1, S2 RRR, no gallop Extremities: No Edema Skin: - - + bruising to bilateral upper extremities. Lines/Tubes/Other Access: Clean, Dry and Intact Peripheral IV Laboratory Results: 11/06/18 06:45 11/07/18 05:46 Total Bilirubin 0.40 mg/dL (0.2-1.0) 11/02/18 12:40 AST 19 U/L (13-39) 11/02/18 12:40 ALT 12 U/L (7-52) 11/02/18 12:40 Alkaline Phosphatase 78 U/L (34-104) 11/02/18 12:40 Total Protein 6.1 g/dL (6.4-8.9) L 11/02/18 12:40 Albumin 3.2 g/dL (3.2-5.2) 11/02/18 12:40 Globulin 2.9 g/dL (2-4) 11/02/18 12:40 Albumin/Globulin Ratio 1.1 (1-3) 11/02/18 12:40 TSH 1.17 mcIU/mL (0.34-5.60) 11/02/18 12:40 11/02/18 11/02/18 11/02/18 12:40 15:36 20:10 Troponin I 0.09 H* 0.08 H* 0.10 H* 11/05/18 06:29 Troponin I 0.04 H* Laboratory Results - last 24 hr 11/07/18 05:46 Sodium 138 Potassium 4.1 Chloride 106 Carbon Dioxide 26 Anion Gap 6 BUN 12 Creatinine 0.48 L Est GFR ( Amer) 149.1 Est GFR (Non-Af Amer) 123.2 BUN/Creatinine Ratio 25.0 H Glucose 95 Calcium 9.9 Magnesium 1.9 Diagnostic Imaging: Chest X-Ray from this morning is pending. EKG Data: 11/07/2018; /RESPIRATORY COORDINATOR rate 100 Assessment/Plan #1 h/o PAF/Aflutter with tachybrady syndrome s/p DC PPM 11/06/2018. Device check today was normal. 3 AMS episodes. Atrial lead pacing threshold. 0.4ms, RV lead pacing threshold 0.4ms. Chest xray is pending to r/o pneumothorax. Right anterior chest device site is intact, no evidence of hematoma, non tender to palptation. no oozing noted. Will RX Keflex 250mg Po TIDx3 days then stop. She will need to use right arm immobilizer for the next 6 weeks. No lifting > 5 lbs with RUE for 6 weeks. f/u placed in DC plan. #2 h/o PAF/Aflutter with RVR; Patient is symptomatic with c/o dizziness and palpitations. HR 160's, episode happen when I ambulated her to bathroom to look at right anterior chest device site wound. Will continue Lopressor 25mg Po BID, Digoxin .125mcg/day. Will add Amiodarone 400mg Po BID x7 days then reduce to 200mg/day. TFTs were normal AST/ALT normal. Recommend keeping K+>4, Mag >2 given potential for QTc prolongation. #3 ? Confusion; Patient was unable to identify the year. Her daughter informed me the patient did not recall episode that happened earlier in the bathroom when she became symptomatic from AF with RVR. No obvious neuro deficits on exam. I did personally call Dr. Acosta who is the hospitalist assigned to the patient to inform him and differ evaluation for confusion to primary team. #4 Weakness; Patient had a very hard time ambulating to the bathroom with out assistance despite using a walker. Would recommend Pt/OT eval. #5 Disposition pending course will follow. Will update EKG 11/08/2018. Attending: Imer Nettles
[2018-11-07] MEDS: Senna TAB PO SCH ×2 (10:31→20:09)
[2018-11-07] MEDS: Magnesium Oxide TAB* 400 MG PO SCH (10:32)
[2018-11-07] MEDS: Ascorbic Acid TAB* 500 MG PO SCH (10:32)
[2018-11-07] MEDS: Sertraline* 100 MG TAB PO SCH (10:32)
[2018-11-07] MEDS: Metoprolol Tartrate TAB* 25 MG PO SCH ×2 (10:32→20:09)
[2018-11-07] MEDS: Vitamin E CAP* 400 UNIT PO SCH (10:33)
[2018-11-07] MEDS: Aspirin 81 mg CHEW TAB* 81 MG TAB.CHEW PO SCH (10:33)
[2018-11-07] MEDS: Potassium Chlor TAB* 20 MEQ TAB.ER PO SCH (10:33)
[2018-11-07] MEDS: NS 0.9% 1000 ML** 1,000 ML IV SCH (10:34)
[2018-11-07] MEDS: Enoxaparin(*) 40 MG/0.4 ML SYR SUBCUT SCH (14:47)
[2018-11-07] MEDS: Cephalexin CAP* 250 MG PO SCH ×2 (14:48→20:09)
[2018-11-07] MEDS: Digoxin TAB* 0.125 MG PO SCH (17:58)
--- NOTE | 2018-11-07 19:33 | PN ---
Subjective Date of Service: 11/07/18 Interval History: patient seen this morning, discussed with cardiology, She is s/p PPM. However ; her pulse remains tachycardia with ambulation and she is symptomatic with it. At this time, it was recommended to start Amiodarone as per cardiology and will reassess daily. She is complaining of increase coughing with supper hence she was changed to npo except meds and swallow evaluation reordered to reassess her diet consistency. daughter at bedside expressed increase concerns regarding her mother eventually going back home add requested to be evaluated for STR Past Medical History: Unchanged from Admission Objective Active Medications: Acetaminophen (Tylenol Tab*) 650 mg PO Q4H PRN PRN Reason: FEVER/PAIN Last Admin: 11/06/18 13:51 Dose: 650 mg Amiodarone HCl (Cordarone Tab*) 400 mg PO BID [facility] Stop: 11/14/18 23:59 Amiodarone HCl (Cordarone Tab*) 200 mg PO DAILY [facility] Ascorbic Acid (Vitamin C Tab*) 1,000 mg PO DAILY [facility] Last Admin: 11/07/18 10:32 Dose: 1,000 mg Aspirin (Aspirin 81 Mg Chew Tab*) 81 mg PO DAILY [facility] Last Admin: 11/07/18 10:33 Dose: 81 mg Cephalexin HCl (Keflex Cap*) 250 mg PO TID [facility] Stop: 11/10/18 13:59 Last Admin: 11/07/18 14:48 Dose: 250 mg Digoxin (Lanoxin Tab*) 0.125 mg PO 1700 [facility] Last Admin: 11/07/18 17:58 Dose: 0.125 mg Enoxaparin Sodium (Lovenox(*)) 40 mg SUBCUT Q24H [facility] Last Admin: 11/07/18 14:47 Dose: 40 mg Sodium Chloride (Ns 0.9% 1000 Ml) 1,000 mls @ 75 mls/hr IV PER RATE [facility] Stop: 11/07/18 22:04 Last Admin: 11/07/18 10:34 Dose: 75 mls/hr Magnesium Oxide (Magox 400 Tab*) 400 mg PO DAILY [facility] Last Admin: 11/07/18 10:32 Dose: 400 mg Melatonin (Melatonin) 3 mg PO BEDTIME PRN PRN Reason: SLEEP Last Admin: 11/07/18 00:40 Dose: 3 mg Metoprolol Tartrate (Lopressor Tab*) 25 mg PO BID [facility] Last Admin: 11/07/18 10:32 Dose: 25 mg Oxycodone/Acetaminophen (Percocet 5/325 Tab*) 1 tab PO Q4H PRN PRN Reason: PAIN Last Admin: 11/07/18 00:40 Dose: 1 tab Potassium Chloride (Klor Con Er Tab*) 20 meq PO DAILY [facility] Last Admin: 11/07/18 10:33 Dose: 20 meq Senna (Senokot Tab*) 1 tab PO BID [facility] Last Admin: 11/07/18 10:31 Dose: 1 tab Sertraline HCl (Zoloft*) 200 mg PO DAILY [facility] Last Admin: 11/07/18 10:32 Dose: 200 mg Tramadol HCl (Ultram*) 50 mg PO Q6H PRN PRN Reason: PAIN Last Admin: 11/05/18 20:49 Dose: 50 mg Vitamin E (Vitamin E Cap*) 400 unit PO DAILY [facility] Last Admin: 11/07/18 10:33 Dose: 400 unit Vital Signs - 8 hr 11/07/18 11/07/18 11/07/18 13:00 15:37 17:00 Temperature 98.5 F Pulse Rate 67 Respiratory 22 Rate Blood Pressure 134/73 (mmHg) O2 Sat by Pulse 97 98 94 Oximetry 11/07/18 17:58 Temperature Pulse Rate 63 Respiratory Rate Blood Pressure (mmHg) O2 Sat by Pulse Oximetry Oxygen Devices in Use Now: None Appearance: awake, alert. confused to and disoriented to time but not to person. Eyes: No Scleral Icterus, - - EOMI Ears/Nose/Mouth/Throat: - - dry oral mucosa Neck: NL Appearance and Movements; NL JVP Respiratory: Symmetrical Chest Expansion and Respiratory Effort Cardiovascular: - - right sided pace maker, dressing clear. Abdominal: NL Sounds; No Tenderness; No Distention Extremities: No Edema, - - right upper extremety immoblized Neurological: Alert and Oriented x 3 Result Diagrams: 11/06/18 06:45 11/07/18 05:46 Assess/Plan/Problems-Billing Assessment: 83W with paroxysmal afib (not on AC 2/2 frequent falls), HTN, depression/anxiety , hx of rheumatic fever, presents to the ED less than 24 hours after discharge from [facility] [place] due to multiple syncopal episodes and found to be in afib with RVR. Patient continues to have symptomatic tachycardia so is now s/p PPM and initiating oral rate control agents. - Patient Problems (1) Atrial fibrillation with RVR Current Visit: Yes Status: Acute Code(s): I48.91 - UNSPECIFIED ATRIAL FIBRILLATION SNOMED Code(s): 492718175107761 Comment: - Known hx of paroxysmal afib vs Flutter with 2:1 block and low rates, - s/p dilt drip until PPM placed on 11/06 and as per cardiology Dr. Broderick recommendations to consider ablation is the best course of action for control of her Afib and syncopal episodes. 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
[2018-11-07] MEDS: traMADol TAB* 50 MG PO PRN (20:09)
[2018-11-07] MEDS: Amiodarone TAB* 200 MG PO SCH (20:09)
[2018-11-08 06:13] LABS: ABS Eosinophils 0.3 10^3/ul (0-0.6); ABS Lymphocytes 1.3 10^3/ul (1.0-4.8); ABS Monocytes 0.9 10^3/ul (0-0.8); ABS Neutrophils 4.6 10^3/ul (1.5-7.7); Eosinophil % 4.3 %; Hematocrit 35 % (35-47); Hemoglobin 11.8 g/dL (12.0-16.0); Lymphocyte % 18.5 %; Mean Corpuscular HGB Conc 34 g/dL (31-36); Mean Corpuscular Hemoglobin 32 pg (27-31); Mean Corpuscular Volume 94 fL (80-97); Mean Platelet Volume 8.8 fL (7.4-10.4); Platelet Count 162 10^3/uL (150-450); Red Blood Count 3.68 10^6 /uL (3.70-4.87); Red Cell Distribution Width 14 % (10-15); White Blood Count 7.2 10^3/uL (3.5-10.8)
[2018-11-08 06:30] LABS: BUN/Creatinine Ratio 25.6 (8-20); Calcium 9.7 mg/dL (8.6-10.3); EGFR African American 169.3 (>60); EGFR Non-African American 139.9 (>60); Magnesium 1.7 mg/dL (1.9-2.7); Phosphorus 2.1 mg/dL (2.5-5.0); Potassium 3.7 mmol/L (3.5-5.0)
[2018-11-08] MEDS: Ascorbic Acid TAB* 500 MG PO SCH (07:43)
[2018-11-08] MEDS: Potassium Chlor TAB* 20 MEQ TAB.ER PO SCH ×2 (07:44→19:43)
[2018-11-08] MEDS: Sertraline* 100 MG TAB PO SCH (07:44)
[2018-11-08] MEDS: Magnesium Oxide TAB* 400 MG PO SCH (07:44)
[2018-11-08] MEDS: Cephalexin CAP* 250 MG PO SCH ×3 (07:44→19:43)
[2018-11-08] MEDS: Metoprolol Tartrate TAB* 25 MG PO SCH ×2 (07:44→19:43)
[2018-11-08] MEDS: Senna TAB PO SCH ×2 (07:45→19:43)
[2018-11-08] MEDS: Amiodarone TAB* 200 MG PO SCH ×2 (07:45→19:43)
[2018-11-08] MEDS: Vitamin E CAP* 400 UNIT PO SCH (07:45)
[2018-11-08] MEDS: Aspirin 81 mg CHEW TAB* 81 MG TAB.CHEW PO SCH (07:45)
[2018-11-08 09:51] LABS: Urine Appearance Clear; Urine Bilirubin Negative (Negative); Urine Blood Negative (Negative); Urine Color Yellow; Urine Glucose Negative (Negative); Urine Ketones Trace (Negative); Urine Nitrite Negative (Negative); Urine Protein Negative (Negative); Urine Specific Gravity 1.013 (1.010-1.030); Urine Urobilinogen Negative (Negative)
--- NOTE | 2018-11-08 15:50 | PN ---
Subjective Date of Service: 11/08/18 Interval History: Patient seen in bed. doing well no acute distress. last evening she did have coughing spells and choking with dinner. I asked speech pathology to re- evaluate and diet changed to soft mechanical thin liquid. family requesting to be evaluated for short term rehab placement as she is having difficulty ambulating, and still very weak especially now with her right upper arm restricted movement due to the pacemaker placement Past Medical History: Unchanged from Admission Objective Active Medications: Acetaminophen (Tylenol Tab*) 650 mg PO Q4H PRN PRN Reason: FEVER/PAIN Last Admin: 11/06/18 13:51 Dose: 650 mg Amiodarone HCl (Cordarone Tab*) 400 mg PO BID [facility] Stop: 11/14/18 23:59 Last Admin: 11/08/18 07:45 Dose: 400 mg Amiodarone HCl (Cordarone Tab*) 200 mg PO DAILY [facility] Ascorbic Acid (Vitamin C Tab*) 1,000 mg PO DAILY [facility] Last Admin: 11/08/18 07:43 Dose: 1,000 mg Aspirin (Aspirin 81 Mg Chew Tab*) 81 mg PO DAILY [facility] Last Admin: 11/08/18 07:45 Dose: 81 mg Cephalexin HCl (Keflex Cap*) 250 mg PO TID [facility] Stop: 11/10/18 13:59 Last Admin: 11/08/18 14:27 Dose: 250 mg Digoxin (Lanoxin Tab*) 0.125 mg PO 1700 [facility] Last Admin: 11/07/18 17:58 Dose: 0.125 mg Enoxaparin Sodium (Lovenox(*)) 40 mg SUBCUT Q24H [facility] Last Admin: 11/07/18 14:47 Dose: 40 mg Magnesium Sulfate (Magnesium Sulfate 2 Gm Iv*) 2 gm in 50 mls @ 50 mls/hr IVPB ONCE ONE Stop: 11/08/18 16:41 Magnesium Oxide (Magox 400 Tab*) 400 mg PO BID [facility] Melatonin (Melatonin) 3 mg PO BEDTIME PRN PRN Reason: SLEEP Last Admin: 11/07/18 20:09 Dose: 3 mg Metoprolol Tartrate (Lopressor Tab*) 25 mg PO BID [facility] Last Admin: 11/08/18 07:44 Dose: 25 mg Oxycodone/Acetaminophen (Percocet 5/325 Tab*) 1 tab PO Q4H PRN PRN Reason: PAIN Last Admin: 11/07/18 00:40 Dose: 1 tab Potassium Chloride (Klor Con Er Tab*) 20 meq PO BID [facility] Potassium Phos/Sodium Phos (Neutra Phos 250 Mg Tony*) 250 mg PO BID [facility] Senna (Senokot Tab*) 1 tab PO BID [facility] Last Admin: 11/08/18 07:45 Dose: 1 tab Sertraline HCl (Zoloft*) 200 mg PO DAILY [facility] Last Admin: 11/08/18 07:44 Dose: 200 mg Tramadol HCl (Ultram*) 50 mg PO Q6H PRN PRN Reason: PAIN Last Admin: 11/07/18 20:09 Dose: 50 mg Vitamin E (Vitamin E Cap*) 400 unit PO DAILY [facility] Last Admin: 11/08/18 07:45 Dose: 400 unit Vital Signs - 8 hr 11/08/18 11/08/18 07:57 12:00 Temperature 98.1 F 98.1 F Pulse Rate 67 60 Respiratory 20 16 Rate Blood Pressure 159/72 135/64 (mmHg) O2 Sat by Pulse 97 98 Oximetry Oxygen Devices in Use Now: None Appearance: awake, thin underweight Eyes: No Scleral Icterus, - - EOMI Neck: NL Appearance and Movements; NL JVP Respiratory: Symmetrical Chest Expansion and Respiratory Effort, Clear to Auscultation Cardiovascular: NL Sounds; No Murmurs; No JVD, - - right chest wall pacemaker placement Abdominal: NL Sounds; No Tenderness; No Distention Extremities: No Edema Neurological: Alert and Oriented x 3 - no profound confusion. Result Diagrams: 11/08/18 05:30 11/08/18 05:30 Assess/Plan/Problems-Billing Assessment: 83W with paroxysmal afib (not on AC 2/2 frequent falls), HTN, depression/anxiety , hx of rheumatic fever, presents to the ED less than 24 hours after discharge from [facility] due to multiple syncopal episodes and found to be in afib with RVR. Patient continues to have symptomatic tachycardia so is now s/p PPM and initiating oral rate control agents. - Patient Problems (1) Atrial fibrillation with RVR Current Visit: Yes Status: Acute Code(s): I48.91 - UNSPECIFIED ATRIAL FIBRILLATION SNOMED Code(s): 769209750687070 Comment: - Known hx of paroxysmal afib vs Flutter with 2:1 block and low rates, - s/p dilt drip until PPM placed on 11/06 and as per cardiology Dr. Broderick recommendations to consider ablation is the best course of action for control of her Afib and syncopal episodes. - On metoprolol tartrate 25mg q12h, digoxin 12 5mcg daily. Added Amidoarone as per cardiology dosing. 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
[2018-11-08] MEDS ORDERED: Magnesium Sulfate 2 GM IV* 2 GM/50 ML BAG IVPB ONE (16:00)
[2018-11-08] MEDS: Enoxaparin(*) 40 MG/0.4 ML SYR SUBCUT SCH (17:13)
[2018-11-08] MEDS: Potassium & Sodium Phos 250MG* = 1 PACKET PO SCH ×2 (17:13→19:43)
[2018-11-08] MEDS: Digoxin TAB* 0.125 MG PO SCH (17:13)
[2018-11-08] MEDS: Melatonin 3 MG TAB PO PRN (21:35)
[2018-11-09 06:25] LABS: BUN/Creatinine Ratio 27.5 (8-20); Calcium 9.7 mg/dL (8.6-10.3); EGFR Non-African American 114.9 (>60); Phosphorus 2.6 mg/dL (2.5-5.0); Potassium 4.2 mmol/L (3.5-5.0)
[2018-11-09] MEDS: Ascorbic Acid TAB* 500 MG PO SCH (08:08)
[2018-11-09] MEDS: Vitamin E CAP* 400 UNIT PO SCH (08:08)
[2018-11-09] MEDS: Sertraline* 100 MG TAB PO SCH (08:08)
[2018-11-09] MEDS: Potassium & Sodium Phos 250MG* = 1 PACKET PO SCH ×2 (08:08→20:50)
[2018-11-09] MEDS: Amiodarone TAB* 200 MG PO SCH ×2 (08:08→20:47)
[2018-11-09] MEDS: Senna TAB PO SCH ×2 (08:09→20:50)
[2018-11-09] MEDS: Metoprolol Tartrate TAB* 25 MG PO SCH ×2 (08:09→20:47)
[2018-11-09] MEDS: Aspirin 81 mg CHEW TAB* 81 MG TAB.CHEW PO SCH (08:09)
[2018-11-09] MEDS: Potassium Chlor TAB* 20 MEQ TAB.ER PO SCH ×2 (08:09→20:47)
[2018-11-09] MEDS: Magnesium Oxide TAB* 400 MG PO SCH ×2 (08:09→20:47)
[2018-11-09] MEDS: Cephalexin CAP* 250 MG PO SCH ×3 (08:09→20:50)
[2018-11-09] MEDS: Digoxin TAB* 0.125 MG PO SCH (16:09)
[2018-11-09] MEDS: Enoxaparin(*) 40 MG/0.4 ML SYR SUBCUT SCH (16:10)
--- NOTE | 2018-11-09 18:46 | PN ---
Subjective Date of Service: 11/09/18 Interval History: Patient seen, doing well today. she was up in her chair. PT ordered but she is still having difficulty taking her po due to the consistency. I spoke with speech pathologist and recommended to change her diet to Soft diet texture, but pureed meats and Thin liquids, straws OK. Seen by PT and Pt requires increased cues and assistance to complete transfers and safely ambulate. Pt would benefit from skilled PT intervention at extended rehab level, to assist with mobility limitations and improve independence to return home. Past Medical History: Unchanged from Admission Objective Active Medications: Acetaminophen (Tylenol Tab*) 650 mg PO Q4H PRN PRN Reason: FEVER/PAIN Last Admin: 11/06/18 13:51 Dose: 650 mg Amiodarone HCl (Cordarone Tab*) 400 mg PO BID [facility] Stop: 11/14/18 23:59 Last Admin: 11/09/18 08:08 Dose: 400 mg Amiodarone HCl (Cordarone Tab*) 200 mg PO DAILY [facility] Ascorbic Acid (Vitamin C Tab*) 1,000 mg PO DAILY [facility] Last Admin: 11/09/18 08:08 Dose: 1,000 mg Aspirin (Aspirin 81 Mg Chew Tab*) 81 mg PO DAILY [facility] Last Admin: 11/09/18 08:09 Dose: 81 mg Cephalexin HCl (Keflex Cap*) 250 mg PO TID [facility] Stop: 11/10/18 13:59 Last Admin: 11/09/18 13:18 Dose: 250 mg Digoxin (Lanoxin Tab*) 0.125 mg PO 1700 [facility] Last Admin: 11/09/18 16:09 Dose: 0.125 mg Enoxaparin Sodium (Lovenox(*)) 40 mg SUBCUT Q24H [facility] Last Admin: 11/09/18 16:10 Dose: 40 mg Magnesium Oxide (Magox 400 Tab*) 400 mg PO BID [facility] Last Admin: 11/09/18 08:09 Dose: 400 mg Melatonin (Melatonin) 3 mg PO BEDTIME PRN PRN Reason: SLEEP Last Admin: 11/08/18 21:35 Dose: 3 mg Metoprolol Tartrate (Lopressor Tab*) 25 mg PO BID [facility] Last Admin: 11/09/18 08:09 Dose: 25 mg Oxycodone/Acetaminophen (Percocet 5/325 Tab*) 1 tab PO Q4H PRN PRN Reason: PAIN Last Admin: 11/07/18 00:40 Dose: 1 tab Potassium Chloride (Klor Con Er Tab*) 20 meq PO BID [facility] Last Admin: 11/09/18 08:09 Dose: 20 meq Potassium Phos/Sodium Phos (Neutra Phos 250 Mg Tony*) 250 mg PO BID [facility] Last Admin: 11/09/18 08:08 Dose: 250 mg Senna (Senokot Tab*) 1 tab PO BID [facility] Last Admin: 11/09/18 08:09 Dose: 1 tab Sertraline HCl (Zoloft*) 200 mg PO DAILY [facility] Last Admin: 11/09/18 08:08 Dose: 200 mg Tramadol HCl (Ultram*) 50 mg PO Q6H PRN PRN Reason: PAIN Last Admin: 11/07/18 20:09 Dose: 50 mg Vitamin E (Vitamin E Cap*) 400 unit PO DAILY [facility] Last Admin: 11/09/18 08:08 Dose: 400 unit Vital Signs - 8 hr 11/09/18 11/09/18 11/09/18 11:40 15:44 16:09 Temperature 98.0 F 97.8 F Pulse Rate 60 60 60 Respiratory 18 20 Rate Blood Pressure 127/69 131/57 (mmHg) O2 Sat by Pulse 99 98 Oximetry Oxygen Devices in Use Now: None Appearance: awake, alert. no distress Eyes: No Scleral Icterus, - - EOMI Ears/Nose/Mouth/Throat: NL Teeth, Lips, Gums, Mucous Membranes Moist Neck: NL Appearance and Movements; NL JVP, Trachea Midline Respiratory: Symmetrical Chest Expansion and Respiratory Effort, Clear to Auscultation Cardiovascular: NL Sounds; No Murmurs; No JVD, No Edema Abdominal: NL Sounds; No Tenderness; No Distention Extremities: - - RUE in sling secondary to PPM Neurological: Alert and Oriented x 3 Result Diagrams: 11/08/18 05:30 11/09/18 05:39 Assess/Plan/Problems-Billing Assessment: 83W with paroxysmal afib (not on AC 2/2 frequent falls), HTN, depression/anxiety , hx of rheumatic fever, presents to the ED less than 24 hours after discharge from [facility] [place] due to multiple syncopal episodes and found to be in afib with RVR. Patient continues to have symptomatic tachycardia so is now s/p PPM and initiating oral rate control agents. - Patient Problems (1) Atrial fibrillation with RVR Current Visit: Yes Status: Acute Code(s): I48.91 - UNSPECIFIED ATRIAL FIBRILLATION SNOMED Code(s): 718083505179441 Comment: - Known hx of paroxysmal afib vs Flutter with 2:1 block and low rates, - s/p dilt drip until PPM placed on 11/06 and as per cardiology Dr. Broderick recommendations to consider ablation is the best course of action for control of her Afib and syncopal episodes. - On metoprolol tartrate 25mg q12h, digoxin 12 5mcg daily. Added Amidoarone as per cardiology dosing. 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
[2018-11-09] MEDS ORDERED: Metoprolol Tartrate IV* 1 MG/ML 5 ML VIAL IV ONE (19:04)
[2018-11-09] MEDS ORDERED: Metoprolol Tartrate IV* 1 MG/ML 5 ML VIAL ONE (19:06)
[2018-11-09] MEDS: Melatonin 3 MG TAB PO PRN (20:53)
[2018-11-09] MEDS: oxyCODONE/Acetamin 5/325 MG* TAB PO PRN (21:05)
[2018-11-10] MEDS: Ascorbic Acid TAB* 500 MG PO SCH (09:06)
[2018-11-10] MEDS: oxyCODONE/Acetamin 5/325 MG* TAB PO PRN ×2 (09:06→21:29)
[2018-11-10] MEDS: Sertraline* 100 MG TAB PO SCH (09:07)
[2018-11-10] MEDS: Amiodarone TAB* 200 MG PO SCH ×2 (09:07→21:28)
[2018-11-10] MEDS: Aspirin 81 mg CHEW TAB* 81 MG TAB.CHEW PO SCH (09:08)
[2018-11-10] MEDS: Magnesium Oxide TAB* 400 MG PO SCH ×2 (09:08→21:29)
[2018-11-10] MEDS: Metoprolol Tartrate TAB* 25 MG PO SCH ×2 (09:08→21:29)
[2018-11-10] MEDS: Potassium Chlor TAB* 20 MEQ TAB.ER PO SCH ×2 (09:09→21:29)
[2018-11-10] MEDS: Cephalexin CAP* 250 MG PO SCH (09:10)
[2018-11-10] MEDS: Senna TAB PO SCH ×2 (09:10→21:30)
[2018-11-10] MEDS: Potassium & Sodium Phos 250MG* = 1 PACKET PO SCH ×2 (09:11→21:31)
[2018-11-10] MEDS: Vitamin E CAP* 400 UNIT PO SCH (09:11)
[2018-11-10] MEDS ORDERED: Metoprolol Tartrate TAB* 25 MG PO ONE (11:45)
--- NOTE | 2018-11-10 11:52 | PN ---
Subjective Date of Service: 11/10/18 Interval History: f/u atrial fibrillation, flutter, pacemaker patient symptomatic rapid atrial flutter last PM resolved with IV lopressor currently in sinus rhythm plans for rehab Medications Active Medications: Acetaminophen (Tylenol Tab*) 650 mg PO Q4H PRN PRN Reason: FEVER/PAIN Last Admin: 11/06/18 13:51 Dose: 650 mg Amiodarone HCl (Cordarone Tab*) 400 mg PO BID [facility] Stop: 11/14/18 23:59 Last Admin: 11/10/18 09:07 Dose: 400 mg Amiodarone HCl (Cordarone Tab*) 200 mg PO DAILY [facility] Ascorbic Acid (Vitamin C Tab*) 1,000 mg PO DAILY [facility] Last Admin: 11/10/18 09:06 Dose: 1,000 mg Aspirin (Aspirin 81 Mg Chew Tab*) 81 mg PO DAILY [facility] Last Admin: 11/10/18 09:08 Dose: 81 mg Cephalexin HCl (Keflex Cap*) 250 mg PO TID [facility] Stop: 11/10/18 13:59 Last Admin: 11/10/18 09:10 Dose: 250 mg Digoxin (Lanoxin Tab*) 0.125 mg PO Q48HR@1700 [facility] Enoxaparin Sodium (Lovenox(*)) 40 mg SUBCUT Q24H [facility] Last Admin: 11/09/18 16:10 Dose: 40 mg Magnesium Oxide (Magox 400 Tab*) 400 mg PO BID [facility] Last Admin: 11/10/18 09:08 Dose: 400 mg Melatonin (Melatonin) 3 mg PO BEDTIME PRN PRN Reason: SLEEP Last Admin: 11/09/18 20:53 Dose: 3 mg Metoprolol Tartrate (Lopressor Tab*) 50 mg PO BID [facility] Metoprolol Tartrate (Lopressor Tab*) 25 mg PO ONCE ONE Stop: 11/10/18 11:46 Oxycodone/Acetaminophen (Percocet 5/325 Tab*) 1 tab PO Q4H PRN PRN Reason: PAIN Last Admin: 11/10/18 09:06 Dose: 1 tab Potassium Chloride (Klor Con Er Tab*) 20 meq PO BID [facility] Last Admin: 11/10/18 09:09 Dose: 20 meq Potassium Phos/Sodium Phos (Neutra Phos 250 Mg Tony*) 250 mg PO BID [facility] Last Admin: 11/10/18 09:11 Dose: 250 mg Senna (Senokot Tab*) 1 tab PO BID [facility] Last Admin: 11/10/18 09:10 Dose: 1 tab Sertraline HCl (Zoloft*) 200 mg PO DAILY [facility] Last Admin: 11/10/18 09:07 Dose: 200 mg Vitamin E (Vitamin E Cap*) 400 unit PO DAILY [facility] Last Admin: 11/10/18 09:11 Dose: 400 unit Objective Vital Signs: Temp Pulse Resp BP Pulse Ox 97.9 F 60 18 136/54 97 11/10/18 07:31 11/10/18 07:31 11/10/18 09:06 11/10/18 07:31 11/10/18 07:31 Oxygen Devices in Use Now: None Appearance: elderly, frail, pleasant Ears/Nose/Mouth/Throat: NL Teeth, Lips, Gums, Mucous Membranes Moist Neck: NL Appearance and Movements; NL JVP, Trachea Midline Respiratory: Symmetrical Chest Expansion and Respiratory Effort Cardiovascular: RRR, - - diastolic murmur noted. pacemaker right upper chest intact no hematoma, yuri in place Extremities: No Edema Skin: - Neurological: - - awake, alert Lines/Tubes/Other Access: Clean, Dry and Intact Peripheral IV Laboratory Results: 11/08/18 05:30 11/09/18 05:39 Total Bilirubin 0.40 mg/dL (0.2-1.0) 11/02/18 12:40 AST 19 U/L (13-39) 11/02/18 12:40 ALT 12 U/L (7-52) 11/02/18 12:40 Alkaline Phosphatase 78 U/L (34-104) 11/02/18 12:40 Total Protein 6.1 g/dL (6.4-8.9) L 11/02/18 12:40 Albumin 3.2 g/dL (3.2-5.2) 11/02/18 12:40 Globulin 2.9 g/dL (2-4) 11/02/18 12:40 Albumin/Globulin Ratio 1.1 (1-3) 11/02/18 12:40 TSH 1.17 mcIU/mL (0.34-5.60) 11/02/18 12:40 11/02/18 11/02/18 11/02/18 12:40 15:36 20:10 Troponin I 0.09 H* 0.08 H* 0.10 H* 11/05/18 06:29 Troponin I 0.04 H* mg 11/09 was 2.0 Diagnostic Imaging: The patient had a transthoracic echocardiogram completed 10/30/18 which showed normal left ventricular ejection fraction of 55% to 60% with mild mitral valve prolapse, moderate mitral regurgitation, [id number] tricuspid regurgitation with mild pulmonary systolic pressure elevation. It appeared similar to prior study of 04/18/18. Indication: Status post pacemaker placement. Comparison: November 02, 2018 Technique: Upright AP 1308 hours IMPRESSION: #. Negative for pneumothorax or pulmonary edema status post dual chamber pacemaker placement. EKG Data: ekg 11/09/2018 AP-VS RBBB Assessment/Plan 1. Pafib and atrial flutter 2. SSS s/p pacemaker 11/06/2018 Still with ongoing rapid paroxysmal atrial flutter Continue amiodarone load as ordered Decrease digoxin to 0.125 mcg every other day while on amiodarone and with low body weight Increase metoprolol to 50 mg po bid continue aspirin and dvt prophylaxis for now, was not on AC previously due to falls and syncope, can be reconsidered in the future Has cardiology follow up with Dr. Nettles scheduled 11/15/2018 Tentative plan for rehab facility transfer today Discussed with Dr. Hewitt
[2018-11-10] MEDS: Enoxaparin(*) 40 MG/0.4 ML SYR SUBCUT SCH (16:37)
--- NOTE | 2018-11-10 19:16 | PN ---
Subjective Date of Service: 11/10/18 Interval History: No complains. had brief episode of afib with RVR last evening around 7 pm resolved with one dose of Lopressor 5 mg IV once. Discussed with Dr. Gilliam cardiology and recommended to increase Lopressor 50 mg bid. Digoxin decrease to 125 mcg every other day Past Medical History: Unchanged from Admission Objective Active Medications: Acetaminophen (Tylenol Tab*) 650 mg PO Q4H PRN PRN Reason: FEVER/PAIN Last Admin: 11/06/18 13:51 Dose: 650 mg Amiodarone HCl (Cordarone Tab*) 400 mg PO BID [facility] Stop: 11/14/18 23:59 Last Admin: 11/10/18 09:07 Dose: 400 mg Amiodarone HCl (Cordarone Tab*) 200 mg PO DAILY [facility] Ascorbic Acid (Vitamin C Tab*) 1,000 mg PO DAILY [facility] Last Admin: 11/10/18 09:06 Dose: 1,000 mg Aspirin (Aspirin 81 Mg Chew Tab*) 81 mg PO DAILY [facility] Last Admin: 11/10/18 09:08 Dose: 81 mg Digoxin (Lanoxin Tab*) 0.125 mg PO Q48HR@1700 [facility] Enoxaparin Sodium (Lovenox(*)) 40 mg SUBCUT Q24H [facility] Last Admin: 11/10/18 16:37 Dose: 40 mg Magnesium Oxide (Magox 400 Tab*) 400 mg PO BID [facility] Last Admin: 11/10/18 09:08 Dose: 400 mg Melatonin (Melatonin) 3 mg PO BEDTIME PRN PRN Reason: SLEEP Last Admin: 11/09/18 20:53 Dose: 3 mg Metoprolol Tartrate (Lopressor Tab*) 50 mg PO BID [facility] Oxycodone/Acetaminophen (Percocet 5/325 Tab*) 1 tab PO Q4H PRN PRN Reason: PAIN Last Admin: 11/10/18 09:06 Dose: 1 tab Potassium Chloride (Klor Con Er Tab*) 20 meq PO BID [facility] Last Admin: 11/10/18 09:09 Dose: 20 meq Potassium Phos/Sodium Phos (Neutra Phos 250 Mg Tony*) 250 mg PO BID [facility] Last Admin: 11/10/18 09:11 Dose: 250 mg Senna (Senokot Tab*) 1 tab PO BID [facility] Last Admin: 11/10/18 09:10 Dose: 1 tab Sertraline HCl (Zoloft*) 200 mg PO DAILY [facility] Last Admin: 11/10/18 09:07 Dose: 200 mg Vitamin E (Vitamin E Cap*) 400 unit PO DAILY [facility] Last Admin: 11/10/18 09:11 Dose: 400 unit Vital Signs - 8 hr 11/10/18 11/10/18 11:19 15:21 Temperature 98.3 F 98.4 F Pulse Rate 60 60 Respiratory 16 16 Rate Blood Pressure 117/56 118/45 (mmHg) O2 Sat by Pulse 97 96 Oximetry Oxygen Devices in Use Now: None Appearance: awake alert no distress Eyes: No Scleral Icterus Ears/Nose/Mouth/Throat: NL Teeth, Lips, Gums, Mucous Membranes Moist Neck: NL Appearance and Movements; NL JVP Respiratory: Symmetrical Chest Expansion and Respiratory Effort Cardiovascular: NL Sounds; No Murmurs; No JVD, - - right PPM, incsion clean Extremities: No Edema Result Diagrams: 11/08/18 05:30 11/09/18 05:39 Assess/Plan/Problems-Billing Assessment: 83W with paroxysmal afib (not on AC 2/2 frequent falls), HTN, depression/anxiety , hx of rheumatic fever, presents to the ED less than 24 hours after [place] [facility] [place] episodes and found to be in afib with RVR. Patient continues to have symptomatic tachycardia so is now s/p PPM and initiating oral rate control agents. - Patient Problems (1) Atrial fibrillation with RVR Current Visit: Yes Status: Acute Code(s): I48.91 - UNSPECIFIED ATRIAL FIBRILLATION SNOMED Code(s): 581243102567186 Comment: - Known hx of paroxysmal afib vs Flutter with 2:1 block and low rates, - s/p dilt drip until PPM placed on 11/06 and as per cardiology Dr. Broderick recommendations to consider ablation is the best course of action for control of her Afib and syncopal episodes. - On metoprolol tartrate 25mg q12h increased to 50 gm Q12 due to paroxysmal Afib with RVR, digoxin 12 5mcg changed to QOD after discussion with Dr. Gilliam on 11/10/18. On Amidoarone as per cardiology dosing. NO AC given h/o falls - Supplemented her Mag and potassium. 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
[2018-11-10] MEDS: Melatonin 3 MG TAB PO PRN (21:29)
[2018-11-11 07:02] LABS: BUN/Creatinine Ratio 35.8 (8-20); Calcium 9.9 mg/dL (8.6-10.3); EGFR Non-African American 109.9 (>60); Magnesium 1.9 mg/dL (1.9-2.7); Potassium 4.9 mmol/L (3.5-5.0)
[2018-11-11] MEDS: Potassium & Sodium Phos 250MG* = 1 PACKET PO SCH (10:08)
[2018-11-11] MEDS: Aspirin 81 mg CHEW TAB* 81 MG TAB.CHEW PO SCH (10:09)
[2018-11-11] MEDS: Sertraline* 100 MG TAB PO SCH (10:09)
[2018-11-11] MEDS: Vitamin E CAP* 400 UNIT PO SCH (10:09)
[2018-11-11] MEDS: Ascorbic Acid TAB* 500 MG PO SCH (10:09)
[2018-11-11] MEDS: Magnesium Oxide TAB* 400 MG PO SCH ×2 (10:11→21:17)
[2018-11-11] MEDS: Metoprolol Tartrate TAB* 25 MG PO SCH ×2 (10:11→21:17)
[2018-11-11] MEDS: Potassium Chlor TAB* 20 MEQ TAB.ER PO SCH (10:11)
[2018-11-11] MEDS: Senna TAB PO SCH ×2 (10:12→21:15)
[2018-11-11] MEDS: Amiodarone TAB* 200 MG PO SCH ×2 (10:13→21:17)
[2018-11-11] MEDS: oxyCODONE/Acetamin 5/325 MG* TAB PO PRN ×2 (10:15→21:15)
--- NOTE | 2018-11-11 10:41 | PN ---
Subjective Date of Service: 11/11/18 Interval History: f/u atrial fibrillation, flutter, pacemaker no arrhythmias overnight awaiting rehab no cp, dypsnea, or lightheadedness Medications Active Medications: Acetaminophen (Tylenol Tab*) 650 mg PO Q4H PRN PRN Reason: FEVER/PAIN Last Admin: 11/06/18 13:51 Dose: 650 mg Amiodarone HCl (Cordarone Tab*) 400 mg PO BID [facility] Stop: 11/14/18 23:59 Last Admin: 11/11/18 10:13 Dose: 400 mg Amiodarone HCl (Cordarone Tab*) 200 mg PO DAILY [facility] Ascorbic Acid (Vitamin C Tab*) 1,000 mg PO DAILY [facility] Last Admin: 11/11/18 10:09 Dose: 1,000 mg Aspirin (Aspirin 81 Mg Chew Tab*) 81 mg PO DAILY [facility] Last Admin: 11/11/18 10:09 Dose: 81 mg Digoxin (Lanoxin Tab*) 0.125 mg PO Q48HR@1700 [facility] Enoxaparin Sodium (Lovenox(*)) 40 mg SUBCUT Q24H [facility] Last Admin: 11/10/18 16:37 Dose: 40 mg Magnesium Oxide (Magox 400 Tab*) 400 mg PO BID [facility] Last Admin: 11/11/18 10:11 Dose: 400 mg Melatonin (Melatonin) 3 mg PO BEDTIME PRN PRN Reason: SLEEP Last Admin: 11/10/18 21:29 Dose: 3 mg Metoprolol Tartrate (Lopressor Tab*) 50 mg PO BID [facility] Last Admin: 11/11/18 10:11 Dose: 50 mg Oxycodone/Acetaminophen (Percocet 5/325 Tab*) 1 tab PO Q4H PRN PRN Reason: PAIN Last Admin: 11/11/18 10:15 Dose: 1 tab Potassium Chloride (Klor Con Er Tab*) 20 meq PO BID [facility] Last Admin: 11/11/18 10:11 Dose: 20 meq Potassium Phos/Sodium Phos (Neutra Phos 250 Mg Tony*) 250 mg PO BID [facility] Last Admin: 11/11/18 10:08 Dose: 250 mg Senna (Senokot Tab*) 1 tab PO BID [facility] Last Admin: 11/11/18 10:12 Dose: 1 tab Sertraline HCl (Zoloft*) 200 mg PO DAILY [facility] Last Admin: 11/11/18 10:09 Dose: 200 mg Vitamin E (Vitamin E Cap*) 400 unit PO DAILY [facility] Last Admin: 11/11/18 10:09 Dose: 400 unit Objective Vital Signs: Temp Pulse Resp BP Pulse Ox 98 F 60 18 137/57 99 11/11/18 06:31 11/11/18 06:31 11/11/18 10:15 11/11/18 06:31 11/11/18 06:31 Oxygen Devices in Use Now: None Appearance: elderly, frail, pleasant Ears/Nose/Mouth/Throat: NL Teeth, Lips, Gums, Mucous Membranes Moist Neck: NL Appearance and Movements; NL JVP, Trachea Midline Respiratory: Symmetrical Chest Expansion and Respiratory Effort Cardiovascular: RRR, - - diastolic murmur noted. pacemaker right upper chest intact prominent soft tissue over top no convincing hematoma grossly unchanged from yesterday, yuri in place Extremities: No Edema Skin: - Neurological: - - awake, alert Lines/Tubes/Other Access: Clean, Dry and Intact Peripheral IV Laboratory Results: 11/08/18 05:30 11/11/18 05:01 Total Bilirubin 0.40 mg/dL (0.2-1.0) 11/02/18 12:40 AST 19 U/L (13-39) 11/02/18 12:40 ALT 12 U/L (7-52) 11/02/18 12:40 Alkaline Phosphatase 78 U/L (34-104) 11/02/18 12:40 Total Protein 6.1 g/dL (6.4-8.9) L 11/02/18 12:40 Albumin 3.2 g/dL (3.2-5.2) 11/02/18 12:40 Globulin 2.9 g/dL (2-4) 11/02/18 12:40 Albumin/Globulin Ratio 1.1 (1-3) 11/02/18 12:40 TSH 1.17 mcIU/mL (0.34-5.60) 11/02/18 12:40 11/02/18 11/02/18 11/02/18 12:40 15:36 20:10 Troponin I 0.09 H* 0.08 H* 0.10 H* 11/05/18 06:29 Troponin I 0.04 H* Diagnostic Imaging: The patient had a transthoracic echocardiogram completed 10/30/18 which showed normal left ventricular ejection fraction of 55% to 60% with mild mitral valve prolapse, moderate mitral regurgitation, [id number] tricuspid regurgitation with mild pulmonary systolic pressure elevation. It appeared similar to prior study of 04/18/18. Indication: Status post pacemaker placement. Comparison: November 02, 2018 Technique: Upright AP 1308 hours IMPRESSION: #. Negative for pneumothorax or pulmonary edema status post dual chamber pacemaker placement. EKG Data: ekg 11/09/2018 AP-VS RBBB Assessment/Plan 1. Pafib and atrial flutter 2. SSS s/p pacemaker 11/06/2018 Continue amiodarone load as ordered Continue digoxin to 0.125 mcg every other day while on amiodarone and with low body weight Continue metoprolol to 50 mg po bid continue aspirin and dvt prophylaxis for now, was not on AC previously due to falls and syncope, can be reconsidered in the future Has cardiology follow up with Dr. Nettles scheduled 11/15/2018 Given K 4.9 this AM will hold potassium (ordered)
--- NOTE | 2018-11-11 14:10 | PN ---
Subjective Date of Service: 11/11/18 Interval History: Patient seen this morning. No events. Occasional burst of tachycardia on the monitor resolved spontaneously. cardiac input appreciated. No fever or chills. taking po well Past Medical History: Unchanged from Admission Objective Active Medications: Acetaminophen (Tylenol Tab*) 650 mg PO Q4H PRN PRN Reason: FEVER/PAIN Last Admin: 11/06/18 13:51 Dose: 650 mg Amiodarone HCl (Cordarone Tab*) 400 mg PO BID [facility] Stop: 11/14/18 23:59 Last Admin: 11/11/18 10:13 Dose: 400 mg Amiodarone HCl (Cordarone Tab*) 200 mg PO DAILY [facility] Ascorbic Acid (Vitamin C Tab*) 1,000 mg PO DAILY [facility] Last Admin: 11/11/18 10:09 Dose: 1,000 mg Aspirin (Aspirin 81 Mg Chew Tab*) 81 mg PO DAILY [facility] Last Admin: 11/11/18 10:09 Dose: 81 mg Digoxin (Lanoxin Tab*) 0.125 mg PO Q48HR@1700 [facility] Enoxaparin Sodium (Lovenox(*)) 40 mg SUBCUT Q24H [facility] Last Admin: 11/10/18 16:37 Dose: 40 mg Magnesium Oxide (Magox 400 Tab*) 400 mg PO BID [facility] Last Admin: 11/11/18 10:11 Dose: 400 mg Melatonin (Melatonin) 3 mg PO BEDTIME PRN PRN Reason: SLEEP Last Admin: 11/10/18 21:29 Dose: 3 mg Metoprolol Tartrate (Lopressor Tab*) 50 mg PO BID [facility] Last Admin: 11/11/18 10:11 Dose: 50 mg Oxycodone/Acetaminophen (Percocet 5/325 Tab*) 1 tab PO Q4H PRN PRN Reason: PAIN Last Admin: 11/11/18 10:15 Dose: 1 tab Potassium Phos/Sodium Phos (Neutra Phos 250 Mg Tony*) 250 mg PO BID [facility] Last Admin: 11/11/18 10:08 Dose: 250 mg Senna (Senokot Tab*) 1 tab PO BID [facility] Last Admin: 11/11/18 10:12 Dose: 1 tab Sertraline HCl (Zoloft*) 200 mg PO DAILY [facility] Last Admin: 11/11/18 10:09 Dose: 200 mg Vitamin E (Vitamin E Cap*) 400 unit PO DAILY [facility] Last Admin: 11/11/18 10:09 Dose: 400 unit Vital Signs - 8 hr 11/11/18 11/11/18 11/11/18 06:31 08:00 10:15 Temperature 98 F Pulse Rate 60 Respiratory 16 16 18 Rate Blood Pressure 137/57 (mmHg) O2 Sat by Pulse 99 Oximetry 11/11/18 11/11/18 11:41 13:54 Temperature 98.5 F Pulse Rate 60 Respiratory 19 16 Rate Blood Pressure 129/56 (mmHg) O2 Sat by Pulse 100 Oximetry Oxygen Devices in Use Now: None Appearance: Awake, alert no distress Eyes: No Scleral Icterus, - - EOMI Ears/Nose/Mouth/Throat: NL Teeth, Lips, Gums, Mucous Membranes Moist Neck: NL Appearance and Movements; NL JVP, Trachea Midline Respiratory: Symmetrical Chest Expansion and Respiratory Effort, Clear to Auscultation Cardiovascular: NL Sounds; No Murmurs; No JVD, No Edema Abdominal: NL Sounds; No Tenderness; No Distention Extremities: - - right upper extremety in sling. not in any distress. Neurological: Alert and Oriented x 3 Result Diagrams: 11/08/18 05:30 11/11/18 05:01 Assess/Plan/Problems-Billing Assessment: 83W with paroxysmal Afib (not on AC 2/2 frequent falls), HTN, depression/anxiety , hx of rheumatic fever, presents to the ED less than 24 hours after discharge from [facility] [place] due to multiple syncopal episodes and found to be in Afib with RVR. Patient continues to have symptomatic tachycardia so is now s/p PPM and initiating oral rate control agents. - Patient Problems (1) Atrial fibrillation with RVR Current Visit: Yes Status: Acute Code(s): I48.91 - UNSPECIFIED ATRIAL FIBRILLATION SNOMED Code(s): 935116036748311 Comment: - Known hx of paroxysmal afib vs Flutter with 2:1 block and low rates, - s/p diltiazem drip until PPM placed on 11/06 and as per cardiology Dr. Broderick recommendations to consider ablation is the best course of action for control of her Afib and syncopal episodes. - On metoprolol tartrate 25mg q12h increased to 50 gm Q12 due to paroxysmal Afib with RVR, digoxin 12 5mcg changed to QOD after discussion with Dr. Gilliam on 11/10/18. On Amidoarone as per cardiology dosing. NO AC given h/o falls - Supplemented her Mag and potassium held today 11/11/18 for potassium 4.9. 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 and for clarification regarding her ability to use walker, I discussed briefly with DR. Gilliam and he did not oppose from her using the walker as long as she does not elevate her arm or extend or hyperextend her right arm above head
[2018-11-11] MEDS: Enoxaparin(*) 40 MG/0.4 ML SYR SUBCUT SCH (16:40)
[2018-11-11] MEDS ORDERED: Digoxin TAB* 0.125 MG PO SCH (17:00)
[2018-11-11] MEDS: Melatonin 3 MG TAB PO PRN (21:17)
[2018-11-12] MEDS: Ascorbic Acid TAB* 500 MG PO SCH (08:37)
[2018-11-12] MEDS: Sertraline* 100 MG TAB PO SCH (08:37)
[2018-11-12] MEDS: oxyCODONE/Acetamin 5/325 MG* TAB PO PRN ×2 (08:37→22:08)
[2018-11-12] MEDS: Vitamin E CAP* 400 UNIT PO SCH (08:38)
[2018-11-12] MEDS: Metoprolol Tartrate TAB* 25 MG PO SCH ×2 (08:38→22:08)
[2018-11-12] MEDS: Amiodarone TAB* 200 MG PO SCH ×2 (08:38→22:08)
[2018-11-12] MEDS: Aspirin 81 mg CHEW TAB* 81 MG TAB.CHEW PO SCH (08:38)
[2018-11-12] MEDS: Senna TAB PO SCH ×2 (08:38→22:08)
[2018-11-12] MEDS: Magnesium Oxide TAB* 400 MG PO SCH ×2 (08:38→22:09)
--- NOTE | 2018-11-12 09:34 | PN ---
Subjective Date of Service: 11/12/18 Interval History: f/u atrial fibrillation, flutter, pacemaker no arrhythmias overnight awaiting rehab no cp, dypsnea, or lightheadedness Medications Active Medications: Acetaminophen (Tylenol Tab*) 650 mg PO Q4H PRN PRN Reason: FEVER/PAIN Last Admin: 11/06/18 13:51 Dose: 650 mg Amiodarone HCl (Cordarone Tab*) 400 mg PO BID [facility] Stop: 11/14/18 23:59 Last Admin: 11/12/18 08:38 Dose: 400 mg Amiodarone HCl (Cordarone Tab*) 200 mg PO DAILY [facility] Ascorbic Acid (Vitamin C Tab*) 1,000 mg PO DAILY [facility] Last Admin: 11/12/18 08:37 Dose: 1,000 mg Aspirin (Aspirin 81 Mg Chew Tab*) 81 mg PO DAILY [facility] Last Admin: 11/12/18 08:38 Dose: 81 mg Digoxin (Lanoxin Tab*) 0.125 mg PO Q48HR@1700 [facility] Last Admin: 11/11/18 16:40 Dose: 0.125 mg Enoxaparin Sodium (Lovenox(*)) 40 mg SUBCUT Q24H [facility] Last Admin: 11/11/18 16:40 Dose: 40 mg Magnesium Oxide (Magox 400 Tab*) 400 mg PO BID [facility] Last Admin: 11/12/18 08:38 Dose: 400 mg Melatonin (Melatonin) 3 mg PO BEDTIME PRN PRN Reason: SLEEP Last Admin: 11/11/18 21:17 Dose: 3 mg Metoprolol Tartrate (Lopressor Tab*) 50 mg PO BID [facility] Last Admin: 11/12/18 08:38 Dose: 50 mg Oxycodone/Acetaminophen (Percocet 5/325 Tab*) 1 tab PO Q4H PRN PRN Reason: PAIN Last Admin: 11/12/18 08:37 Dose: 1 tab Senna (Senokot Tab*) 1 tab PO BID [facility] Last Admin: 11/12/18 08:38 Dose: 1 tab Sertraline HCl (Zoloft*) 200 mg PO DAILY [facility] Last Admin: 11/12/18 08:37 Dose: 200 mg Vitamin E (Vitamin E Cap*) 400 unit PO DAILY [facility] Last Admin: 11/12/18 08:38 Dose: 400 unit Objective Vital Signs: Temp Pulse Resp BP Pulse Ox 97.7 F 60 18 132/67 99 11/12/18 08:09 11/12/18 08:09 11/12/18 08:37 11/12/18 08:09 11/12/18 08:09 Oxygen Devices in Use Now: None Appearance: elderly, frail, pleasant Ears/Nose/Mouth/Throat: NL Teeth, Lips, Gums, Mucous Membranes Moist Neck: NL Appearance and Movements; NL JVP, Trachea Midline Respiratory: Symmetrical Chest Expansion and Respiratory Effort Cardiovascular: RRR, - - yuri intact, no bleeding or drainage. prominent soft tissue, no significant hematoma noted Extremities: No Edema Skin: - Neurological: - - awake, alert Lines/Tubes/Other Access: Clean, Dry and Intact Peripheral IV Laboratory Results: 11/08/18 05:30 11/11/18 05:01 Total Bilirubin 0.40 mg/dL (0.2-1.0) 11/02/18 12:40 AST 19 U/L (13-39) 11/02/18 12:40 ALT 12 U/L (7-52) 11/02/18 12:40 Alkaline Phosphatase 78 U/L (34-104) 11/02/18 12:40 Total Protein 6.1 g/dL (6.4-8.9) L 11/02/18 12:40 Albumin 3.2 g/dL (3.2-5.2) 11/02/18 12:40 Globulin 2.9 g/dL (2-4) 11/02/18 12:40 Albumin/Globulin Ratio 1.1 (1-3) 11/02/18 12:40 TSH 1.17 mcIU/mL (0.34-5.60) 11/02/18 12:40 11/02/18 11/02/18 11/02/18 12:40 15:36 20:10 Troponin I 0.09 H* 0.08 H* 0.10 H* 11/05/18 06:29 Troponin I 0.04 H* Diagnostic Imaging: The patient had a transthoracic echocardiogram completed 10/30/18 which showed normal left ventricular ejection fraction of 55% to 60% with mild mitral valve prolapse, moderate mitral regurgitation, [id number] tricuspid regurgitation with mild pulmonary systolic pressure elevation. It appeared similar to prior study of 04/18/18. Indication: Status post pacemaker placement. Comparison: November 02, 2018 Technique: Upright AP 1308 hours IMPRESSION: #. Negative for pneumothorax or pulmonary edema status post dual chamber pacemaker placement. EKG Data: ekg 11/09/2018 AP-VS RBBB Assessment/Plan 1. Pafib and atrial flutter 2. SSS s/p pacemaker 11/06/2018 Continue amiodarone load as ordered Continue digoxin to 0.125 mcg every other day while on amiodarone and with low body weight Continue metoprolol to 50 mg po bid continue aspirin and dvt prophylaxis for now, was not on AC previously due to falls and syncope, can be reconsidered in the future as an outpatient Has cardiology follow up with Dr. Nettles scheduled 11/15/2018
--- NOTE | 2018-11-12 12:41 | PN ---
Subjective Date of Service: 11/12/18 Interval History: awake, alert. no distress. [facility] did not accept patient. Potential discharge in am to [facility]. no events, cardiology input appreciated. follow up with cardiology with Dr. Nettles scheduled 11/15/2018 Past Medical History: Unchanged from Admission Objective Active Medications: Acetaminophen (Tylenol Tab*) 650 mg PO Q4H PRN PRN Reason: FEVER/PAIN Last Admin: 11/06/18 13:51 Dose: 650 mg Amiodarone HCl (Cordarone Tab*) 400 mg PO BID [facility] Stop: 11/14/18 23:59 Last Admin: 11/12/18 08:38 Dose: 400 mg Amiodarone HCl (Cordarone Tab*) 200 mg PO DAILY [facility] Ascorbic Acid (Vitamin C Tab*) 1,000 mg PO DAILY [facility] Last Admin: 11/12/18 08:37 Dose: 1,000 mg Aspirin (Aspirin 81 Mg Chew Tab*) 81 mg PO DAILY [facility] Last Admin: 11/12/18 08:38 Dose: 81 mg Digoxin (Lanoxin Tab*) 0.125 mg PO Q48HR@1700 [facility] Last Admin: 11/11/18 16:40 Dose: 0.125 mg Enoxaparin Sodium (Lovenox(*)) 40 mg SUBCUT Q24H [facility] Last Admin: 11/11/18 16:40 Dose: 40 mg Magnesium Oxide (Magox 400 Tab*) 400 mg PO BID [facility] Last Admin: 11/12/18 08:38 Dose: 400 mg Melatonin (Melatonin) 3 mg PO BEDTIME PRN PRN Reason: SLEEP Last Admin: 11/11/18 21:17 Dose: 3 mg Metoprolol Tartrate (Lopressor Tab*) 50 mg PO BID [facility] Last Admin: 11/12/18 08:38 Dose: 50 mg Oxycodone/Acetaminophen (Percocet 5/325 Tab*) 1 tab PO Q4H PRN PRN Reason: PAIN Last Admin: 11/12/18 08:37 Dose: 1 tab Senna (Senokot Tab*) 1 tab PO BID [facility] Last Admin: 11/12/18 08:38 Dose: 1 tab Sertraline HCl (Zoloft*) 200 mg PO DAILY [facility] Last Admin: 11/12/18 08:37 Dose: 200 mg Vitamin E (Vitamin E Cap*) 400 unit PO DAILY [facility] Last Admin: 11/12/18 08:38 Dose: 400 unit Vital Signs - 8 hr 11/12/18 11/12/18 11/12/18 08:00 08:09 08:37 Temperature 97.7 F Pulse Rate 60 Respiratory 18 18 18 Rate Blood Pressure 132/67 (mmHg) O2 Sat by Pulse 99 Oximetry 11/12/18 11/12/18 09:00 11:00 Temperature Pulse Rate Respiratory 20 Rate Blood Pressure (mmHg) O2 Sat by Pulse 98 Oximetry Oxygen Devices in Use Now: None Appearance: awake, alert no distress Eyes: No Scleral Icterus, - Respiratory: Symmetrical Chest Expansion and Respiratory Effort Cardiovascular: NL Sounds; No Murmurs; No JVD, - - right anterior chest wall Pacemaker, staple in place , wound clean and intact Abdominal: NL Sounds; No Tenderness; No Distention Result Diagrams: 11/08/18 05:30 11/11/18 05:01 Assess/Plan/Problems-Billing Assessment: 83W with paroxysmal Afib (not on AC 2/2 frequent falls), HTN, depression/anxiety , hx of rheumatic fever, presents to the ED less than 24 hours after discharge [place] [facility] due to multiple syncopal episodes and found to be in Afib with RVR. Patient continues to have symptomatic tachycardia so is now s/p PPM and initiating oral rate control agents. - Patient Problems (1) Atrial fibrillation with RVR Current Visit: Yes Status: Acute Code(s): I48.91 - UNSPECIFIED ATRIAL FIBRILLATION SNOMED Code(s): 692148815915694 Comment: - Known hx of paroxysmal afib vs Flutter with 2:1 block and low rates, - s/p diltiazem drip until PPM placed on 11/06 and as per cardiology Dr. Broderick recommendations to consider ablation is the best course of action for control of her Afib and syncopal episodes. - On metoprolol tartrate 25mg q12h increased to 50 gm Q12 due to paroxysmal Afib with RVR, digoxin 12 5mcg changed to QOD after discussion with Dr. Gilliam on 11/10/18. On Amidoarone as per cardiology dosing. NO AC given h/o falls - Supplemented her Mag and potassium held today 11/11/18 for potassium 4.9. will need to monitor along with Mag - to follow up with Dr. 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 and for clarification regarding her ability to use walker, I discussed briefly with DR. Gilliam and he did not oppose from her using the walker as long as she does not elevate her arm or extend or hyperextend her right arm above head
[2018-11-12] MEDS: Enoxaparin(*) 40 MG/0.4 ML SYR SUBCUT SCH (17:13)
--- NOTE | 2018-11-12 18:08 | DS ---
Amended report to correct date of admission. CC: Dr. Imer Nettles; Dr. Farheen Martin DISCHARGE SUMMARY: DATE OF ADMISSION: 11/03/18 DATE OF DISCHARGE: 11/13/18 FINAL DISCHARGE DIAGNOSES: 1. Recurrent syncope and tachycardia secondary to sick sinus syndrome. 2. History of atrial fibrillation with rapid ventricular response. 3. Status post permanent pacemaker placement on 11/06/18. 4. Hypertension. 5. History of depression and anxiety. 6. History of rheumatoid arthritis. 7. History of pulmonary embolism. 8. History of fibromyalgia. 9. History of osteoporosis. HOSPITAL COURSE: The patient presented to [facility] on 11/03/18 for multiple syncopal episode and tachycardia with known history of paroxysmal atrial fibrillation, hypertension and on the day of admission, apparently the patient was so symptomatic that she could not get out of the bed due to persistent syncopal episode and dizziness every time she started to get out of the bed due to anxiety. Her daughter was notified and she came in, checked on her and decided to bring her to the emergency room. It was also the patient in the hospital shortly before that admission for similar reason where at that time, she declined any intervention, but given no recurrent symptoms, this time she came in and she agreed for an implantable cardiac device. Therefore, she was admitted to the medical service. Cardiology consultation was obtained after she was found in rapid AFib with a rate of 185 and was converted after giving IV diltiazem and started on oral diltiazem 60 p.o. q.6 for rate control and they did not initiate anticoagulation due to the fall risk. Dr. Broderick also evaluated the patient. Dr. Broderick did see the patient on 11/02/18 as well. Her electrolytes were supplemented and repleted to maintain potassium above 2 and potassium above 4. The patient finally did go and consented for the procedure on 11/06/18 and she had the pacemaker implanted. However, given her generalized weakness or recurrent fall, family and the patient did request to be evaluated for short-term rehab for which she was assessed and got approved to be placed on possibly tomorrow, 11/13/18 to [facility]. During her hospital course, her medications were changed and adjusted as per Cardiology's recommendation due to persistent occasional paroxysmal tachycardia with ambulation. Therefore, she was started on amiodarone loading dose 400 mg b.i.d. up until 11/14/18 and then she is going to be transitioning to amiodarone 200 mg daily, they added digoxin 0.125 and this was later titrated down to every other day as per Dr. Gilliam's recommendation. Metoprolol was increased to 50 b.i.d. Her diltiazem has been discontinued along with amlodipine. Overall, she remained in fairly stable condition, uncomplicated course other than occasional paroxysmal tachycardia that requires p.r.n. Lopressor until her medications finally were titrated upward and her right upper extremity remained in the arm sling with restricted motion as recommended by Cardiology. The patient was seen and been evaluated by physical therapy, who recommended short-term rehab and based on my evaluation today on 11/12/18, I deemed the patient stable to be transferred in the morning of 11/13/18 to [facility] upon bed availability. DISCHARGE MEDICATIONS: 1. Vitamin C 1000 daily. 2. Zoloft 200 daily. 3. Trazodone was discontinued. 4. Vitamin E 400 daily. 5. Tylenol 650 q.4. 6. Amiodarone 400 mg b.i.d., to stop after 11/14/18. 7. Amiodarone 200 mg daily, start on 11/15/18. 8. Aspirin 81 mg daily. 9. Digoxin 0.125 every 48 hours. 10. Magnesium 400 daily. 11. Melatonin 3 mg at bedtime. 12. Metoprolol 50 mg b.i.d. 13. Oxycodone 1 tab every 4 hours p.r.n. for severe pain. 14. Potassium 20 mEq daily. 15. Senna 1 tab daily. The patient was taken off her amlodipine. PHYSICAL EXAM: The patient was seen on 11/12/18. Please refer to my progress notes for my physical exam done earlier. INPATIENT DIAGNOSTIC STUDIES: Multiple CBC and chemistry unremarkable. Chemistry was significant for one time magnesium of 1.7 supplemented, potassium 3.8 was up to 4.9, she was on 20 mEq b.i.d., this since has been discontinued and I will resume 20 mEq daily, need to follow up BMP in 3 days. Chest x-ray, multiple pre and postpacemaker reveals no pneumothorax, no inspiration pneumonia, some COPD changes. Multiple EKG consistent with an SVT and tachycardia. PROCEDURES: Pacemaker placement on 11/06/18. CONSULTATION: Cardiology; Dr. Broderick, Dr. Imer Nettles and Dr. Gilliam. DISCHARGE CONDITION: Stable. DISCHARGE DISPOSITION: To [facility]. [id number]/CPS #: [id number] NICHOL
[2018-11-12] MEDS: Melatonin 3 MG TAB PO PRN (22:08)
[2018-11-13 08:09] VITALS: BP 117/44
[2018-11-13] MEDS: Amiodarone TAB* 200 MG PO SCH (08:42)
[2018-11-13] MEDS: Sertraline* 100 MG TAB PO SCH (08:44)
[2018-11-13] MEDS: Senna TAB PO SCH (08:44)
[2018-11-13] MEDS: Aspirin 81 mg CHEW TAB* 81 MG TAB.CHEW PO SCH (08:45)
[2018-11-13] MEDS: Metoprolol Tartrate TAB* 25 MG PO SCH (08:45)
[2018-11-13] MEDS: Magnesium Oxide TAB* 400 MG PO SCH (08:45)
[2018-11-13] MEDS: Ascorbic Acid TAB* 500 MG PO SCH (08:46)
[2018-11-13] MEDS: Vitamin E CAP* 400 UNIT PO SCH (09:14)
[2018-11-15] MEDS ORDERED: Amiodarone TAB* 200 MG PO SCH (09:00)
== END 2018-11-13 09:10 | DRG 243 ==
LOC: ED 12:08 → MEDTELE 14:02 → OBSVTOIN 11-03 11:19 → MEDTELE 11-05 15:06
PROVIDERS: ADMIT Internal Medicine; ATTEND Internal Medicine
PROC: 02H63JZ Insertion of Pacemaker Lead into Right Atrium, Percutaneous Approach (ICD-10-PCS; 2018-11-06)
PROC: 02HK3JZ Insertion of Pacemaker Lead into Right Ventricle, Percutaneous Approach (ICD-10-PCS; 2018-11-06)
PROC: 0JH606Z Insertion of Pacemaker, Dual Chamber into Chest Subcutaneous Tissue and Fascia, Open Approach (ICD-10-PCS; principal; 2018-11-06 11:15)
DX: I49.5 Sick sinus syndrome (principal); I48.92 Unspecified atrial flutter; I48.91 Unspecified atrial fibrillation; I10 Essential (primary) hypertension; F32.9 Major depressive disorder, single episode, unspecified; F41.9 Anxiety disorder, unspecified; M06.9 Rheumatoid arthritis, unspecified; M79.7 Fibromyalgia; M81.0 Age-related osteoporosis without current pathological fracture; I48.0 Paroxysmal atrial fibrillation; I47.9 Paroxysmal tachycardia, unspecified; M19.90 Unspecified osteoarthritis, unspecified site; Z96.653 Presence of artificial knee joint, bilateral; Z96.642 Presence of left artificial hip joint; R79.89 Other specified abnormal findings of blood chemistry; E83.42 Hypomagnesemia; Z66 Do not resuscitate; K44.9 Diaphragmatic hernia without obstruction or gangrene; Z96.611 Presence of right artificial shoulder joint; I95.9 Hypotension, unspecified; R55 Syncope and collapse; R29.6 Repeated falls; E87.6 Hypokalemia; R53.1 Weakness; T17.928A Food in respiratory tract, part unspecified causing other injury, initial encounter; X58.XXXA Exposure to other specified factors, initial encounter; Y92.230 Patient room in hospital as the place of occurrence of the external cause; Z86.711 Personal history of pulmonary embolism; Z79.82 Long term (current) use of aspirin; Z90.49 Acquired absence of other specified parts of digestive tract; Z80.1 Family history of malignant neoplasm of trachea, bronchus and lung; Z80.0 Family history of malignant neoplasm of digestive organs; Z87.891 Personal history of nicotine dependence; Z86.11 Personal history of tuberculosis
CPT/HCPCS: 33208; 36415; 71045; 71046; 80048; 80053; 81003; 83605; 83735; 84100; 84439; 84443; 84484; 85025; 90732; 93005; 99156; 99157; 99285; A9270-GY; C1785; C1898; G8987-GO-CL; G8988-GO-CI; J0153; J0690; J1650; J2250; J2310; J3010; J3475; J3490

== ENCOUNTER 2019-02-05 10:48 | Emergency (ER) | payer MEDICARE ==
[2019-02-05] MEDS ORDERED: Diazepam TAB(*) 5 MG PO ONE (11:10)
[2019-02-05] MEDS ORDERED: Ibuprofen TAB* 400 MG PO ONE (11:10)
--- NOTE | 2019-02-05 11:16 | ED ---
Neck Pain - HPI Summary HPI Summary: Pt is an 83 y/o female presenting to the ED with neck pain that began yesterday especially while moving the neck that radiates up her scalp. She lives in an apartment and fell asleep in her chair last night after watching TV. Pt denies fever, chills, erythema of eyes, sore throat, CP, SOB, cough, LOC, tingling, numbness in the extremities, abdominal pain, N/V, dysuria, hematuria, myalgia, edema, rash, or dizziness. Pt denies taking anticoagulants, and denies any recent trauma, MVA, or falls. Pt states her PCP is Dr. Martin. - History of Current Complaint Chief Complaint: EDNeckComplaint Stated Complaint: NECK PAIN PER EMS Time Seen by Provider: 02/05/19 11:02 Hx Obtained From: Patient Onset/Duration Of Injury/Symptoms: Hours Mechanism Of Injury: No Known Trauma Timing: Constant, Lasting Hours Onset/Duration: Started hours ago Severity Initially: Moderate Severity Currently: Moderate Pain Intensity: 8 Pain Scale Used: 0-10 Numeric Location: Radiates To: - Scalp Aggravating Factors: Movement Alleviating Factors: Nothing Associated Signs & Symptoms: Negative: Fever - Allergies/Home Medications Allergies/Adverse Reactions: Allergies Allergy/AdvReac Type Severity Reaction Status Date / Time No Known Allergies Allergy Verified 11/02/18 12:46 PMH/Surg Hx/FS Hx/Imm Hx Previously Healthy: Yes Endocrine/Hematology History: Reports: Hx Anemia, Other Endocrine/Hematological Disorders - hypokalemia and hypomagnesemia Denies: Hx Diabetes Cardiovascular History: Reports: Hx Angina, Hx Atrial Fibrillation, Hx Hypertension, Hx Pacemaker/ICD - 11/06/18, Hx Rheumatic Fever - when she was a child, Other Cardiovascular Problems/Disorders - murmur, arrhythmia, ventricular tachycardia Denies: Hx Coronary Artery Disease, Hx Hypercholesterolemia, Hx Myocardial Infarction, Hx Valvular Heart Disease Respiratory History: Reports: Hx Pulmonary Embolism - ~30 years ago Denies: Hx Asthma, Hx Chronic Obstructive Pulmonary Disease (COPD) GI History: Reports: Hx Gall Bladder Disease, Hx Hiatal Hernia, Other GI Disorders - multiple surgeries Musculoskeletal History: Reports: Hx Arthritis, Hx Rheumatoid Arthritis, Hx Osteoporosis Sensory History: Reports: Hx Cataracts - catarct sx, Hx Contacts or Glasses Denies: Hx Hearing Aid Opthamlomology History: Reports: Hx Cataracts - catarct sx, Hx Contacts or Glasses Neurological History: Reports: Hx Dementia Psychiatric History: Reports: Hx Anxiety, Hx Depression - Surgical History Surgery Procedure, Year, and Place: 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 right shoulder replacement. 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, after remicade injections for RA Denies: Traveled Outside the [place] in Last 30 Days - Family History Known Family History: Negative: Blood Disorder - Social History Alcohol Use: None Hx Substance Use: No Substance Use Type: Reports: None Hx Tobacco Use: Yes Smoking Status (MU): Former Smoker Type: Cigarettes Review of Systems Negative: Fever, Chills Negative: Erythema Negative: Sore Throat Negative: Chest Pain Negative: Shortness Of Breath, Cough Negative: Abdominal Pain, Vomiting, Nausea Negative: dysuria, hematuria Negative: Myalgia, Edema Negative: Rash Neurological: Negative - dizziness Negative: Paresthesia, Numbness All Other Systems Reviewed And Are Negative: Yes Physical Exam - Summary Physical Exam Summary: Constitutional: Well-developed, Well-nourished, Alert. (-) Distressed Skin: Warm, Dry HENT: Normocephalic; Atraumatic Eyes: Conjunctiva normal Neck: Musculoskeletal ROM normal neck. (-) JVD, (-) Stridor, (-) Tracheal deviation. Pain with lateral neck rotation to left, sternocleidomastoid distribution on right side, no bony tenderness. Cardio: Rhythm regular, rate normal, Heart sounds normal; Intact distal pulses; The pedal pulses are 2+ and symmetric. Radial pulses are 2+ and symmetric. (-) Murmur Pulmonary/Chest wall: Effort normal. (-) Respiratory distress, (-) Wheezes, (-) Rales Abd: Soft, (-) tenderness, (-) Distension, (-) Guarding, (-) Rebound Musculoskeletal: (-) Edema Lymph: (-) Cervical adenopathy Neuro: Alert, Oriented x3. Full neuro normal, no neurological deficits Psych: Mood and affect Normal Triage Information Reviewed: Yes Vital Signs On Initial Exam: Initial Vitals Temp Pulse Resp BP Pulse Ox 99.1 F 76 38 203/87 97 02/05/19 10:51 02/05/19 10:51 02/05/19 10:51 02/05/19 10:51 02/05/19 10:51 Vital Signs Reviewed: Yes Diagnostics - Vital Signs Vital Signs Temp Pulse Resp BP Pulse Ox 02/05/19 10:51 99.1 F 76 38 203/87 97 - Laboratory Lab Statement: Any lab studies that have been ordered have been reviewed, and results considered in the medical decision making process. Re-Evaluation - Re-Evaluation 1st re-eval Re-Evaluation Time: 17:20 Change: Improved Comment: Pt states that her pain has drastically improved. She is able to tolerate some movement, and would like to go home. Neck Course/Dx - Course Course Of Treatment: Pt is an 83 y/o female presenting to the ED with neck pain that began yesterday especially while moving the neck that radiates up her scalp. She lives in her apartment and fell asleep in her chair last night after watching TV. Pt denies fever, chills, erythema of eyes, sore throat, CP, SOB, cough, LOC, tingling, numbness in the extremities, abdominal pain, N/V, dysuria , hematuria, myalgia, edema, rash, or dizziness. Pt denies taking anticoagulants , MVA, trauma, or falls prior to the chief complaint. I did a medical record review of the pt's past imaging, and a C-spine CT from March 2018 showed advanced DDD. There is no trauma, no neurological deficit, known advanced arthritis from prior imaging, suspected cervical strain. Imaging not indicated. Patient is discharged home with a diagnosis of cervical strain. Follow-up with PCP in 2-3 days. Pt's pain was not initially resolved with tx, but as of 1719 her pain has resolved and she is ready to go home. - Diagnoses Provider Diagnoses: Cervical strain, Osteoarthritis Discharge ED - Sign-Out/Discharge Documenting (check all that apply): Patient Departure Patient Received Moderate/Deep Sedation with Procedure: No - Discharge Plan Condition: Stable Disposition: HOME Prescriptions: Diazepam TAB(*) [Valium TAB(*)] 2 mg PO Q8H PRN #6 tab MDD 3 PRN Reason: Pain - Severe HYDROcodone/ACETAMIN 5-325 MG* [[place] 5-325 TAB*] 1 tab PO Q8H PRN #9 tab MDD 3 PRN Reason: Pain - Severe Ibuprofen TAB* [Motrin TAB* 400 MG] 400 mg PO Q6H PRN #15 tab PRN Reason: Pain - Severe Lidocaine PATCH 5%* [Lidoderm 5% Patch*] 1 patch TRANSDERM DAILY #14 patch Patient Education Materials: Cervical Strain (ED) Referrals: Farheen Martin MD [Primary Care Provider] - Additional Instructions: Follow-up with PCP in 2-3 days. Return to ED for changing or worsening symptoms. - Attestation Statements Document Initiated by Scribe: Yes Documenting Scribe: Lyndsey Salinas Provider For Whom Scribe is Documenting (Include Credential): Molina Whittington MD. Scribe Attestation: Lili Sands Kathryn O'Connor, scribed for Molina Whittington MD. on 02/05/19 at 1734. Status of Scribe Document: Ready
[2019-02-05] MEDS ORDERED: Lidocaine PATCH 5%* 1 PATCH TRANSDERM SCH (12:00)
[2019-02-05] MEDS ORDERED: HYDROcodone/ACETAMIN 5-325 MG* 1 TAB PO ONE (14:55)
[2019-02-05] MEDS ORDERED: Metoprolol Tartrate TAB* 50 mg PO ONE (14:57)
[2019-02-05 16:44] VITALS: BP 163/67
[2019-02-05] MEDS ORDERED: Lidocaine Patch REMOVE* 1 NOTE MISC SCH (21:00)
== END 2019-02-05 15:40 | disposition home or self-care (01) ==
LOC: ED 10:48
DX: S16.1XXA Strain of muscle, fascia and tendon at neck level, initial encounter (principal); M19.90 Unspecified osteoarthritis, unspecified site; M54.2 Cervicalgia; Z87.891 Personal history of nicotine dependence; I10 Essential (primary) hypertension; Z95.0 Presence of cardiac pacemaker; Z86.711 Personal history of pulmonary embolism; F41.9 Anxiety disorder, unspecified; F32.9 Major depressive disorder, single episode, unspecified; X58.XXXA Exposure to other specified factors, initial encounter; Y92.9 Unspecified place or not applicable; Z79.899 Other long term (current) drug therapy
CPT/HCPCS: 99282; A9270-GY

== ENCOUNTER 2019-02-08 08:22 | Inpatient (IN) | payer MEDICARE ==
--- NOTE | 2019-02-08 08:39 | ED ---
Respiratory - HPI Summary HPI Summary: Patient is a 83 y/o F presenting to [facility] via EMS with low o2 saturation, SOB. Daughter had called EMS as the patient had complaints of generalized weakness and inability to stand. Patient was found to be cyanotic and to have o2 sats of around 54 upon arrival. Patient was placed on non-rebreather, o2 sats improved to ~90s. Daughter had denied patient having Hx of COPD. While EMS states that the patient had denied pain during transport, in the room, patient claims that she has chest pain. She also states that she had experienced a fall last night. EMS reports BG of 181. PMHx of anemia, angina, afib, HTN, PE, GERD, hiatal hernia, dementia, anxiety and depression. Patient denies substance and alcohol usage. She is a former smoker. On triage, pain is rated 4/10. Home medications and allergies are reviewed. Level 5 caveat, poor historian, patient is alert but not oriented. - History of Current Complaint Stated Complaint: DIFFICULTY BREATHING PER EMS Hx Obtained From: Patient - limited history, Level 5 caveat, dementia, patient is alert but not oriented., EMS Hx From Patient Unobtainable Due To: Other - Level 5 caveat, poor historian, patient is alert but not oriented. Onset/Duration: Still Present Current Severity: Moderate Alleviating Factor(s): Oxygen - rebreather Associated Signs and Symptoms: SOB, Chest Pain - Allergy/Home Medications Allergies/Adverse Reactions: Allergies Allergy/AdvReac Type Severity Reaction Status Date / Time No Known Allergies Allergy Verified 02/08/19 08:55 Home Medications: Home Medications Digoxin TAB* [Lanoxin TAB*] 0.125 mg PO Q48HR 02/08/19 [History Confirmed ] Melatonin 6 mg PO BEDTIME PRN 02/08/19 [History Confirmed 02/08/19] Senna TAB 8.6 mg* [Senokot 8.6 mg TAB*] 1 tab PO BID PRN 02/08/19 [History Confirmed 02/08/19] PMH/Surg Hx/FS Hx/Imm Hx Endocrine/Hematology History: Reports: Hx Anemia, Other Endocrine/Hematological Disorders - hypokalemia and hypomagnesemia Denies: Hx Diabetes Cardiovascular History: Reports: Hx Angina, Hx Atrial Fibrillation, Hx Hypertension, Hx Pacemaker/ICD - 11/06/18, Hx Rheumatic Fever - when she was a child, Other Cardiovascular Problems/Disorders - murmur, arrhythmia, ventricular tachycardia Denies: Hx Coronary Artery Disease, Hx Hypercholesterolemia, Hx Myocardial Infarction, Hx Valvular Heart Disease Respiratory History: Reports: Hx Pulmonary Embolism - ~30 years ago Denies: Hx Asthma, Hx Chronic Obstructive Pulmonary Disease (COPD) GI History: Reports: Hx Gall Bladder Disease, Hx Hiatal Hernia, Other GI Disorders - multiple surgeries Musculoskeletal History: Reports: Hx Arthritis, Hx Rheumatoid Arthritis, Hx Osteoporosis Sensory History: Reports: Hx Cataracts - catarct sx, Hx Contacts or Glasses Denies: Hx Hearing Aid Opthamlomology History: Reports: Hx Cataracts - catarct sx, Hx Contacts or Glasses Neurological History: Reports: Hx Dementia Psychiatric History: Reports: Hx Anxiety, Hx Depression - Surgical History Surgery Procedure, Year, and Place: 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 right shoulder replacement. L hip sx Hx Anesthesia Reactions: No - Immunization History Date of Tetanus Vaccine: utd Date of Influenza Vaccine: utd Infectious Disease History: Reports: Hx Tuberculosis - 20+ years ago, after remicade injections for RA - Family History Known Family History: Negative: Blood Disorder - Social History Alcohol Use: None Hx Substance Use: No Substance Use Type: Reports: None Hx Tobacco Use: Yes Smoking Status (MU): Former Smoker Type: Cigarettes Review of Systems - ROS Summary Review of Systems Summary: Level 5 caveat, poor historian, patient is alert but not oriented. Constitutional: Other - positive - generalized weakness and inability to stand Positive: Chest Pain Positive: Shortness Of Breath - o2 sats of 54 Skin: Other - positive - EMS reports cyanotic appearance upon arrival All Other Systems Reviewed And Are Negative: No - Comments Additional Review of Systems Comments: Level 5 caveat, poor historian, patient is alert but not oriented. Physical Exam - Summary Physical Exam Summary: VITAL SIGNS: Reviewed. GENERAL: Patient is a well-developed and nourished female who is lying comfortable in the stretcher. Patient is not in any acute respiratory distress. Patient has cyanotic lips. HEAD AND FACE: No signs of trauma. No ecchymosis, hematomas or skull depressions. No sinus tenderness. EYES: PERRLA, EOMI x 2, No injected conjunctiva, no nystagmus. EARS: Hearing grossly intact. Ear canals and tympanic membranes are within normal limits. MOUTH: Oropharynx within normal limits. NECK: Supple, trachea is midline, no adenopathy, no JVD, no carotid bruit, no c- spine tenderness, neck with full ROM. CHEST: Symmetric, no tenderness at palpation. LUNGS: Decreased breath sounds bilaterally. No wheezing or crackles. CVS: Regular rate and rhythm, S1 and S2 present, no murmurs or gallops appreciated. ABDOMEN: Soft, non-tender. No signs of distention. No rebound, no guarding, and no masses palpated. Bowel sounds are normal. She has multiple ventral hernias at her abdomen. EXTREMITIES: FROM in all major joints, no edema, no clubbing. NEURO: Patient is alert but not oriented. She is a level 5 caveat. SKIN: Dry and warm. Triage Information Reviewed: Yes Vital Signs On Initial Exam: Initial Vitals Temp Pulse Resp BP Pulse Ox 96.2 F 67 22 175/75 97 02/08/19 08:31 02/08/19 08:31 02/08/19 08:31 02/08/19 08:31 02/08/19 08:31 Vital Signs Reviewed: Yes Completion Of Physical Exam Limited Due To: Dementia, Level 5 Diagnostics - Laboratory Result Diagrams: 02/09/19 05:08 02/09/19 05:08 Lab Statement: Any lab studies that have been ordered have been reviewed, and results considered in the medical decision making process. - Radiology CHEST X-RAY Radiology Interpretation Completed By: Radiologist Summary of Radiographic Findings: IMPRESSION: CARDIOMEGALY. INTERSTITIAL EDEMA CONSISTENT WITH VASCULAR CONGESTION. NO. PLEURAL FLUID IS IDENTIFIED. THIS REPORT WAS REVIEWED BY DR. ASTORGA - EKG 0834 Cardiac Rate: NL - rate of 67 BPM EKG Rhythm: Sinus Rhythm EKG Comparison: No Significant Change - similar to EKG done 11/09/18 Summary of EKG Findings: EKG showed NSR with rate of 67 BPM with RBBB, similar to EKG done 11/09/18. ED physician has reviewed and interpreted this EKG. Disposition - Course Assessment/Plan: Patient is a 83 y/o F presenting to [facility] via EMS with low o2 saturation, SOB. Daughter had called EMS as the patient had complaints of generalized weakness and inability to stand. Patient was found to be cyanotic and to have o2 sats of around 54 upon arrival. Patient was placed on non- rebreather, o2 sats improved to ~90s. Daughter had denied patient having Hx of COPD. Initially the patient was hypoxic and with a nonrebreathing the patient s O2 sats is 94%. The patient is not a very good historian, she is only complaining of shortness of breath. She also reported some chest pain initially. Test results show a wbcs of 22, hemoglobin 13.1, hematocrit 42, and platelets 156. CMP within normal limits except for carbon dioxide of 15, anion gap of 16, BUNs 44, creatinine 1.81, glucose 160, lactic acid is 5.3, total bilirubin 1.5, AST is 359, alkaline phosphatase 169, troponin 0.13, CRP of 289.3, BNP was 1099. Chest x-ray impression: Cardiomegaly, interstitial edema, consistent with vascular congestion. No pleural fluid is identified. In the ED course the patient was given Lasix since the BNP is high secondary to her CHF exacerbation. The patients troponin is also elevated therefore we will rule out acute coronary syndrome. The patient WBC was 22, therefore I believe that the patient is developing an infection, therefore the patient was placed in Rocephin and Levaquin. The patient also was gently hydrated since the patient has an exacerbation of CHF. At this point I discussed my physical exam and findings with Dr. Osorio who accepted the patient for admission. - Diagnoses Provider Diagnoses: CHF (congestive heart failure), Pneumonia, Acute renal failure, Elevated troponin - Physician Notifications Discussed Care Of Patient With: Stephanie Osorio Time Discussed With Above Provider: 10:53 Instructed by Provider To: Other - Patient's case was discussed with Dr. Osorio , Dr. Osorio accepts the patient for admission. Discharge ED - Sign-Out/Discharge Documenting (check all that apply): Patient Departure - admit Patient Received Moderate/Deep Sedation with Procedure: No - Discharge Plan Condition: Fair Disposition: ADMITTED TO [facility] - Billing Disposition and Condition Condition: FAIR Disposition: Admitted to [facility] - Attestation Statements Document Initiated by Scribe: Yes Documenting Scribe: GARY RODRIGUEZ Provider For Whom Scribe is Documenting (Include Credential): JUAN M ASTORGA MD Scribe Attestation: IGARY, scribed for JUAN M ASTORGA MD on 02/09/19 at 0837. Scribe Documentation Reviewed: Yes Provider Attestation: The documentation as recorded by the scribe, GARY RODRIGUEZ accurately reflects the service I personally performed and the decisions made by me, JUAN M ASTORGA MD Status of Scribe Document: Viewed
--- OUTSIDE RECORDS SUMMARY | 2019-02-08 08:39 | XMS REPORT | Continuity of Care Document ---
:1935 External Reference #:[id number] Author Name Farheen Martin M.D. Address [address] [facility] [place] [address] Care Team Providers Name Role Phone Farheen Martin M.D. - Family Medicine Care Team Information Resolution Expert Unavailable Problems Active Problems Provider Date Degenerative joint disease involving multiple Farheen Martin M.D. Onset: 03/02 joints Recurrent major depression in remission Farheen Martin M.D. Onset: 03/02/2016 Incisional hernia Farheen Martin M.D. Onset: 03/02/2016 Conduction disorder of the heart Farheen Martin M.D. Onset: 03/02/2016 Rheumatoid arthritis Farheen Martin M.D. Onset: 09/07/2016 Osteoporosis Farheen Martni M.D. Onset: 09/07/2016 Multiple nodules of lung Farheen Martin M.D. Onset: 04/17/2018 Cardiac pacemaker in situ Farheen Martin M.D. Onset: 01/03/2019 Paroxysmal atrial fibrillation Farheen Martin M.D. 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 Tablets Potassium Chloride 1 by mouth every 90tabs Farheen Martin ER day M.D. 20Meq Tablets ER Digoxin 1 by mouth every 45tabs Farheen Martin 125mcg other day M.D. Tablets Amiodarone HCL 1 by mouth every 90tabs [facility], morning M.D. 200mg Tablets Senna-Lax take one tablet by 180tabs [facility], 8.6mg mouth twice daily M.D. Tablets as needed for constipation Vitamin C chew 2 tablet every 180units [facility] 500mg morning M.D. Chewtabs (supplement) Melatonin take 2 tab at 180caps [facility], 3mg bedtime as needed M.D. Capsules Metoprolol Tartrate 1 by mouth twice a 180tabs [facility] day M.D. 50mg Tablets Aspir-Low 1 by mouth every Unknown 81mg day Tablets DR Magnesium 1 by mouth every Unknown 400mg day Tablets Immunizations Description No Information Available Vital Signs Date Vital Result Comment 01/03/2019 3:30pm BP Systolic 90 mmHg BP Diastolic 76 mmHg Heart Rate 60 /min Body Temperature 98.1 F Respiratory Rate 40 /min Height 59 inches 4'11" measured Weight 121.00 lb BMI (Body Mass Index) 24.4 kg/m2 04/26/2018 9:05am BP Systolic 166 mmHg BP Diastolic 70 mmHg BP Systolic Recheck 128 mmHg recheck right arm seated by NANNY CAREGIVER BP Diastolic Recheck 72 mmHg recheck right arm seated by NANNY C[employer]GIVER Heart Rate 78 /min Body Temperature 97.5 F Respiratory Rate 18 /min Results Test Date Facility Test Result H/L Range Note CBC Auto Diff 11/02/2018 [facility] [place] Blood Count 7.2 10^3/uL Normal 3.5- 10.8 Red Blood Count 3.87 10^6/uL Normal 3.70-4.87 Hemoglobin 12.0 g/dL Normal 12.0-16.0 Hematocrit 37 % Normal 35-47 Mean Corpuscular Volume 96 fL Normal 80-97 Mean Corpuscular Hemoglobin 31 pg Normal 27-31 Mean Corpuscular HGB Conc 32 g/dL Normal 31-36 Red Cell Distribution Width 15 % Normal 10-15 Platelet Count 126 10^3/uL Low 150-450 Mean Platelet Volume 8.9 fL Normal 7.4-10.4 Abs Neutrophils 4.6 10^3/uL Normal 1.5-7.7 Abs Lymphocytes 1.7 10^3/uL Normal 1.0-4.8 Abs Monocytes 0.6 10^3/uL Normal 0-0.8 Abs Eosinophils 0.2 10^3/uL Normal 0-0.6 Abs Basophils 0.0 10^3/uL Normal 0-0.2 Abs Nucleated RBC 0.0 10^3/uL Granulocyte % 63.8 % Lymphocyte % 24.3 % Monocyte % 8.5 % Eosinophil % 2.9 % Basophil % 0.5 % Nucleated Red Blood Cells % 0.0 Laboratory test finding 11/02/2018 [facility] Lactic Acid 1.5 mmol/L Normal 0.5- 2.0 1 Comp Metabolic Panel 11/02/2018 [facility] Sodium 142 mmol/L Normal 135-145 Potassium 4.0 mmol/L Normal 3.5-5.0 Chloride 110 mmol/L Normal 101-111 Co2 Carbon Dioxide 28 mmol/L Normal 22-32 Anion Gap 4 mmol/L Normal 2-11 Glucose 136 mg/dL High 70-100 Blood Urea Nitrogen 12 mg/dL Normal 6-24 Creatinine 0.48 mg/dL Low 0.51-0.95 BUN/Creatinine Ratio 25.0 High 8-20 Calcium 9.1 mg/dL Normal 8.6-10.3 Total Protein 6.1 g/dL Low 6.4-8.9 Albumin 3.2 g/dL Normal 3.2-5.2 Globulin 2.9 g/dL Normal 2-4 Albumin/Globulin Ratio 1.1 Normal 1-3 Total Bilirubin 0.40 mg/dL Normal 0.2-1.0 Alkaline Phosphatase 78 U/L Normal 34-104 Alt 12 U/L Normal 7-52 Ast 19 U/L Normal 13-39 Egfr Non- 123.2 >60 Egfr 149.1 >60 2 Laboratory test finding 11/02/2018 [facility] Magnesium 1.8 mg/dL Low 1.9-2.7 Troponin I 0.09 ng/mL Critical high <0.04 3 TSH (Thyroid Stim Horm) 1.17 mcIU/mL Normal 0.34-5.60 Free T4 (Free Thyroxine) 0.73 ng/dL Normal 0.61-1.12 Laboratory test 10/30/2018 [facility] Lactic Acid 1.7 mmol/L Normal 0.5-2.0 4 finding CBC Auto Diff 10/30/2018 [facility] White Blood Count 8.4 10^3/uL Normal 3.5- 10.8 Red Blood Count 4.06 10^6/uL Normal 3.70-4.87 Hemoglobin 12.5 g/dL Normal 12.0-16.0 Hematocrit 39 % Normal 35-47 Mean Corpuscular Volume 95 fL Normal 80-97 Mean Corpuscular Hemoglobin 31 pg Normal 27-31 Mean Corpuscular HGB Conc 32 g/dL Normal 31-36 Red Cell Distribution Width 15 % Normal 10-15 Platelet Count 150 10^3/uL Normal 150-450 Mean Platelet Volume 8.5 fL Normal 7.4-10.4 Abs Neutrophils 6.5 10^3/uL Normal 1.5-7.7 Abs Lymphocytes 1.2 10^3/uL Normal 1.0-4.8 Abs Monocytes 0.6 10^3/uL Normal 0-0.8 Abs Eosinophils 0.1 10^3/uL Normal 0-0.6 Abs Basophils 0.0 10^3/uL Normal 0-0.2 Abs Nucleated RBC 0.0 10^3/uL Granulocyte % 77.1 % Lymphocyte % 13.8 % Monocyte % 7.5 % Eosinophil % 1.1 % Basophil % 0.5 % Nucleated Red Blood Cells % 0.0 Inr/Protime 10/30/2018 [facility] Inr 1.04 Normal 0.82-1.09 5 Laboratory test 10/30/2018 [facility] Partial Thrombo 34.9 seconds Normal 26.0- 38.0 finding Time PTT B-Type Natriuretic Peptide BNP 317 pg/mL High <=100 Comp Metabolic Panel 10/30/2018 [facility] Sodium 138 mmol/L Normal 135-145 Potassium 4.5 mmol/L Normal 3.5-5.0 Chloride 107 mmol/L Normal 101-111 Co2 Carbon Dioxide 26 mmol/L Normal 22-32 Anion Gap 5 mmol/L Normal 2-11 Glucose 119 mg/dL High 70-100 Blood Urea Nitrogen 22 mg/dL Normal 6-24 Creatinine 0.83 mg/dL Normal 0.51-0.95 BUN/Creatinine Ratio 26.5 High 8-20 Calcium 9.6 mg/dL Normal 8.6-10.3 Total Protein 6.3 g/dL Low 6.4-8.9 Albumin 3.4 g/dL Normal 3.2-5.2 Globulin 2.9 g/dL Normal 2-4 Albumin/Globulin Ratio 1.2 Normal 1-3 Total Bilirubin 0.40 mg/dL Normal 0.2-1.0 Alkaline Phosphatase 83 U/L Normal 34-104 Alt 12 U/L Normal 7-52 Ast 21 U/L Normal 13-39 Egfr Non- 65.5 >60 Egfr 79.2 >60 6 Laboratory test finding 10/30/2018 [facility] Magnesium 1.8 mg/dL Low 1.9-2.7 Creatine Kinase(CK) 52 U/L Normal 10-223 CKMB 10/30/2018 [facility] CKMB ng/mL 7.2 ng/mL High 0.6-6.3 Laboratory test finding 10/30/2018 [facility] Troponin I 0.38 ng/mL Critical high <0.04 7 TSH (Thyroid Stim Horm) 1.72 mcIU/mL Normal 0.34-5.60 1 [facility] Severe Sepsis and Septic Shock Management Bundle Measure requires all lactic acids initially measuring >2.0 mmol/L be repeated. 2 Because ethnic data is not always readily available, this report includes an eGFR for both -Americans and non- Americans. The National Kidney Disease Education Program (NKDEP) does not endorse the use of the MDRD equation for patients that are not between the ages of 18 and 70, are , have extremes of body size, muscle mass, or nutritional status, or are non- or non-. According to the National Kidney Foundation, irrespective of diagnosis, the stage of the disease is based on the level of kidney function: Stage Description GFR(mL/min/1.73 m(2)) 1 Kidney damage with normal or decreased GFR 90 2 Kidney damage with mild decrease in GFR 60-89 3 Moderate decrease in GFR 30-59 4 Severe decrease in GFR 15-29 5 Kidney failure <15 (or dialysis) 3 Result TnIDx:0.09 Called to [id number] at: 13:15:31 by:[id number] Read back by: [id number] Troponin-I testing on Plasma Separator Tubes (PST) has a known false positive rate of 0.20-0.40%. All positive troponins reflex immediately to secondary confirmatory testing. Using the [employer] DxI 800 Access Immunoassay systems, the 99th percentile upper reference limit was demonstrated to be < 0.03 ng/mL. 4 [facility] Severe Sepsis and Septic Shock Management Bundle Measure requires all lactic acids initially measuring >2.0 mmol/L be repeated. 5 Standard intensity warfarin therapeutic range: 2.0-3.0 High intensity warfarin therapeutic range: 2.5-3.5 6 Because ethnic data is not always readily available, this report includes an eGFR for both -Americans and non- Americans. The National Kidney Disease Education Program (NKDEP) does not endorse the use of the MDRD equation for patients that are not between the ages of 18 and 70, are , have extremes of body size, muscle mass, or nutritional status, or are non- or non-. According to the National Kidney Foundation, irrespective of diagnosis, the stage of the disease is based on the level of kidney function: Stage Description GFR(mL/min/1.73 m(2)) 1 Kidney damage with normal or decreased GFR 90 2 Kidney damage with mild decrease in GFR 60-89 3 Moderate decrease in GFR 30-59 4 Severe decrease in GFR 15-29 5 Kidney failure <15 (or dialysis) 7 Result TnIDx:0.38 Called to [id number] at: 12:46:39 by:[id number] Read back by: [id number] Troponin-I testing on Plasma Separator Tubes (PST) has a known false positive rate of 0.20-0.40%. All positive troponins reflex immediately to secondary confirmatory testing. Using the [employer] DxI 800 Access Immunoassay systems, the 99th percentile upper reference limit was demonstrated to be < 0.03 ng/mL. Procedures Date Code Description Status 09/07/2016 34790079 Colonoscopy Completed Medical Devices Description No Information Available Encounters Description No Information Available Assessments Date Code Description Provider 01/03/2019 I48.0 Paroxysmal atrial fibrillation Farheen Martin M.D. 01/03/2019 Z95.0 Presence of cardiac pacemaker Farheen Martin M.D. 01/03/2019 G47.00 Insomnia, unspecified Farheen Martin M.D. 01/03/2019 F33.40 Major depressive disorder, recurrent, in Farheen Martin M.D. remission, unspecified 01/03/2019 M06.9 Rheumatoid arthritis, unspecified Farheen Martin M.D. Plan of Treatment 01/03/2019 - Farheen Martin M.D.I48.0 Paroxysmal atrial fibrillationNew Labs:CBC Electronic-ALL Lab [facility], Ordered: 01/03/19Comp Metabolic-ALL [facility], Ordered: 01/03/19Digoxin ([facility]), Ordered: 01/03/19Magnesium ([facility]), Ordered: 01/03/19TSH ([facility]), Ordered: 01/03/19Comments: refer to cardiology; only on asa, has fallsFollow up:2-3 moZ95.0 Presence of cardiac [id number] Insomnia, unspecifiedComments:Consider cognitive behavioral therapy for improved sleep. There are many online and free programs including guided meditation. Discussed sleep hygiene with dark curtains, no TV/ phone/computer/work in bed, bedroom only for intimacy or sleep. Eliminate "blue light"/use light filter, consider noise canceling headphones, white noise/sound machine or eye mask at night From [place] sleep hygiene tips http:// [email or web address]/healthy/getting/[email or web address]/tips [facility] free guided [email or web address]://[email or web address]/[email or web address]?id=22&iirf_redirect=1 increase melatonin; can't take afalcsbjjT63.40 Major depressive disorder, recurrent, in remission, unspecifiedComments:continue [id number] Rheumatoid arthritis, unspecifiedComments:try acetaminophen for pain, try to avoid hydrocodone given sedation concernsAllComments:Medication Management Patient Understands medications she's taking? Yes No Are there Barriers to Adherence? Yes No Has the patient been asked about herbal supplements and therapies, and OTC meds? Yes No Functional Status Description No Information Available Mental Status Description No Information Available Referrals Refer to Reason for Referral Status Appt Date Imer Nettles MD AFIB (PATIENT HAS A PACEMAKER) Created [address] [place] [id number] [phone]
[2019-02-08 09:27] LABS: Activated Partial Thrombo Time 31.3 seconds (26.0-38.0)
[2019-02-08 09:32] LABS: Albumin 3.2 g/dL (3.2-5.2); CO2 Carbon Dioxide 15 mmol/L (22-32); Calcium 9.8 mg/dL (8.6-10.3); Chloride 107 mmol/L (101-111); Sodium 138 mmol/L (135-145)
[2019-02-08 09:36] LABS: Hematocrit 42 % (35-47); Hemoglobin 13.1 g/dL (12.0-16.0); Mean Corpuscular HGB Conc 31 g/dL (31-36); Mean Corpuscular Hemoglobin 30 pg (27-31); Mean Corpuscular Volume 96 fL (80-97); Mean Platelet Volume 9.7 fL (7.4-10.4); Platelet Count 156 10^3/uL (150-450); Red Blood Count 4.35 10^6 /uL (3.70-4.87); Red Cell Distribution Width 17 % (10-15)
[2019-02-08 09:39] LABS: ALT 359 U/L (7-52); Alkaline Phosphatase 169 U/L (34-104); BUN/Creatinine Ratio 24.3 (8-20); Blood Urea Nitrogen 44 mg/dL (6-24); C Reactive Protein 289.33 mg/L (<8.01); Creatine Kinase 53 U/L (10-223); EGFR African American 32.2 (>60); EGFR Non-African American 26.6 (>60); Globulin 3.3 g/dL (2-4); Glucose 160 mg/dL (70-100); Total Protein 6.5 g/dL (6.4-8.9)
[2019-02-08 09:39] LABS: Urine Appearance Cloudy; Urine Bacteria Absent (Absent); Urine Bilirubin Negative (Negative); Urine Blood Negative (Negative); Urine Color Amber; Urine Glucose Negative (Negative); Urine Ketones Negative (Negative); Urine Nitrite Negative (Negative); Urine Protein 2+(100 mg/dL) (Negative); Urine Red Blood Cell 1+(3-5/hpf) (Absent); Urine Specific Gravity 1.024 (1.010-1.030); Urine Squamous Epithelial Cell Present (Absent); Urine Urobilinogen Positive (Negative); Urine White Blood Cell 2+(11-20/hpf) (Absent)
[2019-02-08 09:42] LABS: CKMB ng/mL 8.4 ng/mL (0.6-6.3)
[2019-02-08] MEDS ORDERED: cefTRIAXone(*) 1 GM in NS 0.9% 50 ML* 50 ML IVPB ONE (09:44)
[2019-02-08 09:49] LABS: Troponin I 0.13 ng/mL (<0.04)
[2019-02-08 09:55] LABS: ABS Eosinophils 0.1 10^3/ul (0-0.6); ABS Lymphocytes 0.7 10^3/ul (1.0-4.8); ABS Monocytes 0.6 10^3/ul (0-0.8); ABS Neutrophils 20.6 10^3/ul (1.5-7.7); ABS Nucleated RBC 0.1 10^3/ul; Eosinophil % 0.4 %; Lymphocyte % 3.1 %; Nucleated Red Blood Cells % 0.3
[2019-02-08 10:03] LABS: Anion Gap 16 mmol/L (2-11)
[2019-02-08] MEDS ORDERED: Furosemide IV* 10 MG/ML 2 ML VIAL (20 MG) IV SLOW PU ONE (10:15)
[2019-02-08] MEDS ORDERED: Cefepime 2 GM in Dextrose(*) 2 GM/50 ML BAG IV ONE (10:17)
[2019-02-08] MEDS ORDERED: Levofloxacin 750 MG IVPREMIX(* 750 MG/150 ML BAG IVPB ONE (10:19)
[2019-02-08] MEDS ORDERED: Vancomycin(*) 750 MG in NS 0.9% 250 ML* 250 ML IVPB ONE (11:30)
[2019-02-08] MEDS ORDERED: Acetaminophen TAB* 325 MG PO PRN (11:30)
[2019-02-08] MEDS ORDERED: Ondansetron INJ* 2 MG/ML VIAL IV PRN (11:30)
[2019-02-08] MEDS ORDERED: Benzonatate CAP* 100 MG PO PRN (11:30)
[2019-02-08] MEDS ORDERED: NS 0.9% 1000 ML** 1,000 ML IV SCH (12:00)
[2019-02-08] MEDS ORDERED: Cefepime 2 GM in Dextrose(*) 2 GM/50 ML BAG IV SCH ×2 (12:00→22:00)
[2019-02-08] MEDS ORDERED: Vancomycin per Pharmacy* NOTE FOLLOW UP SCH (12:00)
[2019-02-08 12:38] LABS: Influenza A Molecular NEGATIVE (Negative); Influenza B Molecular NEGATIVE (Negative)
[2019-02-08] MEDS: metroNIDAZOLE IV 500 MG/100ML* 500 MG/100 ML BAG IVPB SCH ×2 (13:32→23:47)
[2019-02-08 13:40] LABS: Anion Gap 10 mmol/L (2-11); BUN/Creatinine Ratio 27.4 (8-20); Blood Urea Nitrogen 45 mg/dL (6-24); CO2 Carbon Dioxide 20 mmol/L (22-32); Calcium 8.3 mg/dL (8.6-10.3); Chloride 111 mmol/L (101-111); EGFR African American 36.1 (>60); EGFR Non-African American 29.8 (>60); Glucose 142 mg/dL (70-100); Potassium 4.2 mmol/L (3.5-5.0); Sodium 141 mmol/L (135-145)
--- NOTE | 2019-02-08 13:48 | HP ---
CC: Dr. Farheen Martin * ADMISSION HISTORY AND PHYSICAL: DATE OF ADMISSION: 02/08/19 PRIMARY CARE PROVIDER: Dr. Farheen Martin. MY ATTENDING WHILE IN THE HOSPITAL: Dr. Stephanie Osorio.* (DICTATED BY JAMAAL ROMERO) CHIEF COMPLAINT: Severe hypoxia. HISTORY OF PRESENT ILLNESS: Ms. Cook is an 83-year-old female with past medical history significant for paroxysmal atrial fibrillation, status post pacemaker placement, currently in rhythm control; rheumatic fever; history of pulmonary embolism and hypertension, who presents to the emergency department for the second time in 3 days. The patient is on high flow oxygen, is somewhat confused and history is mainly obtained from her daughter over the phone. The patient's daughter states that 2 days ago, the patient began complaining of right-sided neck pain radiating into her scalp and at that time began to seem more lethargic and confused. The patient has been having chills for 2 days per her report, but she did not report this to her daughter. The patient has a chronic nonproductive cough, which has continued, but has not become more productive. The patient does not have any pain in her legs, no swelling in her legs, no recent immobilization. The patient has fallen twice in the last 2 days , is having difficulty following commands and has been having significant difficulty swallowing with repeated coughing with any oral intake. The patient has not had any diarrhea. No pain with urination. The patient's daughter, however, has noted a severe decrease in her urine output. The patient this morning was found down by her daughter and found to be dusky. The patient had an oxygen saturation, which was 54%, which came up to the low 90s with 15 L of oxygen and then required Vapotherm. The patient in the emergency department was tachypneic. Her blood pressure is stable. She is nontachycardic, but is requiring 30 L of oxygen to refill Vapotherm. Due to concern for acute respiratory failure, I was asked to evaluate the patient for admission to the hospital. PAST MEDICAL HISTORY: AFib, hypertension, rheumatic fever, depression, anxiety , PE, fibromyalgia, osteoarthritis, osteoporosis. PAST SURGICAL HISTORY: Pacemaker implantation, cholecystectomy. MEDICATIONS: 1. Ascorbic acid 1000 mg p.o. daily. 2. Sertraline 200 mg p.o. daily. 3. Magnesium oxide 400 mg p.o. daily. 4. Potassium chloride 20 mEq p.o. daily. 5. Aspirin 81 mg p.o. daily. 6. Amiodarone 200 mg p.o. daily. 7. Metoprolol tartrate 50 mg p.o. b.i.d. 8. Digoxin 0.125 mg p.o. q.48 hours. 9. Senna 1 tab p.o. b.i.d. as needed. 10. Melatonin 6 mg p.o. at bedtime as needed. ALLERGIES: No known drug allergies. FAMILY HISTORY: The patient's father at 77 with lung cancer. The patient' s mother at 85 with pancreatic cancer. SOCIAL HISTORY: The patient smoked for less than 10 years approximately 50 years ago. The patient has not had any alcoholic beverages in 48 years. The patient denies illicit drug use. The patient lives in [facility]. 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 The patient has 3 children, 2 of whom are . The patient's surrogate decision maker is her daughter, Chinyere Cook. The patient would like to be a DNR/DNI. REVIEW OF SYSTEMS: Reviewed with the patient and her daughter and is negative, except as above in the HPI. PHYSICAL EXAMINATION GENERAL: The patient is an 83-year-old female who appears stated age and is sitting in the bed with significantly increased work of breathing. VITAL SIGNS: Temperature 96.2, pulse rate 65, respiratory rate 30, oxygen saturation 100% on 30 L of oxygen with FiO2 of 100%, blood pressure 175/75. HEENT: Head: Normocephalic, atraumatic. Sclerae anicteric. No conjunctival injection. Nasal mucosa moist. Oral mucosa moist. There is no pharyngeal erythema, discharge, or exudate. NECK: Supple, nontender. No lymphadenopathy. No carotid bruits auscultated. No JVD. RESPIRATORY: Clear to auscultation bilaterally. No wheezes or rhonchi. Good air exchange bilaterally. Diminished throughout. Rales heard in the bilateral lower lobes. No other adventitious lung sounds. CARDIAC: Regular rate and rhythm. No clicks, murmurs, gallops, or rubs. Pulses are 2+ in the bilateral dorsalis pedis, posterior tibialis and radial areas. Bilateral calf tenderness. Trace bilateral extremity edema noted. ABDOMEN: Soft, nontender, nondistended. Bowel sounds present and normoactive in all 4 quadrants. No hepatosplenomegaly. There are no abdominal bruits auscultated. No hepatojugular reflux. Easily reducible hernia in the right lower quadrant. GENITOURINARY: No suprapubic or CVA tenderness. Silver in place. Draining dark latricia urine without clots or purulence. NEUROLOGIC: Cranial nerves II through XII grossly intact. Alert and oriented x3. PSYCHIATRIC: Pleasant and cooperative. DIAGNOSTIC STUDIES/LAB DATA: White blood cell count 22.0, hemoglobin 13.1, platelet count 156. APTT 31.3. ABG, pH 7.25, pCO2 of 38, pO2 of 78, HCO3 of 17. Sodium 138, potassium not processed, chloride 107, carbon dioxide 15, anion gap 16, BUN 44, creatinine 1.81, glucose 160, lactic acid 5.3, calcium 9.8. Bilirubin 1.5, AST not processed, ALT 359, alkaline phosphatase 169. Creatinine kinase 53, CK-MB 8.4, troponin I 0.13. CRP 29.33. BNP 1099. Protein 6.5, albumin 3.2, globulin 3.3. Urine, latricia cloudy, 2+ protein, trace leukocyte esterase, positive white blood cells, positive red blood cells, positive squamous epithelial cells, negative bacteria, positive hyaline casts, negative urine glucose. Studies: Chest x-ray read as cardiomegaly with interstitial edema consistent vascular congestion, no pleural fluid is identified, interstitial and alveolar infiltrates are noted bilaterally. EKG shows normal sinus rhythm, no ST segment elevation, slight ST depression in lead V5, right bundle branch block, left axis deviation. When compared to previous exam, there are no significant changes. ASSESSMENT AND PLAN: Impression: Ms. Akash Cook is an 83-year-old female with past medical history significant for atrial fibrillation, hypertension, rheumatic fever and pulmonary embolism, who presents to the emergency department with acute respiratory failure in the setting of several days of altered mental status and difficulty with swallowing. The patient admitted to the ICU for Vapotherm, antibiotics and further elucidation of other cause of her respiratory failure. 1. Acute respiratory failure. The patient's respiratory failure is of unclear cause at this time. The most likely diagnosis is aspiration, possibly with aspiration pneumonia with elevated white blood cell count, significant oxygen demand, elevated lactic acid. The patient will be started on vancomycin, cefepime and Flagyl for broad spectrum antibiotic coverage. The patient is currently requiring 30 L of oxygen via Vapotherm, was saturating well on this. The patient's mentation is improved since earlier today. The patient does have a history of pulmonary embolism and is not anticoagulated. D-dimer will be checked and felt this is likely will be positive given the patient's respiratory status. The patient is not eligible for a CT at this point and would not be able to tolerate a V/Q scan. If the D-dimer is negative, there would be no concern for anticoagulation. If the D-dimer is positive, a repeat BMP will be drawn after fluids are given and CTA will be considered. The patient's x-rays read at this time as pulmonary edema and she has an elevated BNP above her baseline and echocardiogram will be checked. The patient will not be bolused for full 30 mL/kg, as for her elevated lactic acid above 4, the patient will given gentle fluids, monitor closely with further fluids been given if the patient's respiratory status does not deteriorate. The patient will be checked for the flu given the appearance of her chest x-ray, though flu is not currently prevalent in this area. 2. Septic shock. The patient meets septic shock criteria for her lactic acid of 5.3 with underlying cause of pneumonia. The patient will have repeat lactic acid drawn. The patient has been started on appropriate antibiotics. The patient received Levaquin, cefepime and ceftriaxone while in the emergency department. The patient will be continued on Flagyl, cefepime, and vancomycin. There is no indication for double pseudomonal coverage at this time. Blood cultures have been drawn. The patient currently appears to be perfusing well on exam. 3. Atrial fibrillation. The patient's heart rate is currently very well controlled. The patient is not tolerant of going in and out of atrial fibrillation. The patient's metoprolol will be continued, but decreased. The patient's amiodarone will be held, though this is mainly due to its long half life and the hope to avoid hypotension if the patient's clinical status deteriorates more. The patient did receive her medications this morning and may be continued to be resumed tomorrow if her blood pressure stays within normal range. 4. History of pulmonary embolism. She will be evaluated for pulmonary embolism as above. It is unclear why the patient is not anticoagulated that was likely due to frequent falls. 5. Falls. The patient's falls are likely due to hypoxia as is her altered mental status. 6. Neck pain. Cause of the patient's neck pain is unclear, though in previous ED documentation states she has slept on it in a strange way and this is likely the cause of it. Meningitis is not considered to be a high probability at this point. 7. DVT prophylaxis. Lovenox at this time at DVT prophylaxis dose. 8. FEN. The patient will be n.p.o. until she is able to have a swallow evaluation and will have fluids at 100 mL an hour with reevaluation to assess for worsening of her respiratory status. 9. Code status. The patient would like to be a DNR/DNI. TIME SPENT: Approximately 60 minutes were spent on the admission of this admission, 30 of which were spent [id number] with the patient obtaining history and physical and discussing treatment plan. This plan has been discussed with my attending, Dr. Stephanie Osoiro, and she is in agreement. JAMAAL ROMERO [id number]/CPS #: [id number]
--- NOTE | 2019-02-08 14:54 | PN ---
Sepsis Event Evaluation Date of Evaluation: 02/08/19 Time of Evaluation: 14:53 Current Stage of Sepsis: Severe Sepsis Vital Signs - Last 12 Hours: Vital Signs - 12 hr Temp Pulse Resp BP Pulse Ox 02/08/19 12:41 98.6 F 71 21 156/101 100 02/08/19 12:24 97.4 F 68 30 186/85 99 02/08/19 12:16 98.6 F 71 20 156/101 100 02/08/19 12:00 98.2 F 68 36 100 02/08/19 11:47 97.9 F 71 20 157/78 100 02/08/19 11:16 98.4 F 69 18 178/120 100 02/08/19 11:00 98.2 F 68 22 100 02/08/19 10:47 97.9 F 66 27 174/142 02/08/19 10:18 97.9 F 65 29 180/87 99 02/08/19 10:00 97.7 F 65 22 98 02/08/19 09:16 65 28 158/74 93 02/08/19 09:00 68 27 92 02/08/19 08:46 66 26 175/75 91 02/08/19 08:39 67 31 92 02/08/19 08:31 96.2 F 67 22 175/75 97 Lactic Acid: 02/08/19 02/08/19 09:01 13:10 Lactic Acid 5.3 H* 2.9 H* Exceptions to Standard of Care: Full Fluid Bolus Not Given For Concern for Acute CHF - Cardiopulmonary Exam Capillary Refill: < or = to 5 seconds Respiratory: Symmetrical Chest Expansion and Respiratory Effort, - - Rales in bases unchanged - Peripheral Pulse Exam Radial Pulses: Bilateral Normal Pedal Pulses: Bilateral Normal - Skin Exam Skin Exam: [place] - [place] Coma Scale Best Eye Response: 4 - Spontaneous Best Motor Response: 6 - Obeys Commands Best Verbal Response: 5 - Oriented Coma Scale Total: 15 Assess/Plan/Problems-Billing Assessment:
--- NOTE | 2019-02-08 16:23 | ECHO ---
*[facility]* [place] [address] Fax #: [phone] Transthoracic Echocardiogram Patient: Ml Watts : 1935 Study Date: 02/08/2019 Age: 83 Gender: F HR: 67 bpm Height: 64 in /162.6 cm BSA: 1.48 m^2 Weight: 103.8 lb /47.2 kg BMI: 17.9 kg/m^2 *Cloth Boil Off Machine Operator: * Aletha Abarca [facility] *Referring Physician: * Braulio Shields *Reading Physician: * Winston Gilliam MD Indications: Congestive Heart Failure. History: Murmur. Atrial fibrillation. Hiatal hernia. Pulmonary Embolism. Rheumatic fever as child. Dementia. Risk factors: Former tobacco use. Hypertension. Labs, prior tests, procedures, and surgery: ICD system implantation. Conclusions Summary: - Left ventricle: The cavity size is normal. Wall thickness is mildly increased. Systolic function is normal. The estimated ejection fraction is 55-60%. Wall motion is normal; there are no regional wall motion abnormalities. - Right ventricle: The cavity size is normal. Systolic function is normal. - Left atrium: The atrium is moderately to severely dilated. - Mitral valve: Mild prolapse. There is moderate regurgitation. - Tricuspid valve: There is mild regurgitation. - Pulmonary arteries: Systolic pressure is moderately increased. - Pacemaker wire noted. Recommendations: Compared to prior study from 10/2018, previously tricuspid regurgitation reported moderate-severe and PASP was midly elevated. Pacemaker now noted. Study data: Transthoracic echocardiogram. Procedure: Transthoracic echocardiography was performed. Image quality was good. Complete 2D, spectral Doppler, and color flow Doppler. Location: ICU Patient status: Inpatient. Patient room number: 08. Rhythm: Normal sinus rhythm. Findings Left ventricle: The cavity size is normal. Wall thickness is mildly increased. Systolic function is normal. The estimated ejection fraction is 55-60%. Wall motion is normal; there are no regional wall motion abnormalities. Doppler parameters are consistent with abnormal left ventricular relaxation (grade 1 diastolic dysfunction). Right ventricle: The cavity size is normal. Systolic function is normal. Left atrium: The atrium is moderately to severely dilated. Right atrium: The atrium is mildly dilated. Mitral valve: The Mitral valve annulus appears mildly calcified. The leaflets are mildly thickened. Mild prolapse. There is no evidence of stenosis. There is moderate regurgitation. Aortic valve: The leaflets are mildly thickened. Thickening, consistent with sclerosis. There is no evidence of stenosis. There is trace to mild regurgitation. Tricuspid valve: The leaflets are normal thickness. There is no evidence of stenosis. There is mild regurgitation. Pulmonic valve: The leaflets are normal thickness. There is no evidence of stenosis. There is trace regurgitation. Aorta: Aortic root: The aortic root is appears normal. Ascending aorta: The ascending aorta is appears normal. Aortic arch: The aortic arch is appears normal. Pericardium: There is no significant pericardial effusion. Pulmonary arteries: The main pulmonary artery is normal-sized. Systolic pressure is moderately increased. Systemic veins: Inferior vena cava: The vessel is normal in size. There is (< 50%) respiratory change in the IVC dimension. Measurements Left ventricle Value Ref Aortic valve Value Ref NAZ, LAX 3.9 cm 3.8 - 5.2 Yas diam, ED 2.2 cm ----- ESD, LAX 2.4 cm 2.2 - 3.5 Peak v, S 1.3 m/sec ----- FS, LAX 38 % 27 - 45 VTI, S 22.6 cm ----- PW, ED, LAX (H) 1.1 cm 0.6 - 0.9 Mean grad, S 3.0 mm Hg ----- FS 38 % 27 - 45 LVOT/AV, VTI ratio 0.62 ----- PW, ED (H) 1.1 cm 0.6 - 0.9 DOMINGO, VTI 1.76 cm^2 ----- PW/ID, ED 0.29 DOMINGO, Vmax 1.61 cm^2 ----- E', lat yas, TDI (L) 3.5 cm/sec >=10.0 E/e', lat yas, 16 Mitral valve Value Ref TDI Peak E 0.55 m/sec ----- E', med yas, TDI (L) 3.3 cm/sec >=7.0 Peak A 0.69 m/sec --- -- E/e', med yas, 17 Decel time 197 ms ----- TDI Peak E/A ratio 0.8 ----- E', avg, TDI 3.4 cm/sec MR PISA radius 0.3 cm ----- E/e', avg, TDI (H) 16 <=14 Max MR v 5.98 m/sec --- -- Regurg VTI 177.0 cm ----- LVOT Value Ref Diam, S 1.90 cm Pulmonic valve Value Ref Area 2.8 cm^2 Peak v, S 0.63 m/sec ----- Peak sarah, S 0.74 m/sec Peak grad, S 2.0 mm Hg ----- VTI, S 14.0 cm Mean grad, S 1 mm Hg Tricuspid valve Value Ref SV 39 ml TR peak v (H) 3.5 m/sec <=2.8 SV/bsa 26 ml/m^2 Peak RV-RA grad, S 49 mm Hg ----- Ventricular septum Value Ref Aortic root Value Ref IVS, ED (H) 1.1 cm 0.6 - 0.9 Root diam 3.6 cm <3.8 Root max diam, ED 3.6 cm <3.8 Right ventricle Value Ref NAZ, LAX 3.2 cm Ascending aorta Value Ref NAZ minor ax, A4C (H) 4.5 cm 1.9 - 3.5 AAo AP diam, S 3.0 cm ----- mid Pressure, S 57 mm Hg Aortic arch Value Ref Arch diam 1.8 cm ----- Left atrium Value Ref AP dim, ES 3.00 cm 2.70 - Decending aorta Value Ref 3.80 Nia peak sarah 0.64 m/sec ----- ML dim, A4C 4.9 cm SI dim, A4C 5.0 cm Pulmonary artery Value Ref Vol/bsa, ES, 1-p (H) 58 ml/m^2 11 - 40 Pressure, S 55.0 mm Hg ----- A4C Vol/bsa, ES, A/L (H) 69 ml/m^2 16 - 34 Inferior vena cava Value Ref Diam 1.8 cm ----- Right atrium Value Ref SI dim, ES 5.0 cm 3.4 - 5.3 ML dim, ES, A4C 3.9 cm 2.6 - 4.4 SI dim, ES, A4C 5.0 cm 3.4 - 5.3 Estimated RAP 8 mm Hg Legend: (L) and (H) burt values outside specified reference range. Prepared and electronically signed by Winston Gilliam MD 02/08/2019 16:17
[2019-02-08] MEDS: Enoxaparin(*) 30 MG/0.3 ML SYR SUBCUT SCH (17:09)
[2019-02-08 18:42] LABS: Anion Gap 10 mmol/L (2-11); BUN/Creatinine Ratio 27.8 (8-20); Blood Urea Nitrogen 52 mg/dL (6-24); CO2 Carbon Dioxide 22 mmol/L (22-32); Calcium 9.2 mg/dL (8.6-10.3); Chloride 109 mmol/L (101-111); EGFR Non-African American 25.7 (>60); Glucose 112 mg/dL (70-100); Potassium 4.6 mmol/L (3.5-5.0); Sodium 141 mmol/L (135-145)
[2019-02-08 18:56] LABS: Troponin I 0.32 ng/mL (<0.04)
[2019-02-08] MEDS: guaiFENesin ER TAB 600 MG PO SCH (21:27)
[2019-02-08] MEDS: Metoprolol Tartrate TAB* 25 MG PO SCH (21:27)
[2019-02-09] MEDS: NS 0.9% 1000 ML** 1,000 ML IV SCH ×3 (01:24→17:11)
[2019-02-09 05:17] LABS: Hematocrit 40 % (35-47); Mean Corpuscular HGB Conc 33 g/dL (31-36); Mean Corpuscular Hemoglobin 31 pg (27-31); Mean Corpuscular Volume 94 fL (80-97); Platelet Count 128 10^3/uL (150-450); Red Blood Count 4.27 10^6 /uL (3.70-4.87); Red Cell Distribution Width 17 % (10-15); White Blood Count 28.7 10^3/uL (3.5-10.8)
[2019-02-09 05:38] LABS: ALT 303 U/L (7-52); AST 330 U/L (13-39); Albumin 2.8 g/dL (3.2-5.2); Alkaline Phosphatase 120 U/L (34-104); BUN/Creatinine Ratio 36.7 (8-20); Blood Urea Nitrogen 58 mg/dL (6-24); CO2 Carbon Dioxide 20 mmol/L (22-32); Calcium 8.7 mg/dL (8.6-10.3); EGFR African American 37.7 (>60); EGFR Non-African American 31.2 (>60); Globulin 2.7 g/dL (2-4); Glucose 107 mg/dL (70-100); Magnesium 1.7 mg/dL (1.9-2.7); Potassium 4.7 mmol/L (3.5-5.0); Sodium 140 mmol/L (135-145); Total Protein 5.5 g/dL (6.4-8.9)
[2019-02-09 05:44] LABS: Anion Gap 8 mmol/L (2-11); Chloride 112 mmol/L (101-111); Troponin I 0.43 ng/mL (<0.04)
[2019-02-09] MEDS ORDERED: Magnesium Sulfate 1 GM IV* 1 GM/100 ML BAG IV ONE (06:00)
[2019-02-09] MEDS ORDERED: Vancomycin Random Level* NOTE FOLLOW UP ONE (06:00)
[2019-02-09 06:03] LABS: ABS Basophils 0.1 10^3/ul (0-0.2); ABS Eosinophils 2.8 10^3/ul (0-0.6); ABS Lymphocytes 0.6 10^3/ul (1.0-4.8); ABS Monocytes 0.4 10^3/ul (0-0.8); ABS Neutrophils 24.8 10^3/ul (1.5-7.7); ABS Nucleated RBC 0.1 10^3/ul; Eosinophil % 9.7 %; Lymphocyte % 1.9 %; Nucleated Red Blood Cells % 0.3
[2019-02-09] MEDS ORDERED: Amiodarone TAB* 200 MG PO SCH (09:00)
[2019-02-09] MEDS: guaiFENesin ER TAB 600 MG PO SCH ×3 (09:05→20:53)
[2019-02-09] MEDS: Metoprolol Tartrate TAB* 25 MG PO SCH ×2 (09:06→20:53)
[2019-02-09] MEDS: Ascorbic Acid TAB* 500 MG PO SCH ×2 (09:06→09:18)
[2019-02-09] MEDS: Magnesium Oxide TAB* 400 MG PO SCH (09:06)
[2019-02-09] MEDS: Potassium Chlor TAB* 20 MEQ TAB.ER PO SCH ×2 (09:06→09:18)
[2019-02-09] MEDS: Sertraline* 100 MG TAB PO SCH (09:07)
[2019-02-09] MEDS: metroNIDAZOLE IV 500 MG/100ML* 500 MG/100 ML BAG IVPB SCH (11:50)
[2019-02-09] MEDS ORDERED: Morphine INJ* 2 MG/ML 1 ML SYRINGE (TWO MG - NEW SYRINGE VERSION) IV ONE (13:58)
[2019-02-09] MEDS ORDERED: Morphine INJ* 2 MG/ML 1 ML SYRINGE (TWO MG - NEW SYRINGE VERSION) ONE (13:58)
[2019-02-09] MEDS: ceFAZolin VIAL(*) 2 GM in NS 0.9% 100 ML* 100 ML IVPB SCH ×2 (14:39→21:33)
[2019-02-09 14:53] LABS: Troponin I 0.36 ng/mL (<0.04)
[2019-02-09] MEDS: Enoxaparin(*) 30 MG/0.3 ML SYR SUBCUT SCH (17:11)
--- NOTE | 2019-02-09 17:52 | PN ---
Subjective Date of Service: 02/09/19 Interval History: Patient seen and examined. She is lethargic and tachypneic, remains on vapotherm at 100%, daughter at bedside. Objective Active Medications: Acetaminophen (Tylenol Tab*) 650 mg PO Q6H PRN PRN Reason: MILD PAIN or TEMP > 100.4 Ascorbic Acid (Vitamin C Tab*) 1,000 mg PO DAILY [facility] Last Admin: 02/09/19 09:18 Dose: Not Given Benzonatate (Tessalon Cap*) 100 mg PO BID PRN PRN Reason: COUGH Enoxaparin Sodium (Lovenox(*)) 60 mg SUBCUT Q24H [facility] Guaifenesin (Mucinex*) 1,200 mg PO BID [facility] Last Admin: 02/09/19 09:17 Dose: Not Given Heparin Sodium (Porcine) (Heparin Flush Picc/Ml/Cvc(*)) 1 - 3 ml FLUSH 0600, 1800 [facility]; Protocol Last Admin: 02/09/19 05:13 Dose: Not Given Sodium Chloride (Ns 0.9% 1000 Ml) 1,000 mls @ 150 mls/hr IV PER RATE [facility] Last Admin: 02/09/19 17:11 Dose: 150 mls/hr Cefazolin Sodium 2 gm/ Sodium (Chloride) 100 mls @ 200 mls/hr IVPB Q8H [facility] Last Admin: 02/09/19 14:39 Dose: 200 mls/hr Magnesium Oxide (Magox 400 Tab*) 400 mg PO DAILY [facility] Last Admin: 02/09/19 09:06 Dose: 400 mg Metoprolol Tartrate (Lopressor Tab*) 12.5 mg PO BID [facility] Last Admin: 02/09/19 09:06 Dose: 12.5 mg Ondansetron HCl (Zofran Inj*) 4 mg IV Q6H PRN PRN Reason: NAUSEA Potassium Chloride (Klor Con Er Tab*) 20 meq PO DAILY [facility] Last Admin: 02/09/19 09:18 Dose: Not Given Sertraline HCl (Zoloft*) 200 mg PO DAILY [facility] Last Admin: 02/09/19 09:07 Dose: 200 mg Vital Signs - 8 hr 02/09/19 02/09/19 02/09/19 10:00 10:02 11:00 Temperature Pulse Rate 73 73 71 Respiratory 27 26 24 Rate Blood Pressure 171/75 161/76 (mmHg) O2 Sat by Pulse 99 97 96 Oximetry 02/09/19 02/09/19 02/09/19 12:00 13:00 13:02 Temperature 98.7 F Pulse Rate 75 73 78 Respiratory 27 24 27 Rate Blood Pressure 165/77 157/67 (mmHg) O2 Sat by Pulse 97 97 95 Oximetry 02/09/19 02/09/19 02/09/19 14:00 14:01 14:37 Temperature Pulse Rate 79 76 75 Respiratory 26 26 22 Rate Blood Pressure 167/74 178/70 (mmHg) O2 Sat by Pulse 92 92 94 Oximetry 02/09/19 02/09/19 02/09/19 15:00 15:44 16:00 Temperature Pulse Rate 74 75 77 Respiratory 19 21 20 Rate Blood Pressure 186/80 183/79 190/84 (mmHg) O2 Sat by Pulse 98 98 97 Oximetry 02/09/19 02/09/19 16:03 17:00 Temperature 98.8 F Pulse Rate 77 81 Respiratory 18 22 Rate Blood Pressure 186/73 192/97 (mmHg) O2 Sat by Pulse 97 98 Oximetry Oxygen Devices in Use Now: High Flow Heated Nasal Cannula Appearance: lethargic, increased WOB, pallor Eyes: PERRLA Ears/Nose/Mouth/Throat: - - dry oral mucosa Neck: NL Appearance and Movements; NL JVP Respiratory: - - tachypneic, Cardiovascular: NL Sounds; No Murmurs; No JVD, RRR Extremities: No Edema Skin: No Rash or Ulcers Neurological: - - lethargic, arousable to name and tactile stim Nutrition: - - NPO Result Diagrams: 02/09/19 05:08 02/09/19 05:08 Microbiology and Other Data: Microbiology 02/08/19 09:15 Urine Culture - Final Urine Legionella Urinary Antigen - Final Negative Legionella Antigen Streptococcus pneumoniae Ag Screen - Final Negative S. pneumo Antigen 02/08/19 08:49 Aerobic Blood Culture - Preliminary Blood Line Staphylococcus Aureus Anaerobic Blood Culture - Preliminary Staphylococcus Aureus Blood MRSA/MSSA (PCR) - Final Mrsa Negative S.aureus Positive 02/08/19 09:01 Blood Culture - Preliminary Blood Venous Staphylococcus Aureus Blood MRSA/MSSA (PCR) - Final Mrsa Negative S.aureus Positive 02/08/19 09:02 Aerobic Blood Culture - Preliminary Blood Venous Staphylococcus Aureus 02/08/19 12:59 Nasal Screen MRSA (PCR) - Final Nasal Mrsa Not Detected Assess/Plan/Problems-Billing Assessment: This is an 83 year old female that has history of falls, afib, recent PM insertion, HTN, RA, PE and OA that presented to the ED after falls and was found to be hypoxic with O2 sat of 54% in the field, treated for sepsis and admitted to ICU for respiratory failure, on vapotherm. - Patient Problems (1) Sepsis Comment: - Lactic acid >5, MSSA in blood, source PNA - s/p fluid bolus in ED - Monitor for fluid overload - resolved (2) MSSA bacteremia Code(s): R78.81 - BACTEREMIA SNOMED Code(s): 423723812 Comment: - Narrowed atbx to cefazolin 2gm Q8h - ECHO with no vegetation on PM wire, no vegetation on valves - Source likely PNA, follow sputum culture (3) Respiratory failure, acute Code(s): J96.00 - ACUTE RESPIRATORY FAILURE, UNSP W HYPOXIA OR HYPERCAPNIA SNOMED Code(s): 70596783 Comment: - With AMS at admission, CT brain negative for CVA - Etiology pneumonia, concern, however for PE given elevated Ddimer >1050 and hypoxia elevated trops and hx of PE in the past - Patient does have hx of RA and elevated Ddimer previously but difficult to say if this represents new process or not, would err on the side of caution and anticoagulate patient with lovenox. 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 - Renally dosed therapeutic lovenox 60mg Q24h - Requiring vapotherm at 100% FIO2 - Follow up gas with no CO2 retention - Wean O2 as tolerated - Continue pulmonary toilet (4) Atrial fibrillation Code(s): I48.91 - UNSPECIFIED ATRIAL FIBRILLATION SNOMED Code(s): 02361674 Comment: - Not on AC 2/2 frequent falls - Recent PM insertion - Currently in RSR on tele (5) Pneumonia Code(s): J18.9 - PNEUMONIA, UNSPECIFIED ORGANISM SNOMED Code(s): 622135126 Comment: - CAP vx aspiration? - Continue cefazolin 2gm Q8h (6) Sick sinus syndrome Code(s): I49.5 - SICK SINUS SYNDROME SNOMED Code(s): 32034033 Comment: - s/p PPM 11/06/18 (7) Hx of pulmonary embolus Code(s): Z86.711 - PERSONAL HISTORY OF PULMONARY EMBOLISM SNOMED Code(s): 767829052 Comment: - Not on AC in the past 2/2 falls (8) Hypertension Code(s): I10 - ESSENTIAL (PRIMARY) HYPERTENSION SNOMED Code(s): 37230159 Comment: - Normotensive on metoprolol (9) DVT prophylaxis Code(s): CAV3861 - SNOMED Code(s): 010078309 Comment: - lovenox (10) DNR (do not resuscitate) Comment: - Daughter states no intubation, confirmed Status and Disposition: Inpatient critical/guarded. Critical care time 65 minutes.
[2019-02-09] MEDS ORDERED: Enoxaparin(*) 60 MG/0.6 ML SYR SUBCUT SCH (18:00)
[2019-02-09] MEDS: Morphine INJ* 2 MG/ML 1 ML SYRINGE (TWO MG - NEW SYRINGE VERSION) IV PRN (19:57)
[2019-02-09] MEDS: hydrALAZINE IV* 20 MG/ML VIAL IV SLOW PU PRN (19:58)
[2019-02-09] MEDS ORDERED: NS 0.9% 1000 ML** 1,000 ML IV SCH (23:00)
[2019-02-10] MEDS: Morphine INJ* 2 MG/ML 1 ML SYRINGE (TWO MG - NEW SYRINGE VERSION) IV PRN ×5 (01:45→21:00)
[2019-02-10] MEDS: ceFAZolin VIAL(*) 2 GM in NS 0.9% 100 ML* 100 ML IVPB SCH ×3 (06:00→22:55)
[2019-02-10 06:35] LABS: ABS Eosinophils 0.4 10^3/ul (0-0.6); ABS Lymphocytes 0.7 10^3/ul (1.0-4.8); ABS Monocytes 0.7 10^3/ul (0-0.8); ABS Neutrophils 22.1 10^3/ul (1.5-7.7); ABS Nucleated RBC 0.1 10^3/ul; Hematocrit 37 % (35-47); Hemoglobin 12.2 g/dL (12.0-16.0); Mean Corpuscular HGB Conc 33 g/dL (31-36); Mean Corpuscular Hemoglobin 30 pg (27-31); Mean Corpuscular Volume 92 fL (80-97); Mean Platelet Volume 9.8 fL (7.4-10.4); Platelet Count 76 10^3/uL (150-450); Red Blood Count 4.02 10^6 /uL (3.70-4.87); Red Cell Distribution Width 16 % (10-15)
[2019-02-10 06:47] LABS: Albumin 2.3 g/dL (3.2-5.2); Albumin/Globulin Ratio 0.9 (1-3); BUN/Creatinine Ratio 49.5 (8-20); Calcium 8.4 mg/dL (8.6-10.3); EGFR African American 71.3 (>60); EGFR Non-African American 58.9 (>60); Globulin 2.5 g/dL (2-4); Potassium 3.5 mmol/L (3.5-5.0); Total Bilirubin 0.8 mg/dL (0.2-1.0); Total Protein 4.8 g/dL (6.4-8.9)
[2019-02-10 07:21] LABS: Eosinophil % 1.8 %; Nucleated Red Blood Cells % 0.2
[2019-02-10] MEDS: Magnesium Oxide TAB* 400 MG PO SCH (08:41)
[2019-02-10] MEDS: Ascorbic Acid TAB* 500 MG PO SCH (08:41)
[2019-02-10] MEDS: guaiFENesin ER TAB 600 MG PO SCH ×2 (08:41→22:55)
[2019-02-10] MEDS: Metoprolol Tartrate TAB* 25 MG PO SCH ×2 (08:42→22:55)
[2019-02-10] MEDS: Potassium Chlor TAB* 20 MEQ TAB.ER PO SCH (08:42)
[2019-02-10] MEDS: Sertraline* 100 MG TAB PO SCH (08:42)
[2019-02-10] MEDS ORDERED: Iodixanol* (CONTRAST) 320 MG/ML 100 ML SDV IV ONE (08:58)
--- NOTE | 2019-02-10 10:50 | PN ---
Subjective Date of Service: 02/10/19 Interval History: Ms. Akash Cook is feeling "okay" this morning. She continuously states that she is thirsty. She feels tired and is not sleeping well. Admits to shoulder pain when asked. Denies CP or SOB. Nursing was not able to give medications this morning as the patient was not able to follow direction to swallow safely. Oxygen slipped out of nares earlier and sats dropped into the 80s. Family History: Unchanged from Admission Social History: Unchanged from Admission Past Medical History: Unchanged from Admission Objective Active Medications: Acetaminophen (Tylenol Tab*) 650 mg PO Q6H PRN MILD PAIN or TEMP > 100.4 Ascorbic Acid (Vitamin C Tab*) 1,000 mg PO DAILY [facility] Benzonatate (Tessalon Cap*) 100 mg PO BID PRN COUGH Enoxaparin Sodium (Lovenox(*)) 60 mg SUBCUT Q24H [facility] Guaifenesin (Mucinex*) 1,200 mg PO BID [facility] Heparin Sodium (Porcine) (Heparin Flush Picc/Ml/Cvc(*)) 1 - 3 ml FLUSH 0600, 1800 [facility]; Protocol Hydralazine HCl (Apresoline Iv*) 10 mg IV SLOW PU Q6H PRN Systolic Bp Greater Than:160 Cefazolin Sodium 2 gm/ Sodium (Chloride) 100 mls @ 200 mls/hr IVPB Q8H [facility] Sodium Chloride (Ns 0.9% 1000 Ml) 1,000 mls @ 50 mls/hr IV PER RATE [facility] Magnesium Oxide (Magox 400 Tab*) 400 mg PO DAILY [facility] Metoprolol Tartrate (Lopressor Tab*) 12.5 mg PO BID [facility] Morphine Sulfate (Morphine Inj (Syringe))*) 2 mg IV Q4H PRN PAIN - MODERATE Ondansetron HCl (Zofran Inj*) 4 mg IV Q6H PRN NAUSEA Potassium Chloride (Klor Con Er Tab*) 20 meq PO DAILY [facility] Sertraline HCl (Zoloft*) 200 mg PO DAILY [facility] Vital Signs - 8 hr 02/10/19 02/10/19 02/10/19 03:00 03:02 04:00 Temperature 98.6 F 98.6 F 99.1 F Pulse Rate 88 86 85 Respiratory 24 26 19 Rate Blood Pressure 147/69 141/66 (mmHg) O2 Sat by Pulse 92 93 93 Oximetry 02/10/19 02/10/19 02/10/19 04:01 05:00 05:01 Temperature 99.1 F 99.0 F 99.0 F Pulse Rate 81 86 88 Respiratory 19 19 20 Rate Blood Pressure 143/69 (mmHg) O2 Sat by Pulse 93 92 93 Oximetry 02/10/19 02/10/19 02/10/19 06:00 07:00 07:34 Temperature 99.0 F 98.8 F Pulse Rate 86 87 Respiratory 19 18 24 Rate Blood Pressure 153/68 153/81 (mmHg) O2 Sat by Pulse 95 94 Oximetry 02/10/19 02/10/19 02/10/19 07:47 07:54 08:00 Temperature 99.0 F Pulse Rate 88 90 Respiratory 24 21 Rate Blood Pressure 148/74 (mmHg) O2 Sat by Pulse 95 Oximetry 02/10/19 02/10/19 02/10/19 08:28 09:00 09:36 Temperature 99.1 F Pulse Rate 87 Respiratory 24 18 22 Rate Blood Pressure 141/63 (mmHg) O2 Sat by Pulse 96 Oximetry 02/10/19 02/10/19 10:00 10:02 Temperature 99.0 F 99.0 F Pulse Rate 90 89 Respiratory 21 17 Rate Blood Pressure 149/71 (mmHg) O2 Sat by Pulse 95 95 Oximetry Oxygen Devices in Use Now: High Flow Heated Nasal Cannula Appearance: Elderly female laying in bed in NAD Eyes: No Scleral Icterus Ears/Nose/Mouth/Throat: - - Dry mucous membranes Neck: NL Appearance and Movements; NL JVP, Trachea Midline Respiratory: Symmetrical Chest Expansion and Respiratory Effort, - - Crackles throughout right side, left diminished Cardiovascular: NL Sounds; No Murmurs; No JVD, RRR Abdominal: NL Sounds; No Tenderness; No Distention Extremities: No Edema Neurological: - - Oriented to self and place, drowsy Lines/Tubes/Other Access: Clean, Dry and Intact Peripheral IV Result Diagrams: 02/10/19 06:10 02/10/19 06:10 Assess/Plan/Problems-Billing Assessment: Ms. Akash Cook is an 83 yo F with PMH of frequent falls, afib not on AC, recent PM insertion, HTN, RA, PE, and OA; who presented to the ED after falls and was found to be hypoxic with O2 sat of 54% in the field, treated for sepsis and admitted to ICU for respiratory failure, on vapotherm. - Patient Problems (1) Respiratory failure, acute Code(s): J96.00 - ACUTE RESPIRATORY FAILURE, UNSP W HYPOXIA OR HYPERCAPNIA Comment: - Secondary to pneumonia - Still requiring vapotherm at 100% FIO2 - With AMS at admission, CT brain negative for CVA - Repeat ABG this morning stable without CO2 retention - CTA this morning unremarkable for PE, but shows ground glass opacifications and concern for CHF with hepatic congestion - Wean O2 as tolerated - Continue pulmonary toileting - Will continue gentle hydration with IVF as patient has not tolerated PO intake - Give furosemide x1 now; d/c therapeutic Lovenox (2) Pneumonia Code(s): J18.9 - PNEUMONIA, UNSPECIFIED ORGANISM Comment: - CAP vs aspiration - Continue cefazolin (3) MSSA bacteremia Code(s): R78.81 - BACTEREMIA Comment: - Echo with no vegetation on PM wire, no vegetation on valves - Source likely PNA, follow sputum culture - Will consult ID on Tuesday - Continue cefazolin (4) Sepsis Comment: - Resolved - Severe sepsis with lactic acid >5, tachypnea, leukocytosis - MSSA in blood, source pneumonia - Plan as above (5) Atrial fibrillation Code(s): I48.91 - UNSPECIFIED ATRIAL FIBRILLATION Comment: - NSR on tele - Not on AC secondary to frequent falls - Telemetry monitoring - Continue metoprolol (6) Sick sinus syndrome Code(s): I49.5 - SICK SINUS SYNDROME Comment: - S/p PPM 11/06/18 - No evidence of vegetations on wire, but will consult ID on Tuesday (7) Hx of pulmonary embolus Code(s): Z86.711 - PERSONAL HISTORY OF PULMONARY EMBOLISM Comment: - Not on AC secondary to frequent falls - No evidence of PE on CTA this admission (8) Hypertension Code(s): I10 - ESSENTIAL (PRIMARY) HYPERTENSION Comment: - Mostly normotensive with episodes of hypertension with SBP up to 180s - Continue metoprolol, hydralazine PRN (9) Depression Code(s): F32.9 - MAJOR DEPRESSIVE DISORDER, SINGLE EPISODE, UNSPECIFIED Comment: - Continue sertraline (10) DVT prophylaxis Comment: - Lovenox (11) DNR (do not resuscitate) Comment: Status and Disposition: Inpatient and remains in ICU respiratory failure requiring Vapotherm. Anticipate home vs ZHANG when medically stable. Counseling and/or Coordination of Care Minutes: Critical care time: 60 minutes Attending: Gisela Meyers
[2019-02-10] MEDS: hydrALAZINE IV* 20 MG/ML VIAL IV SLOW PU PRN (11:16)
[2019-02-10] MEDS ORDERED: Morphine INJ* 2 MG/ML 1 ML SYRINGE (TWO MG - NEW SYRINGE VERSION) IV ONE (13:09)
[2019-02-10] MEDS ORDERED: Furosemide IV* 10 MG/ML 2 ML VIAL (20 MG) IV ONE (15:01)
[2019-02-10] MEDS ORDERED: Enoxaparin(*) 40 MG/0.4 ML SYR SUBCUT SCH (19:00)
[2019-02-11] MEDS: Morphine INJ* 2 MG/ML 1 ML SYRINGE (TWO MG - NEW SYRINGE VERSION) IV PRN ×3 (03:29→12:59)
[2019-02-11] MEDS ORDERED: NS 0.9% 100 ML* 100 ML ONE (05:39)
[2019-02-11] MEDS: ceFAZolin VIAL(*) 2 GM in NS 0.9% 100 ML* 100 ML IVPB SCH ×2 (05:42→13:46)
[2019-02-11 05:52] LABS: ABS Basophils 0.1 10^3/ul (0-0.2); ABS Eosinophils 0.2 10^3/ul (0-0.6); ABS Lymphocytes 0.9 10^3/ul (1.0-4.8); ABS Monocytes 0.8 10^3/ul (0-0.8); ABS Nucleated RBC 0.1 10^3/ul; Hematocrit 36 % (35-47); Hemoglobin 11.8 g/dL (12.0-16.0); Mean Corpuscular HGB Conc 33 g/dL (31-36); Mean Corpuscular Hemoglobin 30 pg (27-31); Mean Corpuscular Volume 93 fL (80-97); Mean Platelet Volume 10.3 fL (7.4-10.4); Platelet Count 42 10^3/uL (150-450); Red Blood Count 3.91 10^6 /uL (3.70-4.87); Red Cell Distribution Width 17 % (10-15); White Blood Count 26.9 10^3/uL (3.5-10.8)
[2019-02-11 05:56] LABS: Albumin 2.2 g/dL (3.2-5.2); Calcium 8.7 mg/dL (8.6-10.3); EGFR African American 78.2 (>60); EGFR Non-African American 64.6 (>60); Globulin 2.3 g/dL (2-4); Potassium 3.2 mmol/L (3.5-5.0); Total Bilirubin 0.7 mg/dL (0.2-1.0); Total Protein 4.5 g/dL (6.4-8.9)
[2019-02-11 06:14] LABS: Eosinophil % 0.6 %; Lymphocyte % 3.2 %; Nucleated Red Blood Cells % 0.2
[2019-02-11] MEDS: guaiFENesin ER TAB 600 MG PO SCH (08:47)
[2019-02-11] MEDS: Magnesium Oxide TAB* 400 MG PO SCH (08:47)
[2019-02-11] MEDS: Ascorbic Acid TAB* 500 MG PO SCH (08:47)
[2019-02-11] MEDS: Metoprolol Tartrate TAB* 25 MG PO SCH (08:48)
[2019-02-11] MEDS: Potassium Chlor TAB* 20 MEQ TAB.ER PO SCH (08:48)
[2019-02-11] MEDS: Sertraline* 100 MG TAB PO SCH (08:48)
[2019-02-11] MEDS: KCL 20 MEQ/100 ML IVPREMIX* 20 MEQ/100 ML BAG IV SCH ×2 (09:07→11:11)
[2019-02-11] MEDS ORDERED: Lidocaine PATCH 5%* 1 PATCH TRANSDERM SCH (13:00)
--- NOTE | 2019-02-11 13:41 | PN ---
Subjective Date of Service: 02/11/19 Interval History: Ms. Akash Cook is not able to wake today to answer any questions. Nursing reports she has been very lethargic all day, not able to take in any PO intake. Family arrived later this morning and there was a long discussion about goals of treatment. They completed a new MOLST form. They are concerned that she may not survive this illness and they are not sure that they would want to pursue replacing the pacer or a TREVON. 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 No further concerns from nursing. Family History: Unchanged from Admission Social History: Unchanged from Admission Past Medical History: Unchanged from Admission Objective Active Medications: Acetaminophen (Tylenol Tab*) 650 mg PO Q6H PRN MILD PAIN or TEMP > 100.4 Ascorbic Acid (Vitamin C Tab*) 1,000 mg PO DAILY [facility] Benzonatate (Tessalon Cap*) 100 mg PO BID PRN COUGH Enoxaparin Sodium (Lovenox(*)) 40 mg SUBCUT Q24H [facility] Guaifenesin (Mucinex*) 1,200 mg PO BID [facility] Heparin Sodium (Porcine) (Heparin Flush Picc/Ml/Cvc(*)) 1 - 3 ml FLUSH 0600, 1800 [facility]; Protocol Hydralazine HCl (Apresoline Iv*) 10 mg IV SLOW PU Q6H PRN Systolic Bp Greater Than:160 Cefazolin Sodium 2 gm/ Sodium (Chloride) 100 mls @ 200 mls/hr IVPB Q8H [facility] Sodium Chloride (Ns 0.45% 1000 Ml Bag*) 1,000 mls @ 75 mls/hr IV PER RATE [facility] Lidocaine (Lidoderm 5% Patch*) 1 patch TRANSDERM DAILY [facility] Magnesium Oxide (Magox 400 Tab*) 400 mg PO DAILY [facility] Metoprolol Tartrate (Lopressor Tab*) 12.5 mg PO BID [facility] Morphine Sulfate (Morphine Inj (Syringe))*) 2 mg IV Q4H PRN PAIN - MODERATE Ondansetron HCl (Zofran Inj*) 4 mg IV Q6H PRN NAUSEA Potassium Chloride (Klor Con Er Tab*) 20 meq PO DAILY [facility] Sertraline HCl (Zoloft*) 200 mg PO DAILY [facility] Vital Signs - 8 hr 02/11/19 02/11/19 02/11/19 06:00 06:01 06:14 Temperature 99.5 F 99.5 F 99.5 F Pulse Rate 101 103 104 Respiratory 20 23 21 Rate Blood Pressure 162/76 163/91 (mmHg) O2 Sat by Pulse 92 89 89 Oximetry 02/11/19 02/11/19 02/11/19 07:00 07:25 08:00 Temperature 99.9 F 100.2 F Pulse Rate 103 99 Respiratory 26 22 34 Rate Blood Pressure 155/69 147/68 (mmHg) O2 Sat by Pulse 92 95 Oximetry 02/11/19 02/11/19 02/11/19 08:02 09:00 09:01 Temperature 100.2 F 100.4 F 100.4 F Pulse Rate 99 98 97 Respiratory 39 14 6 Rate Blood Pressure 142/59 (mmHg) O2 Sat by Pulse 95 95 95 Oximetry 02/11/19 02/11/19 02/11/19 10:00 10:01 11:00 Temperature 99.7 F 99.7 F 99.1 F Pulse Rate 95 94 93 Respiratory 17 18 17 Rate Blood Pressure 127/62 130/68 (mmHg) O2 Sat by Pulse 95 95 96 Oximetry 02/11/19 02/11/19 12:46 12:59 Temperature Pulse Rate Respiratory 20 30 Rate Blood Pressure (mmHg) O2 Sat by Pulse Oximetry Oxygen Devices in Use Now: High Flow Heated Nasal Cannula Appearance: Elderly female laying in bed, dyspneic but not in distress Eyes: No Scleral Icterus Ears/Nose/Mouth/Throat: Mucous Membranes Moist Neck: NL Appearance and Movements; NL JVP, Trachea Midline Respiratory: Symmetrical Chest Expansion and Respiratory Effort, - - Rhonchi throughout Cardiovascular: NL Sounds; No Murmurs; No JVD Abdominal: - - SNT Extremities: - - +2 pitting BUE Neurological: - - Responds to painful stimuli Lines/Tubes/Other Access: Clean, Dry and Intact Peripheral IV Result Diagrams: 02/11/19 05:15 02/11/19 05:15 Assess/Plan/Problems-Billing Assessment: Ms. Akash Cook is an 83 yo F with PMH of frequent falls, afib not on AC, recent PM insertion, HTN, RA, PE, and OA; who presented to the ED after falls and was found to be hypoxic with O2 sat of 54% in the field, treated for sepsis and admitted to ICU for respiratory failure, on vapotherm. - Patient Problems (1) Respiratory failure, acute Code(s): J96.00 - ACUTE RESPIRATORY FAILURE, UNSP W HYPOXIA OR HYPERCAPNIA Comment: - Secondary to pneumonia - Still requiring vapotherm at 95% FIO2 - With AMS at admission, CT brain negative for CVA - Repeat ABG this morning stable without CO2 retention - CTA this morning unremarkable for PE, but shows ground glass opacifications and concern for CHF with hepatic congestion - Wean O2 as tolerated - Continue pulmonary toileting - Will hold off on additional furosemide today d/t hypovolemia (2) Hypernatremia Code(s): E87.0 - HYPEROSMOLALITY AND HYPERNATREMIA Comment: - Na up from yesterday - Suspect hypovolemia, though there is some third spacing resulting in BUE edema - Change IVF to 1/2 NS and recheck BMP this evening (3) Pneumonia Code(s): J18.9 - PNEUMONIA, UNSPECIFIED ORGANISM Comment: - Likely aspiration, presumed to be Staph aureus - Continue cefazolin (4) MSSA bacteremia Code(s): R78.81 - BACTEREMIA Comment: - Echo with no vegetation on PM wire, no vegetation on valves - Source likely PNA, follow sputum culture - Will consult ID on Tuesday - Continue cefazolin (5) Thrombocytopenia Code(s): D69.6 - THROMBOCYTOPENIA, UNSPECIFIED Comment: - Suspect secondary to sepsis - D/c Lovenox (6) Sepsis Comment: - Severe sepsis with lactic acid >5, tachypnea, leukocytosis - No hypotension - MSSA in blood, source pneumonia - Plan as above (7) Atrial fibrillation Code(s): I48.91 - UNSPECIFIED ATRIAL FIBRILLATION Comment: - NSR on tele - Not on AC secondary to frequent falls - Hold metoprolol while NPO (8) Sick sinus syndrome Code(s): I49.5 - SICK SINUS SYNDROME Comment: - S/p PPM 11/06/18 - No evidence of vegetations on wire, but will consult ID on Tuesday (9) Hx of pulmonary embolus Code(s): Z86.711 - PERSONAL HISTORY OF PULMONARY EMBOLISM Comment: - Not on AC secondary to frequent falls - No evidence of PE on CTA this admission (10) Hypertension Code(s): I10 - ESSENTIAL (PRIMARY) HYPERTENSION Comment: - Normotensive - Continue hydralazine PRN (11) Depression Code(s): F32.9 - MAJOR DEPRESSIVE DISORDER, SINGLE EPISODE, UNSPECIFIED Comment: - Hold sertraline while NPO (12) DVT prophylaxis Comment: - SCDs only in the setting of thrombocytopenia (13) DNR (do not resuscitate) Comment: Status and Disposition: Inpatient in ICU with respiratory failure requiring Vapotherm. Prognosis poor and family is understanding of this. Palliative care consult placed. Counseling and/or Coordination of Care Minutes: Critical care time: 60 min Attending: Trina Casillas
[2019-02-11] MEDS ORDERED: Acetaminophen SUPP* 650 MG SUPP PR PRN (13:49)
[2019-02-11] MEDS ORDERED: NS 0.45% 1000 ML BAG* 1,000 ML IV SCH ×2 (14:00→16:31)
[2019-02-11] MEDS ORDERED: Piperacillin/Tazobac ADVAN(*) 3.375 GM in NS 0.9% 100 ML* 100 ML IVPB ONE (14:42)
[2019-02-11] MEDS ORDERED: Zosyn per Pharmacy* NOTE FOLLOW UP SCH (15:00)
[2019-02-11 18:04] LABS: BUN/Creatinine Ratio 37.1 (8-20); Calcium 8.7 mg/dL (8.6-10.3); EGFR African American 43.3 (>60); EGFR Non-African American 35.8 (>60); Potassium 4.8 mmol/L (3.5-5.0)
[2019-02-11 19:12] VITALS: BP 45/25
[2019-02-11] MEDS ORDERED: ZOSYN 3.375 GM Q8H per EXTENDED INFUSION IVPB SCH ×2 (19:30)
[2019-02-11] MEDS ORDERED: Lidocaine Patch REMOVE* 1 NOTE MISC SCH (21:00)
--- NOTE | 2019-02-11 23:24 | DS ---
CC: Dr. Farheen Martin * SUMMARY: DATE OF ADMISSION: 02/08/19 DATE OF : 02/11/19 TIME OF : 1922. PRIMARY CARE PROVIDER: Dr. Farheen Martin. ATTENDING PHYSICIAN: Dr. Pedro Jade.* (DICTATED BY WENDIE CEBALLOS NP) HISTORY OF PRESENT ILLNESS: Ms. 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 She was ultimately admitted to the hospital for sepsis secondary to pneumonia and acute hypoxic respiratory failure. She required Vapotherm to maintain oxygen saturations. She had 4/4 blood cultures which grew Staph aureus. The presumed source of staph aureus was pneumonia, possibly aspiration pneumonia based on the history from the daughter. The patient has been treated with vanco, Flagyl , and cefepime initially. Then changed to cefazolin and just today changed to Zosyn. Yesterday, the patient was very lethargic, but able to answer simple questions. Today, the patient was only responding to painful stimuli during the day. She was maintaining oxygen saturations on Vapotherm and had been borderline tachycardic with the heart rate in the 90s for the most of the day. This morning, I did have a long conversation with the patient's 2 daughters regarding goals of care. They were very understanding that the patient had a very poor prognosis, though did want to continue to treat with antibiotics. We did fill out a new MOLST form today which indicated that the patient was a DNR/ DNI and they did not want any invasive measures. The patient remained relatively stable during the day, though I received a call from the nurse around 1830 that the patient was doing very poor, heart rate had dropped and she was being paced at 100%, respiratory effort was significantly decreased and she was noted to have agonal breathing. I called the patient's daughter, Chinyere, and let her know that it seemed as though the patient was imminently dying. She was agreeable to comfort measures and indicated that she would come up to the hospital within the next 20 minutes. The patient did remain alive until her daughter got to the hospital. Respirations ceased and a magnet was applied over the patient's pacer. Time was was called at 1923 when the patient no longer had a heart beat on telemetry monitoring. The family does not want autopsy. FINAL DIAGNOSES: 1. Acute hypoxic respiratory failure. 2. Pneumonia, suspected aspiration. 3. Methicillin-sensitive Staphylococcus aureus bacteremia. 4. Severe sepsis. 5. Thrombocytopenia. 6. Hyponatremia. DISCHARGE CONDITION: . DISCHARGE DISPOSITION: . Please refer to the complete medical record for full details regarding this hospitalization. TIME SPENT: Over 90 minutes was spent on the care of this patient, conversation with family and initiation of comfort measures. WENDIE CEBALLOS, JIM [id number]/CPS #: [id number] NICHOL
== END 2019-02-11 19:23 | disposition expired | DRG 871 ==
LOC: ED 08:22 → ICU 11:30
PROVIDERS: ADMIT Hospitalist; ATTEND Internal Medicine
DX: A41.01 Sepsis due to Methicillin susceptible Staphylococcus aureus (principal); J96.01 Acute respiratory failure with hypoxia; J69.0 Pneumonitis due to inhalation of food and vomit; R65.21 Severe sepsis with septic shock; E87.1 Hypo-osmolality and hyponatremia; I48.91 Unspecified atrial fibrillation; I10 Essential (primary) hypertension; M06.9 Rheumatoid arthritis, unspecified; Z66 Do not resuscitate; D69.6 Thrombocytopenia, unspecified; I48.0 Paroxysmal atrial fibrillation; F32.9 Major depressive disorder, single episode, unspecified; F41.9 Anxiety disorder, unspecified; M79.7 Fibromyalgia; M19.90 Unspecified osteoarthritis, unspecified site; W19.XXXA Unspecified fall, initial encounter; M54.2 Cervicalgia; K21.9 Gastro-esophageal reflux disease without esophagitis; F03.90 Unspecified dementia, unspecified severity, without behavioral disturbance, psychotic disturbance, mood disturbance, and anxiety; Z96.653 Presence of artificial knee joint, bilateral; Z96.611 Presence of right artificial shoulder joint; R29.6 Repeated falls; I49.5 Sick sinus syndrome; M81.0 Age-related osteoporosis without current pathological fracture; Z90.49 Acquired absence of other specified parts of digestive tract; Z95.0 Presence of cardiac pacemaker; Z86.711 Personal history of pulmonary embolism; Z80.1 Family history of malignant neoplasm of trachea, bronchus and lung; Z80.0 Family history of malignant neoplasm of digestive organs; Z87.891 Personal history of nicotine dependence; Y92.9 Unspecified place or not applicable; Z98.41 Cataract extraction status, right eye; Z98.42 Cataract extraction status, left eye; Z86.11 Personal history of tuberculosis
CPT/HCPCS: 36415; 36600; 70450; 71045; 71275; 80048; 80053; 81003; 81015; 82550; 82553; 82803; 83605; 83735; 83880; 83935; 84300; 84484; 85025; 85379; 85730; 86140; 87040; 87077; 87086; 87150; 87186; 87205; 87641; 87899; 93005; 93306; 93970; 99282; 99285; A9270-GY; J0360; J0690; J0692; J0696; J1650; J1940; J2270; J2543; J3370; J3475; J3480; Q9967